=== PATIENT | male | born 1965 | race Caucasian/White ===

== ENCOUNTER 2017-02-24 07:43 | Outpatient (CLI) | payer MEDICARE | END 2017-02-24 23:59 | DX: Z13.9 Encounter for screening, unspecified (principal); Z79.899 Other long term (current) drug therapy; Z12.5 Encounter for screening for malignant neoplasm of prostate | CPT/HCPCS: 36415; 80053; 80061; 84443; 85025; G0103 ==

== ENCOUNTER 2017-07-08 08:02 | Emergency (ER) | payer MEDICARE, MEDICAID ==
[2017-07-08] MEDS ORDERED: KETOROLAC 60 MG/2 ML VIAL IM STA (08:35)
--- NOTE | 2017-07-08 08:38 | ED Physician Documentation ---
History of Present Illness - Stated complaint Stated Complaint: HIP PX - Chief complaint Chief Complaint: Ext Problem - Additonal information Additional information: hx from pt 51 amle hx arthritis in back and hips when is flares up he usually sees his PMD or an ER for toradol shot he has been walking more than normal recently and thinks that is what aggravated his pain pain is just like prior arthritis pain no injury no fever no chest or abd pain occ pain rad down one or other posterior thighs but not now no weakness or numbness no incont or urinary sx no IVDA or recent surgery or dental work Review of Systems Constitutional: denies: Fever, Chills Throat: denies: Sore throat Cardiac: denies: Chest pain / pressure Respiratory: denies: Dyspnea GI: denies: Abdominal Pain : denies: Incontinent Musculoskeletal: reports: Back pain Neurologic: denies: Focal weakness, Numbness Endocrine: denies: Easy bruising / bleeding Immunocompromised: denies: Immunocompromised PD PAST MEDICAL HISTORY - Past Medical History Past Medical History: Yes Cardiovascular: Peripheral Vascular Disease : Renal insuffiency Psych: Obsessive compulsive disorder, Other - Past Surgical History Past Surgical History: Yes - Present Medications Home Medications: Ambulatory Orders Medication Instructions Recorded Confirmed Benztropine [Cogentin] 2 mg PO BID 07/03/14 07/08/17 Pimozide [Orap] 2 mg PO BID 07/03/14 07/08/17 Buspirone HCl 10 mg PO TID 07/08/17 07/08/17 Lidocaine Patch 5% [Lidoderm Patch] 1 each TOP DAILY PRN #10 patch 07/08/17 Suvorexant [Belsomra] 10 mg PO DAILY 07/08/17 07/08/17 - Allergies Allergies/Adverse Reactions: Allergies Allergy/AdvReac Type Severity Reaction Status Date / Time No Known Drug Allergies Allergy Verified 07/03/14 11:46 - Social History Does the pt smoke?: Yes Smoking Status: Current every day smoker Does the pt drink ETOH?: No Does the pt have substance abuse?: Yes - Immunizations Immunizations are current?: Yes PD ED PE NORMAL - Vitals Vital signs reviewed: Yes - Neck Neck: Supple, no meningeal sign - Cardiac Cardiac: RRR - Respiratory Respiratory: No respiratory distress, Clear bilaterally - Abdomen Abdomen: Soft, Non tender, Other (no pulsatile mass) - Back Back: No spinal TTP, Other (no focal TTP swelling redness or warmth) - Derm Derm: Normal color - Extremities Extremities: Normal ROM s pain, Other (strong pedal pulses) - Neuro Neuro: Other (hip flex knee ext foot dorsi plantar and great toe ext all 5/5, nl senstion to legs, denies saddle anesthesia, neg SLR rashmi, patellar DTR 1+/4 4 rashmi, no clonus) Results - Vitals Vitals: Vital Signs - 24 hr 07/08/17 08:05 Temperature 36.2 C L Heart Rate 70 Respiratory 18 Rate Blood Pressure 127/89 H O2 Saturation 100 Oxygen O2 Source Room air PD MEDICAL DECISION MAKING - ED course ED course: back pain same as his prior arthritic back pain worse after inc activity with nl neuro exam and no red flags on hx given req toradol Departure - Departure Disposition: 01 Home, Self Care Clinical Impression: Arthritis Condition: Good Instructions: ED Low Back Pain Injury Follow-Up: Kenzie Cowan, [employer] [employer] [Primary Care Provider] - Prescriptions: Lidocaine Patch 5% [Lidoderm Patch] 1 each TOP DAILY PRN #10 patch PRN Reason: Pain Comments: Continue your usual medications You can try the lidocaine patches I prescribed - one patch up to 12 hr a day - for the back pain Follow up with your PDM as needed
[2017-07-08] MEDS ORDERED: KETOROLAC 60 MG/2 ML VIAL ONE (08:43)
[2017-07-08 09:23] VITALS: BP 116/72
== END 2017-07-08 09:23 | disposition home or self-care (01) ==
LOC: ED 08:02
DX: M16.0 Bilateral primary osteoarthritis of hip (principal); M47.9 Spondylosis, unspecified; I73.9 Peripheral vascular disease, unspecified; N28.9 Disorder of kidney and ureter, unspecified; F17.200 Nicotine dependence, unspecified, uncomplicated
CPT/HCPCS: 96372; 99283

== ENCOUNTER 2017-09-30 11:34 | Emergency (ER) | payer MEDICARE, MEDICAID ==
[2017-09-30] MEDS ORDERED: HYDROcod/ACETAM 5/325 MG TABLET PO STA (12:10)
--- NOTE | 2017-09-30 12:11 | ED Physician Documentation ---
PD HPI UPPER EXT INJURY - Stated complaint Stated Complaint: ARM INJURY - Chief complaint Chief Complaint: Ext Problem - History obtained from History obtained from: Patient - History of Present Illness Location: Other (Right-handed gentleman who tripped and fell yesterday, swung around and landed on his left wrist with moderate left wrist pain, no other injuries.) Review of Systems Constitutional: reports: Reviewed and negative Cardiac: reports: Reviewed and negative Respiratory: reports: Reviewed and negative PD PAST MEDICAL HISTORY - Past Medical History Cardiovascular: Peripheral Vascular Disease : Renal insuffiency Psych: Obsessive compulsive disorder, Other - Past Surgical History Past Surgical History: Yes - Present Medications Home Medications: Ambulatory Orders Medication Instructions Recorded Confirmed Benztropine [Cogentin] 2 mg PO BID 07/03/14 07/08/17 Pimozide [Orap] 2 mg PO BID 07/03/14 07/08/17 Buspirone HCl 10 mg PO TID 07/08/17 07/08/17 Lidocaine Patch 5% [Lidoderm Patch] 1 each TOP DAILY PRN #10 patch 07/08/17 Suvorexant [Belsomra] 10 mg PO DAILY 07/08/17 07/08/17 HYDROcod/ACETAM 5/325 [[place] 5/325] 1 - 2 ea PO Q6H PRN #10 tablet 09/30/17 - Allergies Allergies/Adverse Reactions: Allergies Allergy/AdvReac Type Severity Reaction Status Date / Time No Known Drug Allergies Allergy Verified 07/03/14 11:46 - Social History Does the pt smoke?: Yes Smoking Status: Current every day smoker Does the pt drink ETOH?: No Does the pt have substance abuse?: Yes - Immunizations Immunizations are current?: Yes PD ED PE NORMAL - Vitals Vital signs reviewed: Yes - General General: Alert and oriented X 3, No acute distress - Extremities Extremities: Other (Focally tender to the left distal radius and limited range of motion especially in extension due to pain. No deformity. Neurovascularly intact in the hand with good radial pulses. No elbow tenderness.) - Neuro Neuro: Alert and oriented X 3, Normal speech Results - Vitals Vitals: Vital Signs - 24 hr 09/30/17 11:40 Temperature 36.7 C Heart Rate 72 Respiratory 18 Rate Blood Pressure 155/101 H O2 Saturation 98 Oxygen O2 Source Room air - Rads (name of study) L forearm Radiology: EMP read contemporaneously (Very mildly impacted left distal radius intra-articular fracture) Procedures - Splint (location) L wrist Splint applied by: Tech Type of splint: Fiberglass, Long arm, Sugar tong Other: Patient tolerated well, No complications, Neurovascular intact, Sling provided Departure - Departure Disposition: 01 Home, Self Care Clinical Impression: Distal radius fracture, left Qualifiers: Encounter type: initial encounter Fracture type: closed Fracture morphology: other intra-articular Qualified Code(s): S52.572A - Other intraarticular fracture of lower end of left radius, initial encounter for closed fracture Condition: Good Record reviewed to determine appropriate education?: Yes Instructions: ED Fx Forearm Radius Ulna No Redu Requ Follow-Up: [facility] [Provider Group] - Within 1 week Prescriptions: HYDROcod/ACETAM 5/325 [[place] 5/325] 1 - 2 ea PO Q6H PRN #10 tablet PRN Reason: Pain Comments: Your blood pressure was elevated today on check into the emergency department. This does not mean that you have hypertension, it is a common phenomenon to come to the emergency department and have elevated blood pressure. I recommend that you see your primary care physician within the week to have it rechecked when you are feeling better. Do not drink or drive while taking narcotic pain medication. Note that many narcotic pain relievers also contain Tylenol/acetaminophen. Please ensure that your total dose of acetaminophen from all sources does not exceed 3 g (3000 mg) per day. You may get constipated while on this medication. Take a stool softener such as Colace twice a day while you are on it. Also add an [id number]-caeeopd laxative such as senna or MiraLAX on any day that you do not have a bowel movement. If you received a narcotic pain medication or sedative while in the emergency department, do not drive for the next 24 hours.
--- NOTE | 2017-09-30 12:17 | XRAY Preliminary Report ---
Exam: XR FOREARM LT IMPRESSION: 1. Nondisplaced intra-articular distal radial fracture. 2. Probable lunate cyst. [facility] SITE ID: [id number]
[2017-09-30] MEDS ORDERED: HYDROcod/ACETAM 5/325 MG TABLET ONE (12:21)
--- NOTE | 2017-09-30 12:21 | XRAY Report ---
EXAM: LEFT FOREARM RADIOGRAPHY EXAM DATE: 09/30/2017 11:58 AM. CLINICAL HISTORY: Left forearm injury. COMPARISON: None. TECHNIQUE: 2 views. FINDINGS: Bones: Nondisplaced, intra-articular fracture of the distal radius, involving at least the radial sty loid. No other definite fracture or acute bone lesions. Probable 7 mm cyst within the lunate. If furt her evaluation of these findings were indicated, dedicated views of the risk be obtained. Joints: Normal. No effusions or subluxations in the visualized wrist or elbow joints. Soft Tissues: Normal. No soft tissue swelling. IMPRESSION: 1. Nondisplaced intra-articular distal radial fracture. 2. Probable lunate cyst. [facility] Referring Provider Line: [phone] SITE ID: [id number]
[2017-09-30 12:37] VITALS: BP 137/88
== END 2017-09-30 12:42 | disposition home or self-care (01) ==
LOC: ED 11:34
DX: S52.572A Other intraarticular fracture of lower end of left radius, initial encounter for closed fracture (principal); W01.0XXA Fall on same level from slipping, tripping and stumbling without subsequent striking against object, initial encounter; R03.0 Elevated blood-pressure reading, without diagnosis of hypertension; I73.9 Peripheral vascular disease, unspecified; F17.200 Nicotine dependence, unspecified, uncomplicated
CPT/HCPCS: 29105; 73090; 99283; A9270

== ENCOUNTER 2017-10-20 09:07 | Emergency (ER) | payer MEDICARE, MEDICAID ==
[2017-10-20] MEDS ORDERED: ONDANSETRON ODT 4 MG TABLET TL STA (09:35)
--- NOTE | 2017-10-20 09:37 | ED Physician Documentation ---
History of Present Illness - Stated complaint Stated Complaint: FLU SYMPTOMS/METH USE - Chief complaint Chief Complaint: General - History obtained from History obtained from: Patient (pt is here for evalution of nuasea and not feeling well since yesterday afternoon. he states that he feels like he needs to vomit but has not. no diarrhea but states that he feels like he needs to. No chest pain, shortness of breath, no abd pain, no rashes. he states that he tinks that he smoked some "bad meth" yesterday. No fevers.) Review of Systems Constitutional: reports: Fatigue. denies: Fever, Chills, Myalgias Nose: denies: Rhinorrhea / runny nose, Congestion, Sinus pressure / pain Throat: denies: Sore throat Cardiac: denies: Chest pain / pressure, Palpitations, Pedal edema Respiratory: denies: Dyspnea, Cough, Wheezing GI: reports: Abdominal Swelling, Nausea. denies: Abdominal Pain, Vomiting, Constipation, Diarrhea, Bloody / black stool : denies: Dysuria, Frequency, Hematuria Skin: denies: Rash, Lesions Musculoskeletal: denies: Joint swelling, Pain with weight bearing Neurologic: denies: Generalized weakness, Focal weakness, Syncope, Altered mental status, Headache, LOC PD PAST MEDICAL HISTORY - Past Medical History Past Medical History: Yes Cardiovascular: Peripheral Vascular Disease : Renal insuffiency Psych: Obsessive compulsive disorder, Other - Past Surgical History Past Surgical History: Yes - Present Medications Home Medications: Ambulatory Orders Medication Instructions Recorded Confirmed Benztropine [Cogentin] 2 mg PO BID 07/03/14 10/20/17 Pimozide [Orap] 2 mg PO BID 07/03/14 10/20/17 Buspirone HCl 10 mg PO TID 07/08/17 10/20/17 Methocarbamol 500 mg PO TID 10/20/17 10/20/17 Ondansetron Odt [Zofran Odt] 4 mg TL Q6H PRN #10 tablet 10/20/17 - Allergies Allergies/Adverse Reactions: Allergies Allergy/AdvReac Type Severity Reaction Status Date / Time No Known Drug Allergies Allergy Verified 10/20/17 09:32 - Social History Does the pt smoke?: Yes Smoking Status: Current every day smoker Does the pt drink ETOH?: No Does the pt have substance abuse?: Yes Substance Use and Type: Meth - Immunizations Immunizations are current?: Yes PD ED PE NORMAL - Vitals Vital signs reviewed: Yes - General General: Alert and oriented X 3, No acute distress, Well developed/nourished - HEENT HEENT: Atraumatic, Moist mucous membranes - Cardiac Cardiac: RRR, No murmur, No gallop - Respiratory Respiratory: No respiratory distress, Clear bilaterally - Abdomen Abdomen: Soft, Non tender, Non distended - Derm Derm: Normal color, No rash - Extremities Extremities: No deformity, No edema - Neuro Neuro: Alert and oriented X 3 Eye Opening: Spontaneous Motor: Obeys Commands Verbal: Oriented GCS Score: 15 - Psych Psych: Normal mood, Normal affect Results - Vitals Vitals: Vital Signs - 24 hr 10/20/17 09:12 Temperature 36.8 C Heart Rate 97 Respiratory 18 Rate Blood Pressure 156/92 H O2 Saturation 99 Oxygen O2 Source Room air PD MEDICAL DECISION MAKING - ED course Complexity details: d/w patient ED course: pt with a benign exam. no fevers. doubt the flu which the pt is concerned about. will treat the nausea and give rx for zofran. Normal cardiac and lung exam. will hold on further testing for now. I suspect that his sx are from the meth from yesterday. we discussed this together. recommended that he stop the meth and he expressed understanding. Departure - Departure Disposition: 01 Home, Self Care Clinical Impression: Nausea, Substance abuse Condition: Good Instructions: ED Drug Abuse General, Nausea Vomit Control Follow-Up: Sushma Johnston ARNP [Primary Care Provider] - Prescriptions: Ondansetron Odt [Zofran Odt] 4 mg TL Q6H PRN #10 tablet PRN Reason: Nausea / Vomiting Comments: Recommend that you stop the meth use. Increase your fluid intake. Return to the ER for any new or worsening symptoms
[2017-10-20] MEDS ORDERED: ONDANSETRON ODT 4 MG TABLET ONE (09:45)
[2017-10-20 10:03] VITALS: BP 129/84
== END 2017-10-20 09:53 | disposition home or self-care (01) ==
LOC: ED 09:07
DX: R11.0 Nausea (principal); F15.10 Other stimulant abuse, uncomplicated; I73.9 Peripheral vascular disease, unspecified; F17.200 Nicotine dependence, unspecified, uncomplicated
CPT/HCPCS: 99283; Q0162

== ENCOUNTER 2017-11-06 13:01 | Outpatient (CLI) | payer MEDICARE, MEDICAID | END 2017-11-06 13:02 | disposition critical access hospital (66) | LOC: EMS 13:01 | PROVIDERS: ATTEND Surgery | DX: R45.851 Suicidal ideations (principal) | CPT/HCPCS: A0425; A0429 ==

== ENCOUNTER 2017-11-06 13:18 | Emergency (ER) | payer MEDICARE, MEDICAID ==
[2017-11-06 13:30] VITALS: BP 153/90
--- NOTE | 2017-11-06 13:47 | ED Physician Documentation ---
PD HPI MHE - Stated complaint Stated Complaint: MHE - Chief complaint Chief Complaint: MHE - History obtained from History obtained from: Patient, EMS - History of Present Illness Primary symptom: Suicidal ideation (vague without plan), Depression, Other ( also having cough with some wheezing. Having some pain in left wrist, which is healing fracture from 3 weeks ago. Has some swelling left elbow for past week without new injury. He had wrist splint but it is at other [facility] ([facility]).) Timing - onset: How many days ago (few days more depressed since losing space at [facility]. He is staying in vehicle or getting place at [employer].) Contributing factors: No: Substance abuse - ETOH, Substance abuse - drugs (he denies recent drug or alcohol use (months).) Recently seen: Emergency Dept (had wrist fracture few weeks ago and saw ortho in follow up but apparently did not like them so does not want to go back. Wrist is hurting as he left his splint in [facility]. Was using it most of the time.) Review of Systems Constitutional: denies: Fever, Chills Nose: reports: Congestion. denies: Rhinorrhea / runny nose Throat: denies: Sore throat Cardiac: denies: Chest pain / pressure Respiratory: reports: Dyspnea, Cough, Wheezing GI: denies: Abdominal Pain, Nausea, Vomiting, Diarrhea : denies: Dysuria, Frequency Skin: denies: Abrasion (s), Laceration (s) Musculoskeletal: reports: Extremity pain (left wrist healing fracture), Extremity swelling (left elbow bursal effusion) PD PAST MEDICAL HISTORY - Past Medical History Cardiovascular: Peripheral Vascular Disease : Renal insuffiency Psych: Obsessive compulsive disorder, Other - Past Surgical History Past Surgical History: Yes - Present Medications Home Medications: Ambulatory Orders Medication Instructions Recorded Confirmed Benztropine [Cogentin] 2 mg PO BID 07/03/14 11/06/17 Pimozide [Orap] 2 mg PO BID 07/03/14 11/06/17 Buspirone HCl 10 mg PO TID 07/08/17 11/06/17 Albuterol Sulf [Ventolin Hfa 1 - 2 puffs INH Q4HR PRN #1 inhaler 11/06/17 Inhaler] Dexamethasone [Decadron] 4 mg PO DAILY #5 tablet 11/06/17 - Allergies Allergies/Adverse Reactions: Allergies Allergy/AdvReac Type Severity Reaction Status Date / Time No Known Drug Allergies Allergy Verified 10/20/17 09:32 - Social History Does the pt smoke?: Yes Smoking Status: Current every day smoker Does the pt drink ETOH?: No Does the pt have substance abuse?: Yes - Immunizations Immunizations are current?: Yes PD ED PE NORMAL - Vitals Vital signs reviewed: Yes - General General: Alert and oriented X 3, Well developed/nourished - HEENT HEENT: Ears normal, Pharynx benign - Neck Neck: Supple, no meningeal sign, No adenopathy - Cardiac Cardiac: RRR, No murmur - Respiratory Respiratory: Clear bilaterally (mostly, with just mild wheezing during deep breath and cough. ) - Abdomen Abdomen: Soft, Non tender - Derm Derm: Normal color, Warm and dry - Extremities Extremities: Other (mild tender at left wrist with moderate ROM. No obvious deformity. Left elbow with small bursal effusion, not tender. No redness. ) - Neuro Neuro: Alert and oriented X 3, No motor deficit, Normal speech - Psych Psych: No: Normal affect (flat affect and depressed mood but denies current suicidal intent/plan. ) Results - Vitals Vitals: Oxygen O2 Source Room air - Labs Labs: Laboratory Tests 11/06/17 11/06/17 11/06/17 13:50 14:25 14:25 WBC 9.4 RBC 5.07 Hgb 15.8 Hct 45.5 MCV 89.8 MCH 31.2 H MCHC 34.8 RDW 13.1 Plt Count 280 MPV 8.9 Neut # 6.5 Lymph # 1.9 [place] # 0.6 Eos # 0.3 Baso # 0.1 Absolute Nucleated RBC 0.00 Nucleated RBC % 0.0 Sodium 139 Potassium 3.6 Chloride 99 L Carbon Dioxide 29 Anion Gap 11.0 BUN 13 Creatinine 0.9 Estimated GFR (MDRD) 88 L Glucose 135 H Calcium 9.7 TSH Salicylates < 6.0 Urine Opiates Screen NEGATIVE Ur Oxycodone Screen NEGATIVE Urine Methadone Screen NEGATIVE Ur Propoxyphene Screen NEGATIVE Acetaminophen < 10 L Ur Barbiturates Screen NEGATIVE Ur Tricyclics Screen NEGATIVE Ur Phencyclidine Scrn NEGATIVE Ur Amphetamine Screen NEGATIVE U Methamphetamines Scrn NEGATIVE U Benzodiazepines Scrn NEGATIVE Urine Cocaine Screen NEGATIVE U Cannabinoids Screen NEGATIVE Ethyl Alcohol < 5.0 11/06/17 14:25 WBC RBC Hgb Hct MCV MCH MCHC RDW Plt Count MPV Neut # Lymph # [place] # Eos # Baso # Absolute Nucleated RBC Nucleated RBC % Sodium Potassium Chloride Carbon Dioxide Anion Gap BUN Creatinine Estimated GFR (MDRD) Glucose Calcium TSH 1.51 Salicylates Urine Opiates Screen Ur Oxycodone Screen Urine Methadone Screen Ur Propoxyphene Screen Acetaminophen Ur Barbiturates Screen Ur Tricyclics Screen Ur Phencyclidine Scrn Ur Amphetamine Screen U Methamphetamines Scrn U Benzodiazepines Scrn Urine Cocaine Screen U Cannabinoids Screen Ethyl Alcohol - Rads (name of study) left elbow Radiology: Prelim report reviewed, EMP read contemporaneously (no fracture) left wrist Radiology: Prelim report reviewed, EMP read contemporaneously (healing fracture in adequate position. ) PD MEDICAL DECISION MAKING - ED course Complexity details: reviewed results, considered differential (brief eval by MADDY and patient is okay with follow up [place] counselor. Given splint for wrist, which appears okay early healing on xray. He wants to be sure to get to [facility] in [facility] to [facility] bed [facility]. ), d/w patient Departure - Departure Disposition: 01 Home, Self Care Clinical Impression: Effusion of bursa of left elbow, Depressed affect, Suicidal ideation, Cough Distal radius fracture, left Qualifiers: Encounter type: subsequent encounter Fracture type: closed Fracture morphology : unspecified fracture morphology Fracture healing: with routine healing Qualified Code(s): S52.502D - Unspecified fracture of the lower end of left radius, subsequent encounter for closed fracture with routine healing Condition: Stable Record reviewed to determine appropriate education?: Yes Follow-Up: Sushma Johnston ARNP [Primary Care Provider] - Prescriptions: Albuterol Sulf [Ventolin Hfa Inhaler] 1 - 2 puffs INH Q4HR PRN #1 inhaler PRN Reason: Shortness Of Air/Wheezing Dexamethasone [Decadron] 4 mg PO DAILY #5 tablet Comments: Continue your current medications. Follow-up with [place] counseling next week as planned. Call the crisis line if needed to have somebody to talk to. Use the albuterol inhaler 2 puffs 4 times a day for the next 7-10 days. Decadron is for inflammation of the airways and should help with breathing as well. Use a wrist splint to keep protecting the wrist. It does appear to be healing well on x-ray. There is no fracture of the elbow and so the fluid in the bursa is just from inflammation and should go down over time. Return as needed. Discharge Date/Time: 11/06/17 15:34
[2017-11-06] MEDS ORDERED: ACETAMINOPHEN 325 MG TABLET PO STA (13:55)
[2017-11-06 14:01] LABS: MUDS CUTOFF CONCENTRATIONS CUTOFF CONC BELOW:
[2017-11-06 14:15] LABS: AMPHETAMINE SCREEN,URINE NEGATIVE (NEGATIVE); BENZODIAZEPINES SCREEN, URINE NEGATIVE (NEGATIVE); COCAINE SCREEN URINE NEGATIVE (NEGATIVE); METHADONE SCREEN, URINE NEGATIVE (NEGATIVE); METHAMPHETAMINES SCREEN, URINE NEGATIVE (NEGATIVE); OPIATE SCREEN, URINE NEGATIVE (NEGATIVE); OXYCODONE SCREEN, URINE NEGATIVE (NEGATIVE); PROPOXYPHENE SCREEN, URINE NEGATIVE (NEGATIVE); TRICYCLIC ANTIDEPRESSANT,URINE NEGATIVE (NEGATIVE)
--- NOTE | 2017-11-06 14:29 | XRAY Report ---
EXAM: LEFT ELBOW RADIOGRAPHY EXAM DATE: 11/06/2017 02:17 PM. CLINICAL HISTORY: Fall a month ago, with injury. COMPARISON: None. TECHNIQUE: 3 views. FINDINGS: Bones: No fracture or focal bony lesion. Joints: No evidence of dislocation. Soft Tissues: There is mild dorsal soft tissue swelling. IMPRESSION: No evidence of fracture or dislocation. [facility] Referring Provider Line: [phone] SITE ID: [id number]
[2017-11-06 14:30] LABS: BASOPHILS # (AUTO) 0.1 10^3/uL (0.0-0.1); BASOPHILS % (AUTO) 0.6 %; EOSINOPHILS # (AUTO) 0.3 10^3/uL (0.0-0.7); EOSINOPHILS % (AUTO) 3.2 %; HGB - HEMOGLOBIN 15.8 g/dL (14.0-18.0); LYMPHOCYTES # (AUTO) 1.9 10^3/uL (1.5-3.5); LYMPHOCYTES % (AUTO) 20.6 %; MEAN CORPUSCULAR HEMOGLOBIN 31.2 pg (27.0-31.0); MEAN CORPUSCULAR HGB CONC 34.8 g/dL (32.0-36.0); MEAN CORPUSCULAR VOLUME 89.8 fL (80.0-94.0); MEAN PLATELET VOLUME 8.9 fL (7.4-11.4); MONOCYTES # (AUTO) 0.6 10^3/uL (0.0-1.0); MONOCYTES % (AUTO) 6.1 %; NEUTROPHILS # (AUTO) 6.5 10^3/uL (1.5-6.6); NEUTROPHILS % (AUTO) 69.5 %; PLT - PLATELET COUNT 280 10^3/uL (130-450); RED BLOOD COUNT 5.07 10^6/uL (4.70-6.10); RED CELL DISTRIBUTION WIDTH 13.1 % (12.0-15.0); WHITE BLOOD COUNT 9.4 x10^3/uL (4.8-10.8)
--- NOTE | 2017-11-06 14:31 | XRAY Report ---
EXAM: LEFT WRIST RADIOGRAPHY EXAM DATE: 11/06/2017 02:17 PM. CLINICAL HISTORY: Follow up wrist fracture. COMPARISON: 09/30/2017. TECHNIQUE: 3 views. FINDINGS: Bones: There is fracture through the distal left radius. The fracture line is less distinct than what was seen on the previous examination. Joints: Normal. No subluxations. Soft Tissues: Normal. No soft tissue swelling. IMPRESSION: Healing fracture through the distal left radius. No new bony abnormalities are seen. [facility] Referring Provider Line: [phone] SITE ID: [id number]
[2017-11-06 14:44] LABS: BUN - BLOOD UREA NITROGEN 13 mg/dL (6-20); CALCIUM 9.7 mg/dL (8.5-10.3); CARBON DIOXIDE - CO2 29 mmol/L (21-32); CHLORIDE 99 mmol/L (101-111); CREATININE 0.9 mg/dL (0.6-1.2); GFR - MDRD 88 (>89); GLUCOSE 135 mg/dL (70-100); SALICYLATE < 6.0 mg/dL; SODIUM 139 mmol/L (135-145)
[2017-11-06 14:45] LABS: ACETAMINOPHEN < 10 ug/mL (10-30)
== END 2017-11-06 15:34 | disposition home or self-care (01) ==
LOC: EDUNIT# → ED 13:18
DX: M25.422 Effusion, left elbow (principal); F32.9 Major depressive disorder, single episode, unspecified; R45.851 Suicidal ideations; R05 Cough; S52.502D Unspecified fracture of the lower end of left radius, subsequent encounter for closed fracture with routine healing; X58.XXXD Exposure to other specified factors, subsequent encounter; I73.9 Peripheral vascular disease, unspecified; N28.9 Disorder of kidney and ureter, unspecified; F17.200 Nicotine dependence, unspecified, uncomplicated
CPT/HCPCS: 36415; 73080; 73110; 80048; 80306; 80307; 84443; 85025; 99283; 99284; A9270; G0480; 80320; 80329

== ENCOUNTER 2017-12-29 12:00 | Outpatient (CLI) | payer MEDICARE, MEDICAID ==
--- NOTE | 2017-12-29 17:51 | XRAY Report ---
TWO VIEW CHEST: 12/29/2017 CLINICAL INDICATION: Cough, lethargy, wheezing. FINDINGS: Frontal and lateral views of the chest demonstrate a normal cardiac silhouette. The lungs are clear. No effusion or pneumothorax is present. IMPRESSION: NORMAL CHEST. TD: 12/29/2017 17:50
== END 2017-12-29 12:01 | disposition home or self-care (01) ==
LOC: DI 12:00
PROVIDERS: ATTEND Physician Assistant Medical
DX: R05 Cough (principal); Z20.1 Contact with and (suspected) exposure to tuberculosis; F17.210 Nicotine dependence, cigarettes, uncomplicated; R06.2 Wheezing
CPT/HCPCS: 71046

== ENCOUNTER 2018-01-20 11:30 | Outpatient (CLI) | payer MEDICARE, MEDICAID | END 2018-01-20 11:45 | disposition home or self-care (01) | LOC: RT.N 11:30 | PROVIDERS: ATTEND Physician Assistant Medical | DX: Z51.81 Encounter for therapeutic drug level monitoring (principal) | CPT/HCPCS: 93005 ==

== ENCOUNTER 2018-03-12 08:00 | Outpatient (CLI) | payer MEDICARE, MEDICAID ==
[2018-03-12 13:47] LABS: CALCIUM 8.8 mg/dL (8.5-10.3); CREATININE 0.8 mg/dL (0.6-1.2); MAGNESIUM 2.2 mg/dL (1.7-2.8)
[2018-03-12 14:16] LABS: BASOPHILS % (AUTO) 0.3 %; EOSINOPHILS # (AUTO) 0.2 10^3/uL (0.0-0.7); EOSINOPHILS % (AUTO) 1.7 %; HGB - HEMOGLOBIN 14.8 g/dL (14.0-18.0); LYMPHOCYTES % (AUTO) 20.5 %; MEAN CORPUSCULAR HEMOGLOBIN 30.1 pg (27.0-31.0); MEAN CORPUSCULAR HGB CONC 33.9 g/dL (32.0-36.0); MEAN CORPUSCULAR VOLUME 88.8 fL (80.0-94.0); MEAN PLATELET VOLUME 9.8 fL (7.4-11.4); MONOCYTES # (AUTO) 0.7 10^3/uL (0.0-1.0); MONOCYTES % (AUTO) 7.1 %; NEUTROPHILS # (AUTO) 6.9 10^3/uL (1.5-6.6); NEUTROPHILS % (AUTO) 70.4 %; PLT - PLATELET COUNT 245 10^3/uL (130-450); RED CELL DISTRIBUTION WIDTH 13.7 % (12.0-15.0); WHITE BLOOD COUNT 9.8 x10^3/uL (4.8-10.8)
== END 2018-03-12 08:01 | disposition home or self-care (01) ==
LOC: LAB.N 08:00
PROVIDERS: ATTEND Physician Assistant Medical
DX: Z51.81 Encounter for therapeutic drug level monitoring (principal); N18.2 Chronic kidney disease, stage 2 (mild)
CPT/HCPCS: 36415; 80048; 83735; 85025

== ENCOUNTER 2018-05-28 11:54 | Outpatient (CLI) | payer MEDICARE, MEDICAID ==
--- NOTE | 2018-05-28 13:17 | XRAY Report ---
Procedure Date: 05/28/2018 Accession Number: [id number] / [id number] Procedure: XR - Wrist 3 View LT CPT Code: FULL RESULT: EXAM: Wrist 3 View LT DATE: 05/28/2018 12:12 PM CLINICAL HISTORY: THUMB PX, L PX L WRIST, NONDISPLACED FX L COMPARISON: 11/06/2017. TECHNIQUE: 3 views. FINDINGS: Bones: Interval healing of the previously seen distal radial fracture with osseous bridging. No new fracture or dislocation. Joints: Normal. No subluxations. Soft Tissues: Normal. No soft tissue swelling. IMPRESSION: Healed left radial fracture. [facility]
== END 2018-05-28 11:55 | disposition home or self-care (01) ==
LOC: DI 11:54
PROVIDERS: ATTEND Physician Assistant Medical
DX: M79.645 Pain in left finger(s) (principal); M25.532 Pain in left wrist; M65.4 Radial styloid tenosynovitis [de Quervain]; S52.515S Nondisplaced fracture of left radial styloid process, sequela

== ENCOUNTER 2018-12-06 15:40 | Emergency (ER) | payer MEDICARE, MEDICAID | END 2018-12-06 15:50 | disposition left against medical advice (07) | LOC: ED 15:40 | DX: Z53.21 Procedure and treatment not carried out due to patient leaving prior to being seen by health care provider (principal) ==

== ENCOUNTER 2018-12-29 04:44 | Emergency (ER) | payer MEDICARE, MEDICAID ==
--- NOTE | 2018-12-29 04:58 | ED Physician Documentation ---
PD HPI URI - Stated complaint Stated Complaint: CONGESTION,SINUS PAIN - Chief complaint Chief Complaint: Resp - History obtained from History obtained from: Patient - History of Present Illness Timing - onset: How many days ago (2) Timing duration: Days Timing details: Gradual onset, Waxing and waning Pain level now: 4 (left hip and low back (chronic, usually takes diclofenac but has been out of this for several days)) Associated symptoms: Dry cough, Dyspnea. No: Fever, Chills, Sweats, Sore throat, Hemoptysis, Chest pain Improves by: Rest Worsened by: Activity Similar symptoms before: Diagnosis (asthma) Recently seen: Not recently seen - Additional information Additional information: c/o 2 days of V[employer] cough, dyspnea, wheezing. h/o asthma. Missed most recent appointment with PMD and thus is out of his albuterol. Has appointment 01/03 with PMD Review of Systems Constitutional: denies: Fever, Chills, Sweats Cardiac: reports: Reviewed and negative Respiratory: reports: Dyspnea, Cough, Wheezing GI: reports: Reviewed and negative Musculoskeletal: reports: Back pain (low back (chronic)), Joint pain (left hip (chronic)) PD PAST MEDICAL HISTORY - Past Medical History Cardiovascular: Peripheral Vascular Disease : Renal insuffiency Psych: Obsessive compulsive disorder, Other - Past Surgical History Past Surgical History: Yes - Present Medications Home Medications: Ambulatory Orders Medication Instructions Recorded Confirmed Benztropine [Cogentin] 2 mg PO BID 07/03/14 11/17/17 Pimozide [Orap] 2 mg PO BID 07/03/14 11/17/17 Buspirone HCl 10 mg PO TID 07/08/17 11/17/17 Albuterol Sulf [Ventolin Hfa 1 - 2 puffs INH Q4HR PRN #1 inhaler 11/06/17 11/17/17 Inhaler] Albuterol Sulf [Ventolin Hfa 1 - 2 puffs INH Q4HR PRN #1 inhaler 12/29/18 Inhaler] - Allergies Allergies/Adverse Reactions: Allergies Allergy/AdvReac Type Severity Reaction Status Date / Time No Known Drug Allergies Allergy Verified 12/29/18 04:51 - Social History Does the pt smoke?: Yes Smoking Status: Current every day smoker Does the pt drink ETOH?: No Does the pt have substance abuse?: Yes - Immunizations Immunizations are current?: Yes PD ED PE NORMAL - Vitals Vital signs reviewed: Yes - General General: Alert and oriented X 3, No acute distress, Well developed/nourished - Neck Neck: Supple, no meningeal sign - Cardiac Cardiac: RRR, No murmur - Respiratory Respiratory: No respiratory distress, Other (bilateral expiratory wheezing) - Derm Derm: No rash Results - Vitals Vitals: Vital Signs - 24 hr 12/29/18 12/29/18 12/29/18 04:45 05:22 06:28 Temperature 36.4 C L Heart Rate 92 87 76 Respiratory 18 18 20 Rate Blood Pressure 114/80 113/75 O2 Saturation 98 100 Oxygen O2 Source Room air PD MEDICAL DECISION MAKING - ED course Complexity details: re-evaluated patient, considered differential, d/w patient ED course: After duoneb, he reports significant improvement and lungs now have good aeration with trace end-expiratory wheezing at bilaterally. Also given toradol IM for his chronic hip and back pain. Departure - Departure Disposition: 01 Home, Self Care Clinical Impression: Bronchitis with bronchospasm Condition: Good Instructions: ED Bronchitis Asthmatic Follow-Up: George Chatterjee PA-C [Primary Care Provider] - Prescriptions: Albuterol Sulf [Ventolin Hfa Inhaler] 1 - 2 puffs INH Q4HR PRN #1 inhaler PRN Reason: Shortness Of Air/Wheezing Discharge Date/Time: 12/29/18 06:34
[2018-12-29] MEDS ORDERED: IPRATROPIUM/ALBUTEROL 3 ML NEB INH STA (05:12)
[2018-12-29] MEDS ORDERED: KETOROLAC 60 MG/2 ML VIAL IM STA (05:13)
[2018-12-29 06:31] VITALS: BP 113/75
== END 2018-12-29 06:34 | disposition home or self-care (01) ==
LOC: ED 04:44
DX: J20.9 Acute bronchitis, unspecified (principal); I73.9 Peripheral vascular disease, unspecified; F17.200 Nicotine dependence, unspecified, uncomplicated
CPT/HCPCS: 94640; 96372; 99283

== ENCOUNTER 2019-01-27 13:24 | Outpatient (CLI) | payer MEDICARE, MEDICAID ==
--- NOTE | 2019-01-27 15:48 | XRAY Report ---
Reason: ELBOW PAIN,RIGHT Procedure Date: 01/27/2019 Accession Number: [id number] / [id number] Procedure: XRN - Elbow 2 View RT CPT Code: FULL RESULT: EXAM: RIGHT ELBOW RADIOGRAPHY EXAM DATE: 01/27/2019 01:34 PM. CLINICAL HISTORY: Lifting injury 12 hours ago. COMPARISON: None. TECHNIQUE: 2 views. FINDINGS: Bones: Normal. No fractures or bone lesions. Joints: Normal. No effusion. No subluxation. Soft Tissues: Normal. No soft tissue swelling. IMPRESSION: Normal elbow radiography. [facility]
== END 2019-01-27 13:25 | disposition home or self-care (01) ==
LOC: DI.N 13:24
PROVIDERS: ATTEND Physician Assistant Medical
DX: M25.521 Pain in right elbow (principal)

== ENCOUNTER 2019-06-16 20:47 | Outpatient (CLI) | payer MEDICARE, MEDICAID | END 2019-06-16 20:48 | disposition critical access hospital (66) | LOC: EMS 20:47 | PROVIDERS: ATTEND Surgery | DX: R45.851 Suicidal ideations (principal) | CPT/HCPCS: A0425; A0429 ==

== ENCOUNTER 2019-06-16 21:00 | Emergency (ER) | payer MEDICARE, MEDICAID ==
[2019-06-16 21:23] LABS: MUDS CUTOFF CONCENTRATIONS CUTOFF CONC BELOW:
[2019-06-16 21:25] LABS: BILIRUBIN,URINE NEGATIVE (NEGATIVE); CLARITY,URINE CLEAR (CLEAR); GLUCOSE, URINE (UA) 250 mg/dL (NEGATIVE); KETONES,URINE (UA) TRACE mg/dL (NEGATIVE); LEUKOCYTE ESTERASE, URINE NEGATIVE (NEGATIVE); NITRITE,URINE NEGATIVE (NEGATIVE); OCCULT BLOOD,URINE NEGATIVE (NEGATIVE); PROTEIN,URINE NEGATIVE (NEGATIVE); UROBILINOGEN,URINE 0.2 (NORMAL) E.U./dL (NORMAL)
[2019-06-16 21:30] LABS: BASOPHILS # (AUTO) 0.1 10^3/uL (0.0-0.1); BASOPHILS % (AUTO) 0.5 %; EOSINOPHILS # (AUTO) 0.5 10^3/uL (0.0-0.7); EOSINOPHILS % (AUTO) 4.9 %; LYMPHOCYTES # (AUTO) 2.8 10^3/uL (1.5-3.5); LYMPHOCYTES % (AUTO) 29.7 %; MEAN CORPUSCULAR HEMOGLOBIN 31.1 pg (27.0-31.0); MEAN CORPUSCULAR HGB CONC 34.5 g/dL (32.0-36.0); MEAN CORPUSCULAR VOLUME 90.1 fL (80.0-94.0); MEAN PLATELET VOLUME 10.7 fL (7.4-11.4); MONOCYTES # (AUTO) 0.7 10^3/uL (0.0-1.0); MONOCYTES % (AUTO) 6.9 %; NEUTROPHILS # (AUTO) 5.4 10^3/uL (1.5-6.6); NEUTROPHILS % (AUTO) 57.7 %; PLT - PLATELET COUNT 301 10^3/uL (130-450); RED BLOOD COUNT 4.83 10^6/uL (4.70-6.10); RED CELL DISTRIBUTION WIDTH 12.4 % (12.0-15.0); WHITE BLOOD COUNT 9.4 x10^3/uL (4.8-10.8)
[2019-06-16 21:35] LABS: AMPHETAMINE SCREEN,URINE POSITIVE (NEGATIVE); BENZODIAZEPINES SCREEN, URINE NEGATIVE (NEGATIVE); COCAINE SCREEN URINE NEGATIVE (NEGATIVE); METHADONE SCREEN, URINE NEGATIVE (NEGATIVE); METHAMPHETAMINES SCREEN, URINE POSITIVE (NEGATIVE); OPIATE SCREEN, URINE NEGATIVE (NEGATIVE); OXYCODONE SCREEN, URINE NEGATIVE (NEGATIVE); PROPOXYPHENE SCREEN, URINE NEGATIVE (NEGATIVE); TRICYCLIC ANTIDEPRESSANT,URINE NEGATIVE (NEGATIVE)
[2019-06-16 21:41] LABS: ACETAMINOPHEN < 10 ug/mL (10-30); ALBUMIN 4.2 g/dL (3.2-5.5); ALBUMIN/GLOBULIN RATIO 1.4 (1.0-2.2); ALKALINE PHOSPHATASE 91 IU/L (42-121); ALT ALANINE AMINOTRANSFERASE 18 IU/L (10-60); AST ASPARTATE AMINOTRANSFERASE 22 IU/L (10-42); BILIRUBIN,TOTAL 0.4 mg/dL (0.2-1.0); BUN - BLOOD UREA NITROGEN 18 mg/dL (6-20); CALCIUM 9.2 mg/dL (8.5-10.3); CARBON DIOXIDE - CO2 22 mmol/L (21-32); CHLORIDE 106 mmol/L (101-111); CREATININE 1.1 mg/dL (0.6-1.2); GFR - MDRD 69 (>89); GLUCOSE 196 mg/dL (70-100); LIPASE 29 U/L (22-51); SALICYLATE < 6.0 mg/dL; SODIUM 142 mmol/L (135-145); TOTAL PROTEIN 7.3 g/dL (6.7-8.2)
--- NOTE | 2019-06-16 22:03 | ED Physician Documentation ---
PD HPI MHE - Stated complaint Stated Complaint: SI - Chief complaint Chief Complaint: MHE - History obtained from History obtained from: Patient - History of Present Illness Primary symptom: Suicidal ideation, Anxiety Timing - onset: How many hours ago (1-2), Today Contributing factors: Substance abuse - drugs (He states he does have occasional meth use with the last time being 4 days ago. He feels that he lives in the wrong neighborhood because the surrounding people all are drug users.), Other (He states he has an acquaintance and that person's girlfriend staying with him at his apartment. He was having disagreement with them and apparently there were doing some drug use. He was concerned about losing his section 8 housing privileges and so called the police on them. This made him quite nervous and anxious and he did have some worry that he was going to have suicidal ideation. The police suggested he come in for evaluation. On route he is feeling more relaxed and here he states he has some residual anxiety and is requesting an Ativan. Otherwise he denies any suicidal ideation at this time.) Similar symptoms before: Diagnosis (He states he does have a history of schizoaffective disorder and anxiety and has had suicide gestures with overdoses in the past. 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 denies: Suicidal, Delusions, Insomnia PD PAST MEDICAL HISTORY - Past Medical History Past Medical History: Yes Cardiovascular: Peripheral Vascular Disease Endocrine/Autoimmune: Type 2 diabetes : Renal insuffiency Psych: Obsessive compulsive disorder, Other - Past Surgical History Past Surgical History: Yes - Present Medications Home Medications: Ambulatory Orders Medication Instructions Recorded Confirmed Benztropine [Cogentin] 2 mg PO BID 07/03/14 11/17/17 Pimozide [Orap] 2 mg PO BID 07/03/14 11/17/17 Buspirone HCl 10 mg PO TID 08/30/17 01/09/18 Albuterol Sulf [Ventolin Hfa 1 - 2 puffs INH Q4HR PRN #1 inhaler 11/06/17 11/17/17 Inhaler] Albuterol Sulf [Ventolin Hfa 1 - 2 puffs INH Q4HR PRN #1 inhaler 12/29/18 Inhaler] - Allergies Allergies/Adverse Reactions: Allergies Allergy/AdvReac Type Severity Reaction Status Date / Time No Known Drug Allergies Allergy Verified 06/16/19 21:14 - Social History Does the pt smoke?: Yes Smoking Status: Current every day smoker Does the pt drink ETOH?: No Does the pt have substance abuse?: Yes - Immunizations Immunizations are current?: Yes PD ED PE NORMAL - Vitals Vital signs reviewed: Yes - General General: Alert and oriented X 3, No acute distress, Well developed/nourished - HEENT HEENT: Atraumatic - Neck Neck: Supple, no meningeal sign, No adenopathy - Cardiac Cardiac: RRR, No murmur - Respiratory Respiratory: Clear bilaterally - Abdomen Abdomen: Soft, Non tender - Derm Derm: Normal color, Warm and dry - Neuro Neuro: Alert and oriented X 3, No motor deficit, Normal speech Eye Opening: Spontaneous Motor: Obeys Commands Verbal: Oriented GCS Score: 15 - Psych Psych: Normal mood. No: Normal affect (slightly anxious but pleasant) Results - Vitals Vitals: Vital Signs - 24 hr 06/16/19 06/16/19 21:08 23:15 Temperature 36.9 C Heart Rate 88 86 Respiratory 18 16 Rate Blood Pressure 142/99 H 134/68 H O2 Saturation 98 100 Oxygen O2 Source Room air - Labs Labs: Laboratory Tests 06/16/19 06/16/19 06/16/19 21:12 21:19 21:19 WBC 9.4 RBC 4.83 Hgb 15.0 Hct 43.5 MCV 90.1 MCH 31.1 H MCHC 34.5 RDW 12.4 Plt Count 301 MPV 10.7 Neut # (Auto) 5.4 Lymph # (Auto) 2.8 [place] # (Auto) 0.7 Eos # (Auto) 0.5 Baso # (Auto) 0.1 Absolute Nucleated RBC 0.00 Nucleated RBC % 0.0 Sodium 142 Potassium 3.8 Chloride 106 Carbon Dioxide 22 Anion Gap 14.0 H BUN 18 Creatinine 1.1 Estimated GFR (MDRD) 69 L Glucose 196 H Calcium 9.2 Total Bilirubin 0.4 AST 22 ALT 18 Alkaline Phosphatase 91 Total Protein 7.3 Albumin 4.2 Globulin 3.1 Albumin/Globulin Ratio 1.4 Lipase 29 TSH Urine Color YELLOW Urine Clarity CLEAR Urine pH 5.0 Ur Specific [place] >=1.030 H Urine Protein NEGATIVE Urine Glucose (UA) 250 H Urine Ketones TRACE Urine Occult Blood NEGATIVE Urine Nitrite NEGATIVE Urine Bilirubin NEGATIVE Urine Urobilinogen 0.2 (NORMAL) Ur Leukocyte Esterase NEGATIVE Ur Microscopic Review NOT INDICATED Urine Culture Comments NOT INDICATED Salicylates < 6.0 Urine Opiates Screen NEGATIVE Ur Oxycodone Screen NEGATIVE Urine Methadone Screen NEGATIVE Ur Propoxyphene Screen NEGATIVE Acetaminophen < 10 L Ur Barbiturates Screen NEGATIVE Ur Tricyclics Screen NEGATIVE Ur Phencyclidine Scrn NEGATIVE Ur Amphetamine Screen POSITIVE H U Methamphetamines Scrn POSITIVE H U Benzodiazepines Scrn NEGATIVE Urine Cocaine Screen NEGATIVE U Cannabinoids Screen NEGATIVE Ethyl Alcohol < 5.0 06/16/19 21:19 WBC RBC Hgb Hct MCV MCH MCHC RDW Plt Count MPV Neut # (Auto) Lymph # (Auto) [place] # (Auto) Eos # (Auto) Baso # (Auto) Absolute Nucleated RBC Nucleated RBC % Sodium Potassium Chloride Carbon Dioxide Anion Gap BUN Creatinine Estimated GFR (MDRD) Glucose Calcium Total Bilirubin AST ALT Alkaline Phosphatase Total Protein Albumin Globulin Albumin/Globulin Ratio Lipase TSH 6.24 H Urine Color Urine Clarity Urine pH Ur Specific [place] Urine Protein Urine Glucose (UA) Urine Ketones Urine Occult Blood Urine Nitrite Urine Bilirubin Urine Urobilinogen Ur Leukocyte Esterase Ur Microscopic Review Urine Culture Comments Salicylates Urine Opiates Screen Ur Oxycodone Screen Urine Methadone Screen Ur Propoxyphene Screen Acetaminophen Ur Barbiturates Screen Ur Tricyclics Screen Ur Phencyclidine Scrn Ur Amphetamine Screen U Methamphetamines Scrn U Benzodiazepines Scrn Urine Cocaine Screen U Cannabinoids Screen Ethyl Alcohol PD MEDICAL DECISION MAKING - ED course Complexity details: re-evaluated patient (The patient remains calm and relaxed here in the ER. He denies any suicidal ideation. He feels comfortable going home and promises not to hurt himself.), considered differential (Sounds like a stress reaction and he was anxious at the time. He states he is feeling calmer now and denies any suicidal ideation here. He has an appoint with his counselor in the morning and feels he will be safe until then. He promises not to hurt himself. He promises not to use any meth (last use was 4 days ago.), d/w patient Departure - Departure Disposition: 01 Home, Self Care Clinical Impression: Suicidal ideation, Stress response, Depressed affect Condition: Stable Record reviewed to determine appropriate education?: Yes Instructions: ED Stress React, ED Depression Comments: You promised not to hurt yourself. Call the crisis line if you do feel anxious and needs someone to talk to. Call the ambulance to return here if you feel you need. Follow-up with your counselor tomorrow morning as planned. Continue usual medications. Avoid recreational drugs. Discharge Date/Time: 06/16/19 23:15
[2019-06-16] MEDS ORDERED: LORazepam 1 MG TABLET PO STA (22:11)
[2019-06-16 23:15] VITALS: BP 134/68
== END 2019-06-16 23:15 | disposition home or self-care (01) ==
LOC: EDUNIT# → ED 21:00
DX: F32.9 Major depressive disorder, single episode, unspecified (principal); F41.9 Anxiety disorder, unspecified; R45.851 Suicidal ideations; F43.9 Reaction to severe stress, unspecified; E11.51 Type 2 diabetes mellitus with diabetic peripheral angiopathy without gangrene; F17.200 Nicotine dependence, unspecified, uncomplicated
CPT/HCPCS: 36415; 81003; 83690; 99283; 99284; J8499; 80053; 80306; 80307; 80320; 80329; 81001; 84443; 85025; 87086

== ENCOUNTER 2020-01-02 10:56 | Emergency (ER) | payer MEDICARE, MEDICAID ==
[2020-01-02 11:08] VITALS: BP 154/95
--- NOTE | 2020-01-02 13:02 | ED Physician Documentation ---
History of Present Illness - Stated complaint Stated Complaint: MOUTH PX - Chief complaint Chief Complaint: Wound - History obtained from History obtained from: Patient - History of Present Illness Timing: Yesterday Pain level max: 2 Pain level now: 2 - Additonal information Additional information: upper lip swelling x 2 days, states squeezed this morning and pus came out. No fevers. No chills. Nothing makes it better or worse. Has not been on any Antibiotics recently. Denies any injury. Review of Systems Constitutional: denies: Fever, Chills GI: denies: Vomiting, Diarrhea Skin: denies: Rash Musculoskeletal: denies: Neck pain, Back pain Neurologic: denies: Headache PD PAST MEDICAL HISTORY - Past Medical History Past Medical History: Yes Cardiovascular: Peripheral Vascular Disease Endocrine/Autoimmune: Type 2 diabetes : Renal insuffiency Psych: Obsessive compulsive disorder, Other - Past Surgical History Past Surgical History: Yes - Present Medications Home Medications: Ambulatory Orders Medication Instructions Recorded Confirmed Benztropine [Cogentin] 2 mg PO BID 07/03/14 11/17/17 Pimozide [Orap] 2 mg PO BID 07/03/14 11/17/17 Albuterol Sulf [Ventolin Hfa 1 - 2 puffs INH Q4HR PRN #1 inhaler 11/06/17 11/17/17 Inhaler] Cephalexin [Keflex] 500 mg PO Q6H #28 capsule 01/02/20 Sulfamethox/Trimeth 800/160 1 each PO BID #14 tablet 01/02/20 [Bactrim Ds 800/160] - Allergies Allergies/Adverse Reactions: Allergies Allergy/AdvReac Type Severity Reaction Status Date / Time fluoxetine [From Prozac] Allergy Nausea Verified 01/02/20 11:08 mirtazapine Allergy Nausea Verified 01/02/20 11:08 - Social History Does the pt smoke?: Yes Smoking Status: Current every day smoker Does the pt drink ETOH?: No Does the pt have substance abuse?: Yes - Immunizations Immunizations are current?: Yes PD ED PE NORMAL - Vitals Vital signs reviewed: Yes - General General: Alert and oriented X 3, No acute distress - HEENT HEENT: PERRL, Moist mucous membranes, Other (mild swelling upper lip, no drainage. induration without fluctuance.) - Neck Neck: Supple, no meningeal sign - Cardiac Cardiac: RRR - Respiratory Respiratory: No respiratory distress, Clear bilaterally - Derm Derm: Warm and dry - Neuro Neuro: Alert and oriented X 3 - Psych Psych: Normal mood, Normal affect Results - Vitals Vitals: Vital Signs - 24 hr 01/02/20 11:04 Temperature 37 C Heart Rate 87 Respiratory 18 Rate Blood Pressure 154/95 H O2 Saturation 98 Oxygen O2 Source Room air PD MEDICAL DECISION MAKING - ED course Complexity details: considered differential, d/w patient ED course: Patient with a cellulitis, possible very early abscess to the upper lip. Induration present, but no fluctuance. We will trial on antibiotics first and see how he progresses. Mild swelling to the lip. No fever. Patient counseled regarding signs and symptoms for which I believe and urgent re-evaluation would be necessary. Patient with good understanding of and agreement to plan and is comfortable going home at this time This document was made in part using voice recognition software. While efforts are made to proofread this document, sound alike and grammatical errors may occur. Departure - Departure Disposition: 01 Home, Self Care Clinical Impression: Abscess Cellulitis Qualifiers: Site of cellulitis: unspecified site Qualified Code(s): L03.90 - Cellulitis, unspecified Condition: Good Instructions: ED Staph Infec Abx Tx Only, ED Infec Skin Cellulitis Follow-Up: George Chatterjee PA-C [Primary Care Provider] - Within 3 Days Prescriptions: Cephalexin [Keflex] 500 mg PO Q6H #28 capsule Sulfamethox/Trimeth 800/160 [Bactrim Ds 800/160] 1 each PO BID #14 tablet Comments: Take all antibiotics until gone. Return if you worsen. This may require drainage in the future, but does not need drainage today. Discharge Date/Time: 01/02/20 13:30
== END 2020-01-02 13:30 | disposition home or self-care (01) ==
LOC: ED 10:56
DX: E11.29 Type 2 diabetes mellitus with other diabetic kidney complication (principal); F17.200 Nicotine dependence, unspecified, uncomplicated; K12.2 Cellulitis and abscess of mouth
CPT/HCPCS: 99282; 99284

== ENCOUNTER 2020-01-06 19:43 | Emergency (ER) | payer MEDICARE, MEDICAID ==
--- NOTE | 2020-01-06 20:27 | ED Physician Documentation ---
PD HPI HEENT - Stated complaint Stated Complaint: UPPER LIP SWELLING/REDNESS - Chief complaint Chief Complaint: Wound - History obtained from History obtained from: Patient - History of Present Illness Timing - onset: How many weeks ago (1) Timing - details: Gradual onset Location: Other (upper lip) Associated symptoms: Facial swelling. No: Fever Recently seen: Emergency Dept - Additional information Additional information: c/o gradual onset, gradually worsening upper lip redness, swelling, and pain. denies injury, believed it might have started with an ingrown hair. T+R from this ED 01/02, rx bactrim and keflex. followed up with PMD 2 days ago, no change in rx. Review of Systems Constitutional: denies: Fever Skin: reports: Rash PD PAST MEDICAL HISTORY - Past Medical History Cardiovascular: Peripheral Vascular Disease Endocrine/Autoimmune: Type 2 diabetes : Renal insuffiency Psych: Obsessive compulsive disorder, Other - Past Surgical History Past Surgical History: Yes - Present Medications Home Medications: Ambulatory Orders Medication Instructions Recorded Confirmed Benztropine [Cogentin] 2 mg PO BID 07/03/14 11/17/17 Pimozide [Orap] 2 mg PO BID 07/03/14 11/17/17 Albuterol Sulf [Ventolin Hfa 1 - 2 puffs INH Q4HR PRN #1 inhaler 11/06/17 11/17/17 Inhaler] Cephalexin [Keflex] 500 mg PO Q6H #28 capsule 01/02/20 Sulfamethox/Trimeth 800/160 1 each PO BID #14 tablet 01/02/20 [Bactrim Ds 800/160] Clindamycin HCl [Clindamycin 300MG 300 mg PO Q6H #28 capsule 01/06/20 CAP] - Allergies Allergies/Adverse Reactions: Allergies Allergy/AdvReac Type Severity Reaction Status Date / Time fluoxetine [From Prozac] Allergy Nausea Verified 01/06/20 19:53 mirtazapine Allergy Nausea Verified 01/06/20 19:53 - Social History Does the pt smoke?: Yes Smoking Status: Current every day smoker Does the pt drink ETOH?: No Does the pt have substance abuse?: Yes - Immunizations Immunizations are current?: Yes PD ED PE NORMAL - Vitals Vital signs reviewed: Yes - General General: Alert and oriented X 3, No acute distress, Well developed/nourished - HEENT HEENT: Moist mucous membranes, Other (upper lip is swollen, erythematous, with small area of fluctuance midline (philtrim) and active purulent drainage from this area) Results - Vitals Vitals: Oxygen O2 Source Room air - Labs Labs: Microbiology 01/06/20 20:35 Wound Culture - Preliminary Abscess Staphylococcus Aureus PD MEDICAL DECISION MAKING - ED course Complexity details: considered differential, d/w patient ED course: I was able to express pus with gentle pressure. I recommended I+D but patient says he is too apprehensive about this and thus declines. Departure - Departure Disposition: 01 Home, Self Care Clinical Impression: Cellulitis Condition: Good Instructions: ED Cellulitis Facial Follow-Up: George Chatterjee PA-C [Primary Care Provider] - Within 3 Days Prescriptions: Clindamycin HCl [Clindamycin 300MG CAP] 300 mg PO Q6H #28 capsule Comments: CONTINUE THE BACTRIM (sulfa/trimeth) that was prescribed on Thursday. DISCONTINUE THE KEFLEX (cephalexin). START TAKING THE CLINDAMYCIN (in addition to the sulfa/trimeth) that was prescribed tonight. Discharge Date/Time: 01/06/20 21:29
[2020-01-06] MEDS ORDERED: CLINDAMYCIN 150 MG CAPSULE PO STA (20:49)
[2020-01-06 21:32] VITALS: BP 117/83
== END 2020-01-06 21:29 | disposition home or self-care (01) ==
LOC: ED 19:43
DX: K13.0 Diseases of lips (principal); L03.211 Cellulitis of face; E11.51 Type 2 diabetes mellitus with diabetic peripheral angiopathy without gangrene; F17.200 Nicotine dependence, unspecified, uncomplicated
CPT/HCPCS: 87070; 87181; 87205; 99283; A9270

== ENCOUNTER 2020-03-02 04:54 | Outpatient (CLI) | payer MEDICARE, MEDICAID | END 2020-03-02 04:55 | disposition critical access hospital (66) | LOC: EMS 04:54 | PROVIDERS: ATTEND Surgery | DX: R10.13 Epigastric pain (principal) | CPT/HCPCS: A0425; A0429 ==

== ENCOUNTER 2020-03-02 05:07 | Emergency (ER) | payer MEDICARE, MEDICAID ==
--- NOTE | 2020-03-02 06:11 | ED Physician Documentation ---
<Monster Chan - Last Filed: 03/02/20 06:11> PD HPI ABD PAIN - Stated complaint Stated Complaint: ABD PAIN - Chief complaint Chief Complaint: Abd Pain PD PAST MEDICAL HISTORY - Past Medical History Past Medical History: Yes Cardiovascular: Peripheral Vascular Disease Endocrine/Autoimmune: Type 2 diabetes : Renal insuffiency Psych: Obsessive compulsive disorder, Other Other Past Medical History: Turets - Past Surgical History Past Surgical History: Yes - Present Medications Home Medications: Ambulatory Orders Medication Instructions Recorded Confirmed Benztropine [Cogentin] 2 mg PO BID 07/03/14 03/02/20 Pimozide [Orap] 2 mg PO BID 07/03/14 03/02/20 Albuterol Sulf [Ventolin Hfa 1 - 2 puffs INH Q4HR PRN #1 inhaler 11/06/17 03/02/20 Inhaler] - Allergies Allergies/Adverse Reactions: Allergies Allergy/AdvReac Type Severity Reaction Status Date / Time fluoxetine [From Prozac] Allergy Nausea Verified 03/02/20 05:36 mirtazapine Allergy Nausea Verified 03/02/20 05:36 erythromycin base AdvReac Unknown Verified 03/02/20 05:36 - Social History Does the pt smoke?: Yes Smoking Status: Current every day smoker Does the pt drink ETOH?: No Does the pt have substance abuse?: Yes - Immunizations Immunizations are current?: Yes - POLST Patient has POLST: No <Gonzalo King - Last Filed: 03/02/20 08:35> Results - Vitals Vitals: Vital Signs - 24 hr 03/02/20 03/02/20 03/02/20 05:10 06:44 07:15 Temperature 37.7 C H Heart Rate 120 H 91 90 Respiratory 17 16 18 Rate Blood Pressure 155/99 H 126/91 H 142/86 H O2 Saturation 97 97 100 Oxygen O2 Source Room air - Labs Labs: Laboratory Tests 03/02/20 03/02/20 03/02/20 06:30 06:30 06:30 WBC 17.0 H RBC 5.13 Hgb 16.0 Hct 46.3 MCV 90.3 MCH 31.2 H MCHC 34.6 RDW 12.5 Plt Count 302 MPV 10.9 Neut # (Auto) 13.6 H Lymph # (Auto) 1.6 [place] # (Auto) 1.3 H Eos # (Auto) 0.2 Baso # (Auto) 0.1 Absolute Nucleated RBC 0.00 Nucleated RBC % 0.0 Sodium 134 L Potassium 3.4 L Chloride 96 L Carbon Dioxide 27 Anion Gap 11.0 BUN 13 Creatinine 0.8 Estimated GFR (MDRD) 100 Glucose 256 H Lactic Acid Calcium 9.0 Total Bilirubin 1.1 H AST 17 ALT 17 Alkaline Phosphatase 114 Total Protein 8.0 Albumin 4.0 Globulin 4.0 Albumin/Globulin Ratio 1.0 Lipase 205 H Urine Color YELLOW Urine Clarity CLEAR Urine pH 6.0 Ur Specific [place] 1.020 Urine Protein TRACE Urine Glucose (UA) >=1000 H Urine Ketones 40 H Urine Occult Blood NEGATIVE Urine Nitrite NEGATIVE Urine Bilirubin NEGATIVE Urine Urobilinogen 0.2 (NORMAL) Ur Leukocyte Esterase NEGATIVE Ur Microscopic Review NOT INDICATED Urine Culture Comments NOT INDICATED 03/02/20 07:06 WBC RBC Hgb Hct MCV MCH MCHC RDW Plt Count MPV Neut # (Auto) Lymph # (Auto) [place] # (Auto) Eos # (Auto) Baso # (Auto) Absolute Nucleated RBC Nucleated RBC % Sodium Potassium Chloride Carbon Dioxide Anion Gap BUN Creatinine Estimated GFR (MDRD) Glucose Lactic Acid 1.3 Calcium Total Bilirubin AST ALT Alkaline Phosphatase Total Protein Albumin Globulin Albumin/Globulin Ratio Lipase Urine Color Urine Clarity Urine pH Ur Specific [place] Urine Protein Urine Glucose (UA) Urine Ketones Urine Occult Blood Urine Nitrite Urine Bilirubin Urine Urobilinogen Ur Leukocyte Esterase Ur Microscopic Review Urine Culture Comments - Rads (name of study) CT w Radiology: Prelim report reviewed (Impression: No bowel obstruction identified. There are a few air-fluid levels within nondilated small bowel in the midabdomen nonspecific and without discrete evidence of ileus at this time. IVC stent in place, which appears patent on the current study.), EMP read indepedently, See rad report
[2020-03-02] MEDS ORDERED: SODIUM CHLORIDE 0.9% 1,000 ML IV STA (06:27)
[2020-03-02 06:51] LABS: BILIRUBIN,URINE NEGATIVE (NEGATIVE); GLUCOSE, URINE (UA) >=1000 mg/dL (NEGATIVE); KETONES,URINE (UA) 40 mg/dL (NEGATIVE); LEUKOCYTE ESTERASE, URINE NEGATIVE (NEGATIVE); NITRITE,URINE NEGATIVE (NEGATIVE); OCCULT BLOOD,URINE NEGATIVE (NEGATIVE); PROTEIN,URINE TRACE mg/dL (NEGATIVE); UROBILINOGEN,URINE 0.2 (NORMAL) E.U./dL (NORMAL)
[2020-03-02] MEDS ORDERED: IOVERSOL 320 100 ML VIAL IVP ONE ×2 (06:51→07:45)
[2020-03-02 06:54] LABS: BASOPHILS # (AUTO) 0.1 10^3/uL (0.0-0.1); BASOPHILS % (AUTO) 0.4 %; EOSINOPHILS # (AUTO) 0.2 10^3/uL (0.0-0.7); EOSINOPHILS % (AUTO) 1.4 %; LYMPHOCYTES # (AUTO) 1.6 10^3/uL (1.5-3.5); LYMPHOCYTES % (AUTO) 9.5 %; MEAN CORPUSCULAR HEMOGLOBIN 31.2 pg (27.0-31.0); MEAN CORPUSCULAR HGB CONC 34.6 g/dL (32.0-36.0); MEAN CORPUSCULAR VOLUME 90.3 fL (80.0-94.0); MEAN PLATELET VOLUME 10.9 fL (7.4-11.4); MONOCYTES # (AUTO) 1.3 10^3/uL (0.0-1.0); MONOCYTES % (AUTO) 7.8 %; NEUTROPHILS # (AUTO) 13.6 10^3/uL (1.5-6.6); PLT - PLATELET COUNT 302 10^3/uL (130-450); RED BLOOD COUNT 5.13 10^6/uL (4.70-6.10); RED CELL DISTRIBUTION WIDTH 12.5 % (12.0-15.0)
[2020-03-02 06:57] LABS: CLARITY,URINE CLEAR (CLEAR)
[2020-03-02 07:01] LABS: BILIRUBIN,TOTAL 1.1 mg/dL (0.2-1.0); CREATININE 0.8 mg/dL (0.6-1.2)
[2020-03-02] MEDS ORDERED: MORPHINE 2 MG/ML CARPUJECT IVP STA (07:12)
--- NOTE | 2020-03-02 08:04 | CT Report ---
Reason: abd. pain Procedure Date: 03/02/2020 Accession Number: [id number] / [id number] Procedure: CT - Abdomen/Pelvis W CPT Code: Final Report FULL RESULT: EXAM: CT ABDOMEN AND PELVIS EXAM DATE: 03/02/2020 07:44 AM. CLINICAL HISTORY: Abdominal pain. COMPARISONS: None. TECHNIQUE: Routine helical CT imaging was performed through the abdomen and pelvis. IV contrast: 100 mL Optiray 320. Enteric contrast: No. Reconstructions: Coronal and sagittal. In accordance with CT protocol optimization, one or more of the following dose reduction techniques were utilized for this exam: automated exposure control, adjustment of mA and/or KV based on patient size, or use of iterative reconstructive technique. FINDINGS: Lung Bases: Unremarkable. Liver: Normal. No masses. Gallbladder/Bile Ducts: Unremarkable. Spleen: Normal. Pancreas: Normal. Adrenal Glands: Normal. Kidneys: 1 cm cyst midpole right kidney. Subcentimeter focus midpole left kidney too small to characterize and statistically compatible with a cyst. No hydronephrosis. The kidneys enhance symmetrically. Peritoneal Cavity/Bowel: There are a few air-fluid levels within nondilated small bowel in the mid abdomen, nonspecific. No evidence of bowel obstruction. The appendix is not well seen, without regional fat stranding or fluid. Pelvic Organs: Normal. The bladder and visualized pelvic organs are within normal limits. Vasculature: There is an IVC stent in place, extending from the confluence of the iliac veins to the level of the origin of the portal vein. It appears patent on this arterial phase study. Bones: No significant abnormality. Other: No free air or free fluid identified. No pathologically enlarged lymph nodes detected. IMPRESSION: No bowel obstruction identified. There are a few air-fluid levels within nondilated small bowel in the mid abdomen nonspecific and without discrete evidence of ileus at this time. IVC stent in place, which appears patent on the current study. [facility]
[2020-03-02] MEDS ORDERED: SUCRALFATE 1 GM/10 ML UDC PO STA (09:03)
[2020-03-02] MEDS ORDERED: PANTOPRAZOLE 40 MG VIAL IVP STA (09:03)
--- NOTE | 2020-03-02 09:35 | ED Physician Documentation ---
PD HPI ABD PAIN - Stated complaint Stated Complaint: ABD PAIN - Chief complaint Chief Complaint: Abd Pain - History obtained from History obtained from: Patient - History of Present Illness Timing - onset: Today Timing - duration: Hours Timing - details: Abrupt onset Quality: Sharp Location: Epigastric Improved by: Other (alkaseltzer) Associated symptoms: Nausea, Constipation. No: Fever, Vomiting, Hematemesis, Diarrhea, Melena, Hematochezia, Dysuria, Hematuria, Chest pain Similar symptoms before: Has not had sx before Recently seen: Not recently seen - Additional information Additional information: Previously well 54-year-old male was placed a burrito into the microwave and he states that when he ate it he knew it was too hot it burned his mouth and it immediately hurt in his stomach. He had worsening of the pain in his stomach and he has some nausea but no vomiting he took some Al[place] which seemed to help temporarily. He has come to the emergency department now with acute epigastric pain. Review of Systems Constitutional: denies: Fever Eyes: denies: Decreased vision Ears: denies: Ear pain Nose: denies: Rhinorrhea / runny nose, Congestion Throat: denies: Sore throat Cardiac: denies: Chest pain / pressure, Palpitations Respiratory: denies: Dyspnea, Cough GI: reports: Abdominal Pain, Nausea, Constipation. denies: Vomiting : denies: Dysuria, Frequency, Hesitancy Skin: denies: Rash Musculoskeletal: denies: Neck pain, Back pain, Extremity pain Neurologic: denies: Generalized weakness, Focal weakness, Numbness PD PAST MEDICAL HISTORY - Past Medical History Past Medical History: Yes Cardiovascular: Peripheral Vascular Disease Endocrine/Autoimmune: Type 2 diabetes : Renal insuffiency Psych: Obsessive compulsive disorder, Other Other Past Medical History: Turets - Past Surgical History Past Surgical History: Yes - Present Medications Home Medications: Ambulatory Orders Medication Instructions Recorded Confirmed Benztropine [Cogentin] 2 mg PO BID 07/03/14 03/02/20 Pimozide [Orap] 2 mg PO BID 07/03/14 03/02/20 Albuterol Sulf [Ventolin Hfa 1 - 2 puffs INH Q4HR PRN #1 inhaler 11/06/17 03/02/20 Inhaler] Omeprazole 20 mg PO DAILY #20 capsule. 03/02/20 Sucralfate [Carafate] 1 gm PO ACHS #60 tablet 03/02/20 - Allergies Allergies/Adverse Reactions: Allergies Allergy/AdvReac Type Severity Reaction Status Date / Time fluoxetine [From Prozac] Allergy Nausea Verified 03/02/20 05:36 mirtazapine Allergy Nausea Verified 03/02/20 05:36 erythromycin base AdvReac Unknown Verified 03/02/20 05:36 - Social History Does the pt smoke?: Yes Smoking Status: Current every day smoker Does the pt drink ETOH?: No Does the pt have substance abuse?: Yes - Immunizations Immunizations are current?: Yes - POLST Patient has POLST: No PD ED PE NORMAL - Vitals Vital signs reviewed: Yes (tachy and hypertensive ) - General General: Alert and oriented X 3, No acute distress, Well developed/nourished, Other (exam done late in visit) - HEENT HEENT: Atraumatic, PERRL, EOMI - Neck Neck: Supple, no meningeal sign, No bony TTP - Cardiac Cardiac: RRR, No murmur - Respiratory Respiratory: No respiratory distress, Clear bilaterally - Abdomen Abdomen: Normal bowel sounds, Soft, Non tender, Non distended, No organomegaly - Back Back: No CVA TTP, No spinal TTP - Derm Derm: Normal color, Warm and dry, No rash - Extremities Extremities: No deformity, No edema, No calf tenderness / cord - Neuro Neuro: Alert and oriented X 3, personnel director 2-12 intact, No motor deficit, No sensory deficit, Normal speech Eye Opening: Spontaneous Motor: Obeys Commands Verbal: Oriented GCS Score: 15 - Psych Psych: Normal mood, Normal affect Results - Vitals Vitals: Vital Signs - 24 hr 03/02/20 03/02/20 03/02/20 05:10 06:44 07:15 Temperature 37.7 C H Heart Rate 120 H 91 90 Respiratory 17 16 18 Rate Blood Pressure 155/99 H 126/91 H 142/86 H O2 Saturation 97 97 100 03/02/20 03/02/20 08:00 09:14 Temperature Heart Rate 97 91 Respiratory 16 16 Rate Blood Pressure 126/82 H 131/60 H O2 Saturation 96 95 Oxygen O2 Source Room air - Labs Labs: Laboratory Tests 03/02/20 03/02/20 03/02/20 06:30 06:30 06:30 WBC 17.0 H RBC 5.13 Hgb 16.0 Hct 46.3 MCV 90.3 MCH 31.2 H MCHC 34.6 RDW 12.5 Plt Count 302 MPV 10.9 Neut # (Auto) 13.6 H Lymph # (Auto) 1.6 Lyon # (Auto) 1.3 H Eos # (Auto) 0.2 Baso # (Auto) 0.1 Absolute Nucleated RBC 0.00 Nucleated RBC % 0.0 Sodium 134 L Potassium 3.4 L Chloride 96 L Carbon Dioxide 27 Anion Gap 11.0 BUN 13 Creatinine 0.8 Estimated GFR (MDRD) 100 Glucose 256 H Lactic Acid Calcium 9.0 Total Bilirubin 1.1 H AST 17 ALT 17 Alkaline Phosphatase 114 Total Protein 8.0 Albumin 4.0 Globulin 4.0 Albumin/Globulin Ratio 1.0 Lipase 205 H Urine Color YELLOW Urine Clarity CLEAR Urine pH 6.0 Ur Specific Harper 1.020 Urine Protein TRACE Urine Glucose (UA) >=1000 H Urine Ketones 40 H Urine Occult Blood NEGATIVE Urine Nitrite NEGATIVE Urine Bilirubin NEGATIVE Urine Urobilinogen 0.2 (NORMAL) Ur Leukocyte Esterase NEGATIVE Ur Microscopic Review NOT INDICATED Urine Culture Comments NOT INDICATED 03/02/20 07:06 WBC RBC Hgb Hct MCV MCH MCHC RDW Plt Count MPV Neut # (Auto) Lymph # (Auto) Lyon # (Auto) Eos # (Auto) Baso # (Auto) Absolute Nucleated RBC Nucleated RBC % Sodium Potassium Chloride Carbon Dioxide Anion Gap BUN Creatinine Estimated GFR (MDRD) Glucose Lactic Acid 1.3 Calcium Total Bilirubin AST ALT Alkaline Phosphatase Total Protein Albumin Globulin Albumin/Globulin Ratio Lipase Urine Color Urine Clarity Urine pH Ur Specific Harper Urine Protein Urine Glucose (UA) Urine Ketones Urine Occult Blood Urine Nitrite Urine Bilirubin Urine Urobilinogen Ur Leukocyte Esterase Ur Microscopic Review Urine Culture Comments PD MEDICAL DECISION MAKING - ED course Complexity details: reviewed old records, reviewed results, re-evaluated patient, considered differential, d/w patient ED course: 54-year-old male who has eaten a burrito that was too hot has burned his stomach and his symptoms are now improved he is administered Protonix and Carafate here in the emergency department. Departure - Departure Disposition: 01 Home, Self Care Clinical Impression: Gastritis Qualifiers: Gastritis type: other gastritis Chronicity: acute Gastritis bleeding: without bleeding Qualified Code(s): K29.00 - Acute gastritis without bleeding Condition: Stable Instructions: ED Gastritis Follow-Up: George Chatterjee PA-C [Primary Care Provider] - Prescriptions: Omeprazole 20 mg PO DAILY #20 capsule. Sucralfate [Carafate] 1 gm PO ACHS #60 tablet
[2020-03-02 10:06] VITALS: BP 132/74
== END 2020-03-02 10:05 | disposition home or self-care (01) ==
LOC: EDUNIT# → ED 05:07
DX: K29.70 Gastritis, unspecified, without bleeding (principal); E11.29 Type 2 diabetes mellitus with other diabetic kidney complication
CPT/HCPCS: 36415; 74177; 80053; 81003; 83605; 83690; 85025; 96361; 96374; 96375; 99284; A9270; Q9967; 81001; 87086

== ENCOUNTER 2020-03-26 11:58 | Emergency (ER) | payer MEDICARE, MEDICAID ==
[2020-03-26 12:31] VITALS: BP 127/75
[2020-03-26 12:48] LABS: BILIRUBIN,URINE NEGATIVE (NEGATIVE); GLUCOSE, URINE (UA) >=1000 mg/dL (NEGATIVE); KETONES,URINE (UA) TRACE mg/dL (NEGATIVE); LEUKOCYTE ESTERASE, URINE NEGATIVE (NEGATIVE); NITRITE,URINE NEGATIVE (NEGATIVE); OCCULT BLOOD,URINE NEGATIVE (NEGATIVE); PH,URINE 5.5 PH (5.0-7.5); PROTEIN,URINE NEGATIVE (NEGATIVE); UROBILINOGEN,URINE 0.2 (NORMAL) E.U./dL (NORMAL)
[2020-03-26 12:58] LABS: CLARITY,URINE CLEAR (CLEAR)
== END 2020-03-26 13:03 | disposition left against medical advice (07) ==
LOC: ED 11:58
DX: Z53.21 Procedure and treatment not carried out due to patient leaving prior to being seen by health care provider (principal)
CPT/HCPCS: 81001; 81003; 87086

== ENCOUNTER 2020-04-27 11:10 | Outpatient (CLI) | payer MEDICARE, MEDICAID | END 2020-04-27 23:59 | disposition home or self-care (01) | LOC: LAB.WCP 11:10 | PROVIDERS: ATTEND Family Medicine | DX: N40.0 Benign prostatic hyperplasia without lower urinary tract symptoms (principal) | CPT/HCPCS: 36415; 84153 ==

== ENCOUNTER 2020-09-15 19:05 | Outpatient (CLI) | payer MEDICARE, MEDICAID | END 2020-09-15 19:06 | disposition critical access hospital (66) | LOC: EMS 19:05 | PROVIDERS: ATTEND Surgery | DX: T43.592A Poisoning by other antipsychotics and neuroleptics, intentional self-harm, initial encounter (principal) | CPT/HCPCS: A0425; A0427 ==

== ENCOUNTER 2020-09-15 19:20 | Emergency (ER) | payer MEDICARE, MEDICAID ==
[2020-09-15 19:55] LABS: BASOPHILS % (AUTO) 0.4 %; EOSINOPHILS # (AUTO) 0.4 10^3/uL (0.0-0.7); EOSINOPHILS % (AUTO) 4.8 %; HGB - HEMOGLOBIN 15.8 g/dL (14.0-18.0); LYMPHOCYTES # (AUTO) 2.1 10^3/uL (1.5-3.5); MEAN CORPUSCULAR HEMOGLOBIN 30.8 pg (27.0-31.0); MEAN CORPUSCULAR HGB CONC 33.6 g/dL (32.0-36.0); MEAN CORPUSCULAR VOLUME 91.6 fL (80.0-94.0); MEAN PLATELET VOLUME 10.7 fL (7.4-11.4); MONOCYTES # (AUTO) 0.5 10^3/uL (0.0-1.0); MONOCYTES % (AUTO) 6.7 %; NEUTROPHILS # (AUTO) 4.5 10^3/uL (1.5-6.6); NEUTROPHILS % (AUTO) 59.6 %; PLT - PLATELET COUNT 281 10^3/uL (130-450); RED BLOOD COUNT 5.13 10^6/uL (4.70-6.10); RED CELL DISTRIBUTION WIDTH 12.2 % (12.0-15.0); WHITE BLOOD COUNT 7.5 x10^3/uL (4.8-10.8)
--- NOTE | 2020-09-15 19:58 | ED Physician Documentation ---
PD HPI MHE - Stated complaint Stated Complaint: SI - Chief complaint Chief Complaint: MHE - History obtained from History obtained from: Patient - Additional information Additional information: 55-year-old gentleman presents by ambulance, he will only tell me that he wants me to help him , otherwise he will not talk to me. Reportedly took a large overdose of Pimozide prior to arrival. Review of Systems Unable to obtain: Uncooperative PD PAST MEDICAL HISTORY - Past Medical History Cardiovascular: Peripheral Vascular Disease Endocrine/Autoimmune: Type 2 diabetes : Renal insuffiency Psych: Obsessive compulsive disorder, Other - Past Surgical History Past Surgical History: Yes - Present Medications Home Medications: Ambulatory Orders Medication Instructions Recorded Confirmed Benztropine [Cogentin] 2 mg PO BID 07/03/14 03/02/20 Pimozide [Orap] 2 mg PO BID 07/03/14 03/02/20 Albuterol Sulf [Ventolin Hfa 1 - 2 puffs INH Q4HR PRN #1 inhaler 11/06/17 03/02/20 Inhaler] Omeprazole 20 mg PO DAILY #20 capsule. 03/02/20 Sucralfate [Carafate] 1 gm PO ACHS #60 tablet 03/02/20 - Allergies Allergies/Adverse Reactions: Allergies Allergy/AdvReac Type Severity Reaction Status Date / Time fluoxetine [From Prozac] Allergy Nausea Verified 09/15/20 19:33 mirtazapine Allergy Nausea Verified 09/15/20 19:33 erythromycin base AdvReac Unknown Verified 09/15/20 19:33 - Social History Does the pt smoke?: Yes Smoking Status: Current every day smoker Does the pt drink ETOH?: No Does the pt have substance abuse?: Yes - Immunizations Immunizations are current?: Yes - POLST Patient has POLST: No PD ED PE NORMAL - Vitals Vital signs reviewed: Yes - General General: Other (He is alert and follows commands but will not talk to me) - HEENT HEENT: PERRL, EOMI - Neck Neck: Supple, no meningeal sign, No bony TTP - Cardiac Cardiac: RRR, No murmur - Respiratory Respiratory: No respiratory distress, Clear bilaterally - Abdomen Abdomen: Soft, Non tender - Back Back: No CVA TTP, No spinal TTP - Derm Derm: Normal color, Warm and dry - Extremities Extremities: No edema, No calf tenderness / cord - Neuro Neuro: No motor deficit, No sensory deficit, Other (Uncooperative with poor eye contact) Results - Vitals Vitals: Vital Signs - 24 hr 09/15/20 09/15/20 09/15/20 19:20 21:30 22:36 Temperature 37.2 C 37.2 C 36.8 C Heart Rate 64 64 65 Respiratory 18 14 14 Rate Blood Pressure 165/79 H 165/79 H 115/61 O2 Saturation 100 99 95 Oxygen O2 Source Room air - EKG (time done) 1939 Rate: Rate (enter#) (63) Rhythm: NSR [place]: Normal Intervals: Normal ID QRS: Normal Ischemia: Normal ST segments Computer interpretation: Agree with computer - Labs Labs: Laboratory Tests 09/15/20 09/15/20 09/15/20 19:49 19:49 19:49 WBC 7.5 RBC 5.13 Hgb 15.8 Hct 47.0 MCV 91.6 MCH 30.8 MCHC 33.6 RDW 12.2 Plt Count 281 MPV 10.7 Neut # (Auto) 4.5 Lymph # (Auto) 2.1 [place] # (Auto) 0.5 Eos # (Auto) 0.4 Baso # (Auto) 0.0 Absolute Nucleated RBC 0.00 Nucleated RBC % 0.0 Sodium 138 Potassium 3.6 Chloride 101 Carbon Dioxide 24 Anion Gap 13.0 BUN 12 Creatinine 0.9 Estimated GFR (MDRD) 87 L Glucose 238 H Calcium 9.3 Total Bilirubin 0.7 AST 18 ALT 17 Alkaline Phosphatase 72 Total Protein 6.9 Albumin 4.0 Globulin 2.9 Albumin/Globulin Ratio 1.4 Lipase 22 TSH 2.17 Salicylates < 6.0 Acetaminophen < 10 L Ethyl Alcohol < 5.0 SARS-CoV-2 (PCR) 09/15/20 20:53 WBC RBC Hgb Hct MCV MCH MCHC RDW Plt Count MPV Neut # (Auto) Lymph # (Auto) [place] # (Auto) Eos # (Auto) Baso # (Auto) Absolute Nucleated RBC Nucleated RBC % Sodium Potassium Chloride Carbon Dioxide Anion Gap BUN Creatinine Estimated GFR (MDRD) Glucose Calcium Total Bilirubin AST ALT Alkaline Phosphatase Total Protein Albumin Globulin Albumin/Globulin Ratio Lipase TSH Salicylates Acetaminophen Ethyl Alcohol SARS-CoV-2 (PCR) NOT DETECTED PD MEDICAL DECISION MAKING - ED course ED course: 55-year-old gentleman who took a generous antipsychotic overdose, reportedly from poison control this particular drug has a very long half-life. He may become obtunded or developed long QT. Initial EKG and mental status are normal other than being uncooperative. Subsequently agreed to voluntary treatment. Over the next couple of hours she did at times become agitated screaming that he wanted to leave for a cigarette. He is voluntary at shift change, but if he were to change his mind I think he should be converted to involuntary. Departure - Departure Clinical Impression: Suicidal ideation Intentional drug overdose Qualifiers: Encounter type: initial encounter Qualified Code(s): T50.902A - Poisoning by unspecified drugs, medicaments and biological substances, intentional self-harm, initial encounter
[2020-09-15 20:14] LABS: ACETAMINOPHEN < 10 ug/mL (10-30); ALBUMIN/GLOBULIN RATIO 1.4 (1.0-2.2); ALKALINE PHOSPHATASE 72 IU/L (42-121); ALT ALANINE AMINOTRANSFERASE 17 IU/L (10-60); AST ASPARTATE AMINOTRANSFERASE 18 IU/L (10-42); BILIRUBIN,TOTAL 0.7 mg/dL (0.2-1.0); BUN - BLOOD UREA NITROGEN 12 mg/dL (6-20); CALCIUM 9.3 mg/dL (8.5-10.3); CARBON DIOXIDE - CO2 24 mmol/L (21-32); CHLORIDE 101 mmol/L (101-111); CREATININE 0.9 mg/dL (0.6-1.2); GLUCOSE 238 mg/dL (70-100); LIPASE 22 U/L (22-51); SALICYLATE < 6.0 mg/dL; SODIUM 138 mmol/L (135-145); TOTAL PROTEIN 6.9 g/dL (6.7-8.2)
[2020-09-15] MEDS ORDERED: KETAMINE 500 MG/10 ML VIAL IM STA (20:43)
[2020-09-15] MEDS ORDERED: LORazepam 2 MG/ML VIAL IVP STA (20:43)
[2020-09-16] MEDS ORDERED: NICOTINE 21 MG PATCH TOP STA (07:42)
[2020-09-16] MEDS ORDERED: LORazepam 2 MG/ML VIAL IVP STA (07:42)
[2020-09-16] MEDS ORDERED: LORazepam 2 MG/ML VIAL IM STA ×4 (07:55→20:23)
[2020-09-16 10:43] LABS: MUDS CUTOFF CONCENTRATIONS CUTOFF CONC BELOW:
[2020-09-16 10:47] LABS: BILIRUBIN,URINE NEGATIVE (NEGATIVE); GLUCOSE, URINE (UA) 250 mg/dL (NEGATIVE); KETONES,URINE (UA) NEGATIVE (NEGATIVE); LEUKOCYTE ESTERASE, URINE NEGATIVE (NEGATIVE); NITRITE,URINE NEGATIVE (NEGATIVE); OCCULT BLOOD,URINE NEGATIVE (NEGATIVE); PH,URINE 5.5 PH (5.0-7.5); PROTEIN,URINE NEGATIVE (NEGATIVE); UROBILINOGEN,URINE 0.2 (NORMAL) E.U./dL (NORMAL)
[2020-09-16 10:49] LABS: CLARITY,URINE CLEAR (CLEAR)
[2020-09-16 11:02] LABS: AMPHETAMINE SCREEN,URINE POSITIVE (NEGATIVE); BENZODIAZEPINES SCREEN, URINE POSITIVE (NEGATIVE); METHAMPHETAMINES SCREEN, URINE POSITIVE (NEGATIVE)
[2020-09-16 11:03] LABS: COCAINE SCREEN URINE NEGATIVE (NEGATIVE); METHADONE SCREEN, URINE NEGATIVE (NEGATIVE); OPIATE SCREEN, URINE NEGATIVE (NEGATIVE); OXYCODONE SCREEN, URINE NEGATIVE (NEGATIVE); PROPOXYPHENE SCREEN, URINE NEGATIVE (NEGATIVE); TRICYCLIC ANTIDEPRESSANT,URINE NEGATIVE (NEGATIVE)
[2020-09-16] MEDS ORDERED: HALOPERIDOL 5 MG/ML VIAL IM STA ×3 (12:36→20:23)
[2020-09-16 18:47] VITALS: BP 131/87
--- NOTE | 2020-09-16 20:51 | ED Physician Documentation ---
ED Addendum - Addendum Addendum: 09/16/20 20:[address] [facility] by Dr. Simms, COBRA forms completed. Patient was placed on an involuntary hold by the DCR. Departure - Departure Disposition: 65 Psych Hosp/Unit DC/Xfer Clinical Impression: Suicidal ideation Intentional drug overdose Qualifiers: Encounter type: initial encounter Qualified Code(s): T50.902A - Poisoning by unspecified drugs, medicaments and biological substances, intentional self-harm, initial encounter Condition: Stable
== END 2020-09-17 00:42 ==
LOC: EDUNIT# → ED 19:20
DX: T43.592A Poisoning by other antipsychotics and neuroleptics, intentional self-harm, initial encounter (principal); Y92.009 Unspecified place in unspecified non-institutional (private) residence as the place of occurrence of the external cause; Z20.828 Contact with and (suspected) exposure to other viral communicable diseases; R45.1 Restlessness and agitation; E11.51 Type 2 diabetes mellitus with diabetic peripheral angiopathy without gangrene; F17.200 Nicotine dependence, unspecified, uncomplicated
CPT/HCPCS: 36415; 80053; 80306; 81003; 83690; 84443; 85025; 93005; 96372; 96374; 96375; 96376; 99281; 99285; J2060; U0004; 80307; 80320; 80329; 81001; 87086

== ENCOUNTER 2020-12-20 10:48 | Outpatient (CLI) | payer MEDICARE, MEDICAID ==
--- NOTE | 2020-12-20 13:51 | XRAY Report ---
PROCEDURE: Wrist 3 View LT INDICATIONS: UNSPECIFIED INJURY OF L WRIST, HAND AND FINGERS TECHNIQUE: 3 views of the wrist were acquired. COMPARISON: 05/28/2018 and 11/06/2017 FINDINGS: Bones: There are healed fracture deformities and articular surface irregularity involving the distal left radius. There is also cortical irregularity and increased central lucency of the scaphoid waist . There is minimal collapse and associated cortical irregularity involving the radial articular side of the lunate with new sclerosis of the proximal margin of the lunate. There is suggestion of cortica l disruption/discontinuity of the proximal lunate. No acute fractures or dislocations. No suspicious bony lesions. Soft tissues: No suspicious soft tissue calcifications. IMPRESSION: 1. Healed fracture deformity of previously noted intra-articular fracture of the distal left radius. 2. New cortical irregularity and scaphoid waist lucencies likely related to posttraumatic changes. 3. New proximal left lunate sclerosis, cortical irregularity and possible cortical discontinuity of t he proximal margin of the lunate. There is also appearance of mild collapse of the lunate. Findings a re likely related to posttraumatic changes with suggestion of possible avascular necrosis. Recommend further evaluation with left wrist MRI. Reviewed by: Curtis Wang MD on 12/20/2020 1:50 PM PST Approved by: Curtis Wang MD on 12/20/2020 1:50 PM PST Station ID: [id number]
== END 2020-12-20 23:59 | disposition home or self-care (01) ==
LOC: DI.N 10:48
PROVIDERS: ATTEND Physician Assistant Medical
DX: M25.532 Pain in left wrist (principal); S52.572S Other intraarticular fracture of lower end of left radius, sequela

== ENCOUNTER 2021-02-04 10:28 | Outpatient (CLI) | payer MEDICARE, MEDICAID ==
--- OUTSIDE RECORDS SUMMARY | 2021-02-12 21:33 | EXTERNAL MEDICAL SUMMARY RPT | Continuity of Care Document ---
:1965 Demographics Phone Unavailable Preferred Language Unknown Marital Status Unknown Presybeterian Affiliation Unknown Race Unknown Ethnic Group Unknown Author Organization [facility] Address [address] [place] [address] Phone Social History date description facility [id number]
== END 2021-02-04 10:29 | disposition critical access hospital (66) ==
LOC: EMS 10:28
PROVIDERS: ATTEND Emergency Medicine
DX: M79.662 Pain in left lower leg (principal); M79.661 Pain in right lower leg; R10.9 Unspecified abdominal pain
CPT/HCPCS: A0425; A0429

== ENCOUNTER 2021-02-04 10:49 | Emergency (ER) | payer MEDICARE, MEDICAID ==
[2021-02-04] MEDS ORDERED: SODIUM CHLORIDE 0.9% 1,000 ML IV STA (11:09)
[2021-02-04 11:12] LABS: BASOPHILS # (AUTO) 0.1 10^3/uL (0.0-0.1); BASOPHILS % (AUTO) 0.6 %; EOSINOPHILS # (AUTO) 0.2 10^3/uL (0.0-0.7); EOSINOPHILS % (AUTO) 2.5 %; HCT - HEMATOCRIT 47.5 % (42.0-52.0); HGB - HEMOGLOBIN 15.8 g/dL (14.0-18.0); LYMPHOCYTES % (AUTO) 23.8 %; MEAN CORPUSCULAR HEMOGLOBIN 30.4 pg (27.0-31.0); MEAN CORPUSCULAR HGB CONC 33.3 g/dL (32.0-36.0); MEAN CORPUSCULAR VOLUME 91.3 fL (80.0-94.0); MEAN PLATELET VOLUME 10.3 fL (7.4-11.4); MONOCYTES # (AUTO) 0.7 10^3/uL (0.0-1.0); MONOCYTES % (AUTO) 8.6 %; NEUTROPHILS # (AUTO) 5.3 10^3/uL (1.5-6.6); NEUTROPHILS % (AUTO) 64.1 %; PLT - PLATELET COUNT 298 10^3/uL (130-450); RED CELL DISTRIBUTION WIDTH 12.3 % (12.0-15.0); WHITE BLOOD COUNT 8.3 x10^3/uL (4.8-10.8)
[2021-02-04] MEDS ORDERED: IOVERSOL 320 100 ML VIAL IVP ONE ×2 (11:15→13:05)
[2021-02-04 11:24] LABS: ALBUMIN 4.7 g/dL (3.2-5.5); ALBUMIN/GLOBULIN RATIO 1.7 (1.0-2.2); BILIRUBIN,TOTAL 0.9 mg/dL (0.2-1.0); CALCIUM 9.2 mg/dL (8.5-10.3); CREATININE 0.9 mg/dL (0.6-1.2); POTASSIUM 3.6 mmol/L (3.5-5.0); TOTAL PROTEIN 7.5 g/dL (6.7-8.2)
--- NOTE | 2021-02-04 11:56 | ED Physician Documentation ---
History of Present Illness - Stated complaint Stated Complaint: ABD PX/LEG PX - Chief complaint Chief Complaint: General - History obtained from History obtained from: Patient - Additonal information Additional information: 55-year-old man, unreliable historian, with history of Wallstent endoprosthetic stent of IVC in [address] Newman at [facility] presents from walk in clinic with complaint that "I feel like I did when I had a blood clot in my IVC in 2002". Also with L knee pain and BL tingling. Patient having a difficult time articulating what makes him think he has a blood clot, but when pressed he says That he has had sharp intermittent mild nonradiating right upper quadrant pain and epigastric pain since last , worse right after eating. He also states that he is having worsening dyspnea on exertion for the past 3 to 4 weeks. The final concern is that his "legs feel tight" while walking. Denies chest pain, shortness of breath, fever, cough, back pain nausea vomiting darvin rrhea urinary symptoms. Denies leg swelling. Social : history of Multiple inpatient psych hospitalizations. 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 Review of Systems Unable to obtain: Other (poor historian. see hpi for limited ros) PD PAST MEDICAL HISTORY - Past Medical History Past Medical History: Yes Cardiovascular: Peripheral Vascular Disease Respiratory: None Neuro: Other Endocrine/Autoimmune: Type 2 diabetes GI: None : Renal insuffiency HEENT: None Psych: Obsessive compulsive disorder, Other Musculoskeletal: None Derm: None - Past Surgical History Past Surgical History: Yes - Present Medications Home Medications: Ambulatory Orders Medication Instructions Recorded Confirmed Benztropine [Cogentin] 2 mg PO BID 07/03/14 03/02/20 Pimozide [Orap] 2 mg PO BID 07/03/14 03/02/20 Albuterol Sulf [Ventolin Hfa 1 - 2 puffs INH Q4HR PRN #1 inhaler 11/06/17 03/02/20 Inhaler] Omeprazole 20 mg PO DAILY #20 capsule. 03/02/20 Sucralfate [Carafate] 1 gm PO ACHS #60 tablet 03/02/20 - Allergies Allergies/Adverse Reactions: Allergies Allergy/AdvReac Type Severity Reaction Status Date / Time fluoxetine [From Prozac] Allergy Nausea Verified 02/04/21 11:00 mirtazapine Allergy Nausea Verified 02/04/21 11:00 erythromycin base AdvReac Unknown Verified 02/04/21 11:00 - Social History Does the pt smoke?: Yes Smoking Status: Current every day smoker Does the pt drink ETOH?: No Does the pt have substance abuse?: Yes - Immunizations Immunizations are current?: Yes - POLST Patient has POLST: No PD ED PE NORMAL - Vitals Vital signs reviewed: Yes - General General: Alert and oriented X 3, No acute distress, Well developed/nourished - HEENT HEENT: Atraumatic, PERRL, EOMI - Neck Neck: Supple, no meningeal sign - Cardiac Cardiac: RRR - Respiratory Respiratory: No respiratory distress, Clear bilaterally - Abdomen Abdomen: Non tender, Non distended - Extremities Extremities: No edema - Neuro Neuro: Alert and oriented X 3 - Psych Psych: Normal mood, Normal affect, Other (some circumlocutory speech. easily distracted.) Results - Vitals Vitals: Vital Signs - 24 hr 02/04/21 02/04/21 02/04/21 10:56 13:08 15:00 Temperature 36.7 C 36.4 C L Heart Rate 73 70 69 Respiratory 10 L 16 18 Rate Blood Pressure 150/95 H 126/95 H 142/88 H O2 Saturation 100 99 99 Oxygen O2 Source Room air - Labs Labs: Laboratory Tests 02/04/21 02/04/21 11:08 11:08 WBC 8.3 RBC 5.20 Hgb 15.8 Hct 47.5 MCV 91.3 MCH 30.4 MCHC 33.3 RDW 12.3 Plt Count 298 MPV 10.3 Neut # (Auto) 5.3 Lymph # (Auto) 2.0 [place] # (Auto) 0.7 Eos # (Auto) 0.2 Baso # (Auto) 0.1 Absolute Nucleated RBC 0.00 Nucleated RBC % 0.0 Sodium 137 Potassium 3.6 Chloride 101 Carbon Dioxide 25 Anion Gap 11.0 BUN 20 Creatinine 0.9 Estimated GFR (MDRD) 87 L Glucose 171 H Calcium 9.2 Total Bilirubin 0.9 AST 22 ALT 18 Alkaline Phosphatase 80 Total Protein 7.5 Albumin 4.7 Globulin 2.8 Albumin/Globulin Ratio 1.7 Lipase 20 L PD MEDICAL DECISION MAKING - ED course Complexity details: reviewed results, d/w patient ED course: Discussed results with patient. He will follow up with his primary doctor. Return precautions given. Departure - Departure Disposition: 01 Home, Self Care Clinical Impression: Abdominal pain, Leg pain Condition: Good Instructions: ED Abdominal Pain Unkn Cause Comments: You were seen in the emergency department for abdominal pain, leg tightness and tingling. Your lab work, EKG, Ultrasound of the veins in both your legs, ultras ound of the gallbladder, CT of the chest abdomen and pelvis did not show a concerning cause for the symptoms. You should return to the emergency department if you develop any new or worsening symptoms or have other concerns. Follow-up with your primary doctor this week.
--- NOTE | 2021-02-04 12:35 | CT Report ---
PROCEDURE: CHEST W INDICATIONS: abd pain, MENDEZ, L leg pain CONTRAST: IV CONTRAST: Optiray 320 ml: 100 PO CONTRAST: *NO PO CONTRAST TECHNIQUE: After the administration of intravenous contrast, 5 mm thick sections acquired from the pulmonary api aurora to the posterior costophrenic angles. 7 mm thick coronal MIP reformats were acquired. For radia tion dose reduction, the following was used: automated exposure control, adjustment of mA and/or kV according to patient size. COMPARISON: None. FINDINGS: Image quality: Excellent. Lungs and pleura: No acute air space opacities. No pleural effusions or pneumothorax. Central and peripheral airways are patent and normal in caliber. Mediastinum: Heart size is normal. No pericardial effusion. No mediastinal or hilar adenopathy by size criteria. Thoracic aorta and central pulmonary arteries are normal in size. Esophagus is luigi l in caliber. No hiatal hernia. Bones and chest wall: No suspicious bony lesions. No vertebral body compression fractures. No axil darlene or supraclavicular adenopathy by size criteria. Thyroid gland is unremarkable. Abdomen: IVC stent is present, unchanged. Hepatic steatosis is noted. Prominent stool is present. Ot herwise, visualized upper abdominal solid organs appear normal. Upper abdominal bowel loops are norm al in caliber. IMPRESSION: 1. Lungs are clear. 2. Prominent colonic stool is noted within the upper abdomen. Reviewed by: Savannah Ruiz MD on 02/04/2021 12:33 PM PDT Approved by: Savannah Ruiz MD on 02/04/2021 12:33 PM PDT Station ID: [id number]
--- NOTE | 2021-02-04 12:37 | CT Report ---
PROCEDURE: Abdomen/Pelvis W INDICATIONS: Abdominal pain, acute, nonlocalized TECHNIQUE: After the administration of intravenous contrast, 5 mm thick sections acquired from the diaphragms to the symphysis. 2.5 mm thick coronal and sagittal reformats were acquired. Optional 10-minute delay ed imaging may be performed from the kidneys to the bladder. For radiation dose reduction, the follo wing was used: automated exposure control, adjustment of mA and/or kV according to patient size. COMPARISON: CT abdomen and pelvis with contrast, 03/02/2020. FINDINGS: Image quality: Excellent. ABDOMEN: Lung bases: Right middle lobe and lingula atelectasis. Heart size is normal. No pericardial effusio n. Inferior ribs are intact. No basal pleural effusions or pneumothorax. Small hiatal hernia. Solid organs: Liver is normal in size and enhancement, without lacerations. Gallbladder is normal. Biliary system is non-dilated. Pancreas enhances normally, without transection. Spleen is normal i n size and enhancement, without lacerations. No adrenal hematomas. Both kidneys enhance normally, w ithout hydronephrosis or lacerations. Peritoneum and bowel: No free fluid or air. Unenhanced bowel loops demonstrate normal wall thicknes s and caliber. There is a large amount of stool in colon. Appendix is not definitively identified. N o inflammatory process in the right lower quadrant is present. Nodes and vessels: No retroperitoneal or mesenteric adenopathy. Aorta and inferior vena cava are no rmal in size and enhancement. Again noted is a IVC stent, extending from above the bifurcation to be low renal veins. Miscellaneous: No ventral hernias. PELVIS: Genitourinary: Bladder wall thickness is normal. Miscellaneous: No inguinal hernias or adenopathy. Bones: Mild dextroscoliosis and degenerative changes are noted in the thoracic and lumbar spine. Pel madhav ring and hip joints appear intact. No vertebral compression fractures. IMPRESSION: 1. No acute inflammatory process in abdomen or pelvis. 2. A large amount of stool in colon. 3. Note is made of an IVC stent. Reviewed by: Filiberto Carballo MD on 02/04/2021 11:36 AM [place] Approved by: Filiberto Carballo MD on 02/04/2021 11:36 AM [place] Station ID: [id number]
[2021-02-04 15:03] VITALS: BP 142/88
--- NOTE | 2021-02-04 15:35 | Ultrasound Report ---
PROCEDURE: Duplex Ext Veins Bilateral INDICATIONS: astrid morales TECHNIQUE: Real-time imaging, as well as color and pulse Doppler interrogation, were performed of the deep veins of both legs from the inguinal ligament to the popliteal fossa. COMPARISON: FINDINGS: The deep veins are normally compressible, and free of intraluminal thrombus. Color and pu lse Doppler demonstrate normal phasic intravascular flow. There is normal augmentation response to d istal compression maneuver. IMPRESSION: No DVT found bilaterally. Reviewed by: Sudhir Olea MD on 02/04/2021 3:34 PM PDT Approved by: Sudhir Olea MD on 02/04/2021 3:34 PM PDT Station ID: [id number]
--- NOTE | 2021-02-04 15:37 | Ultrasound Report ---
PROCEDURE: Abdomen Limited INDICATIONS: RUQ pain, sharp intermittent occuring after eating TECHNIQUE: Real-time focused scanning was performed of the abdomen, with image documentation. COMPARISON: CT abdomen/pelvis 02/04/2021 and also 03/02/2020 FINDINGS: The liver appears normal and the gallbladder shows no sign of inflammation or stone. The c ommon duct is normal in caliber at 4.6 mm. Pancreas visualized is normal. The right kidney was assess ed, limited evaluation of the right upper quadrant was requested. The kidney shows no sign of hydrone phrosis or nephrolithiasis. IMPRESSION: A source of right-sided upper quadrant pain is not identified. The study limited to the right upper q uadrant is normal. Reviewed by: Sudhir Olea MD on 02/04/2021 3:36 PM PDT Approved by: Sudhir Olea MD on 02/04/2021 3:36 PM PDT Station ID: [id number]
== END 2021-02-04 15:19 | disposition home or self-care (01) ==
LOC: EDUNIT# → ED 10:49
DX: R10.11 Right upper quadrant pain (principal); R10.13 Epigastric pain; M79.605 Pain in left leg; R20.2 Paresthesia of skin; E11.51 Type 2 diabetes mellitus with diabetic peripheral angiopathy without gangrene; F17.200 Nicotine dependence, unspecified, uncomplicated; Z95.828 Presence of other vascular implants and grafts
CPT/HCPCS: 36415; 71260; 74177; 76705; 80053; 83690; 85025; 93970; 99281; 99284; Q9967

== ENCOUNTER 2021-04-30 18:44 | Outpatient (CLI) | payer MEDICARE, MEDICAID | END 2021-04-30 18:45 | disposition critical access hospital (66) | LOC: EMS 18:44 | DX: T43.592A Poisoning by other antipsychotics and neuroleptics, intentional self-harm, initial encounter (principal) | CPT/HCPCS: A0425; A0429 ==

== ENCOUNTER 2021-04-30 18:57 | Emergency (ER) | payer MEDICARE, MEDICAID ==
--- NOTE | 2021-04-30 19:14 | ED Physician Documentation ---
PD HPI OVERDOSE - Stated complaint Stated Complaint: OD - History obtained from History obtained from: Patient, EMS - History of Present Illness Timing - onset: Today Subtance(s) ingested: Single Associated symptoms: Agitated, Other (unwilling to talk) Contributing factors: Depresssed, Suicidal Similar symptoms before: Diagnosis (depression with SI) Recently seen: Not recently seen - Additional information Additional information: 55-year-old male with a history of peripheral vascular disease Tourette's and type 2 diabetes is on Hemocyte and today he has become depressed and took 20 tablets. He arrives not wanting to talk and he appears agitated.He has had pimozide overdose previously resulting in psychiatric hospitalization. Most recently this happened in September 2020 Review of Systems Unable to obtain: Uncooperative Constitutional: denies: Fever Eyes: denies: Decreased vision Ears: denies: Ear pain Nose: denies: Congestion Throat: denies: Sore throat Cardiac: denies: Chest pain / pressure Respiratory: denies: Dyspnea, Cough GI: denies: Abdominal Pain, Nausea, Vomiting : denies: Dysuria, Frequency Skin: denies: Rash Musculoskeletal: denies: Neck pain, Back pain, Extremity pain Neurologic: denies: Generalized weakness, Focal weakness, Numbness Psychiatric: reports: Depressed, Suicidal PD PAST MEDICAL HISTORY - Past Medical History Cardiovascular: Peripheral Vascular Disease Respiratory: None Neuro: Other Endocrine/Autoimmune: Type 2 diabetes GI: None : Renal insuffiency HEENT: None Psych: Obsessive compulsive disorder, Other Musculoskeletal: None Derm: None - Past Surgical History Past Surgical History: Yes - Present Medications Home Medications: Ambulatory Orders Medication Instructions Recorded Confirmed Benztropine [Cogentin] 2 mg PO BID 07/03/14 03/02/20 Pimozide [Orap] 2 mg PO BID 07/03/14 03/02/20 Albuterol Sulf [Ventolin Hfa 1 - 2 puffs INH Q4HR PRN #1 inhaler 11/06/17 03/02/20 Inhaler] Omeprazole 20 mg PO DAILY #20 capsule. 03/02/20 Sucralfate [Carafate] 1 gm PO ACHS #60 tablet 03/02/20 - Allergies Allergies/Adverse Reactions: Allergies Allergy/AdvReac Type Severity Reaction Status Date / Time fluoxetine [From Prozac] Allergy Nausea Verified 04/30/21 19:04 mirtazapine Allergy Nausea Verified 04/30/21 19:04 erythromycin base AdvReac Unknown Verified 04/30/21 19:04 - Social History Does the pt smoke?: Yes Smoking Status: Current every day smoker Does the pt drink ETOH?: No Does the pt have substance abuse?: Yes - Immunizations Immunizations are current?: Yes - POLST Patient has POLST: No PD ED PE NORMAL - Vitals Vital signs reviewed: Yes (Hypertensive mild) - General General: No acute distress, Well developed/nourished, Other (The patient is laying with his eyes closed and refusing to speak. 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, No motor deficit, No sensory deficit, Normal speech Eye Opening: To Voice Motor: Obeys Commands Verbal: Oriented GCS Score: 14 Results - Vitals Vitals: Vital Signs - 24 hr 04/30/21 04/30/21 04/30/21 19:05 19:30 20:00 Temperature 36.7 C Heart Rate 71 69 67 Respiratory 18 17 18 Rate Blood Pressure 128/83 H 125/80 127/78 O2 Saturation 97 97 97 04/30/21 04/30/21 04/30/21 20:30 21:00 21:30 Temperature Heart Rate 66 63 66 Respiratory 16 18 16 Rate Blood Pressure 133/80 H 134/80 H 140/85 H O2 Saturation 97 97 98 04/30/21 04/30/21 04/30/21 22:00 22:30 23:00 Temperature Heart Rate 58 L 67 59 L Respiratory 17 21 28 H Rate Blood Pressure 130/84 H 147/100 H 120/75 O2 Saturation 97 98 94 05/01/21 05/01/21 05/01/21 00:12 00:30 01:00 Temperature Heart Rate 67 67 65 Respiratory 25 H 23 23 Rate Blood Pressure 115/69 130/62 100/88 H O2 Saturation 100 96 100 05/01/21 05/01/21 05/01/21 01:30 02:00 02:30 Temperature Heart Rate 70 95 97 Respiratory 23 21 22 Rate Blood Pressure 102/62 97/81 H 143/75 H O2 Saturation 94 96 98 05/01/21 05/01/21 05/01/21 03:00 03:30 04:00 Temperature Heart Rate 76 73 76 Respiratory 21 27 H 25 H Rate Blood Pressure 118/67 114/74 130/66 O2 Saturation 98 97 92 05/01/21 05/01/21 05/01/21 04:30 05:00 05:30 Temperature Heart Rate 76 74 74 Respiratory 26 H 23 25 H Rate Blood Pressure 115/70 110/72 104/54 L O2 Saturation 93 93 96 05/01/21 06:00 Temperature Heart Rate 77 Respiratory 12 Rate Blood Pressure O2 Saturation 95 Oxygen O2 Source Room air - EKG (time done) 1911 Rate: Rate (enter#) (72) Rhythm: NSR Intervals: No: Prolonged QT Ischemia: Normal ST segments Compare to prior EKG: Unchanged from prior EKG ([facility] 09-15-2020 no changes) Computer interpretation: Agree with computer 2226 Rate: Rate (enter#) (54) Rhythm: NSR, Other (premature complexes) Intervals: No: Prolonged QT Ischemia: Normal ST segments Compare to prior EKG: Changed from prior EKG ([facility] 04-30-2021 19:11 premature complexes have occurred and the QTc is longer but not abnormal ) Computer interpretation: Agree with computer - Labs Labs: Laboratory Tests 04/30/21 04/30/21 04/30/21 19:19 19:19 19:19 WBC 8.4 RBC 4.52 L Hgb 14.0 Hct 41.4 L MCV 91.6 MCH 31.0 MCHC 33.8 RDW 12.5 Plt Count 259 MPV 10.8 Neut # (Auto) 5.7 Lymph # (Auto) 1.7 [place] # (Auto) 0.7 Eos # (Auto) 0.3 Baso # (Auto) 0.1 Absolute Nucleated RBC 0.00 Nucleated RBC % 0.0 Sodium 137 Potassium 3.5 Chloride 105 Carbon Dioxide 24 Anion Gap 8.0 BUN 20 Creatinine 0.9 Estimated GFR (MDRD) 87 L Glucose 203 H Calcium 8.6 Magnesium 2.0 Total Bilirubin 0.6 AST 26 ALT 21 Alkaline Phosphatase 82 Total Protein 6.8 Albumin 4.1 Globulin 2.7 Albumin/Globulin Ratio 1.5 Lipase 19 L TSH 2.56 Salicylates < 6.0 Acetaminophen < 10 L Ethyl Alcohol < 5.0 PD MEDICAL DECISION MAKING - ED course Complexity details: reviewed old records, reviewed results, re-evaluated p atient, considered differential, d/w patient ED course: 55-year-old male with a history of Tourette's is on pimozide and he is overdosed on this. He has overdosed on this previously and this resulted in hospitalization. The patient does state that he is suicidal. The patient has a normal QT interval and is showing no signs of specific toxicity of panel side. Eventually he does yell out that he has hyperacusis and is uncomfortable with this he is administered a milligram of Ativan intravenously. Poison control was contacted in the case and recommends prolonged observation repeat electrocardiogram and following the QT interval. At shift change care is turned over to Dr. Blackwell for further observation required and psychiatric evaluation pending
[2021-04-30 19:28] LABS: BASOPHILS # (AUTO) 0.1 10^3/uL (0.0-0.1); BASOPHILS % (AUTO) 0.6 %; EOSINOPHILS # (AUTO) 0.3 10^3/uL (0.0-0.7); HCT - HEMATOCRIT 41.4 % (42.0-52.0); LYMPHOCYTES # (AUTO) 1.7 10^3/uL (1.5-3.5); LYMPHOCYTES % (AUTO) 19.6 %; MEAN CORPUSCULAR HGB CONC 33.8 g/dL (32.0-36.0); MEAN CORPUSCULAR VOLUME 91.6 fL (80.0-94.0); MEAN PLATELET VOLUME 10.8 fL (7.4-11.4); MONOCYTES # (AUTO) 0.7 10^3/uL (0.0-1.0); MONOCYTES % (AUTO) 7.8 %; NEUTROPHILS # (AUTO) 5.7 10^3/uL (1.5-6.6); NEUTROPHILS % (AUTO) 67.6 %; PLT - PLATELET COUNT 259 10^3/uL (130-450); RED BLOOD COUNT 4.52 10^6/uL (4.70-6.10); RED CELL DISTRIBUTION WIDTH 12.5 % (12.0-15.0); WHITE BLOOD COUNT 8.4 x10^3/uL (4.8-10.8)
[2021-04-30 19:40] LABS: ACETAMINOPHEN < 10 ug/mL (10-30); ALBUMIN 4.1 g/dL (3.2-5.5); ALBUMIN/GLOBULIN RATIO 1.5 (1.0-2.2); ALKALINE PHOSPHATASE 82 IU/L (42-121); ALT ALANINE AMINOTRANSFERASE 21 IU/L (10-60); AST ASPARTATE AMINOTRANSFERASE 26 IU/L (10-42); BILIRUBIN,TOTAL 0.6 mg/dL (0.2-1.0); BUN - BLOOD UREA NITROGEN 20 mg/dL (6-20); CALCIUM 8.6 mg/dL (8.5-10.3); CARBON DIOXIDE - CO2 24 mmol/L (21-32); CHLORIDE 105 mmol/L (101-111); CREATININE 0.9 mg/dL (0.6-1.2); ETOH - ETHANOL < 5.0 mg/dL; GFR - MDRD 87 (>89); GLUCOSE 203 mg/dL (70-100); LIPASE 19 U/L (22-51); POTASSIUM 3.5 mmol/L (3.5-5.0); SALICYLATE < 6.0 mg/dL; SODIUM 137 mmol/L (135-145); TOTAL PROTEIN 6.8 g/dL (6.7-8.2)
[2021-04-30] MEDS ORDERED: LORazepam 2 MG/ML VIAL IVP STA (22:37)
[2021-05-01 11:38] LABS: MUDS CUTOFF CONCENTRATIONS CUTOFF CONC BELOW:
[2021-05-01 11:59] LABS: BILIRUBIN,URINE NEGATIVE (NEGATIVE); GLUCOSE, URINE (UA) 100 mg/dL (NEGATIVE); KETONES,URINE (UA) NEGATIVE (NEGATIVE); LEUKOCYTE ESTERASE, URINE NEGATIVE (NEGATIVE); NITRITE,URINE NEGATIVE (NEGATIVE); OCCULT BLOOD,URINE NEGATIVE (NEGATIVE); PH,URINE 5.5 PH (5.0-7.5); PROTEIN,URINE NEGATIVE (NEGATIVE); UROBILINOGEN,URINE 0.2 (NORMAL) E.U./dL (NORMAL)
[2021-05-01 12:01] LABS: CLARITY,URINE CLEAR (CLEAR)
[2021-05-01 12:09] LABS: AMPHETAMINE SCREEN,URINE POSITIVE (NEGATIVE); BENZODIAZEPINES SCREEN, URINE POSITIVE (NEGATIVE); COCAINE SCREEN URINE NEGATIVE (NEGATIVE); METHAMPHETAMINES SCREEN, URINE POSITIVE (NEGATIVE); OPIATE SCREEN, URINE NEGATIVE (NEGATIVE); THC CANNABINOID SCREEN, URINE NEGATIVE (NEGATIVE)
[2021-05-01 12:10] LABS: BARBITURATE SCREEN,UR NEGATIVE (NEGATIVE); METHADONE SCREEN, URINE NEGATIVE (NEGATIVE); OXYCODONE SCREEN, URINE NEGATIVE (NEGATIVE); PROPOXYPHENE SCREEN, URINE NEGATIVE (NEGATIVE); TRICYCLIC ANTIDEPRESSANT,URINE NEGATIVE (NEGATIVE)
[2021-05-01] MEDS ORDERED: LORazepam 2 MG/ML VIAL IVP STA (13:06)
[2021-05-02] MEDS ORDERED: LORazepam 1 MG TABLET PO STA (07:02)
[2021-05-02] MEDS ORDERED: BENZTROPINE 2 MG TABLET PO SCH ×2 (09:40→10:00)
--- NOTE | 2021-05-02 11:48 | ED Physician Documentation ---
ED Addendum - Addendum Addendum: The patient was resting change of shift time. He remained without any problems in the morning. He was seen by social work who was talking with him. He did have a verbal yelling briefly which reportedly is part of his Tourette's type disorder. He was reticent to talk with social work and so was not really able to safely verbally contract for safety or describe the intention of the overdose. As such social work felt DCR was appropriate. The patient was given dose of lorazepam to help with anxiety. He was given his daily Cogentin. Given the overdose of the other medicine yesterday, I held his normal morning dose. 05/02/21 11:46
[2021-05-02] MEDS ORDERED: OLANZapine ODT 5 MG TABLET TL ONE (12:57)
[2021-05-02 14:58] VITALS: BP 115/64
== END 2021-05-02 20:22 ==
LOC: EDUNIT# → ED 18:57 → SUPCPDRO 18:57 → ED 05-02 20:22
DX: T43.592A Poisoning by other antipsychotics and neuroleptics, intentional self-harm, initial encounter (principal); F32.9 Major depressive disorder, single episode, unspecified; F39 Unspecified mood [affective] disorder; F41.9 Anxiety disorder, unspecified; F95.2 Tourette's disorder; H93.239 Hyperacusis, unspecified ear; I49.3 Ventricular premature depolarization; E11.51 Type 2 diabetes mellitus with diabetic peripheral angiopathy without gangrene; F17.200 Nicotine dependence, unspecified, uncomplicated
CPT/HCPCS: 36415; 80053; 80306; 80307; 81003; 83690; 83735; 84443; 85025; 93005; 96374; 96376; 99285; A9270; G0480; J2060; 80320; 80329; 81001; 87086

== ENCOUNTER 2021-05-23 02:01 | Outpatient (CLI) | payer MEDICARE, MEDICAID | END 2021-05-23 02:02 | disposition EMS.NT | LOC: EMS 02:01 | DX: Z03.89 Encounter for observation for other suspected diseases and conditions ruled out (principal) ==

== ENCOUNTER 2021-06-10 12:28 | Emergency (ER) | payer MEDICARE, MEDICAID ==
[2021-06-10 12:53] VITALS: BP 126/85
== END 2021-06-10 13:30 | disposition left against medical advice (07) ==
LOC: ED 12:28
DX: Z53.21 Procedure and treatment not carried out due to patient leaving prior to being seen by health care provider (principal)

== ENCOUNTER 2021-06-20 20:00 | Outpatient (CLI) | payer MEDICARE, MEDICAID | END 2021-06-20 20:01 | disposition critical access hospital (66) | LOC: EMS 20:00 | DX: R45.851 Suicidal ideations (principal); G62.9 Polyneuropathy, unspecified | CPT/HCPCS: A0425; A0429 ==

== ENCOUNTER 2021-06-20 20:17 | Emergency (ER) | payer MEDICARE, MEDICAID ==
--- NOTE | 2021-06-20 20:19 | ED Physician Documentation ---
PD HPI MHE - Stated complaint Stated Complaint: SI PD PAST MEDICAL HISTORY - Past Medical History Cardiovascular: Peripheral Vascular Disease Respiratory: None Neuro: None, Other Endocrine/Autoimmune: Type 2 diabetes GI: None : Renal insuffiency HEENT: None Psych: Obsessive compulsive disorder, Other Musculoskeletal: None Derm: None - Past Surgical History Past Surgical History: Yes - Present Medications Home Medications: Ambulatory Orders Medication Instructions Recorded Confirmed Benztropine [Cogentin] 2 mg PO BID 07/03/14 05/02/21 Pimozide [Orap] 4 mg PO BID 07/03/14 05/02/21 Albuterol Sulf [Ventolin Hfa 1 - 2 puffs INH Q4HR PRN #1 inhaler 11/06/17 05/02/21 Inhaler] - Allergies Allergies/Adverse Reactions: Allergies Allergy/AdvReac Type Severity Reaction Status Date / Time fluoxetine [From Prozac] Allergy Nausea Verified 06/10/21 12:47 mirtazapine Allergy Nausea Verified 06/10/21 12:47 erythromycin base AdvReac Unknown Verified 06/10/21 12:47 - Social History Does the pt smoke?: Yes Smoking Status: Current every day smoker Does the pt drink ETOH?: No Does the pt have substance abuse?: Yes - Immunizations Immunizations are current?: Yes - POLST Patient has POLST: No Results - Vitals Vitals: Oxygen O2 Source Room air
[2021-06-20 20:30] VITALS: BP 141/85
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
== END 2021-06-20 21:39 | disposition home or self-care (01) ==
LOC: EDUNIT# → SUPCPDRO 20:17 → ED 20:17
DX: E11.42 Type 2 diabetes mellitus with diabetic polyneuropathy (principal); F17.200 Nicotine dependence, unspecified, uncomplicated
CPT/HCPCS: 99283

== ENCOUNTER 2021-09-05 17:49 | Outpatient (CLI) | payer MEDICARE, MEDICAID | END 2021-09-05 17:50 | disposition EMS.NT | LOC: EMS 17:49 | DX: Z03.89 Encounter for observation for other suspected diseases and conditions ruled out (principal) ==

== ENCOUNTER 2021-09-11 21:10 | Outpatient (CLI) | payer MEDICARE, MEDICAID | END 2021-09-11 21:11 | disposition critical access hospital (66) | LOC: EMS 21:10 | DX: R45.851 Suicidal ideations (principal) | CPT/HCPCS: A0425; A0429 ==

== ENCOUNTER 2021-09-11 21:27 | Emergency (ER) | payer MEDICARE, MEDICAID ==
[2021-09-11 21:38] VITALS: BP 130/80
--- NOTE | 2021-09-11 21:52 | ED Physician Documentation ---
PD HPI MHE - Stated complaint Stated Complaint: MHE - Chief complaint Chief Complaint: MHE - History obtained from History obtained from: Patient, EMS - History of Present Illness Primary symptom: Psychosis (reportedly was acting strangely/yelling and stating that someone stole his meds and was trying to "get me". He was asked to leave the [facility], and staff there called EMS.), Other (angry behavior without being violent) Timing - onset: Today Contributing factors: Substance abuse - drugs (methamphetamines in the past.), Off meds (he says had not taken his meds for couple of days) Similar symptoms before: Diagnosis (affective psychosis (?), depression, suicidal ideation, and overdoses. Substance abuse.) Recently seen: Emergency Dept (few months ago for depression, psychosis, suicidal ideation.) Review of Systems Unable to obtain: Uncooperative Cardiac: denies: Chest pain / pressure GI: denies: Abdominal Pain, Vomiting Neurologic: denies: Headache, Head injury PD PAST MEDICAL HISTORY - Past Medical History Cardiovascular: Peripheral Vascular Disease Respiratory: None Neuro: None, Other Endocrine/Autoimmune: Type 2 diabetes GI: None : Renal insuffiency HEENT: None Psych: Obsessive compulsive disorder, Other (some schizoaffective disorder and takes antipsychotic usually. ) Musculoskeletal: None Derm: None - Past Surgical History Past Surgical History: Yes - Present Medications Home Medications: Ambulatory Orders Medication Instructions Recorded Confirmed Benztropine [Cogentin] 2 mg PO BID 07/03/14 05/02/21 Pimozide [Orap] 4 mg PO BID 07/03/14 05/02/21 Albuterol Sulf [Ventolin Hfa 1 - 2 puffs INH Q4HR PRN #1 inhaler 11/06/17 05/02/21 Inhaler] - Allergies Allergies/Adverse Reactions: Allergies Allergy/AdvReac Type Severity Reaction Status Date / Time fluoxetine [From Prozac] Allergy Nausea Verified 09/11/21 21:38 mirtazapine Allergy Nausea Verified 09/11/21 21:38 erythromycin base AdvReac Unknown Verified 09/11/21 21:38 - Living Situation Living Situation: reports: Alone Living Arrangement: reports: Homeless (has been at [facility]) - Social History Does the pt smoke?: Yes Smoking Status: Current every day smoker Does the pt drink ETOH?: No Does the pt have substance abuse?: Yes Substance Use and Type: Meth - Immunizations Immunizations are current?: Yes - POLST Patient has POLST: No PD ED PE NORMAL - Vitals Vital signs reviewed: Yes - General General: Well developed/nourished, Other (he is lying eyes closed, seeming sleeping, but nods his head when I ask if he is awake. I ask how we can help him and he just keeps repeating "shoot me". He nodded response to some ROS questions, but really nonverbal otherwise at his choosing. He yells at times when prodded verbally for more info. ) - HEENT HEENT: Atraumatic - Neck Neck: Supple, no meningeal sign, No adenopathy - Cardiac Cardiac: RRR, No murmur - Respiratory Respiratory: Clear bilaterally - Abdomen Abdomen: Soft, Non tender, Non distended - Derm Derm: Normal color, Warm and dry - Neuro Neuro: No motor deficit, Other (walks to bathroom on his own when he felt the need, and returned to cart. Then appeared to be sleeping again. ) Results - Vitals Vitals: Vital Signs - 24 hr 09/11/21 09/12/21 09/12/21 21:33 00:26 01:23 Temperature 36.3 C L Heart Rate 80 Respiratory 20 13 13 Rate Blood Pressure 130/80 O2 Saturation 96 09/12/21 09/12/21 09/12/21 01:38 03:18 04:37 Temperature Heart Rate Respiratory 17 12 12 Rate Blood Pressure O2 Saturation 09/12/21 09/12/21 05:38 06:03 Temperature Heart Rate Respiratory 12 12 Rate Blood Pressure O2 Saturation Oxygen O2 Source Room air - Labs Labs: Laboratory Tests 09/11/21 09/11/21 09/11/21 22:35 22:35 22:35 WBC 9.8 RBC 4.46 L Hgb 13.4 L Hct 41.0 L MCV 91.9 MCH 30.0 MCHC 32.7 RDW 12.7 Plt Count 366 MPV 10.0 Neut # (Auto) 6.9 H Lymph # (Auto) 1.8 [place] # (Auto) 0.6 Eos # (Auto) 0.4 Baso # (Auto) 0.1 Absolute Nucleated RBC 0.00 Nucleated RBC % 0.0 Sodium 134 L Potassium 3.7 Chloride 101 Carbon Dioxide 24 Anion Gap 9.0 BUN 34 H Creatinine 0.9 Estimated GFR (MDRD) 87 L Glucose 175 H Calcium 9.0 Total Bilirubin 0.6 AST 28 ALT 23 Alkaline Phosphatase 81 Total Protein 6.6 L Albumin 3.8 Globulin 2.8 Albumin/Globulin Ratio 1.4 Lipase 29 TSH 2.21 Urine Color Urine Clarity Urine pH Ur Specific [place] Urine Protein Urine Glucose (UA) Urine Ketones Urine Occult Blood Urine Nitrite Urine Bilirubin Urine Urobilinogen Ur Leukocyte Esterase Ur Microscopic Review Salicylates < 6.0 Urine Opiates Screen Ur Oxycodone Screen Urine Methadone Screen Ur Propoxyphene Screen Acetaminophen < 10 L Ur Barbiturates Screen Ur Tricyclics Screen Ur Phencyclidine Scrn Ur Amphetamine Screen U Methamphetamines Scrn U Benzodiazepines Scrn Urine Cocaine Screen U Cannabinoids Screen Ethyl Alcohol < 5.0 09/12/21 01:41 WBC RBC Hgb Hct MCV MCH MCHC RDW Plt Count MPV Neut # (Auto) Lymph # (Auto) [place] # (Auto) Eos # (Auto) Baso # (Auto) Absolute Nucleated RBC Nucleated RBC % Sodium Potassium Chloride Carbon Dioxide Anion Gap BUN Creatinine Estimated GFR (MDRD) Glucose Calcium Total Bilirubin AST ALT Alkaline Phosphatase Total Protein Albumin Globulin Albumin/Globulin Ratio Lipase TSH Urine Color YELLOW Urine Clarity CLEAR Urine pH 5.5 Ur Specific [place] 1.025 Urine Protein NEGATIVE Urine Glucose (UA) NEGATIVE Urine Ketones TRACE Urine Occult Blood NEGATIVE Urine Nitrite NEGATIVE Urine Bilirubin NEGATIVE Urine Urobilinogen 0.2 (NORMAL) Ur Leukocyte Esterase NEGATIVE Ur Microscopic Review NOT INDICATED Salicylates Urine Opiates Screen NEGATIVE Ur Oxycodone Screen NEGATIVE Urine Methadone Screen NEGATIVE Ur Propoxyphene Screen NEGATIVE Acetaminophen Ur Barbiturates Screen NEGATIVE Ur Tricyclics Screen NEGATIVE Ur Phencyclidine Scrn NEGATIVE Ur Amphetamine Screen POSITIVE H U Methamphetamines Scrn POSITIVE H U Benzodiazepines Scrn NEGATIVE Urine Cocaine Screen NEGATIVE U Cannabinoids Screen NEGATIVE Ethyl Alcohol PD MEDICAL DECISION MAKING - ED course Complexity details: reviewed old records, reviewed results, re-evaluated patient (will allow patient to relax in ER. He declined PO meds but is just sleeping/resting on cart. I did not see need for IM meds or such. Will reassess when has metabolized a bit more. ), considered differential (Does not express suicidality, but is concerned about "others" taking his meds and "trying to get me". But when asked here how we can help him, he just says "shoot me". Urine positive for meth and has had that in the past with ER visits. Presume meth enhanced psychosis, worse with not taking meds. ), d/w patient ED course: The patient awoke this morning feeling a bit anxious. He denied any suicidal ideation. He was still minimally conversant but mostly said he wanted to leave. I did not see any reason for holding him otherwise and he was allowed to leave on his own ambulation without any problems. Departure - Departure Disposition: ED [place] Clinical Impression: Paranoid delusion, Methamphetamine abuse, Acute psychosis Condition: Stable Record reviewed to determine appropriate education?: Yes Discharge Date/Time: 09/12/21 06:58
[2021-09-11] MEDS ORDERED: OLANZapine ODT 5 MG TABLET TL ONE (22:21)
[2021-09-11 22:40] LABS: BASOPHILS # (AUTO) 0.1 10^3/uL (0.0-0.1); BASOPHILS % (AUTO) 0.5 %; EOSINOPHILS # (AUTO) 0.4 10^3/uL (0.0-0.7); EOSINOPHILS % (AUTO) 4.1 %; HGB - HEMOGLOBIN 13.4 g/dL (14.0-18.0); LYMPHOCYTES # (AUTO) 1.8 10^3/uL (1.5-3.5); MEAN CORPUSCULAR HGB CONC 32.7 g/dL (32.0-36.0); MEAN CORPUSCULAR VOLUME 91.9 fL (80.0-94.0); MONOCYTES # (AUTO) 0.6 10^3/uL (0.0-1.0); MONOCYTES % (AUTO) 6.5 %; NEUTROPHILS # (AUTO) 6.9 10^3/uL (1.5-6.6); NEUTROPHILS % (AUTO) 70.6 %; PLT - PLATELET COUNT 366 10^3/uL (130-450); RED BLOOD COUNT 4.46 10^6/uL (4.70-6.10); RED CELL DISTRIBUTION WIDTH 12.7 % (12.0-15.0); WHITE BLOOD COUNT 9.8 x10^3/uL (4.8-10.8)
[2021-09-11 22:56] LABS: ACETAMINOPHEN < 10 ug/mL (10-30); ALBUMIN 3.8 g/dL (3.2-5.5); ALBUMIN/GLOBULIN RATIO 1.4 (1.0-2.2); ALKALINE PHOSPHATASE 81 IU/L (42-121); ALT ALANINE AMINOTRANSFERASE 23 IU/L (10-60); AST ASPARTATE AMINOTRANSFERASE 28 IU/L (10-42); BILIRUBIN,TOTAL 0.6 mg/dL (0.2-1.0); BUN - BLOOD UREA NITROGEN 34 mg/dL (6-20); CARBON DIOXIDE - CO2 24 mmol/L (21-32); CHLORIDE 101 mmol/L (101-111); CREATININE 0.9 mg/dL (0.6-1.2); ETOH - ETHANOL < 5.0 mg/dL; GFR - MDRD 87 (>89); GLUCOSE 175 mg/dL (70-100); LIPASE 29 U/L (22-51); POTASSIUM 3.7 mmol/L (3.5-5.0); SALICYLATE < 6.0 mg/dL; SODIUM 134 mmol/L (135-145); TOTAL PROTEIN 6.6 g/dL (6.7-8.2)
[2021-09-12 06:37] LABS: AMPHETAMINE SCREEN,URINE POSITIVE (NEGATIVE); BARBITURATE SCREEN,UR NEGATIVE (NEGATIVE); BENZODIAZEPINES SCREEN, URINE NEGATIVE (NEGATIVE); BILIRUBIN,URINE NEGATIVE (NEGATIVE); CLARITY,URINE CLEAR (CLEAR); COCAINE SCREEN URINE NEGATIVE (NEGATIVE); GLUCOSE, URINE (UA) NEGATIVE (NEGATIVE); KETONES,URINE (UA) TRACE mg/dL (NEGATIVE); LEUKOCYTE ESTERASE, URINE NEGATIVE (NEGATIVE); METHADONE SCREEN, URINE NEGATIVE (NEGATIVE); METHAMPHETAMINES SCREEN, URINE POSITIVE (NEGATIVE); NITRITE,URINE NEGATIVE (NEGATIVE); OCCULT BLOOD,URINE NEGATIVE (NEGATIVE); OPIATE SCREEN, URINE NEGATIVE (NEGATIVE); OXYCODONE SCREEN, URINE NEGATIVE (NEGATIVE); PH,URINE 5.5 PH (5.0-7.5); PROPOXYPHENE SCREEN, URINE NEGATIVE (NEGATIVE); PROTEIN,URINE NEGATIVE (NEGATIVE); THC CANNABINOID SCREEN, URINE NEGATIVE (NEGATIVE); TRICYCLIC ANTIDEPRESSANT,URINE NEGATIVE (NEGATIVE); UROBILINOGEN,URINE 0.2 (NORMAL) E.U./dL (NORMAL)
== END 2021-09-12 06:58 | disposition left against medical advice (07) ==
LOC: EDUNIT# → SUPCPDRO 21:27 → ED 21:27
DX: F22 Delusional disorders (principal); F23 Brief psychotic disorder; F15.10 Other stimulant abuse, uncomplicated; F25.9 Schizoaffective disorder, unspecified; E11.51 Type 2 diabetes mellitus with diabetic peripheral angiopathy without gangrene; F17.200 Nicotine dependence, unspecified, uncomplicated; Z59.01 Sheltered homelessness
CPT/HCPCS: 36415; 80053; 80306; 80307; 81003; 83690; 84443; 85025; 99283; A9270; G0480; 80320; 80329; 81001; 87086

== ENCOUNTER 2021-09-24 00:40 | Outpatient (CLI) | payer MEDICARE, MEDICAID | END 2021-09-24 00:41 | disposition critical access hospital (66) | LOC: EMS 00:40 | DX: R45.851 Suicidal ideations (principal); G62.9 Polyneuropathy, unspecified | CPT/HCPCS: A0425; A0429 ==

== ENCOUNTER 2021-09-24 00:56 | Emergency (ER) | payer MEDICARE, MEDICAID ==
[2021-09-24 01:05] VITALS: BP 127/82
--- NOTE | 2021-09-24 01:05 | ED Physician Documentation ---
History of Present Illness - Stated complaint Stated Complaint: MHE - History obtained from History obtained from: Patient, EMS - Additonal information Additional information: 56yM with pmh dm, undomiciled at present, presents reporting he was walking on the street and flagged down a police car, telling them he couldn't get into the [facility] for the night. He also endorsed active SI to police and EMS, stating he wants to slit his throat, overdose on his pills and then stab himself in the chest. denies hi/avh. Review of Systems Ten Systems: 10 systems reviewed and negative Respiratory: reports: Cough (chronic "smokers" cough) Psychiatric: reports: Depressed, Suicidal PD PAST MEDICAL HISTORY - Past Medical History Cardiovascular: Peripheral Vascular Disease Respiratory: None Neuro: None, Other Endocrine/Autoimmune: Type 2 diabetes GI: None : Renal insuffiency HEENT: None Psych: Obsessive compulsive disorder, Other (some schizoaffective disorder and takes antipsychotic usually. ) Musculoskeletal: None Derm: None - Past Surgical History Past Surgical History: Yes - Present Medications Home Medications: Ambulatory Orders Medication Instructions Recorded Confirmed Benztropine [Cogentin] 2 mg PO BID 07/03/14 05/02/21 Pimozide [Orap] 4 mg PO BID 07/03/14 05/02/21 Albuterol Sulf [Ventolin Hfa 1 - 2 puffs INH Q4HR PRN #1 inhaler 11/06/17 05/02/21 Inhaler] - Allergies Allergies/Adverse Reactions: Allergies Allergy/AdvReac Type Severity Reaction Status Date / Time fluoxetine [From Prozac] Allergy Nausea Verified 09/24/21 01:14 mirtazapine Allergy Nausea Verified 09/24/21 01:14 erythromycin base AdvReac Unknown Verified 09/24/21 01:14 - Social History Does the pt smoke?: Yes Smoking Status: Current every day smoker Does the pt drink ETOH?: No Does the pt have substance abuse?: Yes - Immunizations Immunizations are current?: Yes - POLST Patient has POLST: No PD ED PE NORMAL - Vitals Vital signs reviewed: Yes - General General: Alert and oriented X 3, No acute distress, Well developed/nourished - HEENT HEENT: Atraumatic, PERRL, EOMI - Neck Neck: Supple, no meningeal sign - Cardiac Cardiac: RRR - Respiratory Respiratory: No respiratory distress, Clear bilaterally - Abdomen Abdomen: Non tender, Non distended - Derm Derm: Normal color, Warm and dry - Extremities Extremities: No deformity - Neuro Neuro: Alert and oriented X 3 - Psych Psych: Other (depressed affect) Results - Vitals Vitals: Vital Signs - 24 hr 09/24/21 01:00 Temperature 36.4 C L Heart Rate 80 Respiratory 15 Rate Blood Pressure 127/82 H O2 Saturation 98 Oxygen O2 Source Room air - Labs Labs: Laboratory Tests 09/24/21 09/24/21 09/24/21 01:03 01:03 01:03 WBC 8.4 RBC 4.70 Hgb 14.2 Hct 43.0 MCV 91.5 MCH 30.2 MCHC 33.0 RDW 12.8 Plt Count 272 MPV 10.1 Neut # (Auto) 5.9 Lymph # (Auto) 1.7 [place] # (Auto) 0.6 Eos # (Auto) 0.3 Baso # (Auto) 0.0 Absolute Nucleated RBC 0.00 Nucleated RBC % 0.0 Sodium 140 Potassium 3.7 Chloride 104 Carbon Dioxide 24 Anion Gap 12.0 BUN 17 Creatinine 0.8 Estimated GFR (MDRD) 99 Glucose 161 H Calcium 8.9 Total Bilirubin 0.5 AST 20 ALT 20 Alkaline Phosphatase 77 Total Protein 7.1 Albumin 4.1 Globulin 3.0 Albumin/Globulin Ratio 1.4 Lipase 24 TSH 6.12 H Nasal Adenovirus (PCR) Nasal B. parapertussis DNA (PCR) Nasal Coronavir 229E PCR Nasal Coronavir HKU1 PCR Nasal Coronavir NL63 PCR Nasal Coronavir OC43 PCR Nasal Enterovir/Rhinovir PCR Nasal Influenza B PCR Nasal Influenza A PCR Nasal Parainfluen 1 PCR Nasal Parainfluen 2 PCR Nasal Parainfluen 3 PCR Nasal Parainfluen 4 PCR Nasal RSV (PCR) Nasal B.pertussis DNA PCR Nasal C.pneumoniae (PCR) Prosper Human Metapneumo PCR Nasal M.pneumoniae (PCR) Nasal SARS-CoV-2 (PCR) Salicylates < 6.0 Acetaminophen < 10 L Ethyl Alcohol < 5.0 09/24/21 01:11 WBC RBC Hgb Hct MCV MCH MCHC RDW Plt Count MPV Neut # (Auto) Lymph # (Auto) [place] # (Auto) Eos # (Auto) Baso # (Auto) Absolute Nucleated RBC Nucleated RBC % Sodium Potassium Chloride Carbon Dioxide Anion Gap BUN Creatinine Estimated GFR (MDRD) Glucose Calcium Total Bilirubin AST ALT Alkaline Phosphatase Total Protein Albumin Globulin Albumin/Globulin Ratio Lipase TSH Nasal Adenovirus (PCR) NOT DETECTED Nasal B. parapertussis DNA (PCR) NOT DETECTED Nasal Coronavir 229E PCR NOT DETECTED Nasal Coronavir HKU1 PCR NOT DETECTED Nasal Coronavir NL63 PCR NOT DETECTED Nasal Coronavir OC43 PCR NOT DETECTED Nasal Enterovir/Rhinovir PCR NOT DETECTED Nasal Influenza B PCR NOT DETECTED Nasal Influenza A PCR NOT DETECTED Nasal Parainfluen 1 PCR NOT DETECTED Nasal Parainfluen 2 PCR NOT DETECTED Nasal Parainfluen 3 PCR NOT DETECTED Nasal Parainfluen 4 PCR NOT DETECTED Nasal RSV (PCR) NOT DETECTED Nasal B.pertussis DNA PCR NOT DETECTED Nasal C.pneumoniae (PCR) NOT DETECTED Prosper Human Metapneumo PCR NOT DETECTED Nasal M.pneumoniae (PCR) NOT DETECTED Nasal SARS-CoV-2 (PCR) NOT DETECTED Salicylates Acetaminophen Ethyl Alcohol PD MEDICAL DECISION MAKING - ED course ED course: 56yM p/w high risk SI. 1:1 initiated. will medically screen and then if cleared will undergo psych eval. patient medically cleared. plan was to initiate psychiatric eval however patient woke, went to bathroom, and then began banging objects against the wall, yelling and cursing, berating and cursing our small nighttime ED staff, acting physically threatening. No security guards on the premises. night shift supervisor Helga called. Patient demanded to leave the ED, leaving through ambulance bay while continuing to yell. Departure - Departure Disposition: ED [facility] Clinical Impression: Depression, Homelessness
[2021-09-24 01:21] LABS: BASOPHILS % (AUTO) 0.2 %; EOSINOPHILS # (AUTO) 0.3 10^3/uL (0.0-0.7); EOSINOPHILS % (AUTO) 3.3 %; HGB - HEMOGLOBIN 14.2 g/dL (14.0-18.0); LYMPHOCYTES # (AUTO) 1.7 10^3/uL (1.5-3.5); LYMPHOCYTES % (AUTO) 20.2 %; MEAN CORPUSCULAR HEMOGLOBIN 30.2 pg (27.0-31.0); MEAN CORPUSCULAR VOLUME 91.5 fL (80.0-94.0); MEAN PLATELET VOLUME 10.1 fL (7.4-11.4); MONOCYTES # (AUTO) 0.6 10^3/uL (0.0-1.0); MONOCYTES % (AUTO) 6.5 %; NEUTROPHILS # (AUTO) 5.9 10^3/uL (1.5-6.6); NEUTROPHILS % (AUTO) 69.4 %; PLT - PLATELET COUNT 272 10^3/uL (130-450); RED CELL DISTRIBUTION WIDTH 12.8 % (12.0-15.0); WHITE BLOOD COUNT 8.4 x10^3/uL (4.8-10.8)
[2021-09-24 01:36] LABS: ACETAMINOPHEN < 10 ug/mL (10-30); ALBUMIN 4.1 g/dL (3.2-5.5); ALBUMIN/GLOBULIN RATIO 1.4 (1.0-2.2); ALKALINE PHOSPHATASE 77 IU/L (42-121); ALT ALANINE AMINOTRANSFERASE 20 IU/L (10-60); AST ASPARTATE AMINOTRANSFERASE 20 IU/L (10-42); BILIRUBIN,TOTAL 0.5 mg/dL (0.2-1.0); BUN - BLOOD UREA NITROGEN 17 mg/dL (6-20); CALCIUM 8.9 mg/dL (8.5-10.3); CARBON DIOXIDE - CO2 24 mmol/L (21-32); CHLORIDE 104 mmol/L (101-111); CREATININE 0.8 mg/dL (0.6-1.2); ETOH - ETHANOL < 5.0 mg/dL; GFR - MDRD 99 (>89); GLUCOSE 161 mg/dL (70-100); LIPASE 24 U/L (22-51); POTASSIUM 3.7 mmol/L (3.5-5.0); SALICYLATE < 6.0 mg/dL; SODIUM 140 mmol/L (135-145); TOTAL PROTEIN 7.1 g/dL (6.7-8.2)
[2021-09-24 02:11] LABS: B. PARAPERTUSSIS- RESP PCR PAN NOT DETECTED; B. PERTUSSIS- RESP PCR PANEL NOT DETECTED; C. PNEUMONIAE- RESP PCR PANEL NOT DETECTED; CORONAVIRUS 229E-RESP PCR NOT DETECTED; CORONAVIRUS HKU1-RESP PCR NOT DETECTED; CORONAVIRUS NL63-RESP PCR NOT DETECTED; CORONAVIRUS OC43-RESP PCR NOT DETECTED; HUMAN METAPNEUMOVIRUS NOT DETECTED; INFLUENZA A- RESP PCR PANEL NOT DETECTED; INFLUENZA B - RESP PCR PANEL NOT DETECTED; M. PNEUMONIAE- RESP PCR PANEL NOT DETECTED; PARAINFLUENZA VIRUS 1 NOT DETECTED; PARAINFLUENZA VIRUS 2 NOT DETECTED; PARAINFLUENZA VIRUS 3 NOT DETECTED; PARAINFLUENZA VIRUS 4 NOT DETECTED; RHINOVIRUS/ENTEROVIRUS NOT DETECTED; RSV- RESP PCR PANEL NOT DETECTED; SARS-CoV-2 -RESP PCR PANEL NOT DETECTED
== END 2021-09-24 05:25 | disposition left against medical advice (07) ==
LOC: EDUNIT# → SUPCPDRO 00:56 → ED 00:56
DX: F32.A Depression, unspecified (principal); F17.200 Nicotine dependence, unspecified, uncomplicated; Z20.822 Contact with and (suspected) exposure to COVID-19; Z59.00 Homelessness unspecified
CPT/HCPCS: 36415; 80053; 80307; 83690; 84443; 85025; 87631; 99283; 99285; G0480; 0202U; 80320; 80329

== ENCOUNTER 2021-10-22 19:47 | Emergency (ER) | payer MEDICARE, MEDICAID ==
[2021-10-22 20:19] LABS: BASOPHILS % (AUTO) 0.3 %; EOSINOPHILS # (AUTO) 0.4 10^3/uL (0.0-0.7); EOSINOPHILS % (AUTO) 4.4 %; HCT - HEMATOCRIT 42.1 % (42.0-52.0); HGB - HEMOGLOBIN 14.1 g/dL (14.0-18.0); LYMPHOCYTES # (AUTO) 2.6 10^3/uL (1.5-3.5); LYMPHOCYTES % (AUTO) 25.4 %; MEAN CORPUSCULAR HEMOGLOBIN 30.5 pg (27.0-31.0); MEAN CORPUSCULAR HGB CONC 33.5 g/dL (32.0-36.0); MEAN CORPUSCULAR VOLUME 91.1 fL (80.0-94.0); MEAN PLATELET VOLUME 10.3 fL (7.4-11.4); MONOCYTES # (AUTO) 0.8 10^3/uL (0.0-1.0); MONOCYTES % (AUTO) 7.4 %; NEUTROPHILS # (AUTO) 6.3 10^3/uL (1.5-6.6); NEUTROPHILS % (AUTO) 62.1 %; PLT - PLATELET COUNT 311 10^3/uL (130-450); RED BLOOD COUNT 4.62 10^6/uL (4.70-6.10); RED CELL DISTRIBUTION WIDTH 13.2 % (12.0-15.0); WHITE BLOOD COUNT 10.1 x10^3/uL (4.8-10.8)
[2021-10-22 20:33] LABS: MUDS CUTOFF CONCENTRATIONS CUTOFF CONC BELOW:
[2021-10-22 20:35] LABS: ACETAMINOPHEN < 10 ug/mL (10-30); ALBUMIN 4.2 g/dL (3.2-5.5); ALBUMIN/GLOBULIN RATIO 1.4 (1.0-2.2); ALKALINE PHOSPHATASE 81 IU/L (42-121); ALT ALANINE AMINOTRANSFERASE 21 IU/L (10-60); AST ASPARTATE AMINOTRANSFERASE 22 IU/L (10-42); BILIRUBIN,TOTAL 0.3 mg/dL (0.2-1.0); BUN - BLOOD UREA NITROGEN 25 mg/dL (6-20); CALCIUM 9.8 mg/dL (8.5-10.3); CARBON DIOXIDE - CO2 23 mmol/L (21-32); CHLORIDE 101 mmol/L (101-111); CREATININE 0.8 mg/dL (0.6-1.2); ETOH - ETHANOL < 5.0 mg/dL; GFR - MDRD 99 (>89); GLUCOSE 148 mg/dL (70-100); LIPASE 25 U/L (22-51); POTASSIUM 4.2 mmol/L (3.5-5.0); SALICYLATE < 6.0 mg/dL; SODIUM 135 mmol/L (135-145); TOTAL PROTEIN 7.1 g/dL (6.7-8.2)
--- NOTE | 2021-10-22 20:39 | ED Physician Documentation ---
History of Present Illness - Stated complaint Stated Complaint: SI/BILAT LEG PX/DIABETIC - Chief complaint Chief Complaint: MHE - Additonal information Additional information: 56-year-old male presents emergency department with threat of self-harm. He reports being despondent and depressed. He has difficult time seeing his girlfriend due to them being a long-distance relationship. He also has chronic leg pain that he attributes to neuropathy due to uncontrolled diabetes. He states that he would like to overdose on his lamotrigine. He states that about a month ago he took his bottle of risperidone but did not seek medical treatme nt. He has multiple ER visits for similar in the past. Denies any fevers. No auditory or visual hallucinations. He does desire psychiatric treatment though not at [facility]. Review of Systems Constitutional: reports: Reviewed and negative Nose: reports: Reviewed and negative Throat: reports: Reviewed and negative Cardiac: reports: Reviewed and negative Respiratory: reports: Reviewed and negative GI: reports: Reviewed and negative : reports: Reviewed and negative Skin: denies: Rash, Lesions Neurologic: reports: Reviewed and negative PD PAST MEDICAL HISTORY - Past Medical History Cardiovascular: Peripheral Vascular Disease Respiratory: None Neuro: None, Other Endocrine/Autoimmune: Type 2 diabetes GI: None : Renal insuffiency HEENT: None Psych: Obsessive compulsive disorder, Other (some schizoaffective disorder and takes antipsychotic usually. ) Musculoskeletal: None Derm: None - Past Surgical History Past Surgical History: Yes - Present Medications Home Medications: Ambulatory Orders Medication Instructions Recorded Confirmed Benztropine [Cogentin] 2 mg PO BID 07/03/14 05/02/21 Pimozide [Orap] 4 mg PO BID 07/03/14 05/02/21 Albuterol Sulf [Ventolin Hfa 1 - 2 puffs INH Q4HR PRN #1 inhaler 11/06/17 05/02/21 Inhaler] - Allergies Allergies/Adverse Reactions: Allergies Allergy/AdvReac Type Severity Reaction Status Date / Time fluoxetine [From Prozac] Allergy Nausea Verified 10/22/21 19:53 mirtazapine Allergy Nausea Verified 10/22/21 19:53 erythromycin base AdvReac Unknown Verified 10/22/21 19:53 - Social History Does the pt smoke?: Yes Smoking Status: Current every day smoker Does the pt drink ETOH?: No Does the pt have substance abuse?: Yes - Immunizations Immunizations are current?: Yes - POLST Patient has POLST: No PD ED PE EXPANDED - General General: Alert, No acute distress - Cardiac Cardiac: Regular Rate, Radial strong equal, Pedal strong equal, Cap refill < 2 sec - Respiratory Respiratory: Clear to ausultation rashmi. No: Distress, Labored - Abdomen Abdomen: Normal Bowel sounds. No: Tender to palpation - Derm Derm: Normal color, Warm and dry. No: Rash - Neuro Neuro: Alert and Oriented X 3, CNII-XII intact - GCS Eye Opening: Spontaneous Motor: Obeys Commands Verbal: Oriented Total: 15 - Psych Psych: Suicidal, Tearful, Manic. No: Auditory hallucinations, Visual hallucinations Results - Vitals Vitals: Vital Signs - 24 hr 10/22/21 10/22/21 19:53 19:55 Temperature 36.7 C 36.7 C Heart Rate 80 80 Respiratory 18 18 Rate Blood Pressure 137/82 H 137/82 H O2 Saturation 98 98 Oxygen O2 Source Room air - Labs Labs: Laboratory Tests 10/22/21 10/22/21 10/22/21 20:08 20:08 20:08 WBC 10.1 RBC 4.62 L Hgb 14.1 Hct 42.1 MCV 91.1 MCH 30.5 MCHC 33.5 RDW 13.2 Plt Count 311 MPV 10.3 Neut # (Auto) 6.3 Lymph # (Auto) 2.6 [place] # (Auto) 0.8 Eos # (Auto) 0.4 Baso # (Auto) 0.0 Absolute Nucleated RBC 0.00 Nucleated RBC % 0.0 Sodium 135 Potassium 4.2 Chloride 101 Carbon Dioxide 23 Anion Gap 11.0 BUN 25 H Creatinine 0.8 Estimated GFR (MDRD) 99 Glucose 148 H Calcium 9.8 Total Bilirubin 0.3 AST 22 ALT 21 Alkaline Phosphatase 81 Total Protein 7.1 Albumin 4.2 Globulin 2.9 Albumin/Globulin Ratio 1.4 Lipase 25 TSH 3.65 Urine Color Urine Clarity Urine pH Ur Specific [place] Urine Protein Urine Glucose (UA) Urine Ketones Urine Occult Blood Urine Nitrite Urine Bilirubin Urine Urobilinogen Ur Leukocyte Esterase Ur Microscopic Review Urine Culture Comments Nasal Adenovirus (PCR) Nasal B. parapertussis DNA (PCR) Nasal Coronavir 229E PCR Nasal Coronavir HKU1 PCR Nasal Coronavir NL63 PCR Nasal Coronavir OC43 PCR Nasal Enterovir/Rhinovir PCR Nasal Influenza B PCR Nasal Influenza A PCR Nasal Parainfluen 1 PCR Nasal Parainfluen 2 PCR Nasal Parainfluen 3 PCR Nasal Parainfluen 4 PCR Nasal RSV (PCR) Nasal B.pertussis DNA PCR Nasal C.pneumoniae (PCR) [place] Human Metapneumo PCR Nasal M.pneumoniae (PCR) Nasal SARS-CoV-2 (PCR) Salicylates < 6.0 Urine Opiates Screen Ur Oxycodone Screen Urine Methadone Screen Ur Propoxyphene Screen Acetaminophen < 10 L Ur Barbiturates Screen Ur Tricyclics Screen Ur Phencyclidine Scrn Ur Amphetamine Screen U Methamphetamines Scrn U Benzodiazepines Scrn Urine Cocaine Screen U Cannabinoids Screen Ethyl Alcohol < 5.0 10/22/21 10/22/21 20:14 20:24 WBC RBC Hgb Hct MCV MCH MCHC RDW Plt Count MPV Neut # (Auto) Lymph # (Auto) [place] # (Auto) Eos # (Auto) Baso # (Auto) Absolute Nucleated RBC Nucleated RBC % Sodium Potassium Chloride Carbon Dioxide Anion Gap BUN Creatinine Estimated GFR (MDRD) Glucose Calcium Total Bilirubin AST ALT Alkaline Phosphatase Total Protein Albumin Globulin Albumin/Globulin Ratio Lipase TSH Urine Color YELLOW Urine Clarity CLEAR Urine pH 6.0 Ur Specific [place] 1.025 Urine Protein NEGATIVE Urine Glucose (UA) NEGATIVE Urine Ketones NEGATIVE Urine Occult Blood NEGATIVE Urine Nitrite NEGATIVE Urine Bilirubin NEGATIVE Urine Urobilinogen 0.2 (NORMAL) Ur Leukocyte Esterase NEGATIVE Ur Microscopic Review NOT INDICATED Urine Culture Comments NOT INDICATED Nasal Adenovirus (PCR) NOT DETECTED Nasal B. parapertussis DNA (PCR) NOT DETECTED Nasal Coronavir 229E PCR NOT DETECTED Nasal Coronavir HKU1 PCR NOT DETECTED Nasal Coronavir NL63 PCR NOT DETECTED Nasal Coronavir OC43 PCR NOT DETECTED Nasal Enterovir/Rhinovir PCR NOT DETECTED Nasal Influenza B PCR NOT DETECTED Nasal Influenza A PCR NOT DETECTED Nasal Parainfluen 1 PCR NOT DETECTED Nasal Parainfluen 2 PCR NOT DETECTED Nasal Parainfluen 3 PCR NOT DETECTED Nasal Parainfluen 4 PCR NOT DETECTED Nasal RSV (PCR) NOT DETECTED Nasal B.pertussis DNA PCR NOT DETECTED Nasal C.pneumoniae (PCR) NOT DETECTED [place]per Human Metapneumo PCR NOT DETECTED Nasal M.pneumoniae (PCR) NOT DETECTED Nasal SARS-CoV-2 (PCR) NOT DETECTED Salicylates Urine Opiates Screen NEGATIVE Ur Oxycodone Screen NEGATIVE Urine Methadone Screen NEGATIVE Ur Propoxyphene Screen NEGATIVE Acetaminophen Ur Barbiturates Screen NEGATIVE Ur Tricyclics Screen NEGATIVE Ur Phencyclidine Scrn NEGATIVE Ur Amphetamine Screen POSITIVE H U Methamphetamines Scrn POSITIVE H U Benzodiazepines Scrn NEGATIVE Urine Cocaine Screen NEGATIVE U Cannabinoids Screen NEGATIVE Ethyl Alcohol PD MEDICAL DECISION MAKING - ED course Complexity details: reviewed results, re-evaluated patient, considered differential, d/w patient ED course: 56-year-old male who is homeless presents emergency department stating that he has any intention to kill himself. He is despondent over the status of his relationship as well as his chronic leg pain that he attributes to neuropathy in the setting of diabetes for which she is not taking medication. He states that he took methamphetamine today in order to help control the pain. He states that if discharged in the emergency department he would kill himself by overdosing on his medications. Patient is not able to contract for safety and likely will need psychiatric stabilization. Screening labs do not show any acute worrisome findings. Particularly his glucose is not elevated. No findings of infection. Urine tox is positive for methamphetamine/amphetamine. I have placed a telepsych consult. However I received a phone call back that they do not have a provider for our hospital until 8 AM on 23 September. Therefore the patient will continue to board in the emergency department pending telepsych evaluation. If at some point he should desire to be discharged and can contract for safety that is a reasonable alternative. Patient will be signed out to my nighttime colleague Dr. Chan Departure - Departure Clinical Impression: Suicidal ideation, Suicidal intent
[2021-10-22 20:40] LABS: BILIRUBIN,URINE NEGATIVE (NEGATIVE); GLUCOSE, URINE (UA) NEGATIVE (NEGATIVE); KETONES,URINE (UA) NEGATIVE (NEGATIVE); LEUKOCYTE ESTERASE, URINE NEGATIVE (NEGATIVE); NITRITE,URINE NEGATIVE (NEGATIVE); OCCULT BLOOD,URINE NEGATIVE (NEGATIVE); PROTEIN,URINE NEGATIVE (NEGATIVE); UROBILINOGEN,URINE 0.2 (NORMAL) E.U./dL (NORMAL)
[2021-10-22 20:41] LABS: CLARITY,URINE CLEAR (CLEAR)
[2021-10-22 20:50] LABS: AMPHETAMINE SCREEN,URINE POSITIVE (NEGATIVE); BARBITURATE SCREEN,UR NEGATIVE (NEGATIVE); BENZODIAZEPINES SCREEN, URINE NEGATIVE (NEGATIVE); COCAINE SCREEN URINE NEGATIVE (NEGATIVE); METHADONE SCREEN, URINE NEGATIVE (NEGATIVE); METHAMPHETAMINES SCREEN, URINE POSITIVE (NEGATIVE); OPIATE SCREEN, URINE NEGATIVE (NEGATIVE); OXYCODONE SCREEN, URINE NEGATIVE (NEGATIVE); PROPOXYPHENE SCREEN, URINE NEGATIVE (NEGATIVE); THC CANNABINOID SCREEN, URINE NEGATIVE (NEGATIVE); TRICYCLIC ANTIDEPRESSANT,URINE NEGATIVE (NEGATIVE)
[2021-10-22 21:47] LABS: B. PARAPERTUSSIS- RESP PCR PAN NOT DETECTED; B. PERTUSSIS- RESP PCR PANEL NOT DETECTED; C. PNEUMONIAE- RESP PCR PANEL NOT DETECTED; CORONAVIRUS 229E-RESP PCR NOT DETECTED; CORONAVIRUS HKU1-RESP PCR NOT DETECTED; CORONAVIRUS NL63-RESP PCR NOT DETECTED; CORONAVIRUS OC43-RESP PCR NOT DETECTED; HUMAN METAPNEUMOVIRUS NOT DETECTED; INFLUENZA A- RESP PCR PANEL NOT DETECTED; INFLUENZA B - RESP PCR PANEL NOT DETECTED; M. PNEUMONIAE- RESP PCR PANEL NOT DETECTED; PARAINFLUENZA VIRUS 1 NOT DETECTED; PARAINFLUENZA VIRUS 2 NOT DETECTED; PARAINFLUENZA VIRUS 3 NOT DETECTED; PARAINFLUENZA VIRUS 4 NOT DETECTED; RHINOVIRUS/ENTEROVIRUS NOT DETECTED; RSV- RESP PCR PANEL NOT DETECTED; SARS-CoV-2 -RESP PCR PANEL NOT DETECTED
[2021-10-23 04:57] VITALS: BP 126/79
--- NOTE | 2021-10-23 05:14 | ED Physician Documentation ---
ED Addendum - Addendum Addendum: 10/23/21 05:11 At approximately 5 AM, ED RN tells me that patient is now awake, alert, and demanding his clothes and demanding discharge. I went in to the room and before I could introduce myself, patient says "can I have my clothes and be discharged now please". I reviewed with him that a psychiatric consult is pending and will likely be available in the next 15 minutes. He repeats the exact same sentence to me as quoted above. I then reviewed with him the concern for his initial presentation to the emergency department, namely suicidal thoughts and expressing intent of self-harm and suicide. He tells me "that was before" and "I'm not suicidal now". He tells me he feels safe begin discharged and again asks for his clothes and discharge. I asked him to return to the ED or call 911 at any time he feels unsafe and/or wants to be reevaluated, and he says he will do so. 10/23/21 05:19 At this time I do not have sufficient cause to hold patient against his will and he is thus discharged by his request
== END 2021-10-23 05:20 | disposition home or self-care (01) ==
LOC: ED 19:47
DX: F32.A Depression, unspecified (principal); R45.851 Suicidal ideations; F15.90 Other stimulant use, unspecified, uncomplicated; E11.42 Type 2 diabetes mellitus with diabetic polyneuropathy; E11.51 Type 2 diabetes mellitus with diabetic peripheral angiopathy without gangrene; Z20.822 Contact with and (suspected) exposure to COVID-19; F17.200 Nicotine dependence, unspecified, uncomplicated; Z59.00 Homelessness unspecified
CPT/HCPCS: 36415; 80053; 80306; 80307; 81003; 83690; 84443; 85025; 87631; 99283; G0480; 0202U; 80320; 80329; 81001; 87086

== ENCOUNTER 2021-10-25 05:27 | Outpatient (CLI) | payer MEDICARE, MEDICAID | END 2021-10-25 05:28 | disposition critical access hospital (66) | LOC: EMS 05:27 | DX: T68.XXXA Hypothermia, initial encounter (principal); X31.XXXA Exposure to excessive natural cold, initial encounter; S71.131A Puncture wound without foreign body, right thigh, initial encounter; X78.9XXA Intentional self-harm by unspecified sharp object, initial encounter | CPT/HCPCS: A0425; A0429 ==

== ENCOUNTER 2021-10-25 05:44 | Emergency (ER) | payer MEDICARE, MEDICAID ==
[2021-10-25 05:55] VITALS: BP 168/92
[2021-10-25 06:20] LABS: BASOPHILS % (AUTO) 0.3 %; EOSINOPHILS # (AUTO) 0.2 10^3/uL (0.0-0.7); EOSINOPHILS % (AUTO) 1.5 %; HCT - HEMATOCRIT 47.2 % (42.0-52.0); HGB - HEMOGLOBIN 15.4 g/dL (14.0-18.0); LYMPHOCYTES # (AUTO) 1.6 10^3/uL (1.5-3.5); LYMPHOCYTES % (AUTO) 13.6 %; MEAN CORPUSCULAR HEMOGLOBIN 30.2 pg (27.0-31.0); MEAN CORPUSCULAR HGB CONC 32.6 g/dL (32.0-36.0); MEAN CORPUSCULAR VOLUME 92.5 fL (80.0-94.0); MEAN PLATELET VOLUME 10.2 fL (7.4-11.4); MONOCYTES # (AUTO) 0.8 10^3/uL (0.0-1.0); MONOCYTES % (AUTO) 6.5 %; NEUTROPHILS % (AUTO) 77.8 %; PLT - PLATELET COUNT 319 10^3/uL (130-450); RED CELL DISTRIBUTION WIDTH 13.2 % (12.0-15.0); WHITE BLOOD COUNT 11.6 x10^3/uL (4.8-10.8)
[2021-10-25 06:38] LABS: ACETAMINOPHEN < 10 ug/mL (10-30); ALBUMIN 4.5 g/dL (3.2-5.5); ALBUMIN/GLOBULIN RATIO 1.7 (1.0-2.2); ALKALINE PHOSPHATASE 77 IU/L (42-121); ALT ALANINE AMINOTRANSFERASE 22 IU/L (10-60); AST ASPARTATE AMINOTRANSFERASE 23 IU/L (10-42); BILIRUBIN,TOTAL 1.1 mg/dL (0.2-1.0); BUN - BLOOD UREA NITROGEN 21 mg/dL (6-20); CALCIUM 9.1 mg/dL (8.5-10.3); CARBON DIOXIDE - CO2 25 mmol/L (21-32); CHLORIDE 101 mmol/L (101-111); CREATININE 0.9 mg/dL (0.6-1.2); ETOH - ETHANOL < 5.0 mg/dL; GFR - MDRD 87 (>89); GLUCOSE 148 mg/dL (70-100); LIPASE 25 U/L (22-51); SALICYLATE < 6.0 mg/dL; SODIUM 139 mmol/L (135-145); TOTAL PROTEIN 7.2 g/dL (6.7-8.2)
--- NOTE | 2021-10-25 06:59 | ED Physician Documentation ---
PD HPI MHE - Stated complaint Stated Complaint: MHE, SI - Chief complaint Chief Complaint: MHE - History obtained from History obtained from: Patient - History of Present Illness Primary symptom: Self harm - cut (report is stabbing himself in the leg when not allowed back into the [facility] [facility] Other (denies suicidality now.) PD PAST MEDICAL HISTORY - Past Medical History Cardiovascular: Peripheral Vascular Disease Respiratory: None Neuro: None, Other Endocrine/Autoimmune: Type 2 diabetes GI: None : Renal insuffiency HEENT: None Psych: Obsessive compulsive disorder, Other (some schizoaffective disorder and takes antipsychotic usually. ) Musculoskeletal: None Derm: None - Past Surgical History Past Surgical History: Yes - Present Medications Home Medications: Ambulatory Orders Medication Instructions Recorded Confirmed Benztropine [Cogentin] 2 mg PO BID 07/03/14 05/02/21 Pimozide [Orap] 4 mg PO BID 07/03/14 05/02/21 Albuterol Sulf [Ventolin Hfa 1 - 2 puffs INH Q4HR PRN #1 inhaler 11/06/17 05/02/21 Inhaler] - Allergies Allergies/Adverse Reactions: Allergies Allergy/AdvReac Type Severity Reaction Status Date / Time fluoxetine [From Prozac] Allergy Nausea Verified 10/25/21 05:58 mirtazapine Allergy Nausea Verified 10/25/21 05:58 erythromycin base AdvReac Unknown Verified 10/25/21 05:58 - Social History Does the pt smoke?: Yes Smoking Status: Current every day smoker Does the pt drink ETOH?: No Does the pt have substance abuse?: Yes - Immunizations Immunizations are current?: Yes - POLST Patient has POLST: No PD ED PE NORMAL - Vitals Vital signs reviewed: Yes - General General: Alert and oriented X 3, Well developed/nourished, Other (He is a bit anxious and wanting to leave the ER. I am just starting to see the patient and he is gathering his belongings to leave. I asked if he feels suicidal at this time and he says no that was just to get to the ER.) Results - Vitals Vitals: Vital Signs - 24 hr 10/25/21 05:50 Temperature 36.4 C L Heart Rate 81 Respiratory 18 Rate Blood Pressure 168/92 H O2 Saturation 100 Oxygen O2 Source Room air - Labs Labs: Laboratory Tests 10/25/21 10/25/21 10/25/21 06:10 06:10 06:10 WBC 11.6 H RBC 5.10 Hgb 15.4 Hct 47.2 MCV 92.5 MCH 30.2 MCHC 32.6 RDW 13.2 Plt Count 319 MPV 10.2 Neut # (Auto) 9.0 H Lymph # (Auto) 1.6 [place] # (Auto) 0.8 Eos # (Auto) 0.2 Baso # (Auto) 0.0 Absolute Nucleated RBC 0.00 Nucleated RBC % 0.0 Sodium 139 Potassium 4.0 Chloride 101 Carbon Dioxide 25 Anion Gap 13.0 BUN 21 H Creatinine 0.9 Estimated GFR (MDRD) 87 L Glucose 148 H Calcium 9.1 Total Bilirubin 1.1 H AST 23 ALT 22 Alkaline Phosphatase 77 Total Protein 7.2 Albumin 4.5 Globulin 2.7 Albumin/Globulin Ratio 1.7 Lipase 25 TSH 4.41 Salicylates < 6.0 Acetaminophen < 10 L Ethyl Alcohol < 5.0 PD MEDICAL DECISION MAKING - ED course Complexity details: considered differential (Limited interaction as he is just wanting to leave the ER as I go to talk to him. He denies suicidal intent. He declines my looking at his leg wound.), d/w patient Departure - Departure Disposition: ED [facility] Clinical Impression: Self-harming behavior Condition: Stable Record reviewed to determine appropriate education?: Yes
== END 2021-10-25 07:05 | disposition left against medical advice (07) ==
LOC: EDUNIT# → ED 05:44
DX: F32.A Depression, unspecified (principal); R45.851 Suicidal ideations; S71.101A Unspecified open wound, right thigh, initial encounter; X78.8XXA Intentional self-harm by other sharp object, initial encounter; E11.51 Type 2 diabetes mellitus with diabetic peripheral angiopathy without gangrene; Z59.01 Sheltered homelessness; F17.200 Nicotine dependence, unspecified, uncomplicated
CPT/HCPCS: 36415; 80053; 80307; 80320; 80329; 83690; 84443; 85025; 99284; 99285

== ENCOUNTER 2021-10-25 18:51 | Emergency (ER) | payer MEDICARE, MEDICAID ==
[2021-10-25 19:13] LABS: MUDS CUTOFF CONCENTRATIONS CUTOFF CONC BELOW:
[2021-10-25 19:21] LABS: BILIRUBIN,URINE NEGATIVE (NEGATIVE); GLUCOSE, URINE (UA) NEGATIVE (NEGATIVE); KETONES,URINE (UA) 15 mg/dL (NEGATIVE); LEUKOCYTE ESTERASE, URINE NEGATIVE (NEGATIVE); NITRITE,URINE NEGATIVE (NEGATIVE); OCCULT BLOOD,URINE NEGATIVE (NEGATIVE); PROTEIN,URINE NEGATIVE (NEGATIVE); UROBILINOGEN,URINE 0.2 (NORMAL) E.U./dL (NORMAL)
[2021-10-25 19:24] LABS: CLARITY,URINE CLEAR (CLEAR)
[2021-10-25 19:28] LABS: BASOPHILS # (AUTO) 0.1 10^3/uL (0.0-0.1); BASOPHILS % (AUTO) 0.4 %; EOSINOPHILS # (AUTO) 0.2 10^3/uL (0.0-0.7); HCT - HEMATOCRIT 42.4 % (42.0-52.0); HGB - HEMOGLOBIN 14.3 g/dL (14.0-18.0); LYMPHOCYTES # (AUTO) 1.8 10^3/uL (1.5-3.5); LYMPHOCYTES % (AUTO) 16.1 %; MEAN CORPUSCULAR HEMOGLOBIN 30.8 pg (27.0-31.0); MEAN CORPUSCULAR HGB CONC 33.7 g/dL (32.0-36.0); MEAN CORPUSCULAR VOLUME 91.4 fL (80.0-94.0); MEAN PLATELET VOLUME 10.3 fL (7.4-11.4); MONOCYTES # (AUTO) 0.8 10^3/uL (0.0-1.0); MONOCYTES % (AUTO) 6.8 %; NEUTROPHILS # (AUTO) 8.4 10^3/uL (1.5-6.6); NEUTROPHILS % (AUTO) 74.3 %; PLT - PLATELET COUNT 328 10^3/uL (130-450); RED BLOOD COUNT 4.64 10^6/uL (4.70-6.10); RED CELL DISTRIBUTION WIDTH 13.3 % (12.0-15.0); WHITE BLOOD COUNT 11.3 x10^3/uL (4.8-10.8)
--- NOTE | 2021-10-25 19:34 | ED Physician Documentation ---
History of Present Illness - Stated complaint Stated Complaint: MHE - Chief complaint Chief Complaint: MHE - Additonal information Additional information: 56-year-old male presents emergency department with chief complaint of suicidal ideation. Reports being upset as he cannot see his girlfriend. He is also endorsing methamphetamine use. States that if he leaves the ER he will kill himself. This is his fourth ED visit for similar in the last few days. Each time he has left before telepsych could see him or the provider. He does request detox but states that no detox will take him since he does not have his medications with him therefore he is requesting that we evaluate for psychiatric placement. He is now well-known to the ER. He is homeless and typically resides at the [facility]. Review of Systems Constitutional: denies: Fever, Chills Eyes: reports: Reviewed and negative Nose: reports: Reviewed and negative Throat: reports: Reviewed and negative Cardiac: reports: Reviewed and negative Respiratory: reports: Reviewed and negative Musculoskeletal: reports: Reviewed and negative Psychiatric: reports: Depressed, Suicidal. denies: Homicidal, Hallucinations, Delusions, Anxiety PD PAST MEDICAL HISTORY - Past Medical History Past Medical History: Yes Cardiovascular: Peripheral Vascular Disease Respiratory: None Neuro: None, Other Endocrine/Autoimmune: Type 2 diabetes GI: None : Renal insuffiency HEENT: None Psych: Obsessive compulsive disorder, Other Musculoskeletal: None Derm: None - Past Surgical History Past Surgical History: Yes - Present Medications Home Medications: Ambulatory Orders Medication Instructions Recorded Confirmed lamoTRIgine [LaMICtal] 25 mg PO DAILY 10/25/21 10/25/21 - Allergies Allergies/Adverse Reactions: Allergies Allergy/AdvReac Type Severity Reaction Status Date / Time fluoxetine [From Prozac] Allergy Nausea Verified 10/25/21 18:54 mirtazapine Allergy Nausea Verified 10/25/21 18:54 erythromycin base AdvReac Unknown Verified 10/25/21 18:54 - Social History Does the pt smoke?: Yes Smoking Status: Current every day smoker Does the pt drink ETOH?: No Does the pt have substance abuse?: Yes - Immunizations Immunizations are current?: Yes - POLST Patient has POLST: No PD ED PE NORMAL - General General: Alert and oriented X 3, No acute distress - HEENT HEENT: PERRL - Neck Neck: Supple, no meningeal sign - Cardiac Cardiac: RRR, No murmur - Respiratory Respiratory: Clear bilaterally - Derm Derm: Normal color, Warm and dry, No rash - Extremities Extremities: No deformity - Neuro Neuro: Alert and oriented X 3, display decorator 2-12 intact, No motor deficit Eye Opening: Spontaneous Motor: Obeys Commands Verbal: Oriented GCS Score: 15 - Psych Psych: Normal mood (Has a very flat affect. States that he is depressed and wants to kill himself. Does not elaborate on the plan. Would like to go to a psychiatric facility. Denies auditory or visual hallucinations.) Results - Vitals Vitals: Vital Signs - 24 hr 10/25/21 18:54 Temperature 36.5 C Heart Rate 87 Respiratory 16 Rate Blood Pressure 150/90 H O2 Saturation 100 Oxygen O2 Source Room air - Labs Labs: Laboratory Tests 10/25/21 10/25/21 10/25/21 19:09 19:19 19:19 WBC 11.3 H RBC 4.64 L Hgb 14.3 Hct 42.4 MCV 91.4 MCH 30.8 MCHC 33.7 RDW 13.3 Plt Count 328 MPV 10.3 Neut # (Auto) 8.4 H Lymph # (Auto) 1.8 Stokes # (Auto) 0.8 Eos # (Auto) 0.2 Baso # (Auto) 0.1 Absolute Nucleated RBC 0.00 Nucleated RBC % 0.0 Sodium 137 Potassium 3.7 Chloride 102 Carbon Dioxide 21 Anion Gap 14.0 H BUN 21 H Creatinine 0.9 Estimated GFR (MDRD) 87 L Glucose 123 H Calcium 8.8 Total Bilirubin 0.9 AST 28 ALT 22 Alkaline Phosphatase 75 Total Protein 7.2 Albumin 4.2 Globulin 3.0 Albumin/Globulin Ratio 1.4 Lipase 25 TSH Urine Color YELLOW Urine Clarity CLEAR Urine pH 5.0 Ur Specific [place] >=1.030 H Urine Protein NEGATIVE Urine Glucose (UA) NEGATIVE Urine Ketones 15 H Urine Occult Blood NEGATIVE Urine Nitrite NEGATIVE Urine Bilirubin NEGATIVE Urine Urobilinogen 0.2 (NORMAL) Ur Leukocyte Esterase NEGATIVE Ur Microscopic Review NOT INDICATED Urine Culture Comments NOT INDICATED Salicylates < 6.0 Urine Opiates Screen NEGATIVE Ur Oxycodone Screen NEGATIVE Urine Methadone Screen NEGATIVE Ur Propoxyphene Screen NEGATIVE Acetaminophen < 10 L Ur Barbiturates Screen NEGATIVE Ur Tricyclics Screen NEGATIVE Ur Phencyclidine Scrn NEGATIVE Ur Amphetamine Screen POSITIVE H U Methamphetamines Scrn POSITIVE H U Benzodiazepines Scrn NEGATIVE Urine Cocaine Screen NEGATIVE U Cannabinoids Screen NEGATIVE Ethyl Alcohol < 5.0 10/25/21 19:19 WBC RBC Hgb Hct MCV MCH MCHC RDW Plt Count MPV Neut # (Auto) Lymph # (Auto) Stokes # (Auto) Eos # (Auto) Baso # (Auto) Absolute Nucleated RBC Nucleated RBC % Sodium Potassium Chloride Carbon Dioxide Anion Gap BUN Creatinine Estimated GFR (MDRD) Glucose Calcium Total Bilirubin AST ALT Alkaline Phosphatase Total Protein Albumin Globulin Albumin/Globulin Ratio Lipase TSH 3.84 Urine Color Urine Clarity Urine pH Ur Specific [place] Urine Protein Urine Glucose (UA) Urine Ketones Urine Occult Blood Urine Nitrite Urine Bilirubin Urine Urobilinogen Ur Leukocyte Esterase Ur Microscopic Review Urine Culture Comments Salicylates Urine Opiates Screen Ur Oxycodone Screen Urine Methadone Screen Ur Propoxyphene Screen Acetaminophen Ur Barbiturates Screen Ur Tricyclics Screen Ur Phencyclidine Scrn Ur Amphetamine Screen U Methamphetamines Scrn U Benzodiazepines Scrn Urine Cocaine Screen U Cannabinoids Screen Ethyl Alcohol PD MEDICAL DECISION MAKING - ED course Complexity details: reviewed results, re-evaluated patient, considered differential, d/w patient ED course: 56-year-old male returns to the ER for reported suicidal ideation. He endorses thoughts of self-harm but does not endorse a plan. This is his fourth visit in his many days for similar. Each time he is left when the provider has gone to see him or before telepsych evaluation could be completed. Once medically cleared I will request telepsych evaluation. However it is likely he will board in the ER overnight. 2119: Telepsych has inform me that there is no overnight provider until 5 AM [place] or 8 AM Eastern time. Patient will remain in the ER until able to be seen by telepsych. Patient was signed out to my oncoming colleague Dr. King. Departure - Departure Clinical Impression: Homeless single person, Suicidal ideation Depression Qualifiers: Depression Type: unspecified Qualified Code(s): F32.A - Depression, unspecified
[2021-10-25 19:35] LABS: AMPHETAMINE SCREEN,URINE POSITIVE (NEGATIVE); BARBITURATE SCREEN,UR NEGATIVE (NEGATIVE); BENZODIAZEPINES SCREEN, URINE NEGATIVE (NEGATIVE); COCAINE SCREEN URINE NEGATIVE (NEGATIVE); METHADONE SCREEN, URINE NEGATIVE (NEGATIVE); METHAMPHETAMINES SCREEN, URINE POSITIVE (NEGATIVE); OPIATE SCREEN, URINE NEGATIVE (NEGATIVE); OXYCODONE SCREEN, URINE NEGATIVE (NEGATIVE); PROPOXYPHENE SCREEN, URINE NEGATIVE (NEGATIVE); THC CANNABINOID SCREEN, URINE NEGATIVE (NEGATIVE); TRICYCLIC ANTIDEPRESSANT,URINE NEGATIVE (NEGATIVE)
[2021-10-25 19:41] LABS: ACETAMINOPHEN < 10 ug/mL (10-30); ALBUMIN 4.2 g/dL (3.2-5.5); ALBUMIN/GLOBULIN RATIO 1.4 (1.0-2.2); ALKALINE PHOSPHATASE 75 IU/L (42-121); ALT ALANINE AMINOTRANSFERASE 22 IU/L (10-60); AST ASPARTATE AMINOTRANSFERASE 28 IU/L (10-42); BILIRUBIN,TOTAL 0.9 mg/dL (0.2-1.0); BUN - BLOOD UREA NITROGEN 21 mg/dL (6-20); CALCIUM 8.8 mg/dL (8.5-10.3); CARBON DIOXIDE - CO2 21 mmol/L (21-32); CHLORIDE 102 mmol/L (101-111); CREATININE 0.9 mg/dL (0.6-1.2); ETOH - ETHANOL < 5.0 mg/dL; GFR - MDRD 87 (>89); GLUCOSE 123 mg/dL (70-100); LIPASE 25 U/L (22-51); POTASSIUM 3.7 mmol/L (3.5-5.0); SALICYLATE < 6.0 mg/dL; SODIUM 137 mmol/L (135-145); TOTAL PROTEIN 7.2 g/dL (6.7-8.2)
[2021-10-25 23:00] VITALS: BP 133/72
--- NOTE | 2021-10-26 04:58 | ED Physician Documentation ---
ED Addendum - Addendum Addendum: 10/26/21 04:55 56 y/o homeless male left in my care with SI at shift change has indicated he is no longer suicidal and wants to leave. He is offered half-way here in the wee hours of the morning and he refuses. He is suspected of malingering and he is given his belongings and discharged from the ED.
== END 2021-10-26 04:58 | disposition home or self-care (01) ==
LOC: ED 18:51
DX: F32.A Depression, unspecified (principal); R45.851 Suicidal ideations; Z59.01 Sheltered homelessness; S71.101A Unspecified open wound, right thigh, initial encounter; X78.8XXA Intentional self-harm by other sharp object, initial encounter; E11.51 Type 2 diabetes mellitus with diabetic peripheral angiopathy without gangrene; F17.200 Nicotine dependence, unspecified, uncomplicated
CPT/HCPCS: 36415; 80053; 80306; 80307; 81003; 83690; 84443; 85025; 99284; 99285; G0480; 80320; 80329; 81001; 87086

== ENCOUNTER 2021-10-29 08:00 | Outpatient (CLI) | payer MEDICARE, MEDICAID | END 2021-10-29 23:59 | LOC: LAB.N 08:00 | PROVIDERS: ATTEND Family Medicine | DX: R52 Pain, unspecified (principal) | CPT/HCPCS: 87275; 87276 ==

== ENCOUNTER 2021-11-05 08:45 | Outpatient (CLI) | payer MEDICARE, MEDICAID ==
--- NOTE | 2021-11-05 09:47 | XRAY Report ---
PROCEDURE: Foot 3 View RT INDICATIONS: CONTUSION OF R FOOT TECHNIQUE: 3 views of the foot were acquired. COMPARISON: None. FINDINGS: BONES: Minimal cortical irregularity of the distal aspect, first proximal phalanx. The remaining visu alized osseous structures appear maintained. Mild hallux valgus. SOFT TISSUES: No focal abnormality. IMPRESSION: 1.Minimal displaced fracture of the distal aspect, first proximal phalanx versus Mach effect. Reviewed by: Billy Tabares MD on 11/05/2021 9:46 AM [facility] Approved by: Billy Tabares MD on 11/05/2021 9:46 AM [facility] Station ID: [id number]
== END 2021-11-05 23:59 | disposition home or self-care (01) ==
LOC: DI.N 08:45
PROVIDERS: ATTEND Physician Assistant
DX: S92.411A Displaced fracture of proximal phalanx of right great toe, initial encounter for closed fracture (principal)

== ENCOUNTER 2021-11-16 02:52 | Outpatient (CLI) | payer MEDICARE, MEDICAID | END 2021-11-16 02:53 | disposition critical access hospital (66) | LOC: EMS 02:52 | DX: R45.851 Suicidal ideations (principal); Z59.00 Homelessness unspecified | CPT/HCPCS: A0425; A0429 ==

== ENCOUNTER 2021-11-16 03:09 | Emergency (ER) | payer MEDICARE, MEDICAID ==
[2021-11-16 03:28] LABS: MUDS CUTOFF CONCENTRATIONS CUTOFF CONC BELOW:
[2021-11-16 03:30] LABS: BILIRUBIN,URINE NEGATIVE (NEGATIVE); GLUCOSE, URINE (UA) NEGATIVE (NEGATIVE); KETONES,URINE (UA) 15 mg/dL (NEGATIVE); LEUKOCYTE ESTERASE, URINE NEGATIVE (NEGATIVE); NITRITE,URINE NEGATIVE (NEGATIVE); OCCULT BLOOD,URINE NEGATIVE (NEGATIVE); PROTEIN,URINE TRACE mg/dL (NEGATIVE); UROBILINOGEN,URINE 0.2 (NORMAL) E.U./dL (NORMAL)
[2021-11-16 03:32] LABS: CLARITY,URINE CLEAR (CLEAR)
[2021-11-16 03:40] LABS: BASOPHILS # (AUTO) 0.1 10^3/uL (0.0-0.1); BASOPHILS % (AUTO) 0.5 %; EOSINOPHILS % (AUTO) 0.4 %; HCT - HEMATOCRIT 41.3 % (42.0-52.0); HGB - HEMOGLOBIN 13.7 g/dL (14.0-18.0); LYMPHOCYTES # (AUTO) 1.7 10^3/uL (1.5-3.5); LYMPHOCYTES % (AUTO) 17.9 %; MEAN CORPUSCULAR HEMOGLOBIN 30.7 pg (27.0-31.0); MEAN CORPUSCULAR HGB CONC 33.2 g/dL (32.0-36.0); MEAN CORPUSCULAR VOLUME 92.6 fL (80.0-94.0); MEAN PLATELET VOLUME 10.6 fL (7.4-11.4); MONOCYTES # (AUTO) 0.6 10^3/uL (0.0-1.0); MONOCYTES % (AUTO) 6.4 %; NEUTROPHILS # (AUTO) 7.1 10^3/uL (1.5-6.6); NEUTROPHILS % (AUTO) 74.6 %; PLT - PLATELET COUNT 290 10^3/uL (130-450); RED BLOOD COUNT 4.46 10^6/uL (4.70-6.10); WHITE BLOOD COUNT 9.5 x10^3/uL (4.8-10.8)
[2021-11-16 03:43] LABS: AMPHETAMINE SCREEN,URINE POSITIVE (NEGATIVE); BARBITURATE SCREEN,UR NEGATIVE (NEGATIVE); BENZODIAZEPINES SCREEN, URINE NEGATIVE (NEGATIVE); COCAINE SCREEN URINE NEGATIVE (NEGATIVE); METHADONE SCREEN, URINE NEGATIVE (NEGATIVE); METHAMPHETAMINES SCREEN, URINE POSITIVE (NEGATIVE); OPIATE SCREEN, URINE NEGATIVE (NEGATIVE); OXYCODONE SCREEN, URINE NEGATIVE (NEGATIVE); PROPOXYPHENE SCREEN, URINE NEGATIVE (NEGATIVE); THC CANNABINOID SCREEN, URINE NEGATIVE (NEGATIVE); TRICYCLIC ANTIDEPRESSANT,URINE NEGATIVE (NEGATIVE)
--- NOTE | 2021-11-16 03:53 | ED Physician Documentation ---
PD HPI MHE - Stated complaint Stated Complaint: SI - Chief complaint Chief Complaint: MHE - History obtained from History obtained from: Patient, EMS - History of Present Illness Primary symptom: Suicidal ideation Timing - onset: Today Recently seen: Emergency Dept - Additional information Additional information: [facility]. Patient walked into EMS station requesting help for suicidal ideation without specific plan. He had three visits to this ED last month for similar c/o. Review of Systems Cardiac: reports: Reviewed and negative Respiratory: reports: Reviewed and negative GI: reports: Reviewed and negative PD PAST MEDICAL HISTORY - Past Medical History Cardiovascular: Peripheral Vascular Disease Respiratory: None Neuro: None, Other Endocrine/Autoimmune: Type 2 diabetes GI: None : Renal insuffiency HEENT: None Psych: Obsessive compulsive disorder, Other Musculoskeletal: None Derm: None - Past Surgical History Past Surgical History: Yes - Present Medications Home Medications: Ambulatory Orders Medication Instructions Recorded Confirmed lamoTRIgine [LaMICtal] 25 mg PO DAILY 10/25/21 10/25/21 - Allergies Allergies/Adverse Reactions: Allergies Allergy/AdvReac Type Severity Reaction Status Date / Time fluoxetine [From Prozac] Allergy Nausea Verified 11/16/21 03:14 mirtazapine Allergy Nausea Verified 11/16/21 03:14 erythromycin base AdvReac Unknown Verified 11/16/21 03:14 - Social History Does the pt smoke?: Yes Smoking Status: Current every day smoker Does the pt drink ETOH?: No Does the pt have substance abuse?: Yes - Immunizations Immunizations are current?: Yes - POLST Patient has POLST: No PD ED PE NORMAL - Vitals Vital signs reviewed: Yes - General General: Alert and oriented X 3, No acute distress, Well developed/nourished - Cardiac Cardiac: RRR, No murmur - Respiratory Respiratory: No respiratory distress, Clear bilaterally - Neuro Neuro: Alert and oriented X 3 PD ED PE EXPANDED - Psych Psych: Poor eye contact, Other (angry at times) Results - Vitals Vitals: Vital Signs - 24 hr 11/16/21 11/16/21 11/16/21 03:14 03:18 05:26 Temperature 36.5 C 36.5 C 36.5 C Heart Rate 90 90 88 Respiratory 16 16 16 Rate Blood Pressure 155/88 H 155/88 H 130/88 H O2 Saturation 100 100 100 Oxygen O2 Source Room air - Labs Labs: Laboratory Tests 11/16/21 11/16/21 11/16/21 03:15 03:34 03:34 WBC 9.5 RBC 4.46 L Hgb 13.7 L Hct 41.3 L MCV 92.6 MCH 30.7 MCHC 33.2 RDW 13.0 Plt Count 290 MPV 10.6 Neut # (Auto) 7.1 H Lymph # (Auto) 1.7 [place] # (Auto) 0.6 Eos # (Auto) 0.0 Baso # (Auto) 0.1 Absolute Nucleated RBC 0.00 Nucleated RBC % 0.0 Sodium 142 Potassium 3.9 Chloride 105 Carbon Dioxide 24 Anion Gap 13.0 BUN 17 Creatinine 0.9 Estimated GFR (MDRD) 87 L Glucose 123 H Calcium 9.2 Total Bilirubin 0.8 AST 29 ALT 21 Alkaline Phosphatase 70 Total Protein 7.2 Albumin 4.0 Globulin 3.2 Albumin/Globulin Ratio 1.3 Lipase 34 TSH Urine Color YELLOW Urine Clarity CLEAR Urine pH 6.0 Ur Specific [place] >=1.030 H Urine Protein TRACE Urine Glucose (UA) NEGATIVE Urine Ketones 15 H Urine Occult Blood NEGATIVE Urine Nitrite NEGATIVE Urine Bilirubin NEGATIVE Urine Urobilinogen 0.2 (NORMAL) Ur Leukocyte Esterase NEGATIVE Ur Microscopic Review NOT INDICATED Urine Culture Comments NOT INDICATED Salicylates < 6.0 Urine Opiates Screen NEGATIVE Ur Oxycodone Screen NEGATIVE Urine Methadone Screen NEGATIVE Ur Propoxyphene Screen NEGATIVE Acetaminophen < 10 L Ur Barbiturates Screen NEGATIVE Ur Tricyclics Screen NEGATIVE Ur Phencyclidine Scrn NEGATIVE Ur Amphetamine Screen POSITIVE H U Methamphetamines Scrn POSITIVE H U Benzodiazepines Scrn NEGATIVE Urine Cocaine Screen NEGATIVE U Cannabinoids Screen NEGATIVE Ethyl Alcohol < 5.0 11/16/21 03:34 WBC RBC Hgb Hct MCV MCH MCHC RDW Plt Count MPV Neut # (Auto) Lymph # (Auto) [place] # (Auto) Eos # (Auto) Baso # (Auto) Absolute Nucleated RBC Nucleated RBC % Sodium Potassium Chloride Carbon Dioxide Anion Gap BUN Creatinine Estimated GFR (MDRD) Glucose Calcium Total Bilirubin AST ALT Alkaline Phosphatase Total Protein Albumin Globulin Albumin/Globulin Ratio Lipase TSH 3.32 Urine Color Urine Clarity Urine pH Ur Specific [place] Urine Protein Urine Glucose (UA) Urine Ketones Urine Occult Blood Urine Nitrite Urine Bilirubin Urine Urobilinogen Ur Leukocyte Esterase Ur Microscopic Review Urine Culture Comments Salicylates Urine Opiates Screen Ur Oxycodone Screen Urine Methadone Screen Ur Propoxyphene Screen Acetaminophen Ur Barbiturates Screen Ur Tricyclics Screen Ur Phencyclidine Scrn Ur Amphetamine Screen U Methamphetamines Scrn U Benzodiazepines Scrn Urine Cocaine Screen U Cannabinoids Screen Ethyl Alcohol PD MEDICAL DECISION MAKING - ED course Complexity details: reviewed old records, reviewed results, re-evaluated patient, considered differential, d/w patient ED course: presents via ambulance after requesting transport to ED for SI without plan. After labs resulted, I reevaluated patient and he tells me he is no longer suicidal. I offer him psychiatric consult (via telepsychiatry) and he seems angry in his reiteration that he is no longer suicidal. He declines psychiatric consult. He is requesting discharge from ED. At this time I do not have cause to hold patient against his will. Of note, he had similar ED presentations last month (initially stating SI, then rather suddenly and angrily insisting he is not suicidal and demanding discharge). Departure - Departure Disposition: 01 Home, Self Care Clinical Impression: Methamphetamine abuse Condition: Good Instructions: ED Depression, ED Drug Abuse General Comments: You have indicated you are no longer having thoughts of self-harm and that you feel safe being discharged from the emergency department. You have declined psychiatric consult. Please follow up with your primary care provider for reevaluation Discharge Date/Time: 11/16/21 05:26
[2021-11-16 03:57] LABS: ACETAMINOPHEN < 10 ug/mL (10-30); ALBUMIN/GLOBULIN RATIO 1.3 (1.0-2.2); ALKALINE PHOSPHATASE 70 IU/L (42-121); ALT ALANINE AMINOTRANSFERASE 21 IU/L (10-60); AST ASPARTATE AMINOTRANSFERASE 29 IU/L (10-42); BILIRUBIN,TOTAL 0.8 mg/dL (0.2-1.0); BUN - BLOOD UREA NITROGEN 17 mg/dL (6-20); CALCIUM 9.2 mg/dL (8.5-10.3); CARBON DIOXIDE - CO2 24 mmol/L (21-32); CHLORIDE 105 mmol/L (101-111); CREATININE 0.9 mg/dL (0.6-1.2); ETOH - ETHANOL < 5.0 mg/dL; GFR - MDRD 87 (>89); GLUCOSE 123 mg/dL (70-100); LIPASE 34 U/L (22-51); POTASSIUM 3.9 mmol/L (3.5-5.0); SALICYLATE < 6.0 mg/dL; SODIUM 142 mmol/L (135-145); TOTAL PROTEIN 7.2 g/dL (6.7-8.2)
[2021-11-16 05:28] VITALS: BP 130/88
== END 2021-11-16 05:26 | disposition home or self-care (01) ==
LOC: EDUNIT# → ED 03:09
DX: R45.851 Suicidal ideations (principal); F15.10 Other stimulant abuse, uncomplicated; F17.200 Nicotine dependence, unspecified, uncomplicated
CPT/HCPCS: 36415; 80053; 80306; 80307; 81003; 83690; 84443; 85025; 99282; 99283; G0480; 80320; 80329; 81001; 87086

== ENCOUNTER 2021-11-29 16:40 | Emergency (ER) | payer MEDICAID, MEDICARE ==
[2021-11-29 17:01] VITALS: BP 134/78
[2021-11-29 17:16] LABS: MUDS CUTOFF CONCENTRATIONS CUTOFF CONC BELOW:
[2021-11-29 17:18] LABS: BILIRUBIN,URINE NEGATIVE (NEGATIVE); GLUCOSE, URINE (UA) NEGATIVE (NEGATIVE); KETONES,URINE (UA) 15 mg/dL (NEGATIVE); LEUKOCYTE ESTERASE, URINE NEGATIVE (NEGATIVE); NITRITE,URINE NEGATIVE (NEGATIVE); OCCULT BLOOD,URINE NEGATIVE (NEGATIVE); PROTEIN,URINE NEGATIVE (NEGATIVE); UROBILINOGEN,URINE 0.2 (NORMAL) E.U./dL (NORMAL)
[2021-11-29 17:21] LABS: CLARITY,URINE CLEAR (CLEAR)
[2021-11-29 17:22] LABS: BASOPHILS % (AUTO) 0.3 %; EOSINOPHILS # (AUTO) 0.4 10^3/uL (0.0-0.7); EOSINOPHILS % (AUTO) 3.2 %; HCT - HEMATOCRIT 46.6 % (42.0-52.0); HGB - HEMOGLOBIN 15.6 g/dL (14.0-18.0); LYMPHOCYTES # (AUTO) 2.4 10^3/uL (1.5-3.5); LYMPHOCYTES % (AUTO) 20.2 %; MEAN CORPUSCULAR HEMOGLOBIN 30.7 pg (27.0-31.0); MEAN CORPUSCULAR HGB CONC 33.5 g/dL (32.0-36.0); MEAN CORPUSCULAR VOLUME 91.7 fL (80.0-94.0); MEAN PLATELET VOLUME 10.1 fL (7.4-11.4); NEUTROPHILS % (AUTO) 67.7 %; PLT - PLATELET COUNT 373 10^3/uL (130-450); RED BLOOD COUNT 5.08 10^6/uL (4.70-6.10); RED CELL DISTRIBUTION WIDTH 12.9 % (12.0-15.0); WHITE BLOOD COUNT 11.9 x10^3/uL (4.8-10.8)
[2021-11-29 17:30] LABS: AMPHETAMINE SCREEN,URINE NEGATIVE (NEGATIVE); BARBITURATE SCREEN,UR NEGATIVE (NEGATIVE); BENZODIAZEPINES SCREEN, URINE NEGATIVE (NEGATIVE); COCAINE SCREEN URINE NEGATIVE (NEGATIVE); METHADONE SCREEN, URINE NEGATIVE (NEGATIVE); METHAMPHETAMINES SCREEN, URINE POSITIVE (NEGATIVE); OPIATE SCREEN, URINE NEGATIVE (NEGATIVE); OXYCODONE SCREEN, URINE NEGATIVE (NEGATIVE); PROPOXYPHENE SCREEN, URINE NEGATIVE (NEGATIVE); THC CANNABINOID SCREEN, URINE NEGATIVE (NEGATIVE); TRICYCLIC ANTIDEPRESSANT,URINE NEGATIVE (NEGATIVE)
[2021-11-29 17:37] LABS: ACETAMINOPHEN < 10 ug/mL (10-30); ALBUMIN 4.4 g/dL (3.2-5.5); ALBUMIN/GLOBULIN RATIO 1.4 (1.0-2.2); ALKALINE PHOSPHATASE 76 IU/L (42-121); ALT ALANINE AMINOTRANSFERASE 17 IU/L (10-60); AST ASPARTATE AMINOTRANSFERASE 21 IU/L (10-42); BILIRUBIN,TOTAL 0.6 mg/dL (0.2-1.0); BUN - BLOOD UREA NITROGEN 23 mg/dL (6-20); CALCIUM 9.1 mg/dL (8.5-10.3); CARBON DIOXIDE - CO2 28 mmol/L (21-32); CHLORIDE 100 mmol/L (101-111); CREATININE 1.3 mg/dL (0.6-1.2); ETOH - ETHANOL < 5.0 mg/dL; GFR - MDRD 57 (>89); GLUCOSE 122 mg/dL (70-100); LIPASE 27 U/L (22-51); POTASSIUM 3.9 mmol/L (3.5-5.0); SALICYLATE < 6.0 mg/dL; SODIUM 138 mmol/L (135-145); TOTAL PROTEIN 7.5 g/dL (6.7-8.2)
--- NOTE | 2021-11-29 17:40 | ED Physician Documentation ---
History of Present Illness - Stated complaint Stated Complaint: L INGUINAL HERNIA, MHE - Chief complaint Chief Complaint: MHE - Additonal information Additional information: 56-year-old male presents to the emergency department requesting to be hospitalized in a psychiatric [facility]. He states that he is out of his medications and does not have a way to fill them. He states that he is homeless and he has thoughts of self-harm. He reports that if he were to gain access to his medications he would simply try and kill himself by taking all of them. Patient also however reports that he has no place to go and no real way to fill his medications. He knows that we are here to take care of him. On he is also concerned about left groin pain. Has been told he has an inguinal hernia. He is scheduled to see a surgeon for the hernia and epididymitis in December 2021. Review of Systems Constitutional: denies: Fever, Chills Nose: reports: Reviewed and negative Throat: reports: Reviewed and negative Cardiac: reports: Reviewed and negative Respiratory: reports: Reviewed and negative GI: reports: Reviewed and negative : reports: Reviewed and negative Skin: reports: Reviewed and negative Musculoskeletal: reports: Reviewed and negative Neurologic: denies: Generalized weakness Psychiatric: reports: Suicidal. denies: Hallucinations, Delusions, Anxiety, Insomnia PD PAST MEDICAL HISTORY - Past Medical History Cardiovascular: Peripheral Vascular Disease Respiratory: None Neuro: None, Other Endocrine/Autoimmune: Type 2 diabetes GI: None : Renal insuffiency HEENT: None Psych: Obsessive compulsive disorder, Other Musculoskeletal: None Derm: None - Past Surgical History Past Surgical History: Yes - Present Medications Home Medications: Ambulatory Orders Medication Instructions Recorded Confirmed lamoTRIgine [LaMICtal] 25 mg PO DAILY 10/25/21 10/25/21 - Allergies Allergies/Adverse Reactions: Allergies Allergy/AdvReac Type Severity Reaction Status Date / Time fluoxetine [From Prozac] Allergy Nausea Verified 11/29/21 17:01 mirtazapine Allergy Nausea Verified 11/29/21 17:01 erythromycin base AdvReac Unknown Verified 11/29/21 17:01 - Social History Does the pt smoke?: Yes Smoking Status: Current every day smoker Does the pt drink ETOH?: No Does the pt have substance abuse?: Yes - Immunizations Immunizations are current?: Yes - POLST Patient has POLST: No PD ED PE EXPANDED - General General: Alert, No acute distress, Disheveled, poorly kept - Cardiac Cardiac: Regular Rate, Radial strong equal, Pedal strong equal, Cap refill < 2 sec. No: Murmur Present - Respiratory Respiratory: Clear to ausultation rashmi. No: Distress, Labored - Abdomen Abdomen: No: Tender to palpation - Male Male : Other (reducible left inguinal hernia) - Extremities Extremities: Normal. No: Deformity, Tenderness - Neuro Neuro: Alert and Oriented X 3, CNII-XII intact - GCS Eye Opening: Spontaneous Motor: Obeys Commands Verbal: Oriented Total: 15 - Psych Psych: Suicidal, Withdrawn Results - Vitals Vitals: Vital Signs - 24 hr 11/29/21 16:53 Temperature 37.1 C Heart Rate 76 Respiratory 20 Rate Blood Pressure 134/78 H O2 Saturation 96 Oxygen O2 Source Room air - Labs Labs: Laboratory Tests 11/29/21 11/29/21 11/29/21 17:08 17:09 17:09 WBC 11.9 H RBC 5.08 Hgb 15.6 Hct 46.6 MCV 91.7 MCH 30.7 MCHC 33.5 RDW 12.9 Plt Count 373 MPV 10.1 Neut # (Auto) 8.0 H Lymph # (Auto) 2.4 [place] # (Auto) 1.0 Eos # (Auto) 0.4 Baso # (Auto) 0.0 Absolute Nucleated RBC 0.00 Nucleated RBC % 0.0 Sodium 138 Potassium 3.9 Chloride 100 L Carbon Dioxide 28 Anion Gap 10.0 BUN 23 H Creatinine 1.3 H Estimated GFR (MDRD) 57 L Glucose 122 H Calcium 9.1 Total Bilirubin 0.6 AST 21 ALT 17 Alkaline Phosphatase 76 Total Protein 7.5 Albumin 4.4 Globulin 3.1 Albumin/Globulin Ratio 1.4 Lipase 27 TSH Urine Color YELLOW Urine Clarity CLEAR Urine pH 6.0 Ur Specific [place] 1.020 Urine Protein NEGATIVE Urine Glucose (UA) NEGATIVE Urine Ketones 15 H Urine Occult Blood NEGATIVE Urine Nitrite NEGATIVE Urine Bilirubin NEGATIVE Urine Urobilinogen 0.2 (NORMAL) Ur Leukocyte Esterase NEGATIVE Ur Microscopic Review NOT INDICATED Urine Culture Comments NOT INDICATED Nasal Adenovirus (PCR) Nasal B. parapertussis DNA (PCR) Nasal Coronavir 229E PCR Nasal Coronavir HKU1 PCR Nasal Coronavir NL63 PCR Nasal Coronavir OC43 PCR Nasal Enterovir/Rhinovir PCR Nasal Influenza B PCR Nasal Influenza A PCR Nasal Parainfluen 1 PCR Nasal Parainfluen 2 PCR Nasal Parainfluen 3 PCR Nasal Parainfluen 4 PCR Nasal RSV (PCR) Nasal B.pertussis DNA PCR Nasal C.pneumoniae (PCR) Prosper Human Metapneumo PCR Nasal M.pneumoniae (PCR) Nasal SARS-CoV-2 (PCR) Salicylates < 6.0 Urine Opiates Screen NEGATIVE Ur Oxycodone Screen NEGATIVE Urine Methadone Screen NEGATIVE Ur Propoxyphene Screen NEGATIVE Acetaminophen < 10 L Ur Barbiturates Screen NEGATIVE Ur Tricyclics Screen NEGATIVE Ur Phencyclidine Scrn NEGATIVE Ur Amphetamine Screen NEGATIVE U Methamphetamines Scrn POSITIVE H U Benzodiazepines Scrn NEGATIVE Urine Cocaine Screen NEGATIVE U Cannabinoids Screen NEGATIVE Ethyl Alcohol < 5.0 11/29/21 11/29/21 17:09 17:11 WBC RBC Hgb Hct MCV MCH MCHC RDW Plt Count MPV Neut # (Auto) Lymph # (Auto) [place] # (Auto) Eos # (Auto) Baso # (Auto) Absolute Nucleated RBC Nucleated RBC % Sodium Potassium Chloride Carbon Dioxide Anion Gap BUN Creatinine Estimated GFR (MDRD) Glucose Calcium Total Bilirubin AST ALT Alkaline Phosphatase Total Protein Albumin Globulin Albumin/Globulin Ratio Lipase TSH 2.28 Urine Color Urine Clarity Urine pH Ur Specific [place] Urine Protein Urine Glucose (UA) Urine Ketones Urine Occult Blood Urine Nitrite Urine Bilirubin Urine Urobilinogen Ur Leukocyte Esterase Ur Microscopic Review Urine Culture Comments Nasal Adenovirus (PCR) NOT DETECTED Nasal B. parapertussis DNA (PCR) NOT DETECTED Nasal Coronavir 229E PCR NOT DETECTED Nasal Coronavir HKU1 PCR NOT DETECTED Nasal Coronavir NL63 PCR NOT DETECTED Nasal Coronavir OC43 PCR NOT DETECTED Nasal Enterovir/Rhinovir PCR NOT DETECTED Nasal Influenza B PCR NOT DETECTED Nasal Influenza A PCR NOT DETECTED Nasal Parainfluen 1 PCR NOT DETECTED Nasal Parainfluen 2 PCR NOT DETECTED Nasal Parainfluen 3 PCR NOT DETECTED Nasal Parainfluen 4 PCR NOT DETECTED Nasal RSV (PCR) NOT DETECTED Nasal B.pertussis DNA PCR NOT DETECTED Nasal C.pneumoniae (PCR) NOT DETECTED Prosper Human Metapneumo PCR NOT DETECTED Nasal M.pneumoniae (PCR) NOT DETECTED Nasal SARS-CoV-2 (PCR) NOT DETECTED Salicylates Urine Opiates Screen Ur Oxycodone Screen Urine Methadone Screen Ur Propoxyphene Screen Acetaminophen Ur Barbiturates Screen Ur Tricyclics Screen Ur Phencyclidine Scrn Ur Amphetamine Screen U Methamphetamines Scrn U Benzodiazepines Scrn Urine Cocaine Screen U Cannabinoids Screen Ethyl Alcohol PD MEDICAL DECISION MAKING - ED course Complexity details: reviewed results, re-evaluated patient, considered differential, d/w patient ED course: 56-year-old male comes to the emergency department. Requesting psychiatric hospitalization. He states that he would harm himself however this feels a manipulation of events as he is also requesting help finding a place to stay. His screening labs are notable for methamphetamine. SW is nto available at this time. I had initially ordered a telepsych consultation but after some time in the emergency department the patient was requesting to leave and seems better after a meal. he was offered to remain until I did offer to refill the patient's risperidone and buspirone, but he declined. He was offered to remain overnight to see MADDY, but he declined. He is therefore discharged from the ED and told he could return at any time should he wish Departure - Departure Disposition: 01 Home, Self Care Clinical Impression: Homeless Condition: Stable Record reviewed to determine appropriate education?: Yes Comments: Please continue to follow-up with your primary care doctor to have your medications filled. If you ever feel unsafe you can return to the emergency department at any time for help.
[2021-11-29 18:12] LABS: B. PARAPERTUSSIS- RESP PCR PAN NOT DETECTED; B. PERTUSSIS- RESP PCR PANEL NOT DETECTED; C. PNEUMONIAE- RESP PCR PANEL NOT DETECTED; CORONAVIRUS 229E-RESP PCR NOT DETECTED; CORONAVIRUS HKU1-RESP PCR NOT DETECTED; CORONAVIRUS NL63-RESP PCR NOT DETECTED; CORONAVIRUS OC43-RESP PCR NOT DETECTED; HUMAN METAPNEUMOVIRUS NOT DETECTED; INFLUENZA A- RESP PCR PANEL NOT DETECTED; INFLUENZA B - RESP PCR PANEL NOT DETECTED; M. PNEUMONIAE- RESP PCR PANEL NOT DETECTED; PARAINFLUENZA VIRUS 1 NOT DETECTED; PARAINFLUENZA VIRUS 2 NOT DETECTED; PARAINFLUENZA VIRUS 3 NOT DETECTED; PARAINFLUENZA VIRUS 4 NOT DETECTED; RHINOVIRUS/ENTEROVIRUS NOT DETECTED; RSV- RESP PCR PANEL NOT DETECTED; SARS-CoV-2 -RESP PCR PANEL NOT DETECTED
== END 2021-11-29 18:50 | disposition home or self-care (01) ==
LOC: ED 16:40
DX: R45.851 Suicidal ideations (principal); Z59.00 Homelessness unspecified; R10.32 Left lower quadrant pain; E11.9 Type 2 diabetes mellitus without complications; F17.200 Nicotine dependence, unspecified, uncomplicated; Y63.6 Underdosing and nonadministration of necessary drug, medicament or biological substance
CPT/HCPCS: 36415; 80053; 80306; 80307; 81003; 83690; 84443; 85025; 87631; 99282; 99283; G0480; 0202U; 80320; 80329; 81001; 87086

== ENCOUNTER 2021-12-08 19:02 | Outpatient (CLI) | payer MEDICARE | END 2021-12-08 19:03 | disposition EMS.NT | LOC: EMS 19:02 | DX: Z03.89 Encounter for observation for other suspected diseases and conditions ruled out (principal); Z59.02 Unsheltered homelessness ==

== ENCOUNTER 2022-02-17 08:00 | Outpatient (CLI) | payer MEDICARE, MEDICAID | END 2022-02-17 23:59 | disposition home or self-care (01) | LOC: LAB.N 08:00 | PROVIDERS: ATTEND Family Medicine | DX: N40.1 Benign prostatic hyperplasia with lower urinary tract symptoms (principal) | CPT/HCPCS: 87086 ==

== ENCOUNTER 2022-02-24 18:41 | Emergency (ER) | payer MEDICARE ==
--- OUTSIDE RECORDS SUMMARY | 2022-02-24 18:52 | EXTERNAL MEDICAL SUMMARY RPT | Continuity of Care Document ---
:1965 Author Organization [facility] Address [address] [place] [address] Phone Care Team Providers Name Role Phone Roseline Unavailable Unavailable Allergies No information. Encounters No information. Medications No information. Problems Procedures date description facility 20211206 [facility] Results No information. Vital Signs date measurement value source 20211206 weight_standard 154.98 lb 20211206 weight_metric 70.3 kg 20211206 temperature_standard 97.9 F 20211206 temperature_metric 36.61 C 20211206 respiration_rate 22 /min 20211206 height_standard 66 in 20211206 height_metric 167.64 cm 20211206 heart_rate 76 /min 20211206 BP_systolic 144 mm[Hg] 20211206 BP_diastolic 88 mm[Hg] 20211206 BMI 25.0 kg/m2
== END 2022-02-24 18:51 | disposition left against medical advice (07) ==
LOC: ED 18:41
DX: Z53.21 Procedure and treatment not carried out due to patient leaving prior to being seen by health care provider (principal)

== ENCOUNTER 2022-09-09 21:03 | Emergency (ER) | payer MEDICARE, MEDICAID | END 2022-09-09 21:20 | disposition left against medical advice (07) | LOC: EDUNIT# → ED 21:03 | DX: Z53.29 Procedure and treatment not carried out because of patient's decision for other reasons (principal); M79.643 Pain in unspecified hand ==

== ENCOUNTER → 2022-09-09 | Outpatient (CLI) | payer MEDICARE, MEDICAID | END | disposition critical access hospital (66) | LOC: EMS 08-09 20:44 | DX: L02.512 Cutaneous abscess of left hand (principal); M79.642 Pain in left hand | CPT/HCPCS: A0425; A0429 ==

== ENCOUNTER 2023-01-03 20:12 | Outpatient (CLI) | payer MEDICARE, MEDICAID | END 2023-01-03 20:13 | disposition critical access hospital (66) | LOC: EMS 20:12 | DX: R45.851 Suicidal ideations (principal) | CPT/HCPCS: A0425; A0429 ==

== ENCOUNTER 2023-01-03 20:42 | Emergency (ER) | payer MEDICARE, MEDICAID ==
--- NOTE | 2023-01-03 21:07 | ED Physician Documentation ---
Restraint [id number] - Immediate Situation Face to Face Evaluation Date: 01/03/23 Face to Face Evaluation Time: 21:00 Restraint Classification: Violent, seclusion Restraint Type: Seclusion - Patient's Reaction & Behaviors Safety: Physically safe Verbal: Screaming/Yelling, Swearing Harm: Potential harm to self, Potential harm to others, Verbalizes intent to harm Physical: Aggressive behavior - Behavioral Condition Attitude: Guarded Behavior: Belligerent Orientation: Non-responsive Mood: Labile - Evaluation Review of Systems: Unable to obtain due to agitated delirium Pertinent History/Illicit Drugs/Medications/Results: Patient intoxicated with methamphetamine, violent and aggressive - Plan Need to Continue or Terminate Violent or Chemical Restraint: We will discontinue seclusion when safe.
--- NOTE | 2023-01-03 21:10 | ED Physician Documentation ---
PD HPI MHE - Stated complaint Stated Complaint: MHE - Chief complaint Chief Complaint: MHE - History obtained from History obtained from: EMS - Additional information Additional information: 57-year-old male, known to our emergency department for methamphetamine abuse, presents intoxicated with methamphetamine brought in by EMS. He reportedly was threatening to kill himself via " by fire". Review of Systems Unable to obtain: Intoxicated PD PAST MEDICAL HISTORY - Past Medical History Cardiovascular: Peripheral Vascular Disease Respiratory: None Neuro: None, Other Endocrine/Autoimmune: Type 2 diabetes GI: None : Renal insuffiency HEENT: None Psych: Obsessive compulsive disorder, Other Musculoskeletal: None Derm: None - Past Surgical History Past Surgical History: Yes - Present Medications Home Medications: Ambulatory Orders Medication Instructions Recorded Confirmed lamoTRIgine [LaMICtal] 25 mg PO DAILY 10/25/21 10/25/21 - Allergies Allergies/Adverse Reactions: Allergies Allergy/AdvReac Type Severity Reaction Status Date / Time fluoxetine [From Prozac] Allergy Nausea Verified 02/24/22 18:46 mirtazapine Allergy Nausea Verified 02/24/22 18:46 rizatriptan [From Maxalt] Allergy Itching Verified 02/24/22 18:46 erythromycin base AdvReac Unknown Verified 02/24/22 18:46 - Social History Does the pt smoke?: Yes Smoking Status: Current every day smoker Does the pt drink ETOH?: No Does the pt have substance abuse?: Yes Substance Use and Type: Meth - Immunizations Immunizations are current?: Yes - POLST Patient has POLST: No PD ED PE NORMAL - Vitals Vital signs reviewed: Yes - General General: Other (screaming, yelling, agitated delirium, intoxicated with methamphetamine) - HEENT HEENT: Atraumatic, PERRL, EOMI - Derm Derm: Normal color, Warm and dry - Psych Psych: Other (agitated delirium) Results - Vitals Vitals: Vital Signs - 24 hr 01/03/23 01/03/23 20:52 20:59 Temperature 37.2 C 37.2 C Heart Rate 84 84 Blood Pressure 132/76 H 132/76 H O2 Saturation 97 97 Oxygen O2 Source Room air PD Medical Decision Making - ED course ED course: Patient in agitated delirium upon arrival. Unable to obtain history or exam from the patient. History obtained from EMS due to patient's intoxication. Immediately placed in seclusion room for his and staff's safety. See restraint documentation. Seclusion discontinued at 5am. Patient apologetic, denies si/hi/avh. ambulatory to bathroom without difficulty. tolerating po. plan to dc with outpatient f/u. return precautions given. Departure - Departure Disposition: 01 Home, Self Care Clinical Impression: Methamphetamine abuse Condition: Good Instructions: ED Drug Abuse General Comments: You were seen in the emergency department for methamphetamine abuse. Please follow-up with your primary care provider. Return to the emergency department if you like to speak with geriatric social worker or if you have any other concerns.
--- NOTE | 2023-01-04 04:45 | ED Physician Documentation ---
Restraint [id number] - Immediate Situation Face to Face Evaluation Date: 01/04/23 Face to Face Evaluation Time: 01:00 Restraint Classification: Violent, seclusion Restraint Type: Seclusion - Patient's Reaction & Behaviors Safety: Physically safe Verbal: Screaming/Yelling Harm: Potential harm to others Physical: Aggressive behavior - Behavioral Condition Attitude: Guarded Behavior: Uncooperative Orientation: Non-responsive Mood: Labile - Evaluation Review of Systems: Unable to obtain due to agitated delirium Pertinent History/Illicit Drugs/Medications/Results: Patient intoxicated with methamphetamine, violent and aggressive - Plan Need to Continue or Terminate Violent or Chemical Restraint: will discontinue when safe
[2023-01-04 06:27] VITALS: BP 110/69
== END 2023-01-04 07:08 | disposition home or self-care (01) ==
LOC: EDBD → EDUNIT# → ED 20:42
DX: F15.129 Other stimulant abuse with intoxication, unspecified (principal); F17.200 Nicotine dependence, unspecified, uncomplicated
CPT/HCPCS: 80053; 80307; 80320; 80329; 83690; 84443; 85025; 99284; 99285

== ENCOUNTER 2023-01-12 00:28 | Outpatient (CLI) | payer MEDICARE, MEDICAID | END 2023-01-12 23:59 | disposition critical access hospital (66) | LOC: EMS 00:28 | DX: M79.672 Pain in left foot (principal); M79.671 Pain in right foot; G89.29 Other chronic pain | CPT/HCPCS: A0425; A0429 ==

== ENCOUNTER 2023-01-12 00:41 | Emergency (ER) | payer MEDICARE, MEDICAID ==
--- NOTE | 2023-01-12 01:32 | ED Physician Documentation ---
PD HPI LOWER EXT INJURY - Stated complaint Stated Complaint: HOMELESS, FEET HURT, COLD - Chief complaint Chief Complaint: Ext Problem - History obtained from History obtained from: Patient - History of Present Illness PD HPI LOW EXT INJURY LOCATION: Both, Foot, Toe (he complains of his toes hurting and being cold, bottom of feet as well. Has chronic feet pain. worse with set/cold tonight. He states he was refused at the [facility] and another long-term. He would not answer why. So he is more exposed to the cold/wet than usual.) Type of injury: Other (cold and wet exposure.) Timing - onset: Chronic (worse tonight with outside in cold/wet.) Worsened by: Moving, Palpating Associated symptoms: Numbness (mild chronic). No: Swelling Review of Systems Constitutional: denies: Fever, Chills Skin: denies: Rash, Lesions Neurologic: denies: Focal weakness PD PAST MEDICAL HISTORY - Past Medical History Cardiovascular: Peripheral Vascular Disease Respiratory: None Neuro: None, Other Endocrine/Autoimmune: Type 2 diabetes GI: None : Renal insuffiency HEENT: None Psych: Obsessive compulsive disorder, Other Musculoskeletal: None Derm: None - Past Surgical History Past Surgical History: Yes - Present Medications Home Medications: Ambulatory Orders Medication Instructions Recorded Confirmed lamoTRIgine [LaMICtal] 25 mg PO DAILY 10/25/21 10/25/21 - Allergies Allergies/Adverse Reactions: Allergies Allergy/AdvReac Type Severity Reaction Status Date / Time fluoxetine [From Prozac] Allergy Nausea Verified 01/12/23 00:52 mirtazapine Allergy Nausea Verified 01/12/23 00:52 rizatriptan [From Maxalt] Allergy Itching Verified 01/12/23 00:52 erythromycin base AdvReac Unknown Verified 01/12/23 00:52 - Living Situation Living Arrangement: reports: Homeless - Social History Does the pt smoke?: Yes Smoking Status: Current every day smoker Does the pt drink ETOH?: No Does the pt have substance abuse?: Yes - Immunizations Immunizations are current?: Yes - POLST Patient has POLST: No PD ED PE NORMAL - Vitals Vital signs reviewed: Yes - General General: Alert and oriented X 3, Well developed/nourished - Derm Derm: Normal color, Warm and dry - Extremities Extremities: Other (socks and shoes are wet and cold. feet showing redness without skin breakdown on soles and toes. good cap refill in all toes. Less sensation to touch c/w neuropathy. Moves toes flex/extends. ) Results - Vitals Vitals: Oxygen O2 Source Room air PD Medical Decision Making - ED course Complexity details: considered differential (main complaint is feet hurting from cold and wet. they appear red skin. No edema, nor dusky coloring. Good cap refill. Does not appear frostbit to deeper layers. Presume some element of chronic neuropathy due to chronic repetitive wet/cold and poor hygeine. ), d/w patient Social Determinants of Health: homeless and so has environmental exposure that cannot be controlled. His socks dried out while here in ER for several hours sleeping. Subsequently I did nudge him from sleep. He abruptly said that he was being bothered and wanted to leave. He got his shoes and some dry socks from his backpack on, gathered his backpack and left for the lobby. Departure - Departure Disposition: 01 Home, Self Care Clinical Impression: Exposure to environmental cold Condition: Stable Comments: Your feet appear red and irritated but do not appear to have frostbite. Try to keep them warm and dry. Tylenol if needed for pains. Discharge Date/Time: 01/12/23 05:25
[2023-01-12 02:24] VITALS: BP 128/71
== END 2023-01-12 05:25 | disposition home or self-care (01) ==
LOC: EDUNIT# → ED 00:41
DX: T69.8XXA Other specified effects of reduced temperature, initial encounter (principal); M79.672 Pain in left foot; M79.671 Pain in right foot; M79.675 Pain in left toe(s); X31.XXXA Exposure to excessive natural cold, initial encounter; F17.200 Nicotine dependence, unspecified, uncomplicated; Z59.02 Unsheltered homelessness
CPT/HCPCS: 99283

== ENCOUNTER 2023-01-20 15:47 | Outpatient (CLI) | payer MEDICARE, MEDICAID | END 2023-01-20 15:48 | disposition EMS.NT | LOC: EMS 15:47 | DX: R19.7 Diarrhea, unspecified (principal) ==

== ENCOUNTER 2023-02-22 22:56 | Outpatient (CLI) | payer MEDICARE, MEDICAID | END 2023-02-22 22:57 | disposition critical access hospital (66) | LOC: EMS 22:56 | DX: M25.562 Pain in left knee (principal); R45.1 Restlessness and agitation; R41.82 Altered mental status, unspecified; Z78.1 Physical restraint status | CPT/HCPCS: A0425; A0429 ==

== ENCOUNTER 2023-02-22 23:19 | Emergency (ER) | payer MEDICARE, MEDICAID ==
[2023-02-22 23:45] VITALS: BP 130/72
[2023-02-23] MEDS ORDERED: DOXYCYCLINE 100 MG TABLET PO STA (00:46)
--- NOTE | 2023-02-23 01:42 | ED Physician Documentation ---
History of Present Illness - Stated complaint Stated Complaint: LEFT KNEE PAIN, MHE - Chief complaint Chief Complaint: Trauma Ext - History obtained from History obtained from: Patient - Additonal information Additional information: This is patient's th [facility] ED visit on [employer] records. Previous records indicate h/o odd behavior as well as methamphetamine use. Behavioral issues in the ED have also been a problem for this patient on previous visits. Tonight he is BIBA. Someone had apparently called 911 due to patient's odd behavior near a gas station in [place]. HPI is exceedingly limited, as patient is mostly yelling obscenities at me and other ED staff. He has moments where he is suddenly calm and will answer some questions; he told ED RN during triage process, for example, that he used methamphetamines a few hours [employer]. Patient told medics his only c/o was left knee pain. On my HPI, he is sleeping, awakens to gentle tactile. He is mumbling and difficult to understand. When he eventually is articulate and clear enough to understand, he is telling me to leave him alone and stop waking him because he was sleeping. He falls back asleep rapidly. He is able to tell me that he has no recent, recallable injury. He repeatedly verbalizes aggravation that I am waking him from sleep, and he tells me he just wants to go back to sleep on the stretcher. Review of Systems Unable to obtain: Uncooperative PD PAST MEDICAL HISTORY - Past Medical History Cardiovascular: Peripheral Vascular Disease Respiratory: None Neuro: None, Other Endocrine/Autoimmune: Type 2 diabetes GI: None : Renal insuffiency HEENT: None Psych: Obsessive compulsive disorder, Other Musculoskeletal: None Derm: None - Past Surgical History Past Surgical History: Yes - Present Medications Home Medications: Ambulatory Orders Medication Instructions Recorded Confirmed lamoTRIgine [LaMICtal] 25 mg PO DAILY 10/25/21 10/25/21 Doxycycline [Vibramycin] 100 mg PO BID #14 tablet 02/23/23 Doxycycline Hyclate 100 mg PO BID 10 Days #20 tab 02/24/23 - Allergies Allergies/Adverse Reactions: Allergies Allergy/AdvReac Type Severity Reaction Status Date / Time fluoxetine [From Prozac] Allergy Nausea Verified 01/12/23 00:52 mirtazapine Allergy Nausea Verified 01/12/23 00:52 rizatriptan [From Maxalt] Allergy Itching Verified 01/12/23 00:52 erythromycin base AdvReac Unknown Verified 01/12/23 00:52 - Social History Does the pt smoke?: Yes Smoking Status: Current every day smoker Does the pt drink ETOH?: No Does the pt have substance abuse?: Yes - Immunizations Immunizations are current?: Yes - POLST Patient has POLST: No PD ED PE NORMAL - Vitals Vital signs reviewed: Yes - General General: No acute distress, Well developed/nourished, Other (asleep, awakens to gentle tactile, rapidly falls back asleep) - HEENT HEENT: Atraumatic, PERRL, EOMI, Moist mucous membranes - Cardiac Cardiac: RRR, No murmur - Respiratory Respiratory: No respiratory distress, Clear bilaterally - Abdomen Abdomen: Soft, Non tender - Extremities Extremities: Other (mild prepatellar erythema bilaterally. there is also associated mild edema of the left prepatellar surface with small (1.5 cm length) superficial linear abrasion central to the confluent erythema over the left knee. The joint itself is not hot to touch, tender, nor limitation in ROM. No fluctuance) Results - Vitals Vitals: Oxygen O2 Source Room air PD Medical Decision Making - ED course Complexity details: reviewed old records, re-evaluated patient, considered differential, d/w patient ED course: patient is well known to this ED for frequent visits , often involving, or likely complication of, combination of homelessness, drug abuse (specifically methamphetamines), and possible underlying mental illness. Patient has episodes of yelling loudly in ED, frequently using obscenities at no one in particular but also specifically at staff at times, and otherwise (between such episodes), he sleeps soundly on stretcher. He is given 100mg PO doxycycline during ED stay for possible left pre-patellar skin cellulitis (no evidence of actual joint involvement such as septic arthritis). He is provided rx for one week course of BID doxycycline. At time of discharge, I was tending to another patient who had EKG findings suspicious for AMI and thus I could not get involved with patient's discharge, which reportedly involved patient yelling and cursing, ripping up both discharge sheets and the provided rx for doxycycline. Departure - Departure Disposition: 01 Home, Self Care Clinical Impression: Methamphetamine abuse Cellulitis Qualifiers: Site of cellulitis: extremity Site of cellulitis of extremity: lower extremity Laterality: left Qualified Code(s): L03.116 - Cellulitis of left lower limb Condition: Good Instructions: ED Infec Skin Cellulitis, ED Drug Abuse General Follow-Up: Jess Lanier ARNP [Provider Admit Priv/Credential] - Within 1 week Prescriptions: Doxycycline [Vibramycin] 100 mg PO BID #14 tablet Comments: On agustíngely's physical exam, there appears to be an infection of the skin over your left knee. This is likely due to the small abrasion in the affected area. You are given a dose of an antibiotic (doxycycline) in the emergency department, and you are being provided with a 1 week course of this same antibiotic. You should fill the prescription later today at your pharmacy of choice and start the antibiotic as soon as you fill the prescription. Discharge Date/Time: 02/23/23 06:00
== END 2023-02-23 06:00 | disposition home or self-care (01) ==
LOC: EDBD → EDUNIT# → ED 23:19
DX: F15.10 Other stimulant abuse, uncomplicated (principal); L03.116 Cellulitis of left lower limb; S80.212A Abrasion, left knee, initial encounter; F17.200 Nicotine dependence, unspecified, uncomplicated
CPT/HCPCS: 99283; A9270

== ENCOUNTER 2023-02-24 05:41 | Outpatient (CLI) | payer MEDICARE, MEDICAID | END 2023-02-24 05:42 | disposition critical access hospital (66) | LOC: EMS 05:41 | DX: Z04.6 Encounter for general psychiatric examination, requested by authority (principal); R46.89 Other symptoms and signs involving appearance and behavior | CPT/HCPCS: A0425; A0429 ==

== ENCOUNTER 2023-02-24 05:59 | Emergency (ER) | payer MEDICARE, MEDICAID ==
--- NOTE | 2023-02-24 06:10 | ED Physician Documentation ---
History of Present Illness - Stated complaint Stated Complaint: MHE - History obtained from History obtained from: Patient - Additonal information Additional information: 57yM, well known to our ED, with pmh methamphetamine abuse and recent ED visit for L knee cellulitis p/w L knee pain this morning. EMS reports he has been using meth all night. Patient apparently ripped up his last antibiotic prescription. history limited by patient refusing to talk. He is a difficult historian Review of Systems Musculoskeletal: reports: Joint pain PD PAST MEDICAL HISTORY - Past Medical History Cardiovascular: Peripheral Vascular Disease Respiratory: None Neuro: None, Other Endocrine/Autoimmune: Type 2 diabetes GI: None : Renal insuffiency HEENT: None Psych: Obsessive compulsive disorder, Other Musculoskeletal: None Derm: None - Past Surgical History Past Surgical History: Yes - Present Medications Home Medications: Ambulatory Orders Medication Instructions Recorded Confirmed lamoTRIgine [LaMICtal] 25 mg PO DAILY 10/25/21 10/25/21 Doxycycline [Vibramycin] 100 mg PO BID #14 tablet 02/23/23 Doxycycline Hyclate 100 mg PO BID 10 Days #20 tab 02/24/23 - Allergies Allergies/Adverse Reactions: Allergies Allergy/AdvReac Type Severity Reaction Status Date / Time fluoxetine [From Prozac] Allergy Nausea Verified 01/12/23 00:52 mirtazapine Allergy Nausea Verified 01/12/23 00:52 rizatriptan [From Maxalt] Allergy Itching Verified 01/12/23 00:52 erythromycin base AdvReac Unknown Verified 01/12/23 00:52 - Social History Does the pt smoke?: Yes Smoking Status: Current every day smoker Does the pt drink ETOH?: No Does the pt have substance abuse?: Yes - Immunizations Immunizations are current?: Yes - POLST Patient has POLST: No PD ED PE NORMAL - Vitals Vital signs reviewed: Yes - General General: Alert and oriented X 3, No acute distress, Other (disheveled appearing) - HEENT HEENT: Atraumatic, PERRL, EOMI - Neck Neck: Supple, no meningeal sign - Derm Derm: Normal color, Warm and dry, Other (abrasion to L knee with surrounding cellulitis and mild swelling) - Neuro Neuro: No motor deficit, No sensory deficit - Psych Psych: Other (intoxicated with methamphetamine) Results - Vitals Vitals: Vital Signs - 24 hr 02/24/23 06:07 Temperature 36.6 C Heart Rate 59 L Respiratory 15 Rate Blood Pressure 159/83 H O2 Saturation 92 Oxygen O2 Source Room air PD Medical Decision Making - ED course ED course: 57yM with pmh meth abuse p/w L knee cellulitis and pain with concern for possible joint infection. Patient refusing to provide history, refusing arthrocentesis. Treated with oral tylenol. Since he refuses to fill an antibiotic prescription, I offered IM injection of rocephin. I encouraged him to fill rx and provided a new one. referral to Dr. Niño (ortho) provided. Return precautions given. Departure - Departure Disposition: Home, Self Care Clinical Impression: Methamphetamine abuse, Cellulitis of knee, left Condition: Serious Instructions: ED Infec Skin Cellulitis Follow-Up: Ricardo Niño MD [Provider Admit Priv/Credential] - Prescriptions: Doxycycline Hyclate 100 mg PO BID 10 Days #20 tab Comments: You were seen in the emergency department for left knee infection. Please fill your prescription and follow-up with orthopedics (Dr. Niño). Return to the emergency department if you are unable to fill your prescription for any reason so we can give you medicine and hopefully fix your knee. Return also if you have other concerns.
[2023-02-24 06:13] VITALS: BP 159/83
[2023-02-24] MEDS ORDERED: cefTRIAXone 1 GM VIAL IM STA (06:22)
[2023-02-24] MEDS ORDERED: LIDOCAINE 1% 2 ML VIAL MC ONE (06:22)
[2023-02-24] MEDS ORDERED: ACETAMINOPHEN 325 MG TABLET PO STA (06:31)
== END 2023-02-24 06:55 | disposition home or self-care (01) ==
LOC: EDUNIT# → ED 05:59
DX: L03.116 Cellulitis of left lower limb (principal); F15.10 Other stimulant abuse, uncomplicated; F17.200 Nicotine dependence, unspecified, uncomplicated
CPT/HCPCS: 96372; 99283; 99284; A9270

== ENCOUNTER 2023-03-15 19:58 | Outpatient (CLI) | payer MEDICARE, MEDICAID | END 2023-03-15 19:59 | disposition critical access hospital (66) | LOC: EMS 19:58 | DX: R45.851 Suicidal ideations (principal); M79.672 Pain in left foot; M79.671 Pain in right foot; M79.604 Pain in right leg; M79.605 Pain in left leg; Z59.02 Unsheltered homelessness; Z59.41 Food insecurity; R45.1 Restlessness and agitation | CPT/HCPCS: A0425; A0429 ==

== ENCOUNTER 2023-03-15 20:02 | Emergency (ER) | payer MEDICARE, MEDICAID ==
[2023-03-15 20:34] LABS: BASOPHILS % (AUTO) 0.4 %; EOSINOPHILS # (AUTO) 0.3 10^3/uL (0.0-0.7); EOSINOPHILS % (AUTO) 3.5 %; LYMPHOCYTES # (AUTO) 2.2 10^3/uL (1.5-3.5); LYMPHOCYTES % (AUTO) 27.5 %; MEAN CORPUSCULAR HGB CONC 31.7 g/dL (32.0-36.0); MEAN CORPUSCULAR VOLUME 94.7 fL (80.0-94.0); MEAN PLATELET VOLUME 9.9 fL (7.4-11.4); MONOCYTES # (AUTO) 0.6 10^3/uL (0.0-1.0); MONOCYTES % (AUTO) 6.9 %; NEUTROPHILS # (AUTO) 4.9 10^3/uL (1.5-6.6); NEUTROPHILS % (AUTO) 61.6 %; PLT - PLATELET COUNT 351 10^3/uL (130-450); RED BLOOD COUNT 4.33 10^6/uL (4.70-6.10); RED CELL DISTRIBUTION WIDTH 12.9 % (12.0-15.0); WHITE BLOOD COUNT 7.9 x10^3/uL (4.8-10.8)
[2023-03-15 20:50] LABS: ACETAMINOPHEN < 10 ug/mL (10-30); ALBUMIN 3.6 g/dL (3.2-5.5); ALBUMIN/GLOBULIN RATIO 1.2 (1.0-2.2); ALKALINE PHOSPHATASE 86 IU/L (42-121); ALT ALANINE AMINOTRANSFERASE 24 IU/L (10-60); AST ASPARTATE AMINOTRANSFERASE 27 IU/L (10-42); BILIRUBIN,TOTAL 0.4 mg/dL (0.2-1.0); BUN - BLOOD UREA NITROGEN 22 mg/dL (6-20); CALCIUM 8.9 mg/dL (8.5-10.3); CARBON DIOXIDE - CO2 26 mmol/L (21-32); CHLORIDE 106 mmol/L (101-111); CREATININE 0.9 mg/dL (0.6-1.2); ETOH - ETHANOL < 5.0 mg/dL; GFR - MDRD 86 (>89); GLUCOSE 169 mg/dL (70-100); LIPASE 33 U/L (22-51); POTASSIUM 3.8 mmol/L (3.5-5.0); SALICYLATE < 6.0 mg/dL; SODIUM 140 mmol/L (135-145); TOTAL PROTEIN 6.7 g/dL (6.7-8.2)
--- NOTE | 2023-03-15 21:03 | ED Physician Documentation ---
PD HPI MHE - Stated complaint Stated Complaint: LEG PX - Chief complaint Chief Complaint: MHE - History obtained from History obtained from: Patient, EMS - Additional information Additional information: Patient is a 57-year-old male presenting for evaluation of All over body pain as well as feeling suicidal. He is a poor historian, uncooperative. He arrives shouting and not wanting to answer questions. He is known to this emergency department for similar presentations in the past. He does admit to recent methamphetamine use.He has recently been seen for cellulitis and reports he was not able to fill the prescription.He says he wants to by lethal injection and request that I give him a lethal injection. Review of Systems Unable to obtain: Uncooperative, Other PD PAST MEDICAL HISTORY - Past Medical History Cardiovascular: Peripheral Vascular Disease Respiratory: None Neuro: None, Other Endocrine/Autoimmune: Type 2 diabetes GI: None : Renal insuffiency HEENT: None Psych: Obsessive compulsive disorder, Other Musculoskeletal: None Derm: None - Past Surgical History Past Surgical History: Yes - Present Medications Home Medications: Ambulatory Orders Medication Instructions Recorded Confirmed lamoTRIgine [LaMICtal] 25 mg PO DAILY 10/25/21 10/25/21 Doxycycline [Vibramycin] 100 mg PO BID #14 tablet 02/23/23 Doxycycline Hyclate 100 mg PO BID 10 Days #20 tab 02/24/23 - Allergies Allergies/Adverse Reactions: Allergies Allergy/AdvReac Type Severity Reaction Status Date / Time fluoxetine [From Prozac] Allergy Nausea Verified 03/15/23 20:11 mirtazapine Allergy Nausea Verified 03/15/23 20:11 rizatriptan [From Maxalt] Allergy Itching Verified 03/15/23 20:11 erythromycin base AdvReac Unknown Verified 03/15/23 20:11 - Social History Does the pt smoke?: Yes Smoking Status: Current every day smoker Does the pt drink ETOH?: No Does the pt have substance abuse?: Yes - Immunizations Immunizations are current?: Yes - POLST Patient has POLST: No PD ED PE NORMAL - General General: Alert and oriented X 3, Well developed/nourished, Other (Argumentative, initially shouting) - HEENT HEENT: Atraumatic, Moist mucous membranes, Pharynx benign - Neck Neck: Supple, no meningeal sign - Cardiac Cardiac: RRR, No murmur, Strong equal pulses - Respiratory Respiratory: No respiratory distress, Clear bilaterally - Abdomen Abdomen: Soft, Non tender - Extremities Extremities: Normal ROM s pain, No edema, No calf tenderness / cord, Other (Faint blanching erythema to bilateral thighs, No lymphangitis) - Neuro Neuro: Alert and oriented X 3, No motor deficit, Normal speech Results - Vitals Vitals: Vital Signs - 24 hr 03/15/23 03/15/23 03/15/23 20:35 21:05 21:12 Temperature 36.3 C L Heart Rate 60 Respiratory 14 Rate Blood Pressure 127/71 124/68 124/68 O2 Saturation 99 Oxygen O2 Source Room air - Labs Labs: Laboratory Tests 03/15/23 03/15/23 03/15/23 20:29 20:29 20:29 WBC 7.9 RBC 4.33 L Hgb 13.0 L Hct 41.0 L MCV 94.7 H MCH 30.0 MCHC 31.7 L RDW 12.9 Plt Count 351 MPV 9.9 Neut # (Auto) 4.9 Lymph # (Auto) 2.2 Archer # (Auto) 0.6 Eos # (Auto) 0.3 Baso # (Auto) 0.0 Absolute Nucleated RBC 0.00 Nucleated RBC % 0.0 Sodium 140 Potassium 3.8 Chloride 106 Carbon Dioxide 26 Anion Gap 8.0 BUN 22 H Creatinine 0.9 Estimated GFR (MDRD) 86 L Glucose 169 H Calcium 8.9 Total Bilirubin 0.4 AST 27 ALT 24 Alkaline Phosphatase 86 Total Protein 6.7 Albumin 3.6 Globulin 3.1 Albumin/Globulin Ratio 1.2 Lipase 33 TSH 1.94 Urine Color Urine Clarity Urine pH Ur Specific Hamilton Urine Protein Urine Glucose (UA) Urine Ketones Urine Occult Blood Urine Nitrite Urine Bilirubin Urine Urobilinogen Ur Leukocyte Esterase Ur Microscopic Review Urine Culture Comments Salicylates < 6.0 Urine Opiates Screen Ur Oxycodone Screen Urine Methadone Screen Ur Propoxyphene Screen Acetaminophen < 10 L Ur Barbiturates Screen Ur Tricyclics Screen Ur Phencyclidine Scrn Ur Amphetamine Screen U Methamphetamines Scrn U Benzodiazepines Scrn Urine Cocaine Screen U Cannabinoids Screen Ethyl Alcohol < 5.0 03/16/23 02:08 WBC RBC Hgb Hct MCV MCH MCHC RDW Plt Count MPV Neut # (Auto) Lymph # (Auto) Archer # (Auto) Eos # (Auto) Baso # (Auto) Absolute Nucleated RBC Nucleated RBC % Sodium Potassium Chloride Carbon Dioxide Anion Gap BUN Creatinine Estimated GFR (MDRD) Glucose Calcium Total Bilirubin AST ALT Alkaline Phosphatase Total Protein Albumin Globulin Albumin/Globulin Ratio Lipase TSH Urine Color YELLOW Urine Clarity CLEAR Urine pH 6.0 Ur Specific Hamilton 1.025 Urine Protein NEGATIVE Urine Glucose (UA) NEGATIVE Urine Ketones NEGATIVE Urine Occult Blood NEGATIVE Urine Nitrite NEGATIVE Urine Bilirubin NEGATIVE Urine Urobilinogen 0.2 (NORMAL) Ur Leukocyte Esterase NEGATIVE Ur Microscopic Review NOT INDICATED Urine Culture Comments NOT INDICATED Salicylates Urine Opiates Screen NEGATIVE Ur Oxycodone Screen NEGATIVE Urine Methadone Screen NEGATIVE Ur Propoxyphene Screen NEGATIVE Acetaminophen Ur Barbiturates Screen NEGATIVE Ur Tricyclics Screen NEGATIVE Ur Phencyclidine Scrn NEGATIVE Ur Amphetamine Screen POSITIVE H U Methamphetamines Scrn POSITIVE H U Benzodiazepines Scrn NEGATIVE Urine Cocaine Screen NEGATIVE U Cannabinoids Screen NEGATIVE Ethyl Alcohol PD Medical Decision Making - ED course Complexity details: reviewed results, re-evaluated patient, d/w patient ED course: Patient is a 57-year-old male with a history of methamphetamine use presenting for evaluation of allover body pain as well as feeling suicidal in the setting of recent meth use.He initially was not very cooperative and did not want vital signs and was just yelling at staff but eventually was able to be coaxed into becoming more cooperative and allowed us to evaluate him.His vital signs appear stable. A CBC, chemistries, EtOH, urinalysis and drug screen were obtained.UDS is positive for methamphetamine and amphetamines.Otherwise no significant findings on laboratory testing. Patient was allowed to sleep overnight and upon reevaluation this morning he states that he is no longer suicidal and wants to leave. I offered for him to stay in the emergency department for Breakfast and social work to evaluate him but he declines.He does not want to be hospitalized. As he no longer feels suicidal I do not think he meets criteria for involuntary detainment. Presentation tonight appears consistent with prior ED visits Patient often leaves prior to any evaluation by social work. Departure - Departure Disposition: 01 Home, Self Care Clinical Impression: Methamphetamine abuse Condition: Good Instructions: ED Drug Abuse General Comments: Please follow-up with your primary care provider. Return to the emergency department if you are feeling suicidal or having thoughts of hurting yourself or with any new concerns. Follow-up with [facility] at [phone] to schedule psychiatric care and counseling. Discharge Date/Time: 03/16/23 05:22
[2023-03-15 21:06] VITALS: BP 124/68
[2023-03-16 04:04] LABS: CLARITY,URINE CLEAR (CLEAR); LEUKOCYTE ESTERASE, URINE NEGATIVE (NEGATIVE); MUDS CUTOFF CONCENTRATIONS CUTOFF CONC BELOW:; NITRITE,URINE NEGATIVE (NEGATIVE); PROTEIN,URINE NEGATIVE (NEGATIVE); UROBILINOGEN,URINE 0.2 (NORMAL) E.U./dL (NORMAL)
[2023-03-16 04:05] LABS: AMPHETAMINE SCREEN,URINE POSITIVE (NEGATIVE); BARBITURATE SCREEN,UR NEGATIVE (NEGATIVE); BENZODIAZEPINES SCREEN, URINE NEGATIVE (NEGATIVE); BILIRUBIN,URINE NEGATIVE (NEGATIVE); COCAINE SCREEN URINE NEGATIVE (NEGATIVE); GLUCOSE, URINE (UA) NEGATIVE (NEGATIVE); KETONES,URINE (UA) NEGATIVE (NEGATIVE); METHADONE SCREEN, URINE NEGATIVE (NEGATIVE); METHAMPHETAMINES SCREEN, URINE POSITIVE (NEGATIVE); OCCULT BLOOD,URINE NEGATIVE (NEGATIVE); OPIATE SCREEN, URINE NEGATIVE (NEGATIVE); OXYCODONE SCREEN, URINE NEGATIVE (NEGATIVE); PROPOXYPHENE SCREEN, URINE NEGATIVE (NEGATIVE); THC CANNABINOID SCREEN, URINE NEGATIVE (NEGATIVE); TRICYCLIC ANTIDEPRESSANT,URINE NEGATIVE (NEGATIVE)
== END 2023-03-16 05:22 | disposition home or self-care (01) ==
LOC: EDUNIT# → ED 20:02
DX: F15.10 Other stimulant abuse, uncomplicated (principal); F17.200 Nicotine dependence, unspecified, uncomplicated
CPT/HCPCS: 36415; 80053; 80306; 80307; 81003; 83690; 84443; 85025; 99283; 99284; G0480; 80320; 80329; 81001; 87086

== ENCOUNTER 2023-04-13 20:54 | Outpatient (CLI) | payer MEDICARE, MEDICAID | END 2023-04-13 20:55 | disposition critical access hospital (66) | LOC: EMS 20:54 | DX: M79.672 Pain in left foot (principal); M79.671 Pain in right foot; G89.29 Other chronic pain | CPT/HCPCS: A0425; A0429; A0999 ==

== ENCOUNTER 2023-04-13 21:15 | Emergency (ER) | payer MEDICARE, MEDICAID ==
[2023-04-13 21:27] VITALS: BP 110/63
--- NOTE | 2023-04-13 21:35 | ED Physician Documentation ---
History of Present Illness - Stated complaint Stated Complaint: BILAT FOOT PAIN - Chief complaint Chief Complaint: Ext Problem - History obtained from History obtained from: Patient - History of Present Illness Timing: Chronic (several years) Pain level max: 5 Pain level now: 5 - Additonal information Additional information: 57-year-old male brought in by ambulance stating that he has foot pain that is chronic and unchanged for the past several years. Worse with walking, better with rest. Denies any recent injuries. No fevers. No chills. Has not taken anything for pain. Review of Systems Constitutional: denies: Fever GI: denies: Vomiting Musculoskeletal: denies: Neck pain, Back pain Neurologic: denies: Focal weakness, Numbness, Headache Psychiatric: denies: Depressed, Suicidal, Homicidal, Hallucinations PD PAST MEDICAL HISTORY - Past Medical History Cardiovascular: Peripheral Vascular Disease Respiratory: None Neuro: None, Other Endocrine/Autoimmune: Type 2 diabetes GI: None : Renal insuffiency HEENT: None Psych: Obsessive compulsive disorder, Other Musculoskeletal: None Derm: None - Past Surgical History Past Surgical History: Yes - Present Medications Home Medications: Ambulatory Orders Medication Instructions Recorded Confirmed lamoTRIgine [LaMICtal] 25 mg PO DAILY 10/25/21 10/25/21 Doxycycline [Vibramycin] 100 mg PO BID #14 tablet 02/23/23 Doxycycline Hyclate 100 mg PO BID 10 Days #20 tab 02/24/23 Terbinafine HCl [Lamisil] 1 spray TP BID #125 ml 04/13/23 - Allergies Allergies/Adverse Reactions: Allergies Allergy/AdvReac Type Severity Reaction Status Date / Time fluoxetine [From Prozac] Allergy Nausea Verified 04/13/23 21:22 mirtazapine Allergy Nausea Verified 04/13/23 21:22 rizatriptan [From Maxalt] Allergy Itching Verified 04/13/23 21:22 erythromycin base AdvReac Unknown Verified 04/13/23 21:22 - Social History Does the pt smoke?: Yes Smoking Status: Current every day smoker Does the pt drink ETOH?: No Does the pt have substance abuse?: Yes - Immunizations Immunizations are current?: Yes - POLST Patient has POLST: No PD ED PE NORMAL - Vitals Vital signs reviewed: Yes - General General: Alert and oriented X 3, No acute distress - HEENT HEENT: PERRL - Cardiac Cardiac: RRR, Strong equal pulses - Respiratory Respiratory: No respiratory distress, Clear bilaterally - Abdomen Abdomen: Soft, Non tender, Non distended - Derm Derm: Warm and dry - Extremities Extremities: Other (mild erythema to the toes with mild skin breakdown. no swelling. no edema. NVI. No tenderness over the B feet) - Neuro Neuro: Alert and oriented X 3 - Psych Psych: Normal mood, Normal affect Results - Vitals Vitals: Vital Signs - 24 hr 04/13/23 21:22 Temperature 36.5 C Heart Rate 74 Respiratory 16 Rate Blood Pressure 110/63 O2 Saturation 96 Oxygen O2 Source Room air PD Medical Decision Making - ED course Complexity details: considered differential, d/w patient ED course: Patient with mild bilateral tinea pedis. We will place on terbinafine spray for home. He is not suicidal or homicidal. No emergency medical condition at this time. He is ambulating without difficulty in the emergency department. No indication for x-rays. No trauma. No swelling. No deformity. No open wounds. This document was made in part using voice recognition software. While efforts are made to proofread this document, sound alike and grammatical errors may occur. Departure - Departure Disposition: 01 Home, Self Care Clinical Impression: Chronic foot pain Qualifiers: Laterality: unspecified laterality Qualified Code(s): M79.673 - Pain in unspecified foot Tinea pedis Qualifiers: Laterality: bilateral Qualified Code(s): B35.3 - Tinea pedis Condition: Good Instructions: ED Fungal Infec Athlete Foot Follow-Up: your,doctor in 1 week [Other] Prescriptions: Terbinafine HCl [Lamisil] 1 spray TP BID #125 ml Comments: Your prescription was sent to [facility] in [place]. You can use Tylenol and Motrin as needed for pain. Please follow-up with your doctor for further care. Crisis Line and is available to talk to someone [email or web address] is also available to chat with someone online if you prefer. There are also many resources on this website and apps for your phone to help with your mental health You can also text the word START to [phone] to chat with someome via text.
== END 2023-04-13 21:45 | disposition home or self-care (01) ==
LOC: EDUNIT# → ED 21:15
DX: B35.3 Tinea pedis (principal); M79.672 Pain in left foot; M79.671 Pain in right foot; G89.29 Other chronic pain; F17.200 Nicotine dependence, unspecified, uncomplicated
CPT/HCPCS: 99283

== ENCOUNTER 2023-05-07 22:43 | Outpatient (CLI) | payer MEDICARE, MEDICAID | END 2023-05-07 23:59 | disposition short-term general hospital (02) | LOC: EMS 22:43 | DX: R07.89 Other chest pain (principal) | CPT/HCPCS: A0425; A0429 ==

== ENCOUNTER 2023-09-21 04:06 | Emergency (ER) | payer MEDICARE, MEDICAID ==
--- NOTE | 2023-09-21 04:19 | ED Physician Documentation ---
PD HPI LOWER EXT INJURY - Stated complaint Stated Complaint: FOOT PAIN - Chief complaint Chief Complaint: Ext Problem - History obtained from History obtained from: Patient PD PAST MEDICAL HISTORY - Past Medical History Past Medical History: Yes Cardiovascular: Peripheral Vascular Disease Respiratory: None Neuro: None, Other Endocrine/Autoimmune: Type 2 diabetes GI: None : Renal insuffiency HEENT: None Psych: Obsessive compulsive disorder, Other Musculoskeletal: None Derm: None - Past Surgical History Past Surgical History: Yes - Present Medications Home Medications: Ambulatory Orders Medication Instructions Recorded Confirmed No Known Home Medications 09/21/23 09/21/23 - Allergies Allergies/Adverse Reactions: Allergies Allergy/AdvReac Type Severity Reaction Status Date / Time fluoxetine [From Prozac] Allergy Nausea Verified 09/21/23 04:16 mirtazapine Allergy Nausea Verified 09/21/23 04:16 rizatriptan [From Maxalt] Allergy Itching Verified 09/21/23 04:16 erythromycin base AdvReac Unknown Verified 09/21/23 04:16 - Social History Does the pt smoke?: Yes Smoking Status: Current every day smoker Does the pt drink ETOH?: No Does the pt have substance abuse?: Yes - Immunizations Immunizations are current?: Yes - POLST Patient has POLST: No Results - Vitals Vitals: Vital Signs - 24 hr 09/21/23 04:13 Temperature 37.0 C Heart Rate 75 Respiratory 16 Rate Blood Pressure 144/91 H O2 Saturation 100 Oxygen O2 Source Room air Departure - Departure
[2023-09-21 04:20] VITALS: BP 144/91; O2SAT 100
== END 2023-09-21 04:31 | disposition left against medical advice (07) ==
LOC: ED 04:06
DX: Z53.21 Procedure and treatment not carried out due to patient leaving prior to being seen by health care provider (principal)

== ENCOUNTER 2023-10-06 13:38 | Outpatient (CLI) | payer MEDICARE, MEDICAID | END 2023-10-06 13:39 | disposition critical access hospital (66) | LOC: EMS 13:38 | DX: S61.401A Unspecified open wound of right hand, initial encounter (principal); M79.642 Pain in left hand; M79.641 Pain in right hand; X58.XXXA Exposure to other specified factors, initial encounter | CPT/HCPCS: A0425; A0429 ==

== ENCOUNTER 2023-10-06 14:00 | Emergency (ER) | payer MEDICARE, MEDICAID ==
[2023-10-06 14:19] VITALS: BP 129/68; O2SAT 100
[2023-10-06] MEDS ORDERED: SULFAMETH/TRIMETH DS 800/160 MG TABLET PO STA (15:38)
--- NOTE | 2023-10-06 15:41 | ED Physician Documentation ---
PD HPI UPPER EXT INJURY - Stated complaint Stated Complaint: BILAT HAND PX - Chief complaint Chief Complaint: Ext Problem - History obtained from History obtained from: Patient (58-year-old gentleman with history of MRSA homeless and with hand wounds right hand greater than left for the last few days.) PD PAST MEDICAL HISTORY - Past Medical History Past Medical History: Yes Cardiovascular: Peripheral Vascular Disease Respiratory: None Neuro: None, Other Endocrine/Autoimmune: Type 2 diabetes GI: None : Renal insuffiency HEENT: None Psych: Obsessive compulsive disorder, Other Musculoskeletal: None Derm: None - Past Surgical History Past Surgical History: Yes - Present Medications Home Medications: Ambulatory Orders Medication Instructions Recorded Confirmed Sulfamethox/Trimeth 800/160 1 each PO BID #14 tablet 10/06/23 [Bactrim Ds 800/160] - Allergies Allergies/Adverse Reactions: Allergies Allergy/AdvReac Type Severity Reaction Status Date / Time fluoxetine [From Prozac] Allergy Nausea Verified 10/06/23 14:14 mirtazapine Allergy Nausea Verified 10/06/23 14:14 rizatriptan [From Maxalt] Allergy Itching Verified 10/06/23 14:14 erythromycin base AdvReac Unknown Verified 10/06/23 14:14 - Social History Does the pt smoke?: Yes Smoking Status: Current every day smoker Does the pt drink ETOH?: No Does the pt have substance abuse?: Yes Substance Use and Type: Marijuana, Meth - Immunizations Immunizations are current?: Yes - POLST Patient has POLST: No PD ED PE NORMAL - Vitals Vital signs reviewed: Yes - General General: Alert and oriented X 3, No acute distress - Extremities Extremities: Other (Left hand appears normal, 3 small purulent ulcers on the right hand without admitted range of motion or evidence of deep infection 1 of which was cultured.) - Neuro Neuro: Alert and oriented X 3, Normal speech - Psych Psych: Normal mood, Normal affect Results - Vitals Vitals: Vital Signs - 24 hr 10/06/23 14:09 Temperature 37.3 C Heart Rate 81 Respiratory 20 Rate Blood Pressure 129/68 O2 Saturation 100 Oxygen O2 Source Room air PD Medical Decision Making - ED course ED course: 58-year-old gentleman with MRSA infection of the right hand and he is currently undomiciled. [facility] rn case mgrwildlife manager health, Dylan Solomon, is at the bedside and because of his status is willing to take any culture results if we are unable to reach him. Patient signed a release of information for same. She is available at [phone]. Departure - Departure Disposition: 01 Home, Self Care Clinical Impression: Staph infection Condition: Good Record reviewed to determine appropriate education?: Yes Instructions: ED Staph Infec Abx Tx Only Prescriptions: Sulfamethox/Trimeth 800/160 [Bactrim Ds 800/160] 1 each PO BID #14 tablet Comments: We are performing a wound culture, the results should be done in 48-72 hours. If antibiotic change is necessary we will call you. Return if worse in the meantime, especially if you develop increased pain, fevers, cannot keep down the medication. Otherwise follow-up with your physician in approximately 2-3 days. Forms: PCP List
== END 2023-10-06 16:25 | disposition home or self-care (01) ==
LOC: EDUNIT# → ED 14:00
DX: A49.02 Methicillin resistant Staphylococcus aureus infection, unspecified site (principal); E11.9 Type 2 diabetes mellitus without complications; Z59.00 Homelessness unspecified; F17.200 Nicotine dependence, unspecified, uncomplicated
CPT/HCPCS: 87070; 87077; 87205; 99283; A9270

== ENCOUNTER 2023-10-20 00:54 | Outpatient (CLI) | payer MEDICARE, MEDICAID | END 2023-10-20 00:55 | disposition critical access hospital (66) | LOC: EMS 00:54 | DX: M79.672 Pain in left foot (principal); M79.671 Pain in right foot; Z59.02 Unsheltered homelessness | CPT/HCPCS: A0425; A0429 ==

== ENCOUNTER 2023-10-20 01:12 | Emergency (ER) | payer MEDICARE, MEDICAID ==
--- NOTE | 2023-10-20 02:27 | ED Physician Documentation ---
History of Present Illness - Stated complaint Stated Complaint: BILAT FOOT PX - Chief complaint Chief Complaint: Ext Problem - History obtained from History obtained from: Patient, EMS - Additonal information Additional information: [facility]. HPI from patient, EMS Patient c/o atraumatic left hip pain since "about a month or so ago" (per patient) and bilateral foot pain x approximately 2 years. These pains are worse tonight. He has many previous [facility] ED visits for similar c/o. He says he has arthritis and his foot pain has been attributed to peripheral neuropathy. The hip pain is worse with movement although he also says the longer he lies still, the worse the pain is when he first tries to stand and ambulate, with some improvement as he ambulates more. The foot pain is exacerbated with weight-be aring. he describes the hip pain as dull but stabbing at times, and the foot pain as "like shards of glass in my feet when I walk" (although also has foot pain at rest at times). Review of Systems Musculoskeletal: reports: Extremity pain (bilateral feet), Joint pain (left hip). denies: Extremity swelling Neurologic: denies: Focal weakness, Numbness PD PAST MEDICAL HISTORY - Past Medical History Cardiovascular: Peripheral Vascular Disease Respiratory: None Neuro: None, Other Endocrine/Autoimmune: Type 2 diabetes GI: None : Renal insuffiency HEENT: None Psych: Depression, Obsessive compulsive disorder, Other Musculoskeletal: None Derm: None - Past Surgical History Past Surgical History: Yes - Present Medications Home Medications: Ambulatory Orders Medication Instructions Recorded Confirmed Cyclobenzaprine [Flexeril] 10 mg PO TID PRN #14 tablet 10/20/23 Naproxen 250 mg PO BID #20 tablet 10/20/23 - Allergies Allergies/Adverse Reactions: Allergies Allergy/AdvReac Type Severity Reaction Status Date / Time fluoxetine [From Prozac] Allergy Nausea Verified 10/20/23 01:17 mirtazapine Allergy Nausea Verified 10/20/23 01:17 rizatriptan [From Maxalt] Allergy Itching Verified 10/20/23 01:17 erythromycin base AdvReac Unknown Verified 10/20/23 01:17 - Social History Does the pt smoke?: Yes Smoking Status: Current every day smoker Does the pt drink ETOH?: No Does the pt have substance abuse?: Yes - Immunizations Immunizations are current?: Yes - POLST Patient has POLST: No PD ED PE NORMAL - Vitals Vital signs reviewed: Yes - General General: Alert and oriented X 3, No acute distress, Other (disheveld. poor dentition contributing to difficulty understanding him at times; this is also complicated by his frequent yelling of answers ) - Derm Derm: Normal color, Warm and dry, No rash, Other (few scattered scabs on dorsum of both hands without swelling, tenderness, erythema, or fluctuance) - Extremities Extremities: No deformity, No edema, Other (both feet are normal in appearance: no swelling, erythema. no evidence of tinea pedis. No TTP feet, toes) - Neuro Neuro: No motor deficit, No sensory deficit PD ED PE EXPANDED - Extremities Extremities: Other (FROM left hip although extremes of flexion, abduction exacerbate the hip pain) Results - Vitals Vitals: Vital Signs - 24 hr 10/20/23 10/20/23 01:17 06:32 Temperature 36.6 C Heart Rate 64 67 Respiratory 18 18 Rate Blood Pressure 116/74 102/64 O2 Saturation 96 99 Oxygen O2 Source Room air PD Medical Decision Making - ED course Complexity details: considered differential, d/w patient ED course: ANMOL reflects that ciara is patient's 13th ED visit over past twelve months involving three different EDs. He was in [facility] ED twice last month although left prior to being seen on one of those two visits. On the second (more recent) visit, ED MD note reflects antibiotic was prescribed for hand cellulitis. Patient tells me he did not fill the rx due to his insurance not having coverage for prescription medication. Ciara I note scabs on his hands but no evidence of infection and thus I do not see the need at this time for an antibiotic. His chief complaints are related to chronic pain c/o. In discussing options for symptom/pain control, he specifically tells me he does not want "anything addicting". He is given 10mg PO flexeril and 250mg PO Naproxen. I brought up gabapentin as option but he says he does not want this medication because he has 2-3 days of drowsiness with a single dose. He says he used to be prescribed a "blue and white pill" by his PMD a few years ago for his peripheral neuropathy but cannot remember the name of the medication. I do not see any rx refills in [facility] and thus cannot ascertain which medication he is referring to. I provided prescriptions for these medications (given paper prescriptions) and d/c instructions. Unfortunately, he tore up both the prescriptions and d/c instructions as he was leaving. He was loudly cursing at staff and using profanity as he walked out. He had slow but steady gait as he left and did not require any assistance in ambulating out of ED to . Departure - Departure Disposition: 01 Home, Self Care Clinical Impression: Hip pain, chronic Qualifiers: Laterality: left Qualified Code(s): M25.552 - Pain in left hip Peripheral neuropathy Qualifiers: Peripheral neuropathy type: polyneuropathy associated with underlying disease Qualified Code(s): G63 - Polyneuropathy in diseases classified elsewhere Condition: Good Instructions: ED Joint Pain, ED Neuropathy Peripheral Prescriptions: Cyclobenzaprine [Flexeril] 10 mg PO TID PRN #14 tablet PRN Reason: Spasms Naproxen 250 mg PO BID #20 tablet Forms: PCP List Discharge Date/Time: 10/20/23 06:34
[2023-10-20] MEDS ORDERED: CYCLOBENZAPRINE 10 MG TABLET PO STA (02:44)
[2023-10-20] MEDS ORDERED: NAPROXEN 250 MG TABLET PO STA (02:44)
[2023-10-20 06:37] VITALS: BP 102/64; O2SAT 99
== END 2023-10-20 06:34 | disposition home or self-care (01) ==
LOC: ED 01:12
DX: M25.552 Pain in left hip (principal); G89.29 Other chronic pain; E11.42 Type 2 diabetes mellitus with diabetic polyneuropathy; F17.200 Nicotine dependence, unspecified, uncomplicated
CPT/HCPCS: 99283; A9270

== ENCOUNTER 2023-11-09 18:00 | Outpatient (CLI) | payer MEDICARE, MEDICAID | END 2023-11-09 18:01 | disposition critical access hospital (66) | LOC: EMS 18:00 | DX: R41.0 Disorientation, unspecified (principal); R45.1 Restlessness and agitation; R06.02 Shortness of breath; F19.90 Other psychoactive substance use, unspecified, uncomplicated | CPT/HCPCS: A0425; A0429 ==

== ENCOUNTER 2023-11-09 18:08 | Emergency (ER) | payer MEDICARE, MEDICAID ==
[2023-11-09 18:25] VITALS: BP 161/83; O2SAT 100
== END 2023-11-09 19:37 | disposition left against medical advice (07) ==
LOC: EDUNIT# → ED 18:08
DX: Z53.21 Procedure and treatment not carried out due to patient leaving prior to being seen by health care provider (principal)

== ENCOUNTER 2023-11-12 21:37 | Outpatient (CLI) | payer MEDICARE, MEDICAID | END 2023-11-12 21:38 | disposition critical access hospital (66) | LOC: EMS 21:37 | DX: S69.81XA Other specified injuries of right wrist, hand and finger(s), initial encounter (principal); W26.9XXA Contact with unspecified sharp object(s), initial encounter | CPT/HCPCS: A0425; A0429 ==

== ENCOUNTER 2023-11-12 21:44 | Emergency (ER) | payer MEDICARE, MEDICAID ==
[2023-11-12 21:57] VITALS: BP 148/87; O2SAT 99
[2023-11-12] MEDS ORDERED: BUFFERED LIDOCAINE 10 ML SYRINGE SUBQ STA (22:12)
[2023-11-12] MEDS ORDERED: CLINDAMYCIN 150 MG CAPSULE PO STA (22:12)
--- NOTE | 2023-11-12 22:12 | ED Physician Documentation ---
History of Present Illness - Stated complaint Stated Complaint: R FINGER SWOLLEN - Chief complaint Chief Complaint: General - History obtained from History obtained from: Patient - Additonal information Additional information: 58-year-old gentleman with history of ongoing methamphetamine abuse, MRSA has had 3 days of pain of the right middle finger. Stated it started when he received a small injury from poking on a stick. He then developed swelling and now has significant swelling and pain of the distal part of the right middle finger. Denies fevers. PD PAST MEDICAL HISTORY - Past Medical History Cardiovascular: Peripheral Vascular Disease Respiratory: None Neuro: Other Endocrine/Autoimmune: Type 2 diabetes GI: None : Renal insuffiency HEENT: None Psych: Depression, Obsessive compulsive disorder, Other Musculoskeletal: None Derm: None - Past Surgical History Past Surgical History: Yes - Present Medications Home Medications: Ambulatory Orders Medication Instructions Recorded Confirmed Blood Sugar Diagnostic [Glucometer 1 each ACHS #120 strip 11/12/23 Strips] Blood-Glucose Meter [Glucometer] 1 each ONCE #1 each 11/12/23 clindamycin HCL [Cleocin HCl] 300 mg PO QID #28 cap 11/12/23 - Allergies Allergies/Adverse Reactions: Allergies Allergy/AdvReac Type Severity Reaction Status Date / Time fluoxetine [From Prozac] Allergy Nausea Verified 11/12/23 21:52 mirtazapine Allergy Nausea Verified 11/12/23 21:52 rizatriptan [From Maxalt] Allergy Itching Verified 11/12/23 21:52 erythromycin base AdvReac Unknown Verified 11/12/23 21:52 - Social History Does the pt smoke?: Yes Smoking Status: Current every day smoker Does the pt drink ETOH?: No Does the pt have substance abuse?: Yes - Immunizations Immunizations are current?: Yes - POLST Patient has POLST: No PD ED PE NORMAL - Vitals Vital signs reviewed: Yes - General General: Alert and oriented X 3, No acute distress - Extremities Extremities: Other (He has a felon/abscess of the pulp of the tip of the right middle finger mostly on the lateral side.) - Neuro Neuro: Alert and oriented X 3 Results - Vitals Vitals: Vital Signs - 24 hr 11/12/23 21:49 Temperature 36.6 C Heart Rate 75 Respiratory 22 Rate Blood Pressure 148/87 H O2 Saturation 99 Oxygen O2 Source Room air Procedures - Abscess I&D (location) R middle finger Preparation: Lidocaine 1% (A digital block was done with buffered lidocaine with excellent anesthesia), Other (Finger tourniquet was placed and then the finger was prepped and draped) Incision: Incised with scalpel, Loculations broken, Culture obtained Other: Pt tolerated well, Dressing applied PD Medical Decision Making - ED course ED course: He has a finger abscess that was I&D needed. Recommended he return here in 2 to 3 days for wound check as he has some limitations with social determinants of health and no PCP. A culture was done. He requested a prescription for glucometer and test strips as well. There is no evidence of flexor tenosynovitis. Departure - Departure Disposition: 01 Home, Self Care Clinical Impression: Abscess of right middle finger Condition: Good Record reviewed to determine appropriate education?: Yes Instructions: ED Abscess IandD Prescriptions: clindamycin HCL [Cleocin HCl] 300 mg PO QID #28 cap Blood-Glucose Meter [Glucometer] 1 each MC ONCE #1 each Blood Sugar Diagnostic [Glucometer Strips] 1 each MC ACHS #120 strip Comments: We are performing a wound culture, the results should be done in 48-72 hours. If antibiotic change is necessary we will call you. Return if worse in the meantime, especially if you develop increased pain, fevers, cannot keep down the medication. Otherwise Return here in 2 to 3 days for wound check I sent your prescriptions electronically to [facility] in [place]. Forms: PCP List Discharge Date/Time: 11/12/23 23:01
--- NOTE | 2023-11-13 15:28 | ED Physician Documentation ---
ED Addendum - Addendum Addendum: 11/13/23 15:27 Culture reviewed, growing group A strep. Clindamycin should be appropriate.
== END 2023-11-12 23:01 | disposition home or self-care (01) ==
LOC: EDUNIT# → ED 21:44
DX: L02.511 Cutaneous abscess of right hand (principal); F17.200 Nicotine dependence, unspecified, uncomplicated
CPT/HCPCS: 26010; 87070; 87077; 87181; 87205; 99283; A9270

== ENCOUNTER 2023-12-13 21:58 | Outpatient (CLI) | payer MEDICARE, MEDICAID | END 2023-12-13 21:59 | disposition critical access hospital (66) | LOC: EMS 21:58 | DX: R05.9 Cough, unspecified (principal); M54.50 Low back pain, unspecified; F32.A Depression, unspecified; Z59.00 Homelessness unspecified | CPT/HCPCS: A0425; A0429 ==

== ENCOUNTER 2023-12-13 22:14 | Emergency (ER) | payer MEDICARE, MEDICAID ==
--- NOTE | 2023-12-13 22:23 | ED Physician Documentation ---
History of Present Illness - Stated complaint Stated Complaint: COUGH - History obtained from History obtained from: Patient - Additonal information Additional information: The patient comes to the emergency department with chief complaint of cough. He states that he has had a cough for 3 to 4 days and has been coughing up "green mucus with green chunks". The patient denies any shortness of breath or chest pain. He has chronic low back pain which is at baseline. No GI symptoms. He is not sure if he has had any fevers or chills. He is homeless and does live over at the retirement, but was outside [facility]. He denies any other complaints at this time. He does use methamphetamines and last use was today. He has a history of smoking. No alcohol. PD PAST MEDICAL HISTORY - Past Medical History Cardiovascular: Peripheral Vascular Disease Respiratory: None Neuro: Other Endocrine/Autoimmune: Type 2 diabetes GI: None : Renal insuffiency HEENT: None Psych: Depression, Obsessive compulsive disorder, Other Musculoskeletal: None Derm: None - Past Surgical History Past Surgical History: Yes - Present Medications Home Medications: Ambulatory Orders Medication Instructions Recorded Confirmed Azithromycin [Zithromax] 0 mg PO DAILY #6 tablet 12/14/23 - Allergies Allergies/Adverse Reactions: Allergies Allergy/AdvReac Type Severity Reaction Status Date / Time fluoxetine [From Prozac] Allergy Nausea Verified 11/12/23 21:52 mirtazapine Allergy Nausea Verified 11/12/23 21:52 rizatriptan [From Maxalt] Allergy Itching Verified 11/12/23 21:52 erythromycin base AdvReac Unknown Verified 11/12/23 21:52 - Social History Does the pt smoke?: Yes Smoking Status: Current every day smoker Does the pt drink ETOH?: No Does the pt have substance abuse?: Yes - Immunizations Immunizations are current?: Yes - POLST Patient has POLST: No PD ED PE NORMAL - Vitals Vital signs reviewed: Yes - General General: Alert and oriented X 3, No acute distress, Well developed/nourished - HEENT HEENT: Atraumatic, PERRL, EOMI, Moist mucous membranes - Neck Neck: Supple, no meningeal sign - Cardiac Cardiac: RRR, No murmur, Strong equal pulses - Respiratory Respiratory: No respiratory distress, Clear bilaterally - Abdomen Abdomen: Soft, Non tender, Non distended - Derm Derm: Normal color, Warm and dry, No rash - Extremities Extremities: No deformity, No edema - Neuro Neuro: Alert and oriented X 3, Other (No gross deficits.) - Psych Psych: Normal mood, Normal affect Results - Vitals Vitals: Vital Signs - 24 hr 12/13/23 12/14/23 12/14/23 22:15 00:26 06:23 Temperature 36.7 C 36.4 C L 36.6 C Heart Rate 69 67 69 Respiratory 18 16 16 Rate Blood Pressure 136/76 H 104/65 120/67 O2 Saturation 100 95 97 Oxygen O2 Source Room air PD Medical Decision Making - ED course Complexity details: reviewed results, re-evaluated patient, considered differential, d/w patient ED course: The patient was given a dose of Zithromax and worked up with a chest x-ray and respiratory PCR panel. X-ray was negative. The patient was allowed to rest in the emergency department overnight. Although he did not mention it to me, he had mentioned to the medics that he was feeling depressed and that if he could he would cut his leg with a razor blade. He did not mention this particular plan to nursing staff, but did answer positively on the depression/suicide questions. I reviewed the patient's records and it appears he has Expressed suicidal statements/sent to months previously, but usually feels better in the morning and has consistently declined any intervention. He has never made a suicide attempt. The patient was reevaluated after resting comfortably in bed all night after receiving symptomatic treatment in the ED for his chronic back pain. The patient reported feeling much better and was adamant that he was not suicidal. He did not wish any further treatment here and wanted to go home. I did offer a prescription for the rest of his Zithromax but the patient stated he just wanted to leave and did not think he needed it. We have discussed the usual indications for return. Departure - Departure Disposition: 01 Home, Self Care Clinical Impression: Bronchitis Condition: Stable Instructions: ED Upper Resp Infec Abx Tx Prescriptions: Azithromycin [Zithromax] 0 mg PO DAILY #6 tablet
[2023-12-13] MEDS: AZITHROMYCIN 250 MG TABLET PO STA (22:30)
--- NOTE | 2023-12-13 22:41 | XRAY Report ---
PROCEDURE: Chest 1V INDICATIONS: cough TECHNIQUE: One view of the chest was acquired. COMPARISON: CT 02/04/2021 FINDINGS: Surgical changes and devices: None. Lungs and pleura: No pleural effusions or pneumothorax. Lungs are clear. Mediastinum: Mediastinal contours appear normal. Heart size is normal. Bones and chest wall: No suspicious bony lesions. Overlying soft tissues appear unremarkable. IMPRESSION: No acute cardiopulmonary process. Reviewed by: Geovanna Espinoza MD on 12/13/2023 10:40 PM PST Approved by: Geovanna Espinoza MD on 12/13/2023 10:40 PM [facility] Station ID: [id number]
[2023-12-13] MEDS: HYDROmorphone 1 MG/ML CARPUJECT IM STA (23:41)
[2023-12-13] MEDS: KETOROLAC 60 MG/2 ML VIAL IM STA (23:44)
[2023-12-14 06:37] VITALS: BP 120/67; O2SAT 97
== END 2023-12-14 06:30 | disposition home or self-care (01) ==
LOC: EDUNIT# → ED 22:14
DX: J40 Bronchitis, not specified as acute or chronic (principal); R45.851 Suicidal ideations; E11.9 Type 2 diabetes mellitus without complications; F17.200 Nicotine dependence, unspecified, uncomplicated; Z59.01 Sheltered homelessness
CPT/HCPCS: 71045; 96372; 99283; 99284; A9270; J1170

== ENCOUNTER 2023-12-18 14:26 | Outpatient (CLI) | payer MEDICARE, MEDICAID | END 2023-12-18 14:27 | disposition critical access hospital (66) | LOC: EMS 14:26 | DX: R50.9 Fever, unspecified (principal); R05.9 Cough, unspecified; R68.84 Jaw pain; K08.9 Disorder of teeth and supporting structures, unspecified | CPT/HCPCS: A0425; A0427 ==

== ENCOUNTER 2023-12-18 14:43 | Emergency (ER) | payer MEDICARE, MEDICAID ==
--- NOTE | 2023-12-18 15:06 | ED Physician Documentation ---
History of Present Illness - Stated complaint Stated Complaint: JAW PX - Chief complaint Chief Complaint: Heent - History obtained from History obtained from: Patient, EMS - History of Present Illness Timing: How many weeks ago (1) Pain level max: 7 Pain level now: 7 - Additonal information Additional information: 58-year-old male presents to the emergency department complaining of left upper dental pain. Has been ongoing for the past week or so. Has not been able to see a dentist. Has had several teeth pulled in the past. No fevers. No chills. Has a chronic cough that is unchanged. He does have an inhaler at home but has not been using it. Has not been on any recent antibiotics. No difficulty speaking or swallowing. No abdominal pain, nausea, vomiting. No headache. No head injury. Worse with eating and drinking, nothing makes it better. Review of Systems Constitutional: denies: Fever, Chills GI: denies: Vomiting, Diarrhea Skin: denies: Rash Musculoskeletal: denies: Neck pain, Back pain Neurologic: denies: Headache PD PAST MEDICAL HISTORY - Past Medical History Past Medical History: Yes Cardiovascular: Peripheral Vascular Disease Respiratory: None Neuro: Other Endocrine/Autoimmune: Type 2 diabetes GI: None : Renal insuffiency HEENT: None Psych: Depression, Obsessive compulsive disorder, Other Musculoskeletal: None Derm: None - Past Surgical History Past Surgical History: Yes General: Hiatal hernia repair Cardiovascular: Coronary stent HEENT: Other - Present Medications Home Medications: Ambulatory Orders Medication Instructions Recorded Confirmed Azithromycin [Zithromax] 0 mg PO DAILY #6 tablet 12/14/23 Amox/Clav 875/125 [Augmentin] 1 tab PO Q12H #20 tablet 12/18/23 - Allergies Allergies/Adverse Reactions: Allergies Allergy/AdvReac Type Severity Reaction Status Date / Time rizatriptan [From Maxalt] Allergy Itching Verified 12/18/23 14:53 - Social History Does the pt smoke?: Yes Smoking Status: Current every day smoker Does the pt drink ETOH?: No Does the pt have substance abuse?: Yes - Immunizations Immunizations are current?: Yes - POLST Patient has POLST: No PD ED PE NORMAL - Vitals Vital signs reviewed: Yes - General General: Alert and oriented X 3, No acute distress - HEENT HEENT: Moist mucous membranes, Other (diffuse dental decay. no drainable abscess.) - Neck Neck: Supple, no meningeal sign - Cardiac Cardiac: RRR, Strong equal pulses - Respiratory Respiratory: No respiratory distress, Other (mild wheezing bilaterally.) - Abdomen Abdomen: Soft, Non tender, Non distended - Derm Derm: Warm and dry - Neuro Neuro: Alert and oriented X 3 - Psych Psych: Normal mood, Normal affect Results - Vitals Vitals: Vital Signs - 24 hr 12/18/23 12/18/23 12/18/23 14:48 14:52 15:15 Temperature 36.6 C Heart Rate 80 80 73 Respiratory 17 14 20 Rate Blood Pressure 145/86 H 120/75 O2 Saturation 98 100 12/18/23 15:43 Temperature 36.7 C Heart Rate 80 Respiratory 18 Rate Blood Pressure 118/68 O2 Saturation 98 Oxygen O2 Source Room air - Rads (name of study) cxr Relevant Findings:: Final report received, See rad report PD Medical Decision Making - ED course Complexity details: reviewed results, re-evaluated patient, considered differential, d/w patient ED course: No acute findings found this x-ray. Patient is well-appearing, nontoxic. Afebrile. No hypoxia. No respiratory distress. We will place on Augmentin for his dental infection. Recommend follow-up with a dentist. No drainable abscess. Normal phonation. No trismus. No stridor. No wheezing. No facial or neck cellulitis. Patient counseled regarding signs and symptoms for which I believe and urgent re-evaluation would be necessary. Patient with good understanding of and agreement to plan and is comfortable going home at this time This document was made in part using voice recognition software. While efforts are made to proofread this document, sound alike and grammatical errors may occur. Departure - Departure Disposition: 01 Home, Self Care Clinical Impression: Dental caries, Viral URI Condition: Good Instructions: ED Tooth Pain, ED Viral Syndrome Follow-Up: your,doctor in 1 week [Other] Prescriptions: Amox/Clav 875/125 [Augmentin] 1 tab PO Q12H #20 tablet Comments: Take all antibiotics until gone. Your x-ray does not show any signs of pneumonia. Your prescriptions were sent to [facility] in [place]. Please follow-up with a dentist for further care of your teeth. Please return if you worsen. Forms: PCP List Discharge Date/Time: 12/18/23 15:44
[2023-12-18] MEDS: ALBUTEROL NEB 2.5 MG/3 ML INH STA (15:11)
[2023-12-18] MEDS: AMOX/CLAV 875 MG/125 MG TABLET PO STA (15:20)
[2023-12-18 15:45] VITALS: BP 118/68; O2SAT 98
--- NOTE | 2023-12-18 16:17 | XRAY Report ---
PROCEDURE: Chest 2V INDICATIONS: cough TECHNIQUE: 2 views of the chest were acquired. COMPARISON: Chest x-ray 12/13/2023 FINDINGS: Surgical changes and devices: None. Lungs and pleura: No pleural effusions or pneumothorax. Lungs are clear. Mediastinum: Mediastinal contours appear normal. Heart size is mildly enlarged. Bones and chest wall: No suspicious bony lesions. Overlying soft tissues appear unremarkable. IMPRESSION: No acute cardiopulmonary process. Reviewed by: Savannah Ruiz MD on 12/18/2023 4:15 PM [facility] Approved by: Savannah Ruiz MD on 12/18/2023 4:15 PM [facility] Station ID: [id number]
== END 2023-12-18 15:44 | disposition home or self-care (01) ==
LOC: EDUNIT# → ED 14:43
DX: J06.9 Acute upper respiratory infection, unspecified (principal); K02.9 Dental caries, unspecified; E11.9 Type 2 diabetes mellitus without complications; F17.200 Nicotine dependence, unspecified, uncomplicated
CPT/HCPCS: 71046; 94640; 99283; A9270

== ENCOUNTER 2024-01-26 08:00 | Outpatient (CLI) | payer MEDICARE, MEDICAID | END 2024-01-26 08:01 | disposition home or self-care (01) | LOC: LAB.N 08:00 | PROVIDERS: ATTEND Physician Assistant | DX: J44.1 Chronic obstructive pulmonary disease with (acute) exacerbation (principal); E11.42 Type 2 diabetes mellitus with diabetic polyneuropathy | CPT/HCPCS: 82962 ==

== ENCOUNTER 2024-01-27 02:56 | Outpatient (CLI) | payer MEDICARE, MEDICAID | END 2024-01-27 02:57 | disposition critical access hospital (66) | LOC: EMS 02:56 | DX: R10.30 Lower abdominal pain, unspecified (principal); M54.50 Low back pain, unspecified | CPT/HCPCS: A0425; A0427 ==

== ENCOUNTER 2024-01-27 03:03 | Emergency (ER) | payer MEDICARE, MEDICAID ==
[2024-01-27 03:14] VITALS: BP 130/94; O2SAT 100
--- NOTE | 2024-01-27 03:17 | ED Physician Documentation ---
History of Present Illness - Stated complaint Stated Complaint: LOW BACK PX - Chief complaint Chief Complaint: Abd Pain - History obtained from History obtained from: Patient, EMS - Additonal information Additional information: 58yM undomiciled p/w lower abdominal pain radiating to the lower back since yesterday morning, sharp constant, 10/10 severity. received 15mg IV toradol with ems. also with nonproductive cough "for about three years". denies fever, n/v/d/urinary sx. normal bms PD PAST MEDICAL HISTORY - Past Medical History Cardiovascular: Peripheral Vascular Disease Respiratory: None Neuro: Other Endocrine/Autoimmune: Type 2 diabetes GI: None : Renal insuffiency HEENT: None Psych: Depression, Obsessive compulsive disorder, Other Musculoskeletal: None Derm: None - Past Surgical History Past Surgical History: Yes General: Hiatal hernia repair Cardiovascular: Coronary stent HEENT: Other - Present Medications Home Medications: Ambulatory Orders Medication Instructions Recorded Confirmed Albuterol Sulfate [Proair 1 puffs IH DAILY PRN 01/27/24 01/27/24 Digihaler] Cefdinir 1 cap PO BID 01/27/24 01/27/24 predniSONE [Deltasone] 1 tab PO DAILY 01/27/24 01/27/24 - Allergies Allergies/Adverse Reactions: Allergies Allergy/AdvReac Type Severity Reaction Status Date / Time rizatriptan [From Maxalt] Allergy Itching Verified 01/27/24 03:12 - Social History Does the pt smoke?: Yes Smoking Status: Current every day smoker Does the pt drink ETOH?: No Does the pt have substance abuse?: Yes - Immunizations Immunizations are current?: Yes - POLST Patient has POLST: No PD ED PE NORMAL - Vitals Vital signs reviewed: Yes - General General: Alert and oriented X 3, No acute distress, Well developed/nourished - HEENT HEENT: Atraumatic, PERRL, EOMI - Neck Neck: Supple, no meningeal sign - Cardiac Cardiac: RRR - Respiratory Respiratory: No respiratory distress, Clear bilaterally - Abdomen Abdomen: Non tender, Non distended - Back Back: No CVA TTP Results - Vitals Vitals: Vital Signs - 24 hr 01/27/24 03:09 Temperature 36.6 C Heart Rate 83 Respiratory 24 Rate Blood Pressure 130/94 H O2 Saturation 100 Oxygen O2 Source Room air - Labs Labs: Laboratory Tests 01/27/24 01/27/24 01/27/24 03:22 03:22 03:27 WBC 1.9 L* RBC 3.73 L Hgb 11.9 L Hct 34.5 L MCV 92.5 MCH 31.9 H MCHC 34.5 RDW 14.9 Plt Count 129 L MPV 9.6 Sodium 136 Potassium 4.2 Chloride 106 Carbon Dioxide 24 Anion Gap 6.0 BUN 22 H Creatinine 0.8 Estimated GFR (MDRD) 99 Glucose 183 H Calcium 9.2 Total Bilirubin 0.4 AST 17 ALT 10 Alkaline Phosphatase 72 Total Protein 6.6 Albumin 4.0 Globulin 2.6 Albumin/Globulin Ratio 1.5 Lipase 11 Urine Color YELLOW Urine Clarity CLEAR Urine pH 5.5 Ur Specific [place] 1.025 Urine Protein NEGATIVE Urine Glucose (UA) 100 H Urine Ketones NEGATIVE Urine Occult Blood NEGATIVE Urine Nitrite NEGATIVE Urine Bilirubin NEGATIVE Urine Urobilinogen 0.2 (NORMAL) Ur Leukocyte Esterase NEGATIVE Ur Microscopic Review NOT INDICATED Urine Culture Comments NOT INDICATED PD Medical Decision Making - ED course ED course: 58yM [facility] c/o back pain radiating to abdomen. well appearing with benign exam. cbc, abdominal panel, u/a, MUDDS screen ordered. IV toradol administered en route and additional tylenol provided here. New onset pancytopenia uncovered on labwork. Patient insistent on leaving AMA despite offer to admit for workup of his pancytopenia. Discussed risks of leaving AMA including /disability and delay of diagnosis. He is of sound mind and able to decline medical care. AMA completed. Departure - Departure Disposition: 07 Against Medical Advice Clinical Impression: Abdominal pain, Back pain, Pancytopenia Condition: Fair Instructions: Abdominal Pain Comments: You were seen in the emergency department for Medical evaluation. All of your blood levels are low (pancytopenia) which can have many causes, some of them emergent. Please return to the emergency department if you change your mind about leaving against medical advice. Forms: PCP List
[2024-01-27 03:26] LABS: EOSINOPHILS % (AUTO) 0.5 %; HCT - HEMATOCRIT 34.5 % (42.0-52.0); HGB - HEMOGLOBIN 11.9 g/dL (14.0-18.0); LYMPHOCYTES % (AUTO) 25.3 %; MEAN CORPUSCULAR HEMOGLOBIN 31.9 pg (27.0-31.0); MEAN CORPUSCULAR HGB CONC 34.5 g/dL (32.0-36.0); MEAN CORPUSCULAR VOLUME 92.5 fL (80.0-94.0); MEAN PLATELET VOLUME 9.6 fL (7.4-11.4); MONOCYTES % (AUTO) 49.5 %; NEUTROPHILS % (AUTO) 23.1 %; PLT - PLATELET COUNT 129 10^3/uL (130-450); RED BLOOD COUNT 3.73 10^6/uL (4.70-6.10); RED CELL DISTRIBUTION WIDTH 14.9 % (12.0-15.0)
[2024-01-27 03:34] LABS: WHITE BLOOD COUNT 1.9 x10^3/uL (4.8-10.8)
[2024-01-27 03:35] LABS: ABNORMAL LYMPHS % (MANUAL) 0 %; BAND NEUTROPHILS % (MANUAL) 0 %
[2024-01-27 03:40] LABS: ALBUMIN/GLOBULIN RATIO 1.5 (1.0-2.2); BILIRUBIN,TOTAL 0.4 mg/dL (0.2-1.0); CALCIUM 9.2 mg/dL (8.5-10.3); CREATININE 0.8 mg/dL (0.6-1.3); POTASSIUM 4.2 mmol/L (3.5-4.5); TOTAL PROTEIN 6.6 g/dL (6.4-8.9)
[2024-01-27] MEDS: ACETAMINOPHEN 325 MG TABLET PO STA (03:44)
[2024-01-27 03:48] LABS: BILIRUBIN,URINE NEGATIVE (NEGATIVE); CLARITY,URINE CLEAR (CLEAR); GLUCOSE, URINE (UA) 100 mg/dL (NEGATIVE); KETONES,URINE (UA) NEGATIVE (NEGATIVE); LEUKOCYTE ESTERASE, URINE NEGATIVE (NEGATIVE); NITRITE,URINE NEGATIVE (NEGATIVE); OCCULT BLOOD,URINE NEGATIVE (NEGATIVE); PH,URINE 5.5 PH (5.0-7.5); PROTEIN,URINE NEGATIVE (NEGATIVE); UROBILINOGEN,URINE 0.2 (NORMAL) E.U./dL (NORMAL)
[2024-01-27 04:03] LABS: AMPHETAMINE SCREEN,URINE NEGATIVE (NEGATIVE); BARBITURATE SCREEN,UR NEGATIVE (NEGATIVE); BENZODIAZEPINES SCREEN, URINE NEGATIVE (NEGATIVE); BUPRENORPHINE SCREEN, URINE NEGATIVE (NEGATIVE); COCAINE SCREEN URINE NEGATIVE (NEGATIVE); METHADONE SCREEN, URINE NEGATIVE (NEGATIVE); METHAMPHETAMINES SCREEN, URINE NEGATIVE (NEGATIVE); OPIATE SCREEN, URINE NEGATIVE (NEGATIVE); OXYCODONE SCREEN, URINE NEGATIVE (NEGATIVE); THC CANNABINOID SCREEN, URINE NEGATIVE (NEGATIVE); TRICYCLIC ANTIDEPRESSANT,URINE NEGATIVE (NEGATIVE)
[2024-01-27 04:34] LABS: LYMPHOCYTES # (MANUAL) 1.3 10^3/uL (1.5-3.5); LYMPHOCYTES % (MANUAL) 47 %; MONOCYTES # (MANUAL) 0.1 10^3/uL (0.0-1.0); NEUTROPHILS # (MANUAL) 0.4 10^3/uL (1.5-6.6); REACTIVE LYMPHS % (MANUAL) 20 %
[2024-01-27 04:35] LABS: BLAST CELLS % (MANUAL) 6 %
[2024-01-27 04:36] LABS: DIFFERENTIAL COMMENT MANUAL DIFFERENTIAL; PLATELET ESTIMATE, MANUAL DECREASED (<130,000) (NORMAL); SLIDE SENT FOR PATH REVIEW? Indicated
== END 2024-01-27 04:03 | disposition left against medical advice (07) ==
LOC: EDUNIT# → ED 03:03
DX: M54.50 Low back pain, unspecified (principal); D61.818 Other pancytopenia; R10.9 Unspecified abdominal pain; E11.9 Type 2 diabetes mellitus without complications; F17.200 Nicotine dependence, unspecified, uncomplicated; Z59.01 Sheltered homelessness; Z53.29 Procedure and treatment not carried out because of patient's decision for other reasons; Z79.899 Other long term (current) drug therapy
CPT/HCPCS: 36415; 80053; 80306; 81003; 83690; 85025; 99283; 99284; A9270; 81001; 87086

== ENCOUNTER 2024-01-30 00:56 | Emergency (ER) | payer MEDICARE, MEDICAID ==
[2024-01-30 01:16] VITALS: BP 154/81; O2SAT 100
--- NOTE | 2024-01-30 01:16 | ED Physician Documentation ---
History of Present Illness - Stated complaint Stated Complaint: R FOOT PX - Chief complaint Chief Complaint: Ext Problem - History obtained from History obtained from: Patient - Additonal information Additional information: HPI from patient. Patient is well-known to this emergency department due to frequent visits. [place] is his 14th ED visit over the past 12 months involving 2 different emergency departments. Nearly all of these visits were to [facility] ED. Patient complains of right great toe pain that radiates to his right mid-foot. This has been associated with swelling of the right great toe. He says he has had similar pain intermittently for approximately the past 3 years; sometimes the pain is bilateral, other times involving his right or his left foot. He says the pain is exacerbated with weight-bearing. The patient was evaluated 3 days ago in an outpatient clinic and was prescribed cefdinir. The patient indicates to me that the cefdinir was prescribed for URI/bronchitis and not related to foot/toe symptoms. Patient tells me that over the past few hours, he is starting to feel improvement regarding the right toe/foot pain and swelling. PD PAST MEDICAL HISTORY - Past Medical History Past Medical History: Yes Cardiovascular: Peripheral Vascular Disease Respiratory: None Neuro: Other Endocrine/Autoimmune: Type 2 diabetes GI: None : Renal insuffiency HEENT: None Psych: Depression, Obsessive compulsive disorder, Other Musculoskeletal: None Derm: None - Past Surgical History Past Surgical History: Yes General: Hiatal hernia repair Cardiovascular: Coronary stent HEENT: Other - Present Medications Home Medications: Ambulatory Orders Medication Instructions Recorded Confirmed Albuterol Sulfate [Proair 1 puffs IH DAILY PRN 01/27/24 01/30/24 Digihaler] Cefdinir 1 cap PO BID 01/27/24 01/30/24 predniSONE [Deltasone] 1 tab PO DAILY 01/27/24 01/30/24 Doxycycline [Vibramycin] 100 mg PO BID #14 tablet 01/30/24 - Allergies Allergies/Adverse Reactions: Allergies Allergy/AdvReac Type Severity Reaction Status Date / Time rizatriptan [From Maxalt] Allergy Itching Verified 01/30/24 01:09 - Social History Does the pt smoke?: Yes Smoking Status: Current every day smoker Does the pt drink ETOH?: No Does the pt have substance abuse?: Yes - Immunizations Immunizations are current?: Yes - POLST Patient has POLST: No PD ED PE NORMAL - Vitals Vital signs reviewed: Yes - General General: Alert and oriented X 3, No acute distress, Well developed/nourished PD ED PE EXPANDED - Extremities Extremities: Other (Subtle erythema and swelling of the right great toe with trace erythematous streaking from the toe extending to the right midfoot on the dorsal surface. There is no tenderness to palpation, no fluctuance.) Results - Vitals Vitals: Vital Signs - 24 hr 01/30/24 01:01 Temperature 36.5 C Heart Rate 82 Respiratory 16 Rate Blood Pressure 154/81 H O2 Saturation 100 Oxygen O2 Source Room air PD Medical Decision Making - ED course Complexity details: considered differential, d/w patient ED course: Patient complains of right great toe and right foot pain. It is difficult to ascertain from the patient whether this is an acute or chronic problem. The patient indicates to me that he is already feeling improvement over the past few hours. Given that he has already taken 2-3 days of cefdinir, I considered adding doxycycline to cover possible right toe infection/cellulitis. Patient says he would prefer to avoid more antibiotics if possible. After further discussion, I recommended he continue the cefdinir but to start doxycycline (rx provided) if he is not improving over the next few days with the cefdinir alone Departure - Departure Disposition: 01 Home, Self Care Clinical Impression: Cellulitis Condition: Good Instructions: ED Infec Skin Cellulitis Prescriptions: Doxycycline [Vibramycin] 100 mg PO BID #14 tablet Comments: On tonight's physical exam, there are some findings that suggest infection of your right big toe. However, you are indicating that the symptoms are improving tonight. As we discussed, the antibiotic that you are currently taking, although prescribed for a respiratory infection, would also cover most of the typical causes of a toe infection. I am providing you with a prescription for a different antibiotic (doxycycline). I recommend that you CONTINUE YOUR CURRENT ANTIBIOTIC (cefdinir), but if your toe pain, swelling, and/or redness worsen over the next 1 or 2 days, start taking the doxycycline IN ADDITION to finishing the cefdinir. If the swelling, pain, and redness of your toe continue to improve with just the current antibiotic (cefdinir), then you will not need to take the doxycycline and can just finish the cefdinir antibiotic as prescribed. Forms: PCP List Discharge Date/Time: 01/30/24 01:38
== END 2024-01-30 01:38 | disposition home or self-care (01) ==
LOC: ED 00:56
DX: L03.031 Cellulitis of right toe (principal); F17.200 Nicotine dependence, unspecified, uncomplicated; E11.9 Type 2 diabetes mellitus without complications
CPT/HCPCS: 99282; 99283

== ENCOUNTER 2024-01-31 01:50 | Outpatient (CLI) | payer MEDICARE, MEDICAID | END 2024-01-31 23:59 | disposition critical access hospital (66) | LOC: EMS 01:50 | DX: R07.9 Chest pain, unspecified (principal); R05.9 Cough, unspecified; M54.9 Dorsalgia, unspecified; Z59.02 Unsheltered homelessness | CPT/HCPCS: A0425; A0429 ==

== ENCOUNTER 2024-01-31 01:55 | Emergency (ER) | payer MEDICARE, MEDICAID ==
[2024-01-31 02:15] VITALS: BP 132/75; O2SAT 100
--- NOTE | 2024-01-31 02:23 | ED Physician Documentation ---
History of Present Illness - Stated complaint Stated Complaint: BACK PX/COUGH - Chief complaint Chief Complaint: Resp - History obtained from History obtained from: Patient, EMS - Additonal information Additional information: BIBA. HPI from patient. Patient c/o cough, mid/low back pain. He says these symptoms have been ongoing for at least the past year. He is currently taking cefdinir for URI symptoms. Per patient's description, his back pain seems to be distinctly exacerbated with coughing. He also c/o midline lower anterior chest pain that radiates around right chest; he is not clear in description of acuity/chronicity. Patient is well known to this ED due to frequent visits. [place] is his third [facility] ED visit in 4 days. Review of Systems Constitutional: denies: Fever Cardiac: denies: Chest pain / pressure Respiratory: reports: Cough. denies: Dyspnea, Hemoptysis, Wheezing GI: denies: Abdominal Pain Musculoskeletal: reports: Back pain PD PAST MEDICAL HISTORY - Past Medical History Cardiovascular: Peripheral Vascular Disease Respiratory: None Neuro: Other Endocrine/Autoimmune: Type 2 diabetes GI: None : Renal insuffiency HEENT: None Psych: Depression, Obsessive compulsive disorder, Other Musculoskeletal: None Derm: None - Past Surgical History Past Surgical History: Yes General: Hiatal hernia repair Cardiovascular: Coronary stent HEENT: Other - Present Medications Home Medications: Ambulatory Orders Medication Instructions Recorded Confirmed Albuterol Sulfate [Proair 1 puffs IH DAILY PRN 01/27/24 01/30/24 Digihaler] Cefdinir 1 cap PO BID 01/27/24 01/30/24 predniSONE [Deltasone] 1 tab PO DAILY 01/27/24 01/30/24 Doxycycline [Vibramycin] 100 mg PO BID #14 tablet 01/30/24 - Allergies Allergies/Adverse Reactions: Allergies Allergy/AdvReac Type Severity Reaction Status Date / Time rizatriptan [From Maxalt] Allergy Itching Verified 01/31/24 19:26 - Social History Does the pt smoke?: Yes Smoking Status: Current every day smoker Does the pt drink ETOH?: No Does the pt have substance abuse?: Yes - Immunizations Immunizations are current?: Yes - POLST Patient has POLST: No PD ED PE NORMAL - Vitals Vital signs reviewed: Yes - General General: Alert and oriented X 3, No acute distress, Well developed/nourished - Cardiac Cardiac: RRR - Respiratory Respiratory: No respiratory distress, Clear bilaterally - Abdomen Abdomen: Soft, Non tender - Neuro Eye Opening: Spontaneous Motor: Obeys Commands Verbal: Oriented GCS Score: 15 Results - Vitals Vitals: Oxygen O2 Source Room air - EKG (time done) No standard instances EKG releavant findings:: EKG personally interpreted by author of this note. Relevant findings are: Rate: Rate (enter#) (66) Rhythm: NSR [place]: Normal Intervals: Normal CA QRS: Normal Ischemia: Normal ST segments - Labs Labs: Laboratory Tests 01/31/24 01/31/24 02:36 02:36 WBC 34.1 H RBC 3.66 L Hgb 11.4 L Hct 35.1 L MCV 95.9 H MCH 31.1 H MCHC 32.5 RDW 15.9 H Plt Count 100 L MPV 9.6 Neut # (Auto) Not Reportable Lymph # (Auto) Not Reportable [place] # (Auto) Not Reportable Eos # (Auto) Not Reportable Baso # (Auto) Not Reportable Absolute Nucleated RBC Not Reportable Band Neuts % (Manual) Not Reportable Abnorm Lymph % (Manual) Not Reportable Nucleated RBC % Not Reportable Neutrophils # (Manual) Not Reportable Lymphocytes # (Manual) Not Reportable Monocytes # (Manual) Not Reportable Eosinophils # (Manual) Not Reportable Basophils # (Manual) Not Reportable Differential Comment MANUAL=AUTO DIFF Platelet Estimate NORMAL (130-450,000) Platelet Morphology NORMAL APPEARANCE RBC Morph Micro Appear NORMAL APPEARANCE Sodium 142 Potassium 3.5 Chloride 107 Carbon Dioxide 27 Anion Gap 8.0 BUN 25 H Creatinine 0.9 Estimated GFR (MDRD) 86 L Glucose 114 H Calcium 8.7 Total Bilirubin 0.2 AST 49 H ALT 19 Alkaline Phosphatase 79 Troponin I High Sens 5.7 Total Protein 6.4 Albumin 3.8 Globulin 2.6 Albumin/Globulin Ratio 1.5 Lipase 19 - Rads (name of study) chest xray Relevant Findings:: Prelim report reviewed, See rad report PD Medical Decision Making - ED course Complexity details: reviewed results, re-evaluated patient, considered differential, d/w patient ED course: Consistent with patient's typical ED presentations, he is a difficult historian; his chief complaints are chronic and he cannot elaborate on what prompted him to seek emergent medical attention. At times, he becomes rapidly frustrated and angry during HPI/ROS without obvious cause; this is also c/w his previous ED presentations/behaviors. Patient is in NAD aside from intermittent agitation. ED w/u on 01/27/24 revealed pancytopenia including WBC of 1.9. Patient left AMA on that visit. Tonight, his CBC shows similar mildly low hgb/hct and platelets but marked leukocytosis (WBC 34.1). Towards end of ED stay, I was informed by ED RN that patient was angry and agitated, insisting on leaving immediately and saying he will pull his IV out himself if not immediately discharged. I reevaluated patient and test results were discussed. I heavily emphasized the concerning finding of CBC four days ago (explained in layperson terms), and further worrisome result of dramatic shift of abnormally low WBC four days ago to markedly elevated high WBC tonight. He expresses understanding of my concerns, including specific concerns for malignancies such as leukemia, but insists on leaving at this time. Departure - Departure Disposition: Left Prior to Disposition Clinical Impression: Leukocytosis Qualifiers: Leukocytosis type: unspecified Qualified Code(s): D72.829 - Elevated white blood cell count, unspecified Condition: Stable Forms: PCP List Discharge Date/Time: 01/31/24 04:07
[2024-01-31] MEDS: KETOROLAC 30 MG/ML VIAL IVP STA (02:38)
[2024-01-31 02:43] LABS: BASOPHILS % (AUTO) 0.1 %; EOSINOPHILS % (AUTO) 0.1 %; HCT - HEMATOCRIT 35.1 % (42.0-52.0); HGB - HEMOGLOBIN 11.4 g/dL (14.0-18.0); LYMPHOCYTES % (AUTO) 9.3 %; MEAN CORPUSCULAR HEMOGLOBIN 31.1 pg (27.0-31.0); MEAN CORPUSCULAR HGB CONC 32.5 g/dL (32.0-36.0); MEAN CORPUSCULAR VOLUME 95.9 fL (80.0-94.0); MEAN PLATELET VOLUME 9.6 fL (7.4-11.4); NEUTROPHILS % (AUTO) 9.8 %; PLT - PLATELET COUNT 100 10^3/uL (130-450); RED BLOOD COUNT 3.66 10^6/uL (4.70-6.10); RED CELL DISTRIBUTION WIDTH 15.9 % (12.0-15.0); WHITE BLOOD COUNT 34.1 x10^3/uL (4.8-10.8)
[2024-01-31 02:59] LABS: ALBUMIN 3.8 g/dL (3.2-5.5); ALBUMIN/GLOBULIN RATIO 1.5 (1.0-2.2); BILIRUBIN,TOTAL 0.2 mg/dL (0.2-1.0); CALCIUM 8.7 mg/dL (8.5-10.3); CREATININE 0.9 mg/dL (0.6-1.3); POTASSIUM 3.5 mmol/L (3.5-4.5); TOTAL PROTEIN 6.4 g/dL (6.4-8.9)
[2024-01-31 03:02] LABS: TROPONIN I HIGH SENSITIVITY 5.7 ng/L (2.3-19.7)
[2024-01-31 03:37] LABS: DIFFERENTIAL COMMENT MANUAL=AUTO DIFF; PLATELET ESTIMATE, MANUAL NORMAL (130-450,000) (NORMAL); PLATELET MORPHOLOGY NORMAL APPEARANCE (NORMAL); RBC MORPHOLOGY (MULTIPLE) NORMAL APPEARANCE (NORMAL)
--- NOTE | 2024-01-31 08:40 | XRAY Report ---
PROCEDURE: Chest 2V INDICATIONS: chest pain, cough, dyspnea TECHNIQUE: 2 views of the chest were acquired. COMPARISON: December 18, 2023 FINDINGS: Surgical changes and devices: None. Lungs and pleura: No pleural effusions or pneumothorax. Lungs are clear. Mediastinum: Mediastinal contours appear normal. Heart size is normal. Bones and chest wall: No suspicious bony lesions. Overlying soft tissues appear unremarkable. IMPRESSION: No acute cardiopulmonary process. Findings are concordant with preliminary interpretation provided by [facility]. Reviewed by: Ronak Reyes MD on 01/31/2024 7:39 AM [facility] Approved by: Ronak Reyes MD on 01/31/2024 7:39 AM [facility] Station ID: [id number]
== END 2024-01-31 04:07 | disposition home or self-care (01) ==
LOC: EDUNIT# → ED 01:55
DX: D72.829 Elevated white blood cell count, unspecified (principal); E11.9 Type 2 diabetes mellitus without complications; F17.200 Nicotine dependence, unspecified, uncomplicated
CPT/HCPCS: 36415; 80053; 83690; 84484; 85025; 93005; 96374; 99284

== ENCOUNTER 2024-01-31 19:04 | Outpatient (CLI) | payer MEDICARE, MEDICAID | END 2024-01-31 19:05 | disposition critical access hospital (66) | LOC: EMS 19:04 | DX: R07.1 Chest pain on breathing (principal); M79.10 Myalgia, unspecified site | CPT/HCPCS: A0425; A0429 ==

== ENCOUNTER 2024-01-31 19:22 | Emergency (ER) | payer MEDICARE, MEDICAID ==
--- NOTE | 2024-01-31 20:23 | ED Physician Documentation ---
History of Present Illness - Stated complaint Stated Complaint: ABD PX - Chief complaint Chief Complaint: Abd Pain - History obtained from History obtained from: Patient - Additonal information Additional information: Patient is a 58-year-old male who is undomiciled and has a history of methamphetamine abuse presenting for body pain. He is well-known to this emergency department for frequent visits. Reports having left-sided chest pain and recent cough. He is on cefdinir as well as a course of prednisone. This is his fourth visit in as many days. On lab testing a few days ago he was found to be pancytopenic which is new for him. He left AGAINST MEDICAL ADVICE. He was seen this morning and at that time noted to have an elevated white count of 34,000. He left prior to disposition. He again is reporting feeling unwell and complaining of pain in his chest and his abdomen. He is a poor historian and not willing to give further information at this time. Review of Systems Constitutional: denies: Fever Cardiac: reports: Chest pain / pressure Respiratory: reports: Cough GI: reports: Abdominal Pain. denies: Vomiting : denies: Dysuria PD PAST MEDICAL HISTORY - Past Medical History Cardiovascular: Peripheral Vascular Disease Respiratory: None Neuro: Other Endocrine/Autoimmune: Type 2 diabetes GI: None : Renal insuffiency HEENT: None Psych: Depression, Obsessive compulsive disorder, Other Musculoskeletal: None Derm: None - Past Surgical History Past Surgical History: Yes General: Hiatal hernia repair Cardiovascular: Coronary stent HEENT: Other - Present Medications Home Medications: Ambulatory Orders Medication Instructions Recorded Confirmed Albuterol Sulfate [Proair 1 puffs IH DAILY PRN 01/27/24 01/30/24 Digihaler] Cefdinir 1 cap PO BID 01/27/24 01/30/24 predniSONE [Deltasone] 1 tab PO DAILY 01/27/24 01/30/24 Doxycycline [Vibramycin] 100 mg PO BID #14 tablet 01/30/24 - Allergies Allergies/Adverse Reactions: Allergies Allergy/AdvReac Type Severity Reaction Status Date / Time rizatriptan [From Maxalt] Allergy Itching Verified 01/31/24 19:26 - Social History Does the pt smoke?: Yes Smoking Status: Current every day smoker Does the pt drink ETOH?: No Does the pt have substance abuse?: Yes - Immunizations Immunizations are current?: Yes - POLST Patient has POLST: No PD ED PE NORMAL - General General: Alert and oriented X 3, No acute distress, Well developed/nourished - HEENT HEENT: Atraumatic, Moist mucous membranes, Pharynx benign - Neck Neck: Supple, no meningeal sign - Cardiac Cardiac: RRR, Strong equal pulses - Respiratory Respiratory: No respiratory distress, Clear bilaterally - Abdomen Abdomen: Normal bowel sounds, Soft, Non tender, Non distended - Derm Derm: Warm and dry - Neuro Neuro: Alert and oriented X 3, No motor deficit, Normal speech Results - Vitals Vitals: Vital Signs - 24 hr 01/31/24 01/31/24 01/31/24 19:26 21:30 23:00 Temperature 37.9 C Heart Rate 98 74 96 Respiratory 20 20 27 H Rate Blood Pressure 159/68 H 148/78 H 149/81 H O2 Saturation 93 96 95 02/01/24 02/01/24 01:00 01:18 Temperature 37.4 C Heart Rate 78 Respiratory 30 H Rate Blood Pressure 121/70 O2 Saturation 93 Oxygen O2 Source Room air - EKG (time done) 2108 EKG releavant findings:: EKG personally interpreted by author of this note. Relevant findings are: Rate 85, normal sinus rhythm, no STEMI, QTc 392 - Labs Labs: Laboratory Tests 01/31/24 01/31/24 01/31/24 20:26 20:26 20:26 WBC 37.2 H* RBC 3.85 L Hgb 11.9 L Hct 37.2 L MCV 96.6 H MCH 30.9 MCHC 32.0 RDW 16.1 H Plt Count 79 L MPV 9.7 Neut # (Auto) Not Reportable Lymph # (Auto) Not Reportable [place] # (Auto) Not Reportable Eos # (Auto) Not Reportable Baso # (Auto) Not Reportable Absolute Nucleated RBC Not Reportable Total Counted 100 Band Neuts % (Manual) 0 Abnorm Lymph % (Manual) 0 Blast Cells % 56 H* Nucleated RBC % Not Reportable Neutrophils # (Manual) 0.7 L Lymphocytes # (Manual) 2.2 Monocytes # (Manual) 13.4 H Eosinophils # (Manual) 0.0 Basophils # (Manual) 0.0 Differential Comment MANUAL DIFFERENTIAL Platelet Estimate DECREASED (<130,000) Platelet Morphology NORMAL APPEARANCE RBC Morph Micro Appear 2+ ANISOCYTOSIS PT INR APTT Fibrinogen Sodium 138 Potassium 3.9 Chloride 103 Carbon Dioxide 29 Anion Gap 6.0 BUN 22 H Creatinine 0.9 Estimated GFR (MDRD) 86 L Glucose 111 H Lactic Acid Calcium 9.0 Total Bilirubin 0.3 AST 55 H ALT 22 Alkaline Phosphatase 76 Troponin I High Sens 4.5 Total Protein 6.7 Albumin 4.0 Globulin 2.7 Albumin/Globulin Ratio 1.5 Lipase 11 Urine Color Urine Clarity Urine pH Ur Specific [place] Urine Protein Urine Glucose (UA) Urine Ketones Urine Occult Blood Urine Nitrite Urine Bilirubin Urine Urobilinogen Ur Leukocyte Esterase Ur Microscopic Review Urine Culture Comments Nasal Adenovirus (PCR) Nasal B. parapertussis DNA (PCR) Nasal Coronavir 229E PCR Nasal Coronavir HKU1 PCR Nasal Coronavir NL63 PCR Nasal Coronavir OC43 PCR Nasal Enterovir/Rhinovir PCR Nasal Influenza B PCR Nasal Influenza A PCR Nasal Parainfluen 1 PCR Nasal Parainfluen 2 PCR Nasal Parainfluen 3 PCR Nasal Parainfluen 4 PCR Nasal RSV (PCR) Nasal B.pertussis DNA PCR Nasal C.pneumoniae (PCR) Prosper Human Metapneumo PCR Nasal M.pneumoniae (PCR) Nasal SARS-CoV-2 (PCR) 01/31/24 01/31/24 01/31/24 20:26 20:40 22:00 WBC RBC Hgb Hct MCV MCH MCHC RDW Plt Count MPV Neut # (Auto) Lymph # (Auto) [place] # (Auto) Eos # (Auto) Baso # (Auto) Absolute Nucleated RBC Total Counted Band Neuts % (Manual) Abnorm Lymph % (Manual) Blast Cells % Nucleated RBC % Neutrophils # (Manual) Lymphocytes # (Manual) Monocytes # (Manual) Eosinophils # (Manual) Basophils # (Manual) Differential Comment Platelet Estimate Platelet Morphology RBC Morph Micro Appear PT INR APTT Fibrinogen Sodium Potassium Chloride Carbon Dioxide Anion Gap BUN Creatinine Estimated GFR (MDRD) Glucose Lactic Acid 0.8 Calcium Total Bilirubin AST ALT Alkaline Phosphatase Troponin I High Sens Total Protein Albumin Globulin Albumin/Globulin Ratio Lipase Urine Color YELLOW Urine Clarity CLEAR Urine pH 6.0 Ur Specific [place] 1.020 Urine Protein NEGATIVE Urine Glucose (UA) NEGATIVE Urine Ketones TRACE Urine Occult Blood NEGATIVE Urine Nitrite NEGATIVE Urine Bilirubin NEGATIVE Urine Urobilinogen 0.2 (NORMAL) Ur Leukocyte Esterase NEGATIVE Ur Microscopic Review NOT INDICATED Urine Culture Comments NOT INDICATED Nasal Adenovirus (PCR) NOT DETECTED Nasal B. parapertussis DNA (PCR) NOT DETECTED Nasal Coronavir 229E PCR NOT DETECTED Nasal Coronavir HKU1 PCR NOT DETECTED Nasal Coronavir NL63 PCR NOT DETECTED Nasal Coronavir OC43 PCR NOT DETECTED Nasal Enterovir/Rhinovir PCR NOT DETECTED Nasal Influenza B PCR NOT DETECTED Nasal Influenza A PCR NOT DETECTED Nasal Parainfluen 1 PCR NOT DETECTED Nasal Parainfluen 2 PCR NOT DETECTED Nasal Parainfluen 3 PCR NOT DETECTED Nasal Parainfluen 4 PCR NOT DETECTED Nasal RSV (PCR) NOT DETECTED Nasal B.pertussis DNA PCR NOT DETECTED Nasal C.pneumoniae (PCR) NOT DETECTED Prosper Human Metapneumo PCR NOT DETECTED Nasal M.pneumoniae (PCR) NOT DETECTED Nasal SARS-CoV-2 (PCR) NOT DETECTED 01/31/24 23:47 WBC RBC Hgb Hct MCV MCH MCHC RDW Plt Count MPV Neut # (Auto) Lymph # (Auto) [place] # (Auto) Eos # (Auto) Baso # (Auto) Absolute Nucleated RBC Total Counted Band Neuts % (Manual) Abnorm Lymph % (Manual) Blast Cells % Nucleated RBC % Neutrophils # (Manual) Lymphocytes # (Manual) Monocytes # (Manual) Eosinophils # (Manual) Basophils # (Manual) Differential Comment Platelet Estimate Platelet Morphology RBC Morph Micro Appear PT 13.3 H INR 1.2 APTT 24.3 L Fibrinogen 371 Sodium Potassium Chloride Carbon Dioxide Anion Gap BUN Creatinine Estimated GFR (MDRD) Glucose Lactic Acid Calcium Total Bilirubin AST ALT Alkaline Phosphatase Troponin I High Sens Total Protein Albumin Globulin Albumin/Globulin Ratio Lipase Urine Color Urine Clarity Urine pH Ur Specific [place] Urine Protein Urine Glucose (UA) Urine Ketones Urine Occult Blood Urine Nitrite Urine Bilirubin Urine Urobilinogen Ur Leukocyte Esterase Ur Microscopic Review Urine Culture Comments Nasal Adenovirus (PCR) Nasal B. parapertussis DNA (PCR) Nasal Coronavir 229E PCR Nasal Coronavir HKU1 PCR Nasal Coronavir NL63 PCR Nasal Coronavir OC43 PCR Nasal Enterovir/Rhinovir PCR Nasal Influenza B PCR Nasal Influenza A PCR Nasal Parainfluen 1 PCR Nasal Parainfluen 2 PCR Nasal Parainfluen 3 PCR Nasal Parainfluen 4 PCR Nasal RSV (PCR) Nasal B.pertussis DNA PCR Nasal C.pneumoniae (PCR) Prosper Human Metapneumo PCR Nasal M.pneumoniae (PCR) Nasal SARS-CoV-2 (PCR) PD Medical Decision Making - ED course Complexity details: reviewed results, re-evaluated patient, d/w patient ED course: Patient is a 58-year-old male, Presenting for evaluation of pains in the chest and abdomen. This is his fourth visit in his many days and he has recently had labs significant for pancytopenia on the and then also elevated white blood cell count noted this morning. Patient has no history of malignancies. Temperature is 37.9. Sepsis labs obtained including lactic and blood cultures. WBC elevated at 37.4 with 56% blasts. Chest x-ray without pneumonia. CT chest, abdomen and pelvis were also reviewed and without significant findings. There is an irregularity seen on L2-L3. Patient does not have any tenderness or symptoms to suggest osteomyelitis, discitis.Patient has left AGAINST MEDICAL ADVICE on some recent visits so I did speak with the patient regarding concerns for leukemia and need for transfer to facility with higher level of care. He is agreeable to transfer and to receive further treatment. He is a full code. He seems to have some understanding of the diagnosis and my concerns for cancer. Patient resting comfortably after IV Toradol and IV fluids. 2300 - D/W Dr. Fink (, Hospitalist) - He will accept patient if oncology is okay with it. Transfer center will reach back out with on-call oncologist. 2314 - D/W Dr. Torres ( Oncology) - Accepts pt for transfer. Transfer center unsure of bed situation. 2332 - D/W Dr. Spangler ( Oncology) - Agrees to consult on patient if transferred to [facility].Request we add on coag studies including PT/INR and PTT and fibrinogen to make sure patient is not in DIC. Understands that patient does not have any signs/symptoms to suggest acute bleeding. Patient is aware that he has been accepted to [facility] and they do have a bed available and that we are going to arrange for transfer there. He is agreeable to transfer. Departure - Departure Disposition: 02 Transfer Acute Care Hosp Clinical Impression: Blast leukemia, Thrombocytopenia Condition: Good Forms: PCP List Discharge Date/Time: 02/01/24 01:31
[2024-01-31 20:33] LABS: BASOPHILS % (AUTO) 0.1 %; EOSINOPHILS % (AUTO) 0.1 %; HCT - HEMATOCRIT 37.2 % (42.0-52.0); HGB - HEMOGLOBIN 11.9 g/dL (14.0-18.0); LYMPHOCYTES % (AUTO) 24.8 %; MEAN CORPUSCULAR HEMOGLOBIN 30.9 pg (27.0-31.0); MEAN CORPUSCULAR VOLUME 96.6 fL (80.0-94.0); MEAN PLATELET VOLUME 9.7 fL (7.4-11.4); NEUTROPHILS % (AUTO) 5.7 %; PLT - PLATELET COUNT 79 10^3/uL (130-450); RED BLOOD COUNT 3.85 10^6/uL (4.70-6.10); RED CELL DISTRIBUTION WIDTH 16.1 % (12.0-15.0)
[2024-01-31 20:36] LABS: WHITE BLOOD COUNT 37.2 x10^3/uL (4.8-10.8)
[2024-01-31 20:37] LABS: ABNORMAL LYMPHS % (MANUAL) 0 %; BAND NEUTROPHILS % (MANUAL) 0 %
[2024-01-31 20:49] LABS: ALBUMIN/GLOBULIN RATIO 1.5 (1.0-2.2); BILIRUBIN,TOTAL 0.3 mg/dL (0.2-1.0); CREATININE 0.9 mg/dL (0.6-1.3); POTASSIUM 3.9 mmol/L (3.5-4.5); TOTAL PROTEIN 6.7 g/dL (6.4-8.9)
[2024-01-31] MEDS: KETOROLAC 15 MG/ML VIAL IVP STA (20:51)
[2024-01-31] MEDS: SODIUM CHLORIDE 0.9% 1,000 ML IV STA (20:51)
--- NOTE | 2024-01-31 21:16 | XRAY Report ---
PROCEDURE: Chest 1V INDICATIONS: worsening CP TECHNIQUE: One view of the chest was acquired. COMPARISON: Same day x-ray, x-ray 12/18/2023 FINDINGS: Surgical changes and devices: None. Lungs and pleura: No pleural effusions or pneumothorax. Lungs are clear. Mediastinum: Mediastinal contours appear normal. Heart size is normal. Bones and chest wall: No suspicious bony lesions. Overlying soft tissues appear unremarkable. IMPRESSION: No acute cardiopulmonary process. Reviewed by: Quan Agrawal MD on 01/31/2024 9:15 PM PDT Approved by: Quan Agrawal MD on 01/31/2024 9:15 PM PDT Station ID: [id number]
[2024-01-31] MEDS ORDERED: iohexoL-300 100 ML VIAL ONE (21:22)
[2024-01-31 21:30] LABS: LYMPHOCYTES # (MANUAL) 2.2 10^3/uL (1.5-3.5); LYMPHOCYTES % (MANUAL) 6 %; MONOCYTES # (MANUAL) 13.4 10^3/uL (0.0-1.0); NEUTROPHILS # (MANUAL) 0.7 10^3/uL (1.5-6.6)
[2024-01-31 21:39] LABS: PLATELET ESTIMATE, MANUAL DECREASED (<130,000) (NORMAL); PLATELET MORPHOLOGY NORMAL APPEARANCE (NORMAL); RBC MORPHOLOGY (MULTIPLE) 2+ ANISOCYTOSIS (NORMAL)
[2024-01-31 21:41] LABS: BLAST CELLS % (MANUAL) 56 %
[2024-01-31 21:42] LABS: DIFFERENTIAL COMMENT MANUAL DIFFERENTIAL
[2024-01-31 21:48] LABS: B. PARAPERTUSSIS- RESP PCR PAN NOT DETECTED; B. PERTUSSIS- RESP PCR PANEL NOT DETECTED; C. PNEUMONIAE- RESP PCR PANEL NOT DETECTED; CORONAVIRUS 229E-RESP PCR NOT DETECTED; CORONAVIRUS HKU1-RESP PCR NOT DETECTED; CORONAVIRUS NL63-RESP PCR NOT DETECTED; CORONAVIRUS OC43-RESP PCR NOT DETECTED; HUMAN METAPNEUMOVIRUS NOT DETECTED; INFLUENZA A- RESP PCR PANEL NOT DETECTED; INFLUENZA B - RESP PCR PANEL NOT DETECTED; M. PNEUMONIAE- RESP PCR PANEL NOT DETECTED; PARAINFLUENZA VIRUS 1 NOT DETECTED; PARAINFLUENZA VIRUS 2 NOT DETECTED; PARAINFLUENZA VIRUS 3 NOT DETECTED; PARAINFLUENZA VIRUS 4 NOT DETECTED; RHINOVIRUS/ENTEROVIRUS NOT DETECTED; RSV- RESP PCR PANEL NOT DETECTED; SARS-CoV-2 -RESP PCR PANEL NOT DETECTED
[2024-01-31 22:08] LABS: BILIRUBIN,URINE NEGATIVE (NEGATIVE); GLUCOSE, URINE (UA) NEGATIVE (NEGATIVE); KETONES,URINE (UA) TRACE mg/dL (NEGATIVE); LEUKOCYTE ESTERASE, URINE NEGATIVE (NEGATIVE); NITRITE,URINE NEGATIVE (NEGATIVE); OCCULT BLOOD,URINE NEGATIVE (NEGATIVE); PROTEIN,URINE NEGATIVE (NEGATIVE); UROBILINOGEN,URINE 0.2 (NORMAL) E.U./dL (NORMAL)
[2024-01-31 22:15] LABS: CLARITY,URINE CLEAR (CLEAR)
[2024-01-31] MEDS: iohexoL-300 100 ML VIAL IVP ONE (22:21)
--- NOTE | 2024-01-31 22:40 | CT Report ---
PROCEDURE: Chest W INDICATIONS: L sided pain/WBC 37 CONTRAST: 100 ML OMNI 300 TECHNIQUE: After the administration of intravenous contrast, a CT scan of the chest was performed. Images were recorded and evaluated at appropriate window settings. Reformats: axial MIP of the chest, coronal and sagittal. For radiation dose reduction, the following was used: automated exposure control, adjustme nt of mA and/or kV according to patient size. COMPARISON: Same day x-ray, CT of 02/04/2021 FINDINGS: Image quality: Diagnostic. Chest wall and lower neck: No thyroid nodule which requires sonographic follow up. No axillary or sup raclavicular adenopathy by size. Lungs and pleura: No consolidation. No pleural effusions. No pneumothorax. No suspicious pulmonary n odules which require follow up. Stable 3 mm solid nodule in the right upper lobe compared with 2020, statistically benign. Mediastinum: Heart size is normal. No pericardial effusion. No large vessel abnormality. No mediastin al adenopathy by size criteria. Dilated azygos vein. Bones: No aggressive osseous abnormality. Upper Abdomen: Please see dedicated CT. IMPRESSION: No acute cardiopulmonary pathology. Reviewed by: Quan Agrawal MD on 01/31/2024 10:38 PM PDT Approved by: Quan Agrawal MD on 01/31/2024 10:38 PM PDT Station ID: [id number]
--- NOTE | 2024-01-31 22:48 | CT Report ---
PROCEDURE: Abdomen/Pelvis W INDICATIONS: pain/WBC 37 CONTRAST: 100 ML OMNI 300 TECHNIQUE: After the administration of intravenous contrast, a CT scan of the abdomen and pelvis was performed. Images were recorded and evaluated at appropriate window settings. Reformats: coronal and sagittal. F or radiation dose reduction, the following was used: automated exposure control, adjustment of mA and /or kV according to patient size. COMPARISON: CT 02/04/2021 FINDINGS: Image quality: Diagnostic. Lower chest: Unremarkable. Liver: No solid mass. Gallbladder and biliary tree: No radiopaque stones or wall thickening. No biliary dilation. Spleen: No splenomegaly. Pancreas: No pancreatic ductal dilation. Adrenals: No adrenal nodule. Kidneys and ureters: No hydronephrosis. No renal cystic lesion which requires follow up. No solid mas s. Stomach, bowel and peritoneum: No bowel distension. No pathologic free fluid. Lymph nodes: No central or retroperitoneal adenopathy. Vessels: No infrarenal aortic aneurysm. IVC stent in place; patency cannot be determined on this sing le phase CT. PELVIS Reproductive organs: Unremarkable. Bladder: No abnormal wall thickening, accounting for underdistention. Pelvic lymph nodes: No pelvic adenopathy by size criteria. Bones: No aggressive osseous abnormality. Opposing endplate sclerosis along the left side of L2-3, wi th marginal osteophytes at this level. Other: No significant ventral or inguinal hernia. IMPRESSION: No acute abnormality. Opposing endplate sclerosis along the left side of L2-3, with marginal osteophytes at this level. Fin dings likely represent degenerative change, significantly less likely osteomyelitis/discitis. Correla te with acute back pain within this region and consider MRI with and without contrast if there remain s a high clinical concern for osteomyelitis/discitis. IVC stent in place; patency cannot be determined on this single phase CT. Reviewed by: Quan Agrawal MD on 01/31/2024 10:47 PM PDT Approved by: Quan Agrawal MD on 01/31/2024 10:47 PM PDT Station ID: [id number]
[2024-01-31 23:59] LABS: PARTIAL THROMBOPLASTIN TIME 24.3 secs (24.9-33.3)
[2024-02-01 00:03] LABS: INR 1.2 (0.8-1.2); PT - PROTHROMBIN TIME 13.3 secs (9.9-12.6)
[2024-02-01 01:21] VITALS: BP 121/70; O2SAT 93
== END 2024-02-01 01:31 | disposition short-term general hospital (02) ==
LOC: EDUNIT# → ED 19:22
DX: D69.6 Thrombocytopenia, unspecified (principal); C95.00 Acute leukemia of unspecified cell type not having achieved remission; E11.9 Type 2 diabetes mellitus without complications; F17.200 Nicotine dependence, unspecified, uncomplicated
CPT/HCPCS: 36415; 71045; 71046; 71260; 74177; 80053; 81003; 83605; 83690; 84484; 85025; 85384; 85610; 85730; 87040; 87633; 93005; 96374; 99284; 99285; Q9967; 81001; 87086

== ENCOUNTER 2024-02-03 18:05 | Outpatient (CLI) | payer MEDICARE, MEDICAID | END 2024-02-03 23:59 | disposition EMS.NT | LOC: EMS 18:05 | DX: R22.0 Localized swelling, mass and lump, head (principal) ==

== ENCOUNTER 2024-02-05 02:13 | Outpatient (CLI) | payer MEDICARE, MEDICAID | END 2024-02-05 23:59 | disposition critical access hospital (66) | LOC: EMS 02:13 | DX: K08.89 Other specified disorders of teeth and supporting structures (principal); R51.9 Headache, unspecified; Z59.01 Sheltered homelessness | CPT/HCPCS: A0425; A0429 ==

== ENCOUNTER 2024-02-05 02:21 | Emergency (ER) | payer MEDICARE, MEDICAID ==
[2024-02-05 02:37] VITALS: O2SAT 100
--- NOTE | 2024-02-05 02:43 | ED Physician Documentation ---
History of Present Illness - Stated complaint Stated Complaint: MOUTH PX - Chief complaint Chief Complaint: General - History obtained from History obtained from: Patient, EMS - Additonal information Additional information: 58yM with pmh methamphetamine abuse, undomiciled, with recent diagnosis leukemia (transferrred to [facility] and [facility] from there a couple days ago) p/w mouth and lip sores that have been bothering him tonight. patient frequently comes to our ED then leaves AMA. limited historian. he is aware he has leukemia. states his mouth sores are related to a recent incident with cocaine but then states he does not use any drugs anymore except nicotine. PD PAST MEDICAL HISTORY - Past Medical History Cardiovascular: Peripheral Vascular Disease Respiratory: None Neuro: Other Endocrine/Autoimmune: Type 2 diabetes GI: None : Renal insuffiency HEENT: None Psych: Depression, Obsessive compulsive disorder, Other Musculoskeletal: None Derm: None - Past Surgical History Past Surgical History: Yes General: Hiatal hernia repair Cardiovascular: Coronary stent HEENT: Other - Present Medications Home Medications: Ambulatory Orders Medication Instructions Recorded Confirmed Albuterol Sulfate [Proair 1 puffs IH DAILY PRN 01/27/24 01/30/24 Digihaler] Cefdinir 1 cap PO BID 01/27/24 01/30/24 predniSONE [Deltasone] 1 tab PO DAILY 01/27/24 01/30/24 Doxycycline [Vibramycin] 100 mg PO BID #14 tablet 01/30/24 - Allergies Allergies/Adverse Reactions: Allergies Allergy/AdvReac Type Severity Reaction Status Date / Time rizatriptan [From Maxal] Allergy Itching Verified 02/05/24 02:26 - Social History Does the pt smoke?: Yes Smoking Status: Current every day smoker Does the pt drink ETOH?: No Does the pt have substance abuse?: Yes - Immunizations Immunizations are current?: Yes - POLST Patient has POLST: No PD ED PE NORMAL - Vitals Vital signs reviewed: Yes - General General: Alert and oriented X 3, No acute distress, Other (elderly appearing) - HEENT HEENT: Atraumatic, PERRL, EOMI, Moist mucous membranes, Pharynx benign, Other (lower lip with two sores at midline and left lower aspect. oral mucosa with small open sore to left buccal mucosa.) - Neck Neck: Supple, no meningeal sign - Cardiac Cardiac: RRR - Respiratory Respiratory: No respiratory distress, Clear bilaterally Results - Vitals Vitals: Vital Signs - 24 hr 02/05/24 02:20 Temperature 36.4 C L Heart Rate 96 Respiratory 20 Rate Blood Pressure 154/98 H O2 Saturation 100 Oxygen O2 Source Room air PD Medical Decision Making - ED course ED course: 58yM undomiciled, with history of methamphetamine use, p/w sores to lips and inner cheek bothering him tonight, possibly related to recent cocaine use versus his untreated leukemia. I provided viscous lidocaine for oral mucosa and bacitracin for lips. Advised him to f/u with [facility] outpatient for further management of his leukemia. Oncology referral provided. return precautions given. Departure - Departure Disposition: Home, Self Care Clinical Impression: Mouth sore, Lesion of lip, Leukemia, Drug abuse and dependence Condition: Stable Instructions: Leukemia Follow-Up: Annie Beasley MD [Physician No Access] - Comments: You were seen in the emergency department for mouth sores and lip sores and received viscous lidocaine, a numbing medicine as well as bacitracin, a topical antibiotic that is available over the counter to promote healing and prevent infection. Please follow-up with [facility] oncology (referral provided) and return to the emergency department if you have any new or worsening symptoms or other concerns. [facility] [place] [address], [place] [address] ~45.3 ca
[2024-02-05] MEDS: BACITRACIN ZINC OINT 1 PACKET TOP STA (02:56)
[2024-02-05] MEDS: LIDOCAINE VISCOUS 2% 15 ML ORAL SYRINGE MM STA (02:56)
[2024-02-05 03:15] VITALS: BP 119/94
== END 2024-02-05 03:09 | disposition home or self-care (01) ==
LOC: EDUNIT# → ED 02:21
DX: K13.79 Other lesions of oral mucosa (principal); K13.0 Diseases of lips; E11.9 Type 2 diabetes mellitus without complications; F17.200 Nicotine dependence, unspecified, uncomplicated
CPT/HCPCS: 99283; A9270

== ENCOUNTER 2024-02-08 20:21 | Outpatient (CLI) | payer MEDICARE, MEDICAID | END 2024-02-08 20:22 | disposition critical access hospital (66) | LOC: EMS 20:21 | DX: R07.81 Pleurodynia (principal); M54.50 Low back pain, unspecified; M89.8X0 Other specified disorders of bone, multiple sites | CPT/HCPCS: A0425; A0429 ==

== ENCOUNTER 2024-02-08 20:37 | Emergency (ER) | payer MEDICARE, MEDICAID ==
[2024-02-08 21:05] LABS: EOSINOPHILS % (AUTO) 0.8 %; HCT - HEMATOCRIT 28.4 % (42.0-52.0); HGB - HEMOGLOBIN 9.2 g/dL (14.0-18.0); LYMPHOCYTES % (AUTO) 20.5 %; MEAN CORPUSCULAR HGB CONC 32.4 g/dL (32.0-36.0); MEAN CORPUSCULAR VOLUME 95.6 fL (80.0-94.0); MEAN PLATELET VOLUME 9.8 fL (7.4-11.4); MONOCYTES % (AUTO) 72.1 %; NEUTROPHILS % (AUTO) 5.4 %; PLT - PLATELET COUNT 66 10^3/uL (130-450); RED BLOOD COUNT 2.97 10^6/uL (4.70-6.10); RED CELL DISTRIBUTION WIDTH 15.4 % (12.0-15.0); WHITE BLOOD COUNT 2.4 x10^3/uL (4.8-10.8)
--- NOTE | 2024-02-08 21:12 | ED Physician Documentation ---
History of Present Illness - Stated complaint Stated Complaint: BODY PX - Chief complaint Chief Complaint: General - History obtained from History obtained from: Patient, EMS - History of Present Illness Timing: How many weeks ago (1) - Additonal information Additional information: Jaret Hernández is a 58-year-old male with history of peripheral vascular disease [place] PD type 2 diabetes depression with suicidal ideation methamphetamine abuse and IV drug abuse nicotine dependence and mild chronic kidney disease. 10 days ago he was seen in our emergency department with a white blood cell count of 1.9 he refused further treatment he had for further visits before transfer to [facility] for blast crisis. While at [facility] he signed out AGAINST MEDICAL ADVICE because he was not able to smoke. This was 1 week ago. Since that time he has been back into our emergency department with allodynia and sores on his lips. Today he is complaining of allodynia mostly with pain to the ribs and his chest and to the right heel. He has spikes of pain periodically. Review of Systems Constitutional: reports: Fever, Myalgias, Fatigue, Sweats Eyes: denies: Decreased vision Ears: denies: Ear pain Nose: denies: Rhinorrhea / runny nose, Congestion Throat: denies: Sore throat Cardiac: reports: Chest pain / pressure (to the ribs). denies: Palpitations, Pedal edema, Calf pain Respiratory: reports: Dyspnea, Cough, Wheezing GI: reports: Abdominal Pain : denies: Dysuria, Frequency Skin: denies: Rash Musculoskeletal: reports: Extremity pain. denies: Neck pain, Back pain Neurologic: reports: Headache. denies: Generalized weakness, Focal weakness, Numbness, Difficulty speaking, Head injury, LOC PD PAST MEDICAL HISTORY - Past Medical History Cardiovascular: Peripheral Vascular Disease Respiratory: None Neuro: Other Endocrine/Autoimmune: Type 2 diabetes GI: None : Renal insuffiency HEENT: None Psych: Depression, Obsessive compulsive disorder, Other Musculoskeletal: None Derm: None - Past Surgical History Past Surgical History: Yes General: Hiatal hernia repair Cardiovascular: Coronary stent HEENT: Other - Present Medications Home Medications: Ambulatory Orders Medication Instructions Recorded Confirmed Albuterol Sulfate [Proair 1 puffs IH DAILY PRN 01/27/24 01/30/24 Digihaler] Cefdinir 1 cap PO BID 01/27/24 01/30/24 predniSONE [Deltasone] 1 tab PO DAILY 01/27/24 01/30/24 Doxycycline [Vibramycin] 100 mg PO BID #14 tablet 01/30/24 - Allergies Allergies/Adverse Reactions: Allergies Allergy/AdvReac Type Severity Reaction Status Date / Time rizatriptan [From Maxalt] Allergy Itching Verified 02/08/24 20:52 - Social History Does the pt smoke?: Yes Smoking Status: Current every day smoker Does the pt drink ETOH?: No Does the pt have substance abuse?: Yes - Immunizations Immunizations are current?: Yes - POLST Patient has POLST: No PD ED PE NORMAL - Vitals Vital signs reviewed: Yes (Febrile and hypertensive which is mild) - General General: Well developed/nourished, Other (58-year-old male with sores on his lips parched mucous membranes has periodic outbursts of complaints of pain.) - HEENT HEENT: Atraumatic, PERRL, EOMI - Neck Neck: Supple, no meningeal sign, No bony TTP - Cardiac Cardiac: RRR, No murmur - Respiratory Respiratory: No respiratory distress, Other (Diminished breath sounds in the bases) - Abdomen Abdomen: Soft, Non tender - Back Back: No CVA TTP, No spinal TTP - Derm Derm: Normal color, Warm and dry, No rash - Extremities Extremities: No deformity, No edema, Other (There is no specific abnormality to the right heel.) - Neuro Neuro: Alert and oriented X 3, manager pest 2-12 intact, No motor deficit, No sensory deficit, Normal speech Eye Opening: Spontaneous Motor: Obeys Commands Verbal: Oriented GCS Score: 15 - Psych Psych: Other (Mood and affect are labile) Results - Vitals Vitals: Vital Signs - 24 hr 02/08/24 02/08/24 02/09/24 20:38 22:27 00:33 Temperature 38.1 C H 37.3 C Heart Rate 90 64 Respiratory 20 20 Rate Blood Pressure 134/71 H 104/62 O2 Saturation 98 98 02/09/24 02:13 Temperature Heart Rate 59 L Respiratory 18 Rate Blood Pressure 111/69 O2 Saturation 96 Oxygen O2 Source Room air - Labs Labs: Laboratory Tests 02/08/24 02/08/24 02/08/24 20:56 20:56 20:56 WBC 2.4 L RBC 2.97 L Hgb 9.2 L Hct 28.4 L MCV 95.6 H MCH 31.0 MCHC 32.4 RDW 15.4 H Plt Count 66 L MPV 9.8 Neut # (Auto) Not Reportable Lymph # (Auto) Not Reportable [place] # (Auto) Not Reportable Eos # (Auto) Not Reportable Baso # (Auto) Not Reportable Absolute Nucleated RBC Not Reportable Total Counted 100 Band Neuts % (Manual) 0 Reactive Lymphs % (Man) 35 Abnorm Lymph % (Manual) 0 Myelocytes % 2 H Promyelocytes % 1 H Blast Cells % 7 H* Nucleated RBC % Not Reportable Neutrophils # (Manual) 0.0 L* Lymphocytes # (Manual) 1.5 Monocytes # (Manual) 0.6 Eosinophils # (Manual) 0.1 Basophils # (Manual) 0.0 Nucleated RBCs 1 Differential Comment MANUAL DIFFERENTIAL Manual Slide Review Indicated Platelet Estimate DECREASED (<130,000) Platelet Morphology NORMAL APPEARANCE RBC Morph Micro Appear 1+ HYPOCHROMASIA PT 13.2 H INR 1.2 APTT 25.0 Sodium 136 Potassium 3.4 L Chloride 105 Carbon Dioxide 22 Anion Gap 9.0 BUN 22 H Creatinine 0.9 Estimated GFR (MDRD) 86 L Glucose 190 H Lactic Acid Calcium 8.5 Total Bilirubin 0.5 AST 22 ALT 13 Alkaline Phosphatase 67 Total Protein 5.9 L Albumin 3.5 Globulin 2.4 Albumin/Globulin Ratio 1.5 Lipase 16 Slides for Path Review Indicated 02/08/24 20:56 WBC RBC Hgb Hct MCV MCH MCHC RDW Plt Count MPV Neut # (Auto) Lymph # (Auto) [place] # (Auto) Eos # (Auto) Baso # (Auto) Absolute Nucleated RBC Total Counted Band Neuts % (Manual) Reactive Lymphs % (Man) Abnorm Lymph % (Manual) Myelocytes % Promyelocytes % Blast Cells % Nucleated RBC % Neutrophils # (Manual) Lymphocytes # (Manual) Monocytes # (Manual) Eosinophils # (Manual) Basophils # (Manual) Nucleated RBCs Differential Comment Manual Slide Review Platelet Estimate Platelet Morphology RBC Morph Micro Appear PT INR APTT Sodium Potassium Chloride Carbon Dioxide Anion Gap BUN Creatinine Estimated GFR (MDRD) Glucose Lactic Acid 0.5 Calcium Total Bilirubin AST ALT Alkaline Phosphatase Total Protein Albumin Globulin Albumin/Globulin Ratio Lipase Slides for Path Review - Rads (name of study) chest Relevant Findings:: Prelim report reviewed (Impression: No acute cardiopulmonary process.), EMP independent interpretation of test Procedures - IVC sono (time) 2049 Bedside IVC sono: IVC measures (cm) (1.09), IVC collapsed c insp (cm) (complete), Dehydration (est 1-2 liter deficit) PD Medical Decision Making - ED course Complexity details: reviewed old records, reviewed results, re-evaluated patient, considered differential, d/w patient Reviewed Lab Results: We reviewed a complete blood count showing a white blood cell count depressed at 2.4 hemoglobin depressed at 9.2 and hematocrit depressed at 28.4 platelets depressed at 66,000 these were compared to laboratory test that were done 1 week ago and this showed dramatic difference in the white blood cell count coming down from 37K. Today their are no nuetrophils present. ED course: Jaret Hernández is a 58-year-old undomiciled male male who is in a blast crisis and he has signed out AGAINST MEDICAL ADVICE 1 week ago. He continues to have allodynia with pain in his ribs and right heel. Here in the emergency department he was treated with Toradol, dexamethasone and saline with improvement in his condition for pain and arrangements were made for him to be transferred back to [facility]. I spoke to Dr. Rios at the hospitalist who graciously accepts the patient in transfer. Departure - Departure Disposition: 02 Transfer Acute Care Hosp Clinical Impression: Thrombocytopenia Blast leukemia Qualifiers: Leukemia Active/Remission status: without remission Qualified Code(s): C95.00 - Acute leukemia of unspecified cell type not having achieved remission Condition: Stable Forms: PCP List Discharge Date/Time: 02/09/24 02:44
[2024-02-08 21:15] LABS: INR 1.2 (0.8-1.2); PT - PROTHROMBIN TIME 13.2 secs (9.9-12.6)
[2024-02-08 21:20] LABS: ALBUMIN 3.5 g/dL (3.2-5.5); ALBUMIN/GLOBULIN RATIO 1.5 (1.0-2.2); BILIRUBIN,TOTAL 0.5 mg/dL (0.2-1.0); CALCIUM 8.5 mg/dL (8.5-10.3); CREATININE 0.9 mg/dL (0.6-1.3); POTASSIUM 3.4 mmol/L (3.5-4.5); TOTAL PROTEIN 5.9 g/dL (6.4-8.9)
[2024-02-08 21:23] LABS: SLIDE REVIEW? Indicated
[2024-02-08 21:24] LABS: ABNORMAL LYMPHS % (MANUAL) 0 %; BAND NEUTROPHILS % (MANUAL) 0 %
[2024-02-08] MEDS: KETOROLAC 30 MG/ML VIAL IVP STA (21:44)
[2024-02-08] MEDS: DEXAMETHASONE 10 MG/ML VIAL IVP STA (21:44)
[2024-02-08] MEDS: SODIUM CHLORIDE 0.9% 1,000 ML IV STA (21:49)
[2024-02-08 22:18] LABS: EOSINOPHILS # (MANUAL) 0.1 10^3/uL (0-0.7); LYMPHOCYTES # (MANUAL) 1.5 10^3/uL (1.5-3.5); LYMPHOCYTES % (MANUAL) 26 %; MONOCYTES # (MANUAL) 0.6 10^3/uL (0.0-1.0); MYELOCYTES % (MANUAL) 2 %; NUCLEATED RBC (MANUAL) 1 %; PROMYELOCYTES % (MANUAL) 1 %; REACTIVE LYMPHS % (MANUAL) 35 %
[2024-02-08 22:21] LABS: PLATELET ESTIMATE, MANUAL DECREASED (<130,000) (NORMAL); PLATELET MORPHOLOGY NORMAL APPEARANCE (NORMAL)
[2024-02-08 22:23] LABS: BLAST CELLS % (MANUAL) 7 %; DIFFERENTIAL COMMENT MANUAL DIFFERENTIAL; SLIDE SENT FOR PATH REVIEW? Indicated
--- NOTE | 2024-02-08 22:27 | XRAY Report ---
PROCEDURE: Chest 1V INDICATIONS: chest pain TECHNIQUE: One view of the chest was acquired. COMPARISON: Chest radiograph 01/31/2024. FINDINGS: Surgical changes and devices: None. Lungs and pleura: No pleural effusions or pneumothorax. Lungs are clear. Mediastinum: Mediastinal contours appear normal. Heart size is normal. Bones and chest wall: No suspicious bony lesions. Overlying soft tissues appear unremarkable. IMPRESSION: No acute cardiopulmonary process. Reviewed by: Anabelle Centeno MD, PhD on 02/08/2024 10:25 PM PDT Approved by: Anabelle Centeno MD, PhD on 02/08/2024 10:25 PM PDT Station ID: [id number]
[2024-02-09 02:15] VITALS: BP 111/69; O2SAT 96
== END 2024-02-09 02:44 | disposition short-term general hospital (02) ==
LOC: EDUNIT# → ED 20:37
DX: D69.6 Thrombocytopenia, unspecified (principal); C95.00 Acute leukemia of unspecified cell type not having achieved remission; J44.9 Chronic obstructive pulmonary disease, unspecified; E11.22 Type 2 diabetes mellitus with diabetic chronic kidney disease; N18.9 Chronic kidney disease, unspecified; F17.200 Nicotine dependence, unspecified, uncomplicated; Z79.899 Other long term (current) drug therapy
CPT/HCPCS: 36415; 80053; 83605; 83690; 85025; 85610; 85730; 87040; 96361; 96374; 99285

== ENCOUNTER 2024-02-10 07:30 | Outpatient (CLI) | payer MEDICARE, MEDICAID ==
[2024-02-10 11:52] LABS: BASOPHILS % (AUTO) 0.2 %; EOSINOPHILS % (AUTO) 0.5 %; HCT - HEMATOCRIT 29.5 % (42.0-52.0); HGB - HEMOGLOBIN 9.6 g/dL (14.0-18.0); LYMPHOCYTES % (AUTO) 17.7 %; MEAN CORPUSCULAR HGB CONC 32.5 g/dL (32.0-36.0); MEAN CORPUSCULAR VOLUME 95.2 fL (80.0-94.0); MEAN PLATELET VOLUME 10.6 fL (7.4-11.4); MONOCYTES % (AUTO) 54.9 %; NEUTROPHILS % (AUTO) 24.7 %; PLT - PLATELET COUNT 81 10^3/uL (130-450); RED CELL DISTRIBUTION WIDTH 15.8 % (12.0-15.0)
[2024-02-10 11:59] LABS: ABNORMAL LYMPHS % (MANUAL) 0 %
[2024-02-10 12:11] LABS: ALBUMIN 3.6 g/dL (3.2-5.5); ALBUMIN/GLOBULIN RATIO 1.2 (1.0-2.2); BILIRUBIN,TOTAL 0.4 mg/dL (0.2-1.0); CALCIUM 8.7 mg/dL (8.5-10.3); POTASSIUM 3.4 mmol/L (3.5-4.5); TOTAL PROTEIN 6.7 g/dL (6.4-8.9)
[2024-02-10 12:43] LABS: BAND NEUTROPHILS % (MANUAL) 2 %; LYMPHOCYTES # (MANUAL) 1.2 10^3/uL (1.5-3.5); LYMPHOCYTES % (MANUAL) 20 %; METAMYELOCYTES % (MANUAL) 2 %; MYELOCYTES % (MANUAL) 6 %; NUCLEATED RBC (MANUAL) 2 %; PROMYELOCYTES % (MANUAL) 5 %
[2024-02-10 12:44] LABS: PLATELET ESTIMATE, MANUAL DECREASED (<130,000) (NORMAL); PLATELET MORPHOLOGY NORMAL APPEARANCE (NORMAL)
[2024-02-10 12:54] LABS: NEUTROPHILS # (MANUAL) 0.4 10^3/uL (1.5-6.6)
[2024-02-10 12:55] LABS: BLAST CELLS % (MANUAL) 28 %; DIFFERENTIAL COMMENT MANUAL DIFFERENTIAL
== END 2024-02-10 07:45 | disposition home or self-care (01) ==
LOC: LAB.N 07:30
PROVIDERS: ATTEND Family Medicine
DX: L02.31 Cutaneous abscess of buttock (principal); L03.019 Cellulitis of unspecified finger
CPT/HCPCS: 36415; 80053; 85025; 87070; 87205

== ENCOUNTER 2024-02-10 19:24 | Outpatient (CLI) | payer MEDICARE, MEDICAID | END 2024-02-10 19:25 | disposition critical access hospital (66) | LOC: EMS 19:24 | DX: M25.531 Pain in right wrist (principal); R05.9 Cough, unspecified; R50.9 Fever, unspecified | CPT/HCPCS: A0425; A0429 ==

== ENCOUNTER 2024-02-25 06:47 | Emergency (ER) | payer MEDICARE, MEDICAID ==
--- NOTE | 2024-02-25 07:42 | ED Physician Documentation ---
History of Present Illness - Stated complaint Stated Complaint: R ARM PX - Chief complaint Chief Complaint: General - History obtained from History obtained from: Patient - Additonal information Additional information: The patient comes to the emergency department chief complaint of ongoing right upper extremity pain. He states it has been going on for the last few weeks and he is already been seen for it in our ED. The patient is known to have leukemia but has not really been following up about this. He has been seen in multiple times here and is well transferred to [facility] and signed out AGAINST MEDICAL ADVICE repeatedly. He states is because he is scared to get his bone marrow biopsy. He does note that he is scheduled to see an [employer]PER[employer] for primary care establishment on the of this month and that he is preparing himself mentally to be scheduled for his biopsy and go through with it. He states that his pain is about the same as when he was seen a couple weeks ago. He has not noticed any swollen lymph nodes in his axilla and denies any trauma to the area. No swelling. He had an infected right small finger but he states this is doing a lot better than it was. No fevers or chills. No other complaints at this time. PD PAST MEDICAL HISTORY - Past Medical History Cardiovascular: Peripheral Vascular Disease Respiratory: None Neuro: Other Endocrine/Autoimmune: Type 2 diabetes GI: None : Renal insuffiency HEENT: None Psych: Depression, Obsessive compulsive disorder, Other Musculoskeletal: None Derm: None - Past Surgical History Past Surgical History: Yes General: Hiatal hernia repair Cardiovascular: Coronary stent HEENT: Other - Present Medications Home Medications: Ambulatory Orders Medication Instructions Recorded Confirmed Sulfamethox/Trimeth 800/160 1 tab PO BID 10 Days #20 tab 02/11/24 [Bactrim Ds] - Allergies Allergies/Adverse Reactions: Allergies Allergy/AdvReac Type Severity Reaction Status Date / Time rizatriptan [From Maxalt] Allergy Itching Verified 02/10/24 19:52 - Social History Does the pt smoke?: Yes Smoking Status: Current every day smoker Does the pt drink ETOH?: No Does the pt have substance abuse?: Yes - Immunizations Immunizations are current?: Yes - POLST Patient has POLST: No PD ED PE NORMAL - Vitals Vital signs reviewed: Yes - General General: Alert and oriented X 3, No acute distress, Well developed/nourished - HEENT HEENT: Atraumatic, PERRL, EOMI, Moist mucous membranes - Neck Neck: Supple, no meningeal sign - Cardiac Cardiac: Strong equal pulses - Respiratory Respiratory: No respiratory distress - Derm Derm: Warm and dry, Other (Healing wound on right small finger with mildly pink skin. No edema. No streaking. No erythema extending beyond the tip of the finger and pink skin appears consistent with having been under a Band-Aid for prolonged time.) - Extremities Extremities: No deformity, Other (No edema of right upper extremity. Tenderness palpation throughout biceps muscle and axilla, but no palpable lymph nodes or cords.) - Neuro Neuro: Alert and oriented X 3 - Psych Psych: Normal mood, Normal affect Results - Vitals Vitals: Vital Signs - 24 hr 02/25/24 06:52 Temperature 36.1 C L Heart Rate 78 Respiratory 20 Rate Blood Pressure 125/66 O2 Saturation 100 Oxygen O2 Source Room air PD Medical Decision Making - ED course Complexity details: considered differential, d/w patient ED course: I discussed with the patient that his finger looks actually fairly good today and that he does not have any lymphadenopathy, trauma, edema, or erythema to indicate a more serious process. Not sure what is causing his ongoing right upper extremity pain, but he has been worked up for this already and there is no indication for further emergent workup today. The patient is treated with Toradol symptomatically and we have applied some bacitracin to his finger scab. We discussed the usual indications for return. Departure - Departure Disposition: 01 Home, Self Care Clinical Impression: Pain of right upper extremity Condition: Stable Instructions: ED Muscle Aching Comments: It is not clear what is causing your ongoing arm pain, but there is no evidence of spreading infection or swelling of your lymph nodes from the leukemia. You do not have any symptoms consistent with a blood clot and you have not had any trauma to raise concern for injury to the bone. You have been treated with a shot of Toradol. Your finger is looking much better and there is no evidence of serious infection of the finger at this point in time. Please follow-up with your nurse practitioner as scheduled on March 03 to establish care.
[2024-02-25] MEDS: BACITRACIN ZINC OINT 1 PACKET TOP STA (07:50)
[2024-02-25] MEDS: KETOROLAC 60 MG/2 ML VIAL IM STA (07:50)
[2024-02-25 08:08] VITALS: BP 110/71; O2SAT 99
== END 2024-02-25 08:00 | disposition home or self-care (01) ==
LOC: EDUNIT# → ED 06:47
DX: M79.601 Pain in right arm (principal); I73.9 Peripheral vascular disease, unspecified; E11.9 Type 2 diabetes mellitus without complications; F17.200 Nicotine dependence, unspecified, uncomplicated
CPT/HCPCS: 96372; 99283; A9270

== ENCOUNTER 2024-03-02 19:06 | Outpatient (CLI) | payer MEDICARE, MEDICAID | END 2024-03-02 22:00 | disposition critical access hospital (66) | LOC: EMS 19:06 | DX: R06.02 Shortness of breath (principal); R06.2 Wheezing; R05.9 Cough, unspecified | CPT/HCPCS: A0425; A0427 ==

== ENCOUNTER 2024-03-02 19:16 | Emergency (ER) | payer MEDICARE, MEDICAID ==
--- NOTE | 2024-03-02 20:27 | ED Physician Documentation ---
History of Present Illness - Stated complaint Stated Complaint: SOA/COUGH - Chief complaint Chief Complaint: Resp - History obtained from History obtained from: Patient - Additonal information Additional information: HPI from patient, EMS. This patient is very well-known to this emergency department for frequent visits. [facility] is his fifth visit this month alone. [facility] is his 20th visit to a [facility] emergency department over the past 12 months involving 2 different ERs (all but 1 of these 20 visits has been to [facility]). HPI is limited which is a frequent feature of this patient's encounters in the emergency department; he is providing current answers to my questions which often are with content that does not address the question itself. For example, he frequently is using expletives during my HPI/ROS asking me for a ride home. However, he answers a few of my questions sufficient to determine HPI. Patient has been having dyspnea, productive cough x 3-4 days. He was given duon eb en route. Denies chest pain. Review of Systems Unable to obtain: Other (limited (see HPI; answers only a few of my questions with direct and useful information/answers)) Cardiac: denies: Chest pain / pressure Respiratory: reports: Dyspnea, Cough, Wheezing. denies: Hemoptysis PD PAST MEDICAL HISTORY - Past Medical History Past Medical History: Yes Cardiovascular: Peripheral Vascular Disease Respiratory: None Neuro: Other Endocrine/Autoimmune: Type 2 diabetes GI: None : Renal insuffiency HEENT: None Psych: Depression, Obsessive compulsive disorder, Other Musculoskeletal: None Derm: None - Past Surgical History Past Surgical History: Yes General: Hiatal hernia repair Cardiovascular: Coronary stent HEENT: Other - Present Medications Home Medications: Ambulatory Orders Medication Instructions Recorded Confirmed Sulfamethox/Trimeth 800/160 1 tab PO BID 10 Days #20 tab 02/11/24 03/02/24 [Bactrim Ds] Albuterol Sulf [Ventolin Hfa 1 - 2 puffs INH Q4HR PRN 03/02/24 03/02/24 Inhaler] predniSONE [Deltasone] 40 mg PO DAILY 3 Days #6 tablet 03/02/24 - Allergies Allergies/Adverse Reactions: Allergies Allergy/AdvReac Type Severity Reaction Status Date / Time rizatriptan [From Maxalt] Allergy Itching Verified 03/02/24 19:22 - Social History Does the pt smoke?: Yes Smoking Status: Current every day smoker Does the pt drink ETOH?: No Does the pt have substance abuse?: Yes Substance Use and Type: Meth - Immunizations Immunizations are current?: Yes - POLST Patient has POLST: No PD ED PE NORMAL - Vitals Vital signs reviewed: Yes - General General: No acute distress, Well developed/nourished, Other (awake, alert, NAD. Poor eye contact) - Cardiac Cardiac: RRR - Derm Derm: Normal color, Warm and dry PD ED PE EXPANDED - Cardiac Cardiac: Murmur Present (2/6 NEPTALI across precordium) - Respiratory Respiratory: Wheezing (bilateral end-expiratory but good air movement, no rhonchi) Results - Vitals Vitals: Vital Signs - 24 hr 03/02/24 03/02/24 19:24 20:59 Temperature 37.2 C Heart Rate 81 78 Respiratory 14 12 Rate Blood Pressure 130/76 113/60 O2 Saturation 100 96 Oxygen O2 Source Room air PD Medical Decision Making - ED course Complexity details: considered differential, d/w patient ED course: Patient is in NAD on my H+P with room-air pulse ox 95-97%. No respiratory distress, speaks in full sentences. Angry and mostly focused on inquiring as to how he is going to get a ride back to his [facility] when discharged rather than medical c/o or concerns. He is in NAD, afebrile, and moving air well on stethoscopic pulmonary exam. No emergent testing at this time. He is given 10mg IV decadron and then d/c, rx for 3 days of daily 40mg prednisone provided. Departure - Departure Disposition: 01 Home, Self Care Clinical Impression: Dyspnea Qualifiers: Dyspnea type: unspecified Qualified Code(s): R06.00 - Dyspnea, unspecified Condition: Good Instructions: ED Reactive Airway Disease Prescriptions: predniSONE [Deltasone] 40 mg PO DAILY 3 Days #6 tablet Comments: You were given the first dose of a steroid in the emergency department (Decadron, which was given through the IV), and I have provided you a prescription for a 3-day course of oral steroid (prednisone). The steroid often helps relieve the wheezing, shortness of breath, and, to a lesser degree, the cough of bronchitis associated with exacerbation of asthma/COPD. It is very important that you follow-up in the outpatient setting; you need to contact your primary care provider to arrange for the next available appointment for follow-up/reevaluation. Forms: PCP List Discharge Date/Time: 03/02/24 21:33
[2024-03-02] MEDS: DEXAMETHASONE 10 MG/ML VIAL IVP STA (20:57)
[2024-03-02 21:09] VITALS: BP 113/60; O2SAT 96
== END 2024-03-02 21:33 | disposition home or self-care (01) ==
LOC: EDUNIT# → EDBD → ED 19:16
DX: J44.0 Chronic obstructive pulmonary disease with (acute) lower respiratory infection (principal); J20.9 Acute bronchitis, unspecified; J44.1 Chronic obstructive pulmonary disease with (acute) exacerbation; F17.200 Nicotine dependence, unspecified, uncomplicated
CPT/HCPCS: 96374; 99283

== ENCOUNTER 2024-03-07 15:04 | Emergency (ER) | payer MEDICARE, MEDICAID ==
--- NOTE | 2024-03-07 15:30 | ED Physician Documentation ---
PD HPI URI - Stated complaint Stated Complaint: SOA,FEVER,CHILLS - Chief complaint Chief Complaint: Resp - History obtained from History obtained from: Patient, Caregiver - Additional information Additional information: 58-year-old gentleman with both methamphetamine and tobacco use as well as homelessness presents for the evaluation of continued cough and shortness of breath going on for the last month or so. He has had fevers at night. Of note, more recently he was diagnosed with likely leukemia based on leukopenia with blast cells in his peripheral smear. He was transferred down to [facility] where subsequently he signed out AMA because they would not let him smoke. Since then documentation in the chart shows that he has been resistant to getting treatment for the leukemia but today says he is now reconsidering it. He had a cough for about a month. Has been on Bactrim. He describes sputum productive of thin white foamy material. He is at the retirement and it is reported there are multiple sick contacts there. PD PAST MEDICAL HISTORY - Past Medical History Cardiovascular: Peripheral Vascular Disease Respiratory: None Neuro: Other Endocrine/Autoimmune: Type 2 diabetes GI: None : Renal insuffiency HEENT: None Psych: Depression, Obsessive compulsive disorder, Other Musculoskeletal: None Derm: None - Past Surgical History Past Surgical History: Yes General: Hiatal hernia repair Cardiovascular: Coronary stent HEENT: Other - Present Medications Home Medications: Ambulatory Orders Medication Instructions Recorded Confirmed Sulfamethox/Trimeth 800/160 1 tab PO BID 10 Days #20 tab 02/11/24 03/02/24 [Bactrim Ds] Albuterol Sulf [Ventolin Hfa 1 - 2 puffs INH Q4HR PRN 03/02/24 03/02/24 Inhaler] predniSONE [Deltasone] 40 mg PO DAILY 3 Days #6 tablet 03/02/24 Albuterol Sulf [Ventolin Hfa 1 - 2 puffs INH Q4HR PRN #1 each 03/07/24 Inhaler] Doxycycline [Vibramycin] 100 mg PO BID #14 tablet 03/07/24 - Allergies Allergies/Adverse Reactions: Allergies Allergy/AdvReac Type Severity Reaction Status Date / Time rizatriptan [From Maxalt] Allergy Itching Verified 03/07/24 15:13 - Social History Does the pt smoke?: Yes Smoking Status: Current every day smoker Does the pt drink ETOH?: No Does the pt have substance abuse?: Yes - Immunizations Immunizations are current?: Yes - POLST Patient has POLST: No PD ED PE NORMAL - Vitals Vital signs reviewed: Yes - General General: Alert and oriented X 3, No acute distress - Cardiac Cardiac: RRR, No murmur - Respiratory Respiratory: No respiratory distress, Other (Frequent bronchitic cough with some expiratory wheezes throughout but good air motion.) - Derm Derm: Normal color, Warm and dry - Neuro Neuro: Alert and oriented X 3 - Psych Psych: Normal mood, Normal affect Results - Vitals Vitals: Vital Signs - 24 hr 03/07/24 15:10 Temperature 36.8 C Heart Rate 83 Respiratory 20 Rate Blood Pressure 134/74 H O2 Saturation 97 Oxygen O2 Source Room air PD Medical Decision Making - ED course ED course: 58-year-old gentleman with the above comorbidities and recent past medical history presents with continued productive cough. He is treated here with doxycycline and DuoNeb. Given the concern for acute leukemia I would not want to give him steroids for potential COPD exacerbation although that seems likely, given the concern for acute tumor lysis syndrome. So far he has been resistant to workup and treatment for potential acute leukemia but is starting to reconsider. Departure - Departure Disposition: 01 Home, Self Care Clinical Impression: Bronchitis with bronchospasm Condition: Good Record reviewed to determine appropriate education?: Yes Instructions: ED COPD Flare Prescriptions: Albuterol Sulf [Ventolin Hfa Inhaler] 1 - 2 puffs INH Q4HR PRN #1 each PRN Reason: Shortness Of Air/Wheezing Doxycycline [Vibramycin] 100 mg PO BID #14 tablet Comments: So far, you have been resistant to care and workup for potential acute leukemia. That said if you do have leukemia it is not surprising that you continue to get sick without treatment for that as it is a very significant serious diagnos is that if accurate will kill you without treatment. You do have normal vital signs here without respiratory distress so there is no true emergency medical condition but I encourage you to revisit specialty care for potential leukemia if you decide that is your goal.
[2024-03-07] MEDS: DOXYCYCLINE 100 MG TABLET PO STA (15:40)
[2024-03-07] MEDS: IPRATROPIUM/ALBUTEROL 3 ML NEB INH STA (15:51)
[2024-03-07 17:08] VITALS: BP 140/86; O2SAT 96
== END 2024-03-07 16:59 | disposition home or self-care (01) ==
LOC: ED 15:04
DX: J40 Bronchitis, not specified as acute or chronic (principal); C95.90 Leukemia, unspecified not having achieved remission; E11.9 Type 2 diabetes mellitus without complications; F17.200 Nicotine dependence, unspecified, uncomplicated; Z59.01 Sheltered homelessness; Z79.899 Other long term (current) drug therapy
CPT/HCPCS: 94640; 94664; 99283; 99284; A9270

== ENCOUNTER 2024-03-17 15:34 | Outpatient (CLI) | payer MEDICARE, MEDICAID | END 2024-03-17 15:35 | disposition home or self-care (01) | LOC: EMS 15:34 | DX: R53.1 Weakness (principal) | CPT/HCPCS: A0425; A0429 ==

== ENCOUNTER 2024-03-17 15:53 | Emergency (ER) | payer MEDICARE, MEDICAID ==
--- NOTE | 2024-03-17 16:09 | ED Physician Documentation ---
History of Present Illness - Stated complaint Stated Complaint: GENERAL WEAKNESS - Chief complaint Chief Complaint: General - History obtained from History obtained from: Patient, EMS - Additonal information Additional information: He has a history of methamphetamine abuse and more recently was diagnosed with likely leukemia based on a CBC done in January with 56% blasts. He went down to [facility] where he subsequently signed out AMA and has been in and out of the ER ever since getting worse. I saw him 10 days ago and he went to [facility] afterwards, but says he signed out again AMA 3 days later. He still does not have a clear diagnosis of leukemia by bone marrow biopsy. When queried what happened at [facility] recently he said they gave him antibiotics. He presents today with fevers, chills, cough, upper abdominal pain, weakness and pain all over. PD PAST MEDICAL HISTORY - Past Medical History Past Medical History: Yes Cardiovascular: Peripheral Vascular Disease Respiratory: None Neuro: Other Endocrine/Autoimmune: Type 2 diabetes GI: None : Renal insuffiency HEENT: None Psych: Depression, Obsessive compulsive disorder, Other Musculoskeletal: None Derm: None Other Past Medical History: Leukemia - Past Surgical History Past Surgical History: Yes General: Hiatal hernia repair Cardiovascular: Coronary stent HEENT: Other - Allergies Allergies/Adverse Reactions: Allergies Allergy/AdvReac Type Severity Reaction Status Date / Time rizatriptan [From Maxalt] Allergy Itching Verified 03/17/24 16:04 - Social History Does the pt smoke?: Yes Smoking Status: Current every day smoker Does the pt drink ETOH?: No Does the pt have substance abuse?: Yes - Immunizations Immunizations are current?: Yes - POLST Patient has POLST: No PD ED PE NORMAL - Vitals Vital signs reviewed: Yes (Febrile) - General General: Alert and oriented X 3, No acute distress - HEENT HEENT: PERRL, EOMI - Neck Neck: Supple, no meningeal sign, No bony TTP - Cardiac Cardiac: RRR, No murmur - Respiratory Respiratory: No respiratory distress, Other (Wheezy throughout, no respiratory distress, declines a breathing treatment.) - Abdomen Abdomen: Other (Significant tenderness in the upper abdomen without surgical signs.) - Back Back: No CVA TTP, No spinal TTP - Derm Derm: No rash - Extremities Extremities: No edema, No calf tenderness / cord - Neuro Neuro: Alert and oriented X 3, Normal speech Eye Opening: Spontaneous Motor: Obeys Commands Verbal: Oriented GCS Score: 15 - Psych Psych: Normal mood, Normal affect Results - Vitals Vitals: Vital Signs - 24 hr 03/17/24 03/17/24 03/17/24 15:58 19:00 19:30 Temperature 38.4 C H Heart Rate 80 89 87 Respiratory 15 22 19 Rate Blood Pressure 97/60 101/59 L O2 Saturation 98 96 95 03/17/24 03/17/24 03/17/24 20:00 20:30 21:30 Temperature 37.3 C Heart Rate 87 77 84 Respiratory 19 25 H 17 Rate Blood Pressure 88/53 L 92/46 L 94/60 O2 Saturation 97 97 98 Oxygen O2 Source Room air - Labs Labs: Laboratory Tests 03/17/24 03/17/24 03/17/24 16:18 16:18 16:18 WBC 0.6 L* RBC 1.47 L Hgb 4.6 L* Hct 14.2 L* MCV 96.6 H MCH 31.3 H MCHC 32.4 RDW 18.9 H Plt Count 25 L* MPV 11.5 H Neut # (Auto) Not Reportable Lymph # (Auto) Not Reportable [place] # (Auto) Not Reportable Eos # (Auto) Not Reportable Baso # (Auto) Not Reportable Absolute Nucleated RBC Not Reportable Total Counted 100 Band Neuts % (Manual) 0 Abnorm Lymph % (Manual) 9 Promyelocytes % 4 H Blast Cells % 1 H* Nucleated RBC % Not Reportable Neutrophils # (Manual) 0.0 L* Lymphocytes # (Manual) 0.5 L Monocytes # (Manual) 0.1 Eosinophils # (Manual) 0.0 Basophils # (Manual) 0.0 Nucleated RBCs 7 Differential Comment MANUAL DIFFERENTIAL Manual Slide Review Indicated Platelet Estimate DECREASED (<130,000) Platelet Morphology NORMAL APPEARANCE RBC Morph Micro Appear 4+ HYPOCHROMASIA Sodium 135 Potassium 3.6 Chloride 104 Carbon Dioxide 25 Anion Gap 6.0 BUN 21 H Creatinine 0.8 Estimated GFR (MDRD) 99 Glucose 129 H Lactic Acid 0.9 Calcium 8.0 L Total Bilirubin 0.8 AST 39 ALT 15 Alkaline Phosphatase 48 Total Protein 5.8 L Albumin 3.3 Globulin 2.5 Albumin/Globulin Ratio 1.3 Urine Color Urine Clarity Urine pH Ur Specific [place] Urine Protein Urine Glucose (UA) Urine Ketones Urine Occult Blood Urine Nitrite Urine Bilirubin Urine Urobilinogen Ur Leukocyte Esterase Ur Microscopic Review Urine Culture Comments Nasal Adenovirus (PCR) Nasal B. parapertussis DNA (PCR) Nasal Coronavir 229E PCR Nasal Coronavir HKU1 PCR Nasal Coronavir NL63 PCR Nasal Coronavir OC43 PCR Nasal Enterovir/Rhinovir PCR Nasal Influenza B PCR Nasal Influenza A PCR Nasal Parainfluen 1 PCR Nasal Parainfluen 2 PCR Nasal Parainfluen 3 PCR Nasal Parainfluen 4 PCR Nasal RSV (PCR) Nasal B.pertussis DNA PCR Nasal C.pneumoniae (PCR) Prosper Human Metapneumo PCR Nasal M.pneumoniae (PCR) Nasal SARS-CoV-2 (PCR) Urine Opiates Screen Ur Buprenorphine Scrn Ur Oxycodone Screen Urine Methadone Screen Ur Barbiturates Screen Ur Tricyclics Screen Ur Phencyclidine Scrn Ur Amphetamine Screen U Methamphetamines Scrn U Benzodiazepines Scrn Urine Cocaine Screen U Cannabinoids Screen Ur Drug Screen Comment Ethyl Alcohol < 10.0 Blood Type Blood Type Recheck Antibody Screen Crossmatch IS Only 03/17/24 03/17/24 03/17/24 16:18 16:30 16:45 WBC RBC Hgb Hct MCV MCH MCHC RDW Plt Count MPV Neut # (Auto) Lymph # (Auto) [place] # (Auto) Eos # (Auto) Baso # (Auto) Absolute Nucleated RBC Total Counted Band Neuts % (Manual) Abnorm Lymph % (Manual) Promyelocytes % Blast Cells % Nucleated RBC % Neutrophils # (Manual) Lymphocytes # (Manual) Monocytes # (Manual) Eosinophils # (Manual) Basophils # (Manual) Nucleated RBCs Differential Comment Manual Slide Review Platelet Estimate Platelet Morphology RBC Morph Micro Appear Sodium Potassium Chloride Carbon Dioxide Anion Gap BUN Creatinine Estimated GFR (MDRD) Glucose Lactic Acid Calcium Total Bilirubin AST ALT Alkaline Phosphatase Total Protein Albumin Globulin Albumin/Globulin Ratio Urine Color Urine Clarity Urine pH Ur Specific [place] Urine Protein Urine Glucose (UA) Urine Ketones Urine Occult Blood Urine Nitrite Urine Bilirubin Urine Urobilinogen Ur Leukocyte Esterase Ur Microscopic Review Urine Culture Comments Nasal Adenovirus (PCR) NOT DETECTED Nasal B. parapertussis DNA (PCR) NOT DETECTED Nasal Coronavir 229E PCR NOT DETECTED Nasal Coronavir HKU1 PCR NOT DETECTED Nasal Coronavir NL63 PCR NOT DETECTED Nasal Coronavir OC43 PCR NOT DETECTED Nasal Enterovir/Rhinovir PCR NOT DETECTED Nasal Influenza B PCR NOT DETECTED Nasal Influenza A PCR NOT DETECTED Nasal Parainfluen 1 PCR NOT DETECTED Nasal Parainfluen 2 PCR NOT DETECTED Nasal Parainfluen 3 PCR DETECTED A Nasal Parainfluen 4 PCR NOT DETECTED Nasal RSV (PCR) NOT DETECTED Nasal B.pertussis DNA PCR NOT DETECTED Nasal C.pneumoniae (PCR) NOT DETECTED Prosper Human Metapneumo PCR NOT DETECTED Nasal M.pneumoniae (PCR) NOT DETECTED Nasal SARS-CoV-2 (PCR) NOT DETECTED Urine Opiates Screen Ur Buprenorphine Scrn Ur Oxycodone Screen Urine Methadone Screen Ur Barbiturates Screen Ur Tricyclics Screen Ur Phencyclidine Scrn Ur Amphetamine Screen U Methamphetamines Scrn U Benzodiazepines Scrn Urine Cocaine Screen U Cannabinoids Screen Ur Drug Screen Comment Ethyl Alcohol Blood Type O POSITIVE Blood Type Recheck O POSITIVE Antibody Screen NEGATIVE Crossmatch IS Only See Detail 03/17/24 17:44 WBC RBC Hgb Hct MCV MCH MCHC RDW Plt Count MPV Neut # (Auto) Lymph # (Auto) [place] # (Auto) Eos # (Auto) Baso # (Auto) Absolute Nucleated RBC Total Counted Band Neuts % (Manual) Abnorm Lymph % (Manual) Promyelocytes % Blast Cells % Nucleated RBC % Neutrophils # (Manual) Lymphocytes # (Manual) Monocytes # (Manual) Eosinophils # (Manual) Basophils # (Manual) Nucleated RBCs Differential Comment Manual Slide Review Platelet Estimate Platelet Morphology RBC Morph Micro Appear Sodium Potassium Chloride Carbon Dioxide Anion Gap BUN Creatinine Estimated GFR (MDRD) Glucose Lactic Acid Calcium Total Bilirubin AST ALT Alkaline Phosphatase Total Protein Albumin Globulin Albumin/Globulin Ratio Urine Color YELLOW Urine Clarity CLEAR Urine pH 6.0 Ur Specific [place] 1.010 Urine Protein TRACE Urine Glucose (UA) NEGATIVE Urine Ketones NEGATIVE Urine Occult Blood NEGATIVE Urine Nitrite NEGATIVE Urine Bilirubin NEGATIVE Urine Urobilinogen 1 (NORMAL) Ur Leukocyte Esterase NEGATIVE Ur Microscopic Review NOT INDICATED Urine Culture Comments NOT INDICATED Nasal Adenovirus (PCR) Nasal B. parapertussis DNA (PCR) Nasal Coronavir 229E PCR Nasal Coronavir HKU1 PCR Nasal Coronavir NL63 PCR Nasal Coronavir OC43 PCR Nasal Enterovir/Rhinovir PCR Nasal Influenza B PCR Nasal Influenza A PCR Nasal Parainfluen 1 PCR Nasal Parainfluen 2 PCR Nasal Parainfluen 3 PCR Nasal Parainfluen 4 PCR Nasal RSV (PCR) Nasal B.pertussis DNA PCR Nasal C.pneumoniae (PCR) Prosper Human Metapneumo PCR Nasal M.pneumoniae (PCR) Nasal SARS-CoV-2 (PCR) Urine Opiates Screen NEGATIVE Ur Buprenorphine Scrn NEGATIVE Ur Oxycodone Screen NEGATIVE Urine Methadone Screen NEGATIVE Ur Barbiturates Screen NEGATIVE Ur Tricyclics Screen NEGATIVE Ur Phencyclidine Scrn NEGATIVE Ur Amphetamine Screen POSITIVE H U Methamphetamines Scrn POSITIVE H U Benzodiazepines Scrn NEGATIVE Urine Cocaine Screen NEGATIVE U Cannabinoids Screen NEGATIVE Ur Drug Screen Comment CUTOFF CONC BELOW: Ethyl Alcohol Blood Type Blood Type Recheck Antibody Screen Crossmatch IS Only - Rads (name of study) Single view chest x-ray is unremarkable Relevant Findings:: Final report received, EMP independent interpretation of test Abdominal CT showing stool burden, otherwise negative. Relevant Findings:: Final report received, EMP independent interpretation of test PD Medical Decision Making - ED course ED course: Jaret Hernández is a 58-year-old man with history of methamphetamine abuse and homelessness who unfortunately seems to be trying his best to not have his likely leukemia treated by continuously signing out of the hospital AGAINST MEDICAL ADVICE. Today he is febrile and is noted to have neutropenia with severe anemia and thrombocytopenia consistent with bone marrow failure. He was crossmatched for irradiated blood (I did go over and asked the blood bank if he would need any other special treatments to his blood because of the likely diagnosis of leukemia and she is going to call the blood center with this query). He was administered cefepime, Flagyl, and vancomycin after blood cultures. Call to [facility] for potential transfer at 4:37 PM. Note made that I added vancomycin to the regimen both because it is the [facility] sepsis protocol and he has had recent and recurrent MRSA, most recently in a pinky finger infection about a month ago. He is also at higher risk for MRSA and other resistant organisms based on homelessness, edentulousness, and drug abuse. I spoke with Dr. Cat, oncology at [facility] at 6 PM. He actually told me they do have a definitive diagnosis of AML done by flow cytometry. He agrees with transfer and defers to hospitalist admission. Accepted by Dr. [facility] about 6:15 PM. Cobras are completed and he is stable for transport. Urine drug screen positive for amphetamines and methamphetamines [facility] respiratory panel was positive for parainfluenza 3. There was a delay to obtaining appropriate crossmatched, CML negative and irradiated blood. As such she did not receive any blood prior to transfer. Departure - Departure Disposition: Transfer Acute Care Hosp Clinical Impression: Neutropenic fever, Bone marrow failure, Profound anemia, Thrombocytopenia, Noncompliance, Acute myelogenous leukemia Condition: Serious Forms: PCP List Discharge Date/Time: 03/17/24 21:36
[2024-03-17 16:27] LABS: EOSINOPHILS % (AUTO) 1.6 %; LYMPHOCYTES % (AUTO) 59.7 %; MEAN CORPUSCULAR HEMOGLOBIN 31.3 pg (27.0-31.0); MEAN CORPUSCULAR HGB CONC 32.4 g/dL (32.0-36.0); MEAN CORPUSCULAR VOLUME 96.6 fL (80.0-94.0); MEAN PLATELET VOLUME 11.5 fL (7.4-11.4); MONOCYTES % (AUTO) 33.9 %; NEUTROPHILS % (AUTO) 4.8 %; RED BLOOD COUNT 1.47 10^6/uL (4.70-6.10); RED CELL DISTRIBUTION WIDTH 18.9 % (12.0-15.0)
[2024-03-17 16:32] LABS: HGB - HEMOGLOBIN 4.6 g/dL (14.0-18.0); WHITE BLOOD COUNT 0.6 x10^3/uL (4.8-10.8)
[2024-03-17] MEDS ORDERED: metroNIDAZOLE 500 MG/100 ML 500 MG/100 ML BAG IV STA (16:32)
[2024-03-17] MEDS ORDERED: VANCOMYCIN INJ 1 GM, VANCOMYCIN INJ 500 MG in SODIUM CHLORIDE 0.9% 500 ML IV STA (16:32)
[2024-03-17 16:33] LABS: HCT - HEMATOCRIT 14.2 % (42.0-52.0); PLT - PLATELET COUNT 25 10^3/uL (130-450); SLIDE REVIEW? Indicated
[2024-03-17] MEDS ORDERED: iohexoL-300 100 ML VIAL ONE (16:33)
[2024-03-17 16:34] LABS: BAND NEUTROPHILS % (MANUAL) 0 %
--- NOTE | 2024-03-17 16:35 | XRAY Report ---
PROCEDURE: Chest 1V INDICATIONS: fever TECHNIQUE: One view of the chest was acquired. COMPARISON: Chest x-ray 02/08/2024 FINDINGS: Surgical changes and devices: None. Lungs and pleura: No pleural effusions or pneumothorax. Lungs are clear. Mediastinum: Mediastinal contours appear normal. Heart size is normal. Bones and chest wall: No suspicious bony lesions. Overlying soft tissues appear unremarkable. IMPRESSION: No acute cardiopulmonary process. Reviewed by: Savannah Ruiz MD on 03/17/2024 4:28 PM PDT Approved by: Savannah Ruiz MD on 03/17/2024 4:28 PM PDT Station ID: [id number]
[2024-03-17 16:43] LABS: ALBUMIN 3.3 g/dL (3.2-5.5); ALBUMIN/GLOBULIN RATIO 1.3 (1.0-2.2); ALKALINE PHOSPHATASE 48 IU/L (42-121); ALT ALANINE AMINOTRANSFERASE 15 IU/L (10-60); AST ASPARTATE AMINOTRANSFERASE 39 IU/L (10-42); BILIRUBIN,TOTAL 0.8 mg/dL (0.2-1.0); BUN - BLOOD UREA NITROGEN 21 mg/dL (6-20); CARBON DIOXIDE - CO2 25 mmol/L (21-32); CHLORIDE 104 mmol/L (101-111); CREATININE 0.8 mg/dL (0.6-1.3); ETOH - ETHANOL < 10.0 mg/dL; GFR - MDRD 99 (>89); GLUCOSE 129 mg/dL (74-104); POTASSIUM 3.6 mmol/L (3.5-4.5); SODIUM 135 mmol/L (135-145); TOTAL PROTEIN 5.8 g/dL (6.4-8.9)
[2024-03-17 17:05] LABS: ABNORMAL LYMPHS % (MANUAL) 9 %; BLAST CELLS % (MANUAL) 1 %; LYMPHOCYTES # (MANUAL) 0.5 10^3/uL (1.5-3.5); LYMPHOCYTES % (MANUAL) 66 %; MONOCYTES # (MANUAL) 0.1 10^3/uL (0.0-1.0); NUCLEATED RBC (MANUAL) 7 %; PROMYELOCYTES % (MANUAL) 4 %
[2024-03-17 17:09] LABS: PLATELET ESTIMATE, MANUAL DECREASED (<130,000) (NORMAL); PLATELET MORPHOLOGY NORMAL APPEARANCE (NORMAL)
[2024-03-17 17:12] LABS: DIFFERENTIAL COMMENT MANUAL DIFFERENTIAL
[2024-03-17] MEDS: CEFEPIME 2 GM in SODIUM CHLORIDE 0.9% MINIBAG 100 ML IV STA (17:17)
[2024-03-17] MEDS: iohexoL-300 100 ML VIAL IVP ONE (17:17)
--- NOTE | 2024-03-17 17:24 | CT Report ---
PROCEDURE: Abdomen/Pelvis W INDICATIONS: iv only, fever upper abd pain CONTRAST: 100ml [id number] TECHNIQUE: After the administration of intravenous contrast, a CT scan of the abdomen and pelvis was performed. Images were recorded and evaluated at appropriate window settings. Reformats: coronal and sagittal. F or radiation dose reduction, the following was used: automated exposure control, adjustment of mA and /or kV according to patient size. COMPARISON: CT 01/31/2024. FINDINGS: Image quality: Diagnostic. Lower chest: Unremarkable. Liver: No solid mass. Gallbladder: No radiopaque stones or wall thickening. Biliary tree: No intrahepatic or extrahepatic dilation, accounting for age. Spleen: No splenomegaly. Pancreas: No pancreatic ductal dilation. Adrenals: No adrenal nodule. Kidneys and ureters: No hydronephrosis. No renal cystic lesion which requires follow up. No solid mas s. Stomach, bowel and peritoneum: No gastric or small bowel dilation. No abnormal wall thickening. No pa thologic free fluid. Large colonic stool load. Lymph nodes: No central or retroperitoneal adenopathy. Vessels: No infrarenal aortic aneurysm. Patent portal vein. SVC stent in place. PELVIS Reproductive organs: Unremarkable. Bladder: No abnormal wall thickening, accounting for underdistention. Pelvic lymph nodes: No pelvic adenopathy by size criteria. Bones: Stable appearance of the L2-3 disc space, with opposing endplate sclerosis. Other: No significant ventral or inguinal hernia. IMPRESSION: Moderate colonic stool load. No acute abnormality otherwise. Reviewed by: Quan Agrawal MD on 03/17/2024 5:22 PM PDT Approved by: Quan Agrawal MD on 03/17/2024 5:22 PM PDT Station ID: [id number]
[2024-03-17] MEDS ORDERED: ACETAMINOPHEN 500 MG TABLET PO ONE (19:27)
[2024-03-17 20:09] LABS: CORONAVIRUS 229E-RESP PCR NOT DETECTED; CORONAVIRUS HKU1-RESP PCR NOT DETECTED; CORONAVIRUS NL63-RESP PCR NOT DETECTED; CORONAVIRUS OC43-RESP PCR NOT DETECTED; HUMAN METAPNEUMOVIRUS NOT DETECTED; INFLUENZA A- RESP PCR PANEL NOT DETECTED; RHINOVIRUS/ENTEROVIRUS NOT DETECTED; SARS-CoV-2 -RESP PCR PANEL NOT DETECTED
[2024-03-17 20:10] LABS: B. PARAPERTUSSIS- RESP PCR PAN NOT DETECTED; B. PERTUSSIS- RESP PCR PANEL NOT DETECTED; C. PNEUMONIAE- RESP PCR PANEL NOT DETECTED; INFLUENZA B - RESP PCR PANEL NOT DETECTED; M. PNEUMONIAE- RESP PCR PANEL NOT DETECTED; PARAINFLUENZA VIRUS 1 NOT DETECTED; PARAINFLUENZA VIRUS 2 NOT DETECTED; PARAINFLUENZA VIRUS 3 DETECTED; PARAINFLUENZA VIRUS 4 NOT DETECTED; RSV- RESP PCR PANEL NOT DETECTED
[2024-03-17 20:11] LABS: AMPHETAMINE SCREEN,URINE POSITIVE (NEGATIVE); BARBITURATE SCREEN,UR NEGATIVE (NEGATIVE); BENZODIAZEPINES SCREEN, URINE NEGATIVE (NEGATIVE); BUPRENORPHINE SCREEN, URINE NEGATIVE (NEGATIVE); CLARITY,URINE CLEAR (CLEAR); COCAINE SCREEN URINE NEGATIVE (NEGATIVE); LEUKOCYTE ESTERASE, URINE NEGATIVE (NEGATIVE); METHADONE SCREEN, URINE NEGATIVE (NEGATIVE); METHAMPHETAMINES SCREEN, URINE POSITIVE (NEGATIVE); NITRITE,URINE NEGATIVE (NEGATIVE); OCCULT BLOOD,URINE NEGATIVE (NEGATIVE); OPIATE SCREEN, URINE NEGATIVE (NEGATIVE); OXYCODONE SCREEN, URINE NEGATIVE (NEGATIVE); PROTEIN,URINE TRACE mg/dL (NEGATIVE); THC CANNABINOID SCREEN, URINE NEGATIVE (NEGATIVE); TRICYCLIC ANTIDEPRESSANT,URINE NEGATIVE (NEGATIVE); UROBILINOGEN,URINE 1 (NORMAL) E.U./dL (NORMAL)
[2024-03-17 20:12] LABS: BILIRUBIN,URINE NEGATIVE (NEGATIVE); GLUCOSE, URINE (UA) NEGATIVE (NEGATIVE); KETONES,URINE (UA) NEGATIVE (NEGATIVE)
[2024-03-17 21:41] VITALS: BP 94/60; O2SAT 98
== END 2024-03-17 21:36 | disposition short-term general hospital (02) ==
LOC: EDSEX → ED 15:53
DX: C92.00 Acute myeloblastic leukemia, not having achieved remission (principal); R50.81 Fever presenting with conditions classified elsewhere; D61.9 Aplastic anemia, unspecified; D69.6 Thrombocytopenia, unspecified; B34.8 Other viral infections of unspecified site; F15.10 Other stimulant abuse, uncomplicated; K08.109 Complete loss of teeth, unspecified cause, unspecified class; F17.200 Nicotine dependence, unspecified, uncomplicated; Z59.00 Homelessness unspecified; Z86.14 Personal history of Methicillin resistant Staphylococcus aureus infection; Z91.199 Patient's noncompliance with other medical treatment and regimen due to unspecified reason
CPT/HCPCS: 36415; 71045; 74177; 80053; 80306; 81003; 83605; 85025; 86850; 86900; 86901; 86920; 87040; 87633; 96365; 99285; A9270; G0480; J3370; Q9967; 81001; 82077; 87086

== ENCOUNTER 2024-03-28 20:55 | Emergency (ER) | payer MEDICARE, MEDICAID ==
[2024-03-28 22:10] LABS: B. PARAPERTUSSIS- RESP PCR PAN NOT DETECTED; B. PERTUSSIS- RESP PCR PANEL NOT DETECTED; C. PNEUMONIAE- RESP PCR PANEL NOT DETECTED; CORONAVIRUS 229E-RESP PCR NOT DETECTED; CORONAVIRUS HKU1-RESP PCR NOT DETECTED; CORONAVIRUS NL63-RESP PCR NOT DETECTED; CORONAVIRUS OC43-RESP PCR NOT DETECTED; HUMAN METAPNEUMOVIRUS NOT DETECTED; INFLUENZA A- RESP PCR PANEL NOT DETECTED; INFLUENZA B - RESP PCR PANEL NOT DETECTED; M. PNEUMONIAE- RESP PCR PANEL NOT DETECTED; PARAINFLUENZA VIRUS 1 NOT DETECTED; PARAINFLUENZA VIRUS 2 NOT DETECTED; PARAINFLUENZA VIRUS 3 NOT DETECTED; PARAINFLUENZA VIRUS 4 NOT DETECTED; RHINOVIRUS/ENTEROVIRUS NOT DETECTED; RSV- RESP PCR PANEL NOT DETECTED; SARS-CoV-2 -RESP PCR PANEL NOT DETECTED
--- NOTE | 2024-03-28 22:37 | ED Physician Documentation ---
History of Present Illness - Stated complaint Stated Complaint: RIB PAIN, SOA, LOU - Chief complaint Chief Complaint: General - History obtained from History obtained from: Patient - Additonal information Additional information: BIBA. HPI from patient. Patient complains of generalized weakness, dyspnea, generalized myalgias. Complains of nausea but no vomiting. He had the symptoms for 2 to 3 weeks, waxing and waning. 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 He has been transferred to [facility] 3 times over the past month. Unfortunately, he left A on all 3 of these visits. On his most recent inpatient stay at [facility] earlier this month, he did finally agree to undergo bone marrow biopsy. 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 The most recent inpatient stay at was 03/17/24 until 03/22/24; he was evaluated in this ED ([facility]) 03/17, found to again have pancytopenia including severe anemia (hgb 4.6) and neutropenic fever (febrile with ANC 0.0). He received transfusions and antibiotics while inpatient at . The patient called 911 tonight for these recurrent symptoms, worse over the past 1 to 2 days. As with previous ED evaluations, he is now stating he again wishes to be transferred to [facility] for treatment of his leukemia. Patient admits to using methamphetamines earlier today. Review of Systems Constitutional: reports: Fever, Chills, Myalgias, Fatigue Cardiac: denies: Chest pain / pressure Respiratory: reports: Dyspnea, Cough. denies: Hemoptysis GI: reports: Nausea. denies: Abdominal Pain, Vomiting : denies: Dysuria, Frequency PD PAST MEDICAL HISTORY - Past Medical History Past Medical History: Yes Cardiovascular: Peripheral Vascular Disease Respiratory: None Neuro: Other Endocrine/Autoimmune: Type 2 diabetes GI: None : Renal insuffiency HEENT: None Psych: Depression, Obsessive compulsive disorder, Other Musculoskeletal: None Derm: None - Past Surgical History Past Surgical History: Yes General: Hiatal hernia repair Cardiovascular: Coronary stent HEENT: Other - Allergies Allergies/Adverse Reactions: Allergies Allergy/AdvReac Type Severity Reaction Status Date / Time rizatriptan [From Maxalt] Allergy Itching Verified 03/28/24 21:09 - Social History Does the pt smoke?: Yes Smoking Status: Current every day smoker Does the pt drink ETOH?: No Does the pt have substance abuse?: Yes - Immunizations Immunizations are current?: Yes - POLST Patient has POLST: No PD ED PE NORMAL - Vitals Vital signs reviewed: Yes - General General: No acute distress, Other (drowsy. answers slowly with some answers tangential and/or irrelevant to question asked, but most answers are appropriate to question) - HEENT HEENT: PERRL, Other (parched mucous membranes) - Neck Neck: Supple, no meningeal sign - Cardiac Cardiac: RRR, No murmur - Respiratory Respiratory: No respiratory distress, Clear bilaterally - Abdomen Abdomen: Soft, Non tender - Derm Derm: Normal color PD ED PE EXPANDED - General General: Disheveled, poorly kept - Cardiac Cardiac: Chest wall TTP - Extremities Extremities: Pedal edema bilateral (mild bilateral ) - Psych Psych: Poor eye contact Results - Vitals Vitals: Vital Signs - 24 hr 03/28/24 03/29/24 03/29/24 21:06 00:30 02:00 Temperature 38.3 C H Heart Rate 101 H 88 89 Heart Rate [ Radial] Respiratory 18 22 24 Rate Blood Pressure 118/76 121/64 141/73 H Blood Pressure [Left Brachial artery] O2 Saturation 96 96 93 If not protocol : Oxygen Flow, liters/minute 03/29/24 03/29/24 03/29/24 03:37 04:00 04:04 Temperature 38.3 C H 37.9 C Heart Rate 89 Heart Rate [ 89 89 Radial] Respiratory 22 26 H 26 H Rate Blood Pressure 124/51 L Blood Pressure 117/74 116/62 [Left Brachial artery] O2 Saturation 99 95 94 If not protocol : Oxygen Flow, liters/minute 03/29/24 03/29/24 03/29/24 05:00 06:00 06:30 Temperature 37.7 C Heart Rate 86 92 Heart Rate [ 99 Radial] Respiratory 28 H 22 22 Rate Blood Pressure 149/80 H Blood Pressure 137/79 H [Left Brachial artery] O2 Saturation 98 98 If not protocol 2 2 : Oxygen Flow, liters/minute Oxygen O2 Source Nasal cannula Oxygen Flow Rate 2 - Labs Labs: Laboratory Tests 03/28/24 03/28/24 03/28/24 21:11 23:18 23:18 WBC 4.0 L RBC 1.89 L Hgb 6.1 L* Hct 18.2 L* MCV 96.3 H MCH 32.3 H MCHC 33.5 RDW 18.3 H Plt Count 50 L MPV 9.9 Neut # (Auto) Not Reportable Lymph # (Auto) Not Reportable Lake # (Auto) Not Reportable Eos # (Auto) Not Reportable Baso # (Auto) Not Reportable Absolute Nucleated RBC Not Reportable Total Counted 100 Band Neuts % (Manual) 0 Abnorm Lymph % (Manual) 62 Nucleated RBC % Not Reportable Neutrophils # (Manual) 0.3 L* Lymphocytes # (Manual) 3.3 Monocytes # (Manual) 0.4 Eosinophils # (Manual) 0.0 Basophils # (Manual) 0.0 Differential Comment MANUAL DIFFERENTIAL Platelet Estimate DECREASED (<130,000) RBC Morph Micro Appear NORMAL APPEARANCE Sodium 133 L Potassium 3.5 Chloride 102 Carbon Dioxide 25 Anion Gap 6.0 BUN 14 Creatinine 0.8 Estimated GFR (MDRD) 99 Glucose 128 H Lactic Acid Calcium 8.3 L Total Bilirubin 0.6 AST 25 ALT 11 Alkaline Phosphatase 50 Total Protein 6.2 L Albumin 3.3 Globulin 2.9 Albumin/Globulin Ratio 1.1 Lipase 17 Urine Color Urine Clarity Urine pH Ur Specific [place] Urine Protein Urine Glucose (UA) Urine Ketones Urine Occult Blood Urine Nitrite Urine Bilirubin Urine Urobilinogen Ur Leukocyte Esterase Urine RBC Urine WBC Ur Squamous Epith Cells Urine Bacteria Ur Microscopic Review Urine Culture Comments Nasal Adenovirus (PCR) NOT DETECTED Nasal B. parapertussis DNA (PCR) NOT DETECTED Nasal Coronavir 229E PCR NOT DETECTED Nasal Coronavir HKU1 PCR NOT DETECTED Nasal Coronavir NL63 PCR NOT DETECTED Nasal Coronavir OC43 PCR NOT DETECTED Nasal Enterovir/Rhinovir PCR NOT DETECTED Nasal Influenza B PCR NOT DETECTED Nasal Influenza A PCR NOT DETECTED Nasal Parainfluen 1 PCR NOT DETECTED Nasal Parainfluen 2 PCR NOT DETECTED Nasal Parainfluen 3 PCR NOT DETECTED Nasal Parainfluen 4 PCR NOT DETECTED Nasal RSV (PCR) NOT DETECTED Nasal B.pertussis DNA PCR NOT DETECTED Nasal C.pneumoniae (PCR) NOT DETECTED Prosper Human Metapneumo PCR NOT DETECTED Nasal M.pneumoniae (PCR) NOT DETECTED Nasal SARS-CoV-2 (PCR) NOT DETECTED Urine Opiates Screen Ur Buprenorphine Scrn Ur Oxycodone Screen Urine Methadone Screen Ur Barbiturates Screen Ur Tricyclics Screen Ur Phencyclidine Scrn Ur Amphetamine Screen U Methamphetamines Scrn U Benzodiazepines Scrn Urine Cocaine Screen U Cannabinoids Screen Ur Drug Screen Comment Ethyl Alcohol < 10.0 Blood Type Antibody Screen Crossmatch IS Only 03/28/24 03/29/24 03/29/24 23:18 00:27 01:02 WBC RBC Hgb Hct MCV MCH MCHC RDW Plt Count MPV Neut # (Auto) Lymph # (Auto) Lake # (Auto) Eos # (Auto) Baso # (Auto) Absolute Nucleated RBC Total Counted Band Neuts % (Manual) Abnorm Lymph % (Manual) Nucleated RBC % Neutrophils # (Manual) Lymphocytes # (Manual) Monocytes # (Manual) Eosinophils # (Manual) Basophils # (Manual) Differential Comment Platelet Estimate RBC Morph Micro Appear Sodium Potassium Chloride Carbon Dioxide Anion Gap BUN Creatinine Estimated GFR (MDRD) Glucose Lactic Acid 0.6 Calcium Total Bilirubin AST ALT Alkaline Phosphatase Total Protein Albumin Globulin Albumin/Globulin Ratio Lipase Urine Color DARK YELLOW Urine Clarity CLEAR Urine pH 6.0 Ur Specific [place] 1.015 Urine Protein 30 H Urine Glucose (UA) NEGATIVE Urine Ketones NEGATIVE Urine Occult Blood NEGATIVE Urine Nitrite NEGATIVE Urine Bilirubin NEGATIVE Urine Urobilinogen 4 H Ur Leukocyte Esterase NEGATIVE Urine RBC 0-5 Urine WBC 0-3 Ur Squamous Epith Cells NONE SEEN Urine Bacteria None Seen Ur Microscopic Review INDICATED Urine Culture Comments NOT INDICATED Nasal Adenovirus (PCR) Nasal B. parapertussis DNA (PCR) Nasal Coronavir 229E PCR Nasal Coronavir HKU1 PCR Nasal Coronavir NL63 PCR Nasal Coronavir OC43 PCR Nasal Enterovir/Rhinovir PCR Nasal Influenza B PCR Nasal Influenza A PCR Nasal Parainfluen 1 PCR Nasal Parainfluen 2 PCR Nasal Parainfluen 3 PCR Nasal Parainfluen 4 PCR Nasal RSV (PCR) Nasal B.pertussis DNA PCR Nasal C.pneumoniae (PCR) Prosper Human Metapneumo PCR Nasal M.pneumoniae (PCR) Nasal SARS-CoV-2 (PCR) Urine Opiates Screen NEGATIVE Ur Buprenorphine Scrn NEGATIVE Ur Oxycodone Screen NEGATIVE Urine Methadone Screen NEGATIVE Ur Barbiturates Screen NEGATIVE Ur Tricyclics Screen NEGATIVE Ur Phencyclidine Scrn NEGATIVE Ur Amphetamine Screen POSITIVE H U Methamphetamines Scrn POSITIVE H U Benzodiazepines Scrn NEGATIVE Urine Cocaine Screen NEGATIVE U Cannabinoids Screen NEGATIVE Ur Drug Screen Comment CUTOFF CONC BELOW: Ethyl Alcohol Blood Type O POSITIVE Antibody Screen NEGATIVE Crossmatch IS Only See Detail - Rads (name of study) chest xray Relevant Findings:: Prelim report reviewed, See rad report PD Medical Decision Making - ED course Complexity details: reviewed old records, reviewed results, re-evaluated patient, considered differential, d/w patient ED course: Patient presents with complaint of recurrent but recently worsening generalized weakness, myalgias, shortness of air. He is again found to be pancytopenic with severe anemia (hemoglobin 6.1) and neutropenia (ANC 300 although WBC is 4.0). Respiratory PCR panel is negative for the viruses tested on this panel including COVID, influenza. Unremarkable urinalysis; UA results are not suggestive of UTI. Chest x-ray without focal infiltrate although a diffuse bilateral reticulonodular pattern is noted. He is febrile on presentation (38.3 Celsius). Urine drug screen is positive for methamphetamines. No notable findings on ER abdominal panel (mild hyponatremia with sodium of 133). Patient is transfused 1 unit of PRBC. Patient will almost certainly require further transfusion; only 1 unit was ordered in anticipation of transfer before he would receive more than the single unit.However, the transfusion was completed prior to transfer. Patient was also given 2 g IV cefepime, 1 g IV vancomycin. These were given for his neutropenic fever with the vancomycin coverage due to history of MRSA. After I discussed this case with the hospitalist at [facility], he is also given 500 mg IV Zithromax; this was at the [facility] hospitalist's request to cover possible respiratory infection based on the abnormal chest x-ray. I discussed this case with Dr. Teague ([facility] hospitalist). He accepts this patient for transfer for to [facility]. The patient was held in the ED for the remainder of my shift pending bed availability which is anticipated shortly after 7 AM when there will be increased staffing available. During ED stay, patient complained of increasing generalized myalgias and pain for which he is given 1mg IV dilaudid with good analgesia achieved. Departure - Departure Disposition: 02 Transfer Acute Care Hosp Clinical Impression: Pancytopenia, Neutropenic fever Condition: Poor Forms: PCP List
[2024-03-28 23:31] LABS: LYMPHOCYTES % (AUTO) 17.7 %; MEAN CORPUSCULAR HEMOGLOBIN 32.3 pg (27.0-31.0); MEAN CORPUSCULAR HGB CONC 33.5 g/dL (32.0-36.0); MEAN CORPUSCULAR VOLUME 96.3 fL (80.0-94.0); MEAN PLATELET VOLUME 9.9 fL (7.4-11.4); MONOCYTES % (AUTO) 79.5 %; PLT - PLATELET COUNT 50 10^3/uL (130-450); RED BLOOD COUNT 1.89 10^6/uL (4.70-6.10); RED CELL DISTRIBUTION WIDTH 18.3 % (12.0-15.0)
--- NOTE | 2024-03-28 23:33 | XRAY Report ---
PROCEDURE: Chest 1V INDICATIONS: chest pain TECHNIQUE: One view of the chest was acquired. COMPARISON: 03/17/2024 FINDINGS: Surgical changes and devices: None. Lungs and pleura: Diffuse bilateral reticulonodular interstitial thickening. Low lung volumes. No de nse consolidation, large effusion, or pneumothorax. Mediastinum: Cardiomegaly mediastinal contours accentuated by low lung volumes. Bones and chest wall: No suspicious bony lesions. Overlying soft tissues appear unremarkable. IMPRESSION: Diffuse reticulonodular process accentuated by low lung volumes. This can be seen in viral pneumoniti s, pulmonary edema, or inflammation. Reviewed by: Geovanna Espinoza MD on 03/28/2024 11:32 PM PDT Approved by: Geovanna Espinoza MD on 03/28/2024 11:32 PM PDT Station ID: [id number]
[2024-03-28 23:36] LABS: HGB - HEMOGLOBIN 6.1 g/dL (14.0-18.0)
[2024-03-28 23:37] LABS: HCT - HEMATOCRIT 18.2 % (42.0-52.0)
[2024-03-28 23:38] LABS: BAND NEUTROPHILS % (MANUAL) 0 %
[2024-03-28 23:49] LABS: ALBUMIN 3.3 g/dL (3.2-5.5); ALBUMIN/GLOBULIN RATIO 1.1 (1.0-2.2); ALKALINE PHOSPHATASE 50 IU/L (42-121); ALT ALANINE AMINOTRANSFERASE 11 IU/L (10-60); AST ASPARTATE AMINOTRANSFERASE 25 IU/L (10-42); BILIRUBIN,TOTAL 0.6 mg/dL (0.2-1.0); BUN - BLOOD UREA NITROGEN 14 mg/dL (6-20); CALCIUM 8.3 mg/dL (8.5-10.3); CARBON DIOXIDE - CO2 25 mmol/L (21-32); CHLORIDE 102 mmol/L (101-111); CREATININE 0.8 mg/dL (0.6-1.3); ETOH - ETHANOL < 10.0 mg/dL; GFR - MDRD 99 (>89); GLUCOSE 128 mg/dL (74-104); LIPASE 17 U/L (11-82); POTASSIUM 3.5 mmol/L (3.5-4.5); SODIUM 133 mmol/L (135-145); TOTAL PROTEIN 6.2 g/dL (6.4-8.9)
[2024-03-29 00:05] LABS: ABNORMAL LYMPHS % (MANUAL) 62 %; DIFFERENTIAL COMMENT MANUAL DIFFERENTIAL; LYMPHOCYTES # (MANUAL) 3.3 10^3/uL (1.5-3.5); LYMPHOCYTES % (MANUAL) 21 %; MONOCYTES # (MANUAL) 0.4 10^3/uL (0.0-1.0); NEUTROPHILS # (MANUAL) 0.3 10^3/uL (1.5-6.6); PLATELET ESTIMATE, MANUAL DECREASED (<130,000) (NORMAL); RBC MORPHOLOGY (MULTIPLE) NORMAL APPEARANCE (NORMAL)
[2024-03-29] MEDS ORDERED: VANCOMYCIN 1 GM VIAL ONE (01:09)
[2024-03-29 01:10] LABS: BILIRUBIN,URINE NEGATIVE (NEGATIVE); GLUCOSE, URINE (UA) NEGATIVE (NEGATIVE); KETONES,URINE (UA) NEGATIVE (NEGATIVE); LEUKOCYTE ESTERASE, URINE NEGATIVE (NEGATIVE); NITRITE,URINE NEGATIVE (NEGATIVE); OCCULT BLOOD,URINE NEGATIVE (NEGATIVE); PROTEIN,URINE 30 mg/dL (NEGATIVE); UROBILINOGEN,URINE 4 E.U./dL (NORMAL)
[2024-03-29 01:13] LABS: CLARITY,URINE CLEAR (CLEAR)
[2024-03-29 01:16] LABS: BACTERIA,URINE None Seen /HPF (None Seen); RBC,URINE 0-5 /HPF (0-5); SQUAMOUS EPITHELIAL CELL,UR NONE SEEN (<= Few); WBC,URINE 0-3 /HPF (0-3)
[2024-03-29] MEDS: CEFEPIME 2 GM in SODIUM CHLORIDE 0.9% MINIBAG 100 ML IV STA (01:23)
[2024-03-29] MEDS: ACETAMINOPHEN 325 MG TABLET PO STA (01:23)
[2024-03-29] MEDS: SODIUM CHLORIDE 0.9% 1,000 ML IV STA (01:24)
[2024-03-29 01:32] LABS: AMPHETAMINE SCREEN,URINE POSITIVE (NEGATIVE); BARBITURATE SCREEN,UR NEGATIVE (NEGATIVE); BENZODIAZEPINES SCREEN, URINE NEGATIVE (NEGATIVE); BUPRENORPHINE SCREEN, URINE NEGATIVE (NEGATIVE); COCAINE SCREEN URINE NEGATIVE (NEGATIVE); METHADONE SCREEN, URINE NEGATIVE (NEGATIVE); METHAMPHETAMINES SCREEN, URINE POSITIVE (NEGATIVE); OPIATE SCREEN, URINE NEGATIVE (NEGATIVE); OXYCODONE SCREEN, URINE NEGATIVE (NEGATIVE); THC CANNABINOID SCREEN, URINE NEGATIVE (NEGATIVE); TRICYCLIC ANTIDEPRESSANT,URINE NEGATIVE (NEGATIVE)
[2024-03-29] MEDS: AZITHROMYCIN INJ 500 MG in SODIUM CHLORIDE 0.9% 250 ML IV STA (02:21)
[2024-03-29] MEDS: VANCOMYCIN INJ 1 GM in SODIUM CHLORIDE 0.9% 500 ML IV STA (03:31)
[2024-03-29] MEDS: ALBUTEROL NEB 2.5 MG/3 ML INH STA (05:00)
[2024-03-29] MEDS: HYDROmorphone 1 MG/ML CARPUJECT IVP STA ×2 (05:23→08:41)
[2024-03-29 08:28] VITALS: BP 133/76; O2SAT 92
== END 2024-03-29 09:23 | disposition short-term general hospital (02) ==
LOC: EDUNIT# → ED 20:55
DX: D61.818 Other pancytopenia (principal); D70.9 Neutropenia, unspecified; R50.81 Fever presenting with conditions classified elsewhere; D64.9 Anemia, unspecified; M79.10 Myalgia, unspecified site; R60.0 Localized edema; E11.9 Type 2 diabetes mellitus without complications; F17.200 Nicotine dependence, unspecified, uncomplicated
CPT/HCPCS: 36415; 36430; 71045; 80053; 80306; 81001; 83605; 83690; 85025; 86850; 86900; 86901; 86920; 87040; 87633; 94640; 94664; 96365; 96366; 96367; 96368; 96375; 96376; 99285; A9270; G0480; J1170; J3370; P9040; 81003; 82077; 87086